=== PATIENT | female | born 1960 | race Caucasian/White ===

== ENCOUNTER 2020-07-03 13:26 | Outpatient (REF) | payer OTHER, SELFPAY ==
[2020-07-03 15:46] LABS: Cholesterol 209 mg/dL; HDL Cholesterol 65 mg/dL; LDL Cholesterol Calculated 134 mg/dl; Triglycerides 54 mg/dL
== END 2020-07-03 13:27 | disposition home or self-care (01) ==
LOC: HO.HMGCLDS 13:26
PROVIDERS: PCP Internal Medicine; Visit Provider Internal Medicine
DX: E78.2 Mixed hyperlipidemia (principal)
CPT/HCPCS: 80061

== ENCOUNTER → 2021-02-07 15:20 | Outpatient (BNVA) | payer OTHER, SELFPAY | PROVIDERS: PCP Internal Medicine; Referring Provider Internal Medicine; Visit Provider Surgery | DX: R10.9 Unspecified abdominal pain (principal) | CPT/HCPCS: 99212 ==

== ENCOUNTER 2021-03-12 16:20 | Emergency (ER) | payer OTHER, SELFPAY ==
[2021-03-12] VITALS (7 sets, daily range): BP systolic 166–209; BP diastolic 83–110; PULSE 49–82; RESP 14–18; TEMP 36.6–36.8; O2SAT 96–99; BMI 26.5
--- NOTE | ~2021-03-12 | CT_ITS ---
EXAMINATION: CT ABDOMEN AND PELVIS WITH CONTRAST CLINICAL INFORMATION: Mid abdominal pain. Leukocytosis. COMPARISON: CT abdomen and pelvis 12/11/2019 TECHNIQUE: Multidetector volumetric images were obtained from the superior aspect of the liver through the pubic symphysis following administration 85 mL of Omnipaque 350 intravenous contrast. Sagittal and coronal reformatted images were obtained on the technologist's workstation. Oral contrast: No This CT examination was performed using dose optimization techniques as appropriate, variously including the following: *Automated exposure control *Adjustment of mA and/or kV according to patient size (this includes techniques or standardized protocols for targeted exams where dose is matched to indication/reason for exam; i.e. extremities or head) *Use of iterative reconstruction technique DLP: 556 mGy-cm FINDINGS: LUNG BASES: Motion artifact degrades image quality in the lung bases. Some linear atelectasis in both lung bases. LIVER, GALLBLADDER, AND BILIARY TREE: The liver is normal in size, shape, and attenuation. No focal hepatic lesion or biliary ductal dilatation is present. The gallbladder is unremarkable with no evidence of radiopaque gallstones, gallbladder wall thickening, or obvious pericholecystic inflammatory changes. PANCREAS: Unremarkable. SPLEEN: Unremarkable. ADRENAL GLANDS: A heterogeneous 2.8 cm lesion in the right adrenal gland is unchanged, previous imaging demonstrated this to measure less than 10 Hounsfield units, this is most consistent with an adenoma. KIDNEYS AND URETERS: The kidneys enhance symmetrically. No hydronephrosis. A 1.4 cm cyst in the midpole of the left kidney does not require imaging follow-up. A 5 mm fat attenuation lesion in the mid/upper pole of the left kidney likely represents a small angiomyolipoma. BLADDER: Unremarkable. GASTROINTESTINAL TRACT: The small and large bowel are unremarkable. The appendix is unremarkable. ABDOMINAL WALL: There appears to be a recurrent defect in the anterior abdominal wall with a fat-containing hernia defect. The fascial defect measures approximately 6 mm (4, 306/621). No associated fluid collection LYMPH NODES: No lymphadenopathy. VASCULAR: Some atherosclerotic plaque throughout the aorta PELVIC VISCERA: Uterus is surgically absent. OSSEOUS STRUCTURES: No destructive bony lesions. Grade 1 anterolisthesis of L4 on L5. CT/CT abdomen pelvis w con IMPRESSION: 1. Suspect recurrence in the periumbilical fat-containing hernia with a small 6 mm fascial defect. No associated organized fluid collection. Minimal inflammatory changes associated with the fat within the hernia. 2. 2.8 cm left adrenal adenoma.
--- NOTE | 2021-03-12 17:30 | ED.ABDPAIN ---
HPI - Abdominal Pain General Chief Complaint: General Medical Stated Complaint: Chest pain Time Seen by Provider: 03/12/21 17:28 Source: patient Mode of arrival: ambulatory Limitations: no limitations History of Present Illness HPI narrative: Patient has history of asthma, hypothyroidism been complaining of epigastric pain with for last 2 days unable to history of same in the past. Also complaining of chills no diarrhea no fever no urinary complaints does have dry cough chronic. Patient denies any history of coronary artery disease pain stays in the epigastric area and goes to midsternal without any radiation Related Data Home Medications Medication Instructions Recorded Confirmed acetaminophen 650 mg mg PO 07/04/20 07/04/20 tablet,extended release albuterol sulfate 90 mcg/actuation 2 puff PO Q6H PRN 07/04/20 07/04/20 aerosol inhaler ibuprofen 800 mg tablet 800 mg PO TID 07/04/20 07/04/20 levothyroxine 50 mcg tablet 50 mcg PO DAILY 07/04/20 07/04/20 cyclobenzaprine 5 mg tablet 5 mg PO TID PRN 02/07/21 gabapentin 100 mg capsule 100 mg PO TID 02/07/21 ibuprofen 600 mg tablet 600 mg PO Q6H 02/07/21 lidocaine 5 % topical patch 1 patch TOPICAL DAILY 02/07/21 Previous Rx's Medication Instructions Recorded ondansetron 4 mg disintegrating 4 mg PO Q6-8H PRN #7 tab 03/12/21 tablet Allergies Allergy/AdvReac Type Severity Reaction Status Date / Time Penicillins [PENICILLINS] Allergy Intermediate RASH Verified 02/07/21 15:25 codeine [CODEINE] Allergy Mild RASH Verified 02/07/21 15:25 penicillin V Allergy Unknown unknown Verified 02/07/21 15:25 meloxicam AdvReac Unknown vomiting Verified 02/07/21 15:25 Review of Systems Review of Systems Yes all other systems are reviewed and are negative Physical Exam Vital Signs: Vital Signs: Last Vital Signs Temp 98.2 F 03/12/21 22:51 Pulse 82 03/12/21 23:31 Resp 17 03/12/21 23:31 BP 183/84 H 03/12/21 23:31 Pulse Ox 97 03/12/21 23:31 Body Mass Index 26.5 Appearance: Alert. Oriented X3. No acute distress. Eyes: PERRLA, No Nystagmus ENT: Pharynx normal. Oral Mucosa moist Neck: Normal inspection. Neck supple. CVS: Normal heart rate and rhythm. Pulses normal. Respiratory: No respiratory distress. Equal air entry bilateral, no wheezing/rales/rhonchi Abdomen: Soft , epigastric tenderness+ no rebound tenderness or guarding. Bowel sounds are present, no mass palpable, no CVA tenderness Skin: Skin warm and dry. Normal skin color. Normal skin turgor. Extremities: No lower extremity edema. No calf tenderness Neuro: Oriented X 3. MDM - Abdominal Pain MDM Narrative Medical decision making narrative: Patient's leukocytosis likely from vomiting and volume depletion no source of infection CT scan of the abdomen was negative for any acute pathology patient received IV fluids feeling much better high sensitive troponin without any significant delta change no acute EKG changes discharge patient home Medical Records Attestation: I reviewed the patient's medical records. Lab Data Attestation: I reviewed the patient's lab results. Result diagrams: 03/12/21 18:16 03/12/21 18:16 Labs: Lab Results 03/12/21 03/12/21 03/12/21 Range/Units 18:16 18:16 18:16 WBC 17.1 H (4.8-10.8) X10*3/uL RBC 4.10 L (4.20-5.50) X10*6/uL Hgb 12.8 (12.0-16.0) g/dl Hct 37.4 (37-47) % MCV 91.2 (80-98) fL MCH 31.2 (27.0-33.0) pg MCHC 34.2 (31.0-35.0) g/dl RDW 14.1 (11.0-16.0) % Plt Count 332 (160-400) X10*3/uL MPV 10.4 (9.4-12.3) fL Immature Gran % (Auto) 1.2 H (0.0-0.4) % Neut % (Auto) 85.7 H (45-73) % Lymph % (Auto) 8.5 L (20-40) % [place] % (Auto) 4.4 (2-11) % Eos % (Auto) 0.0 (0-4) % Baso % (Auto) 0.2 (0-2) % Lymph # (Auto) 1.5 (1.2-4.9) X10*3/uL [place] # (Auto) 0.8 (0.1-1.2) X10*3/uL Eos # (Auto) 0.0 (0.0-0.4) X10*3/uL Baso # (Auto) 0.0 (0.0-0.2) X10*3/uL Abs Immat Gran (auto) 0.20 H (0.00-0.03) X10*3/uL Absolute Neuts (auto) 14.6 H (2.0-8.3) X10*3/uL Absolute Nucleated RBC 0.000 (0.0-0.012) X10*3/uL Nucleated RBC % (auto) 0.0 (0.0-0.2) /100WBC Sodium 140 (135-145) mmol/L Potassium 3.5 (3.3-5.1) mmol/L Chloride 105 (96-108) mmol/L Carbon Dioxide 21 L (22-29) mmol/L Anion Gap 18 (12-20) BUN 14 (9-16) mg/dL Creatinine 0.69 (0.5-1.4) mg/dL Estim Creat Clear Calc 78.1 Estimated GFR > 60 Random Glucose 139 H (60-115) mg/dL Calcium 9.7 (8.4-10.2) mg/dL Total Bilirubin 0.4 (0.0-1.0) mg/dL AST 13 (5-31) U/L ALT 13 (0-31) U/L Alkaline Phosphatase 79 (39-117) U/L Troponin I High Sens (<3.5-17.0) ng/L Total Protein 7.2 (6.5-8.0) g/dL Albumin 4.7 (3.5-5.0) g/dL Lipase 6 L (8-78) U/L Urine Color Urine Appearance Urine pH (5.0-8.0) Ur Specific [place] (1.005-1.025) Urine Protein (NEG-TRACE) MG/DL Urine Glucose (UA) (NEG) MG/DL Urine Ketones (NEG) MG/DL Urine Blood (NEG) Urine Nitrite (NEG) Ur Leukocyte Esterase (NEG) Urine RBC (0) /HPF Urine WBC (0-4) /HPF Ur Squamous Epith Cells /LPF Urine Bacteria /LPF Hyaline Casts /LPF COVID-19 (KATERINE) Negative (Negative) COVID-19 Clin Com See Note 03/12/21 03/12/21 03/12/21 Range/Units 18:16 19:05 22:42 WBC (4.8-10.8) X10*3/uL RBC (4.20-5.50) X10*6/uL Hgb (12.0-16.0) g/dl Hct (37-47) % MCV (80-98) fL MCH (27.0-33.0) pg MCHC (31.0-35.0) g/dl RDW (11.0-16.0) % Plt Count (160-400) X10*3/uL MPV (9.4-12.3) fL Immature Gran % (Auto) (0.0-0.4) % Neut % (Auto) (45-73) % Lymph % (Auto) (20-40) % [place] % (Auto) (2-11) % Eos % (Auto) (0-4) % Baso % (Auto) (0-2) % Lymph # (Auto) (1.2-4.9) X10*3/uL [place] # (Auto) (0.1-1.2) X10*3/uL Eos # (Auto) (0.0-0.4) X10*3/uL Baso # (Auto) (0.0-0.2) X10*3/uL Abs Immat Gran (auto) (0.00-0.03) X10*3/uL Absolute Neuts (auto) (2.0-8.3) X10*3/uL Absolute Nucleated RBC (0.0-0.012) X10*3/uL Nucleated RBC % (auto) (0.0-0.2) /100WBC Sodium (135-145) mmol/L Potassium (3.3-5.1) mmol/L Chloride (96-108) mmol/L Carbon Dioxide (22-29) mmol/L Anion Gap (12-20) BUN (9-16) mg/dL Creatinine (0.5-1.4) mg/dL Estim Creat Clear Calc Estimated GFR Random Glucose (60-115) mg/dL Calcium (8.4-10.2) mg/dL Total Bilirubin (0.0-1.0) mg/dL AST (5-31) U/L ALT (0-31) U/L Alkaline Phosphatase (39-117) U/L Troponin I High Sens 4.0 5.4 (<3.5-17.0) ng/L Total Protein (6.5-8.0) g/dL Albumin (3.5-5.0) g/dL Lipase (8-78) U/L Urine Color STRAW Urine Appearance CLEAR Urine pH 6.0 (5.0-8.0) Ur Specific [place] 1.025 (1.005-1.025) Urine Protein 1+ H (NEG-TRACE) MG/DL Urine Glucose (UA) NEG (NEG) MG/DL Urine Ketones >=80 (NEG) MG/DL Urine Blood 1+ H (NEG) Urine Nitrite NEG (NEG) Ur Leukocyte Esterase NEG (NEG) Urine RBC 0-2 (0) /HPF Urine WBC 0-2 (0-4) /HPF Ur Squamous Epith Cells TRACE /LPF Urine Bacteria NONE /LPF Hyaline Casts 0-2 /LPF COVID-19 (KATERINE) (Negative) COVID-19 Clin Com Discharge Plan Discharge Clinical Impression: Acute gastroenteritis Patient Disposition: Home, Self-Care Instructions: Acute Nausea and Vomiting (ED) Additional Instructions: Drink plenty of fluids Medicine for nausea as advised Follow with PCP if not better Prescriptions: New ondansetron 4 mg tablet,disintegrating 4 mg PO Q6-8H PRN (Reason: nausea and vomiting) Qty: 7 RF: 0 No Action levothyroxine 50 mcg tablet 50 mcg PO DAILY RF: 0 acetaminophen 650 mg tablet extended release PO RF: 0 ibuprofen 800 mg tablet 800 mg PO TID RF: 0 albuterol sulfate 90 mcg/actuation HFA aerosol inhaler 2 puff PO Q6H PRNRF: 0 gabapentin 100 mg capsule 100 mg PO TID RF: 0 ibuprofen 600 mg tablet 600 mg PO Q6H RF: 0 lidocaine 5 % adhesive patch,medicated 1 patch topical DAILY RF: 0 cyclobenzaprine 5 mg tablet 5 mg PO TID PRNRF: 0 PMFSH Past Medical History Medical History Abdominal pain Arthritis Asthma Carpal tunnel syndrome of right wrist History of mammogram Hyperlipidemia Hypertension Hypothyroidism Positive colorectal cancer screening using Cologuard test Raynaud disease Tibia fracture Surgical History History of hysterectomy History of umbilical hernia repair S/P hysterectomy Family History Family History Father Stroke Mother No problems noted. Brother No problems noted. Sister No problems noted. Sister No problems noted. Sister No problems noted. Son No problems noted. Daughter No problems noted. Social History Social History Advance Directives: No Advance Directives Information Provided: No Patient : No
--- NOTE | 2021-03-12 17:39 | ECG_ITS ---
Test Reason : CP Blood Pressure : / mmHG Vent. Rate : 074 BPM Atrial Rate : 074 BPM P-R Int : 134 ms QRS Dur : 082 ms QT Int : 452 ms P-R-T Axes : 036 -01 063 degrees QTc Int : 501 ms Normal sinus rhythm Nonspecific ST and T wave abnormality Prolonged QT Abnormal ECG When compared with ECG of 24-SEP-2019 13:47, ST now depressed in Inferior leads Referred By: Dalton Olsen Electronically Signed By:ALYSON SULLIVAN
[2021-03-12] MEDS: ondansetron HCL 4 MG/2 ML VIAL IVPUSH ×2 (17:50→20:26)
[2021-03-12] MEDS: 0.9 % Sodium Chloride 1,000 ML 999 ML IVCONT ×2 (17:50→22:51)
[2021-03-12] MEDS: Famotidine/PF 20 MG/2 ML VIAL IVPUSH (17:52)
[2021-03-12 18:23] LABS: MANUAL DIFF FLAG NO
[2021-03-12 18:28] LABS: Basophils Percent Auto 0.2 % (0-2); Hematocrit 37.4 % (37-47); Hemoglobin 12.8 g/dl (12.0-16.0); Imm Gran Pct Auto 1.2 % (0.0-0.4); Lymphocytes Absolute Auto 1.5 X10*3/uL (1.2-4.9); Lymphocytes Percent Auto 8.5 % (20-40); Mean Corpuscular HGB Conc 34.2 g/dl (31.0-35.0); Mean Corpuscular Hemoglobin 31.2 pg (27.0-33.0); Mean Corpuscular Volume 91.2 fL (80-98); Mean Platelet Volume 10.4 fL (9.4-12.3); Monocytes Absolute Auto 0.8 X10*3/uL (0.1-1.2); Monocytes Percent Auto 4.4 % (2-11); Neutrophils Absolute Auto 14.6 X10*3/uL (2.0-8.3); Neutrophils Percent Auto 85.7 % (45-73); Platelet Count 332 X10*3/uL (160-400); Red Cell Distribution Width 14.1 % (11.0-16.0); White Blood Count 17.1 X10*3/uL (4.8-10.8)
[2021-03-12 18:40] LABS: COVID-19 Test Negative (Negative)
[2021-03-12 18:41] LABS: Alanine Aminotransferase 13 U/L (0-31); Albumin Level 4.7 g/dL (3.5-5.0); Alkaline Phosphatase 79 U/L (39-117); Anion Gap 18 (12-20); Aspartate Amino Transferase 13 U/L (5-31); Bilirubin Total 0.4 mg/dL (0.0-1.0); Blood Urea Nitrogen 14 mg/dL (9-16); Calcium 9.7 mg/dL (8.4-10.2); Carbon Dioxide 21 mmol/L (22-29); Chloride 105 mmol/L (96-108); Creatinine Clr Calc Pharmacy 78.1; Estimated Glomerular Filt Rate > 60; Glucose Random 139 mg/dL (60-115); Lipase 6 U/L (8-78); Potassium 3.5 mmol/L (3.3-5.1); Sodium 140 mmol/L (135-145); Total Protein 7.2 g/dL (6.5-8.0)
[2021-03-12 19:13] LABS: Glucose Urine UA NEG (NEG); Leukocyte Esterase Urine NEG (NEG); Nitrite Urine NEG (NEG); Specific Gravity - Urine 1.025 (1.005-1.025); UACC Culture Trigger NO; Urine Blood 1+ (NEG); Urine Ketones >=80 MG/DL (NEG); Urine Protein 1+ MG/DL (NEG-TRACE)
[2021-03-12 19:15] LABS: Appearance Urine CLEAR; Color Urine STRAW
[2021-03-12 19:24] LABS: RBC Urine 0-2 /HPF (0); WBC Urine 0-2 /HPF (0-4)
[2021-03-12 19:25] LABS: Hyaline Casts Urine 0-2 /LPF; Squamous Epithelial Cell Urine TRACE /LPF
[2021-03-12] MEDS: iohexoL 350 MG/ML 100 ML INFUS..BTL IV (20:20)
[2021-03-12] MEDS: Morphine Sulfate 4 MG/ML CARTRIDGE IVPUSH (20:27)
[2021-03-12 23:06] LABS: Troponin-I High Sensitivity 5.4 ng/L (<3.5-17.0)
== END 2021-03-13 00:06 | disposition home or self-care (01) ==
PROVIDERS: Emergency Provider Internal Medicine; PCP Internal Medicine
DX: K52.9 Noninfective gastroenteritis and colitis, unspecified (principal); R07.9 Chest pain, unspecified; Z79.899 Other long term (current) drug therapy; Z20.822 Contact with and (suspected) exposure to COVID-19
CPT/HCPCS: 36415; 74177; 80053; 81001; 83690; 84484; 85025; 87635; 93005; 96361; 96374; 96375; 96376; 99284; J2270; J2405; Q9967

== ENCOUNTER 2021-05-14 11:26 | Emergency (ER) | payer OTHER, SELFPAY ==
[2021-05-14 12:39] VITALS: BP 219/130; PULSE 73; RESP 18; TEMP 35.9; O2SAT 99; BMI 25.6
[2021-05-14] MEDS: Ondansetron ODT 4 MG TAB.RAPDIS TRANSLINGU (12:45)
[2021-05-14 13:09] LABS: MANUAL DIFF FLAG NO
[2021-05-14 13:14] LABS: Basophils Percent Auto 0.2 % (0-2); Eosinophils Percent Auto 0.1 % (0-4); Hematocrit 40.7 % (37.0-47.0); Hemoglobin 13.8 g/dl (12.0-16.0); Imm Gran Abs Auto 0.05 X10*3/uL (0.00-0.03); Imm Gran Pct Auto 0.3 % (0.0-0.4); Lymphocytes Absolute Auto 1.8 X10*3/uL (1.2-4.9); Lymphocytes Percent Auto 10.8 % (20-40); Mean Corpuscular HGB Conc 33.9 g/dl (31.0-35.0); Mean Corpuscular Hemoglobin 31.1 pg (27.0-33.0); Mean Corpuscular Volume 91.7 fL (80.0-98.0); Mean Platelet Volume 11.4 fL (9.4-12.3); Monocytes Absolute Auto 0.3 X10*3/uL (0.1-1.2); Neutrophils Absolute Auto 14.05 x10*3/uL (2.0-8.3); Neutrophils Percent Auto 86.6 % (45-73); Platelet Count 308 X10*3/uL (160-400); Red Blood Count 4.44 X10*6/uL (4.20-5.50); Red Cell Distribution Width 13.9 % (11.0-16.0); White Blood Count 16.2 X10*3/uL (4.8-10.8)
--- NOTE | 2021-05-14 13:15 | ECG_ITS ---
Test Reason : NAUSEA/VOMITING Blood Pressure : / mmHG Vent. Rate : 053 BPM Atrial Rate : 053 BPM P-R Int : 158 ms QRS Dur : 098 ms QT Int : 482 ms P-R-T Axes : 053 -01 036 degrees QTc Int : 452 ms Sinus bradycardia with sinus arrhythmia Possible Left atrial enlargement Otherwise normal ECG When compared with ECG of 12-MAR-2021 16:26, No significant changes seen Referred By: Phyllis Cai Electronically Signed By:CLARK ROBIN MD
--- NOTE | 2021-05-14 13:16 | ED_ITS ---
HPI - Nausea/Vomiting/Diarrhea General Chief complaint: Nausea/Vomiting/Diarrhea Stated complaint: vomiting Time Seen by Provider: 05/14/21 13:14 Source: patient Mode of arrival: ambulatory Limitations: no limitations History of Present Illness MD elicited complaint: nausea, vomiting and abdominal pain Pertinent past history: other (hx of same recently smokes THC daily for 30 years) Onset (ago): month(s) (1) Description of vomiting: food contents and watery Associated nausea: Yes Associated abdominal pain: Yes Location of pain: epigastric Pain consistency: constant Severity: moderate Quality: aching Exacerbating factors: eating and vomiting Relieving factors: none Context: marijuana use Associated symptoms: loss of appetite, malaise, nausea/vomiting and weakness Related Data Home Medications Medication Instructions Recorded Confirmed acetaminophen 650 mg mg PO 07/04/20 03/27/21 tablet,extended release albuterol sulfate 90 mcg/actuation 2 puff PO Q6H PRN 07/04/20 03/27/21 aerosol inhaler ibuprofen 800 mg tablet 800 mg PO TID 07/04/20 03/27/21 levothyroxine 50 mcg tablet 50 mcg PO DAILY 07/04/20 03/27/21 cyclobenzaprine 5 mg tablet 5 mg PO TID PRN 02/07/21 03/27/21 gabapentin 100 mg capsule 100 mg PO TID 02/07/21 03/27/21 ibuprofen 600 mg tablet 600 mg PO Q6H 02/07/21 03/27/21 lidocaine 5 % topical patch 1 patch TOPICAL DAILY 02/07/21 03/27/21 Previous Rx's Medication Instructions Recorded ondansetron 4 mg disintegrating 4 mg PO Q6-8H PRN #7 tab 03/12/21 tablet gabapentin 300 mg capsule 300 mg PO TID #90 cap 03/27/21 omeprazole 40 mg capsule,delayed 40 mg PO DAILY #90 cap 03/27/21 release ondansetron 4 mg disintegrating 4 mg PO Q8H PRN #20 tab 05/14/21 tablet promethazine 25 mg rectal 25 mg [place] Q6H PRN #12 ea 05/14/21 suppository Allergies Allergy/AdvReac Type Severity Reaction Status Date / Time Penicillins [PENICILLINS] Allergy Intermediate RASH Verified 03/27/21 11:05 codeine [CODEINE] Allergy Mild RASH Verified 03/27/21 11:05 penicillin V Allergy Unknown unknown Verified 03/27/21 11:05 meloxicam AdvReac Unknown vomiting Verified 03/27/21 11:05 Review of Systems Review of Systems: Constitutional : No Weight loss, No Fever, No Chills ENT/Mouth : No sore throat, No Rhinorrhea Eyes: No Swelling, No Redness Cardiovascular : No Chest Pain, No SOB, NoEdema Respiratory : No Cough, No Sputum, No Wheezing Gastrointestinal : Positive Nausea, Positive Vomiting, no Diarrhea, positive abdominal Pain, No Hematochezia, No Melena Genitourinary : No Dysuria, No Urinary Frequency, No Hematuria, No Urgency Musculoskeletal : No joint pain, No Myalgias, No Joint Swelling Skin : No Skin Lesions, No rash Neuro : pos Weakness, No Numbness, No Dizziness, No Headache Psych : No Anxiety/Panic, No Depression Heme/Lymph: No Bruising, No Lymphadenopathy Endocrine : No Polyuria, No Polydipsia All other systems reviewed and are negative. Gastrointestinal: Gastrointestinal: Reports nausea PMFSH Past Medical History Attestation statement: The following information was validated with the patient. Medical History Abdominal pain Arthritis Asthma Carpal tunnel syndrome of right wrist Compression fracture of body of thoracic vertebra Gastritis History of mammogram Hyperlipidemia Hypertension Hypothyroidism Positive colorectal cancer screening using Cologuard test Raynaud disease Tibia fracture Surgical History History of hysterectomy History of umbilical hernia repair S/P hysterectomy Family History Family History Father Stroke Mother No problems noted. Brother No problems noted. Sister No problems noted. Sister No problems noted. Sister No problems noted. Son No problems noted. Daughter No problems noted. Social History Social History Patient Tobacco Use Status: Current everyday Tobacco user e-Cigarette/Vaping Use: Never Used Advance Directives: No Advance Directives Information Provided: No Patient : No Current occupational status: unemployed Physical Exam Vital Signs: Vital Signs: Last Vital Signs Temp 96.7 F L 05/14/21 12:39 Pulse 63 05/14/21 15:24 Resp 18 05/14/21 15:24 BP 127/68 05/14/21 15:24 Pulse Ox 93 05/14/21 15:24 Body Mass Index 25.6 Appearance: Alert. Oriented X3. Anxious mild acute distress. Eyes: Pupils equal, round and reactive to light. ENT: Pharynx mild dry MM Neck: Normal inspection. Neck supple. CVS: Normal heart rate and rhythm. Pulses normal. Respiratory: No respiratory distress. Breath sounds normal. Abdomen: Soft and mild epigatric ttp no rebound or guarding Skin: Skin warm and dry. Normal skin color. Normal skin turgor. Extremities: No lower extremity edema. No calf ttp Neuro: Oriented X 3. No motor deficit. No sensory deficit. Course Course Course Narrative: patient asleep no further vomiting at this time signed out to Dr. Abarca pending PO challenge MDM - Nausea/Vomiting/Diarrhea MDM Narrative Medical decision making narrative: 61 yo female with hx of hypothyroidism, asthma, HLD, here recently with abdominal pain and vomiting - dx with gastritis she is a daily THC user but denies this is the cause at this time will need la bs, IVF x2L, anti emeitics, EKG, basic blood work had CT scan in February for similar episode her abdomen has no peritoneal signs - will hold off imaging unless severe lab derangement. Lab Data Result diagrams: 05/14/21 12:37 05/14/21 12:37 Labs: Lab Results 05/14/21 05/14/21 05/14/21 Range/Units 12:37 12:37 12:37 WBC 16.2 H (4.8-10.8) X10*3/uL RBC 4.44 (4.20-5.50) X10*6/uL Hgb 13.8 (12.0-16.0) g/dl Hct 40.7 (37.0-47.0) % MCV 91.7 (80.0-98.0) fL MCH 31.1 (27.0-33.0) pg MCHC 33.9 (31.0-35.0) g/dl RDW 13.9 (11.0-16.0) % Plt Count 308 (160-400) X10*3/uL MPV 11.4 (9.4-12.3) fL Immature Gran % (Auto) 0.3 (0.0-0.4) % Neut % (Auto) 86.6 H (45-73) % Lymph % (Auto) 10.8 L (20-40) % [place] % (Auto) 2.0 (2-11) % Eos % (Auto) 0.1 (0-4) % Baso % (Auto) 0.2 (0-2) % Lymph # (Auto) 1.8 (1.2-4.9) X10*3/uL [place] # (Auto) 0.3 (0.1-1.2) X10*3/uL Eos # (Auto) 0.0 (0.0-0.4) X10*3/uL Baso # (Auto) 0.0 (0.0-0.2) X10*3/uL Abs Immat Gran (auto) 0.05 H (0.00-0.03) X10*3/uL Absolute Neuts (auto) 14.05 H (2.0-8.3) x10*3/uL Absolute Nucleated RBC 0.000 (0.0-0.012) X10*3/uL Nucleated RBC % (auto) 0.0 (0.0-0.2) /100WBC Sodium 142 (135-145) mmol/L Potassium 3.4 (3.3-5.1) mmol/L Chloride 107 (96-108) mmol/L Carbon Dioxide 20 L (22-29) mmol/L Anion Gap 18 (12-20) BUN 13 (9-16) mg/dL Creatinine 0.77 (0.5-1.4) mg/dL Estim Creat Clear Calc 68.9 Estimated GFR > 60 Random Glucose 135 H (60-115) mg/dL Calcium 9.6 (8.4-10.2) mg/dL Magnesium 1.9 (1.6-2.6) mg/dL Total Bilirubin 0.4 (0.0-1.0) mg/dL AST 14 (5-31) U/L ALT 8 (0-31) U/L Alkaline Phosphatase 79 (39-117) U/L Troponin I High Sens < 3.5 (<3.5-17.0) ng/L Total Protein 6.9 (6.5-8.0) g/dL Albumin 4.7 (3.5-5.0) g/dL Lipase 11 (8-78) U/L Urine Color Urine Appearance Urine pH (5.0-8.0) Ur Specific [place] (1.005-1.025) Urine Protein (NEG-TRACE) MG/DL Urine Glucose (UA) (NEG) MG/DL Urine Ketones (NEG) MG/DL Urine Blood (NEG) Urine Nitrite (NEG) Ur Leukocyte Esterase (NEG) Urine RBC (0) /HPF Urine WBC (0-4) /HPF Ur Squamous Epith Cells /LPF Urine Bacteria /LPF Urine Mucus /LPF 05/14/21 Range/Units 13:59 WBC (4.8-10.8) X10*3/uL RBC (4.20-5.50) X10*6/uL Hgb (12.0-16.0) g/dl Hct (37.0-47.0) % MCV (80.0-98.0) fL MCH (27.0-33.0) pg MCHC (31.0-35.0) g/dl RDW (11.0-16.0) % Plt Count (160-400) X10*3/uL MPV (9.4-12.3) fL Immature Gran % (Auto) (0.0-0.4) % Neut % (Auto) (45-73) % Lymph % (Auto) (20-40) % [place] % (Auto) (2-11) % Eos % (Auto) (0-4) % Baso % (Auto) (0-2) % Lymph # (Auto) (1.2-4.9) X10*3/uL [place] # (Auto) (0.1-1.2) X10*3/uL Eos # (Auto) (0.0-0.4) X10*3/uL Baso # (Auto) (0.0-0.2) X10*3/uL Abs Immat Gran (auto) (0.00-0.03) X10*3/uL Absolute Neuts (auto) (2.0-8.3) x10*3/uL Absolute Nucleated RBC (0.0-0.012) X10*3/uL Nucleated RBC % (auto) (0.0-0.2) /100WBC Sodium (135-145) mmol/L Potassium (3.3-5.1) mmol/L Chloride (96-108) mmol/L Carbon Dioxide (22-29) mmol/L Anion Gap (12-20) BUN (9-16) mg/dL Creatinine (0.5-1.4) mg/dL Estim Creat Clear Calc Estimated GFR Random Glucose (60-115) mg/dL Calcium (8.4-10.2) mg/dL Magnesium (1.6-2.6) mg/dL Total Bilirubin (0.0-1.0) mg/dL AST (5-31) U/L ALT (0-31) U/L Alkaline Phosphatase (39-117) U/L Troponin I High Sens (<3.5-17.0) ng/L Total Protein (6.5-8.0) g/dL Albumin (3.5-5.0) g/dL Lipase (8-78) U/L Urine Color YELLOW Urine Appearance CLEAR Urine pH 7.0 (5.0-8.0) Ur Specific [place] 1.020 (1.005-1.025) Urine Protein 1+ H (NEG-TRACE) MG/DL Urine Glucose (UA) 100 H (NEG) MG/DL Urine Ketones NEG (NEG) MG/DL Urine Blood 2+ H (NEG) Urine Nitrite NEG (NEG) Ur Leukocyte Esterase NEG (NEG) Urine RBC 15-29 H (0) /HPF Urine WBC 0-2 (0-4) /HPF Ur Squamous Epith Cells 1+ /LPF Urine Bacteria NONE /LPF Urine Mucus 1+ /LPF ECG Data Attestation: I personally reviewed and interpreted this ECG as follows: ECG interpretation date: 05/14/21 ECG interpretation time: 14:12 Interpretation: Rate: 53 Rhythm: sinus bradycardia [place]: left Normal P waves. Normal NATA. Normal QRS complex. ST T wave : normal no KYA qTC: normal prior studies: no acute ischemia The study has been interpreted contemporaneously by me. . Critical Care Time Critical Care Time Critical Care Time: Yes Total Critical Care Time: 45 Attestation: repeat IVF x 2L, repeat nausea medications, review of records I attest to this time spent taking care of the patient Discharge Plan Discharge Clinical Impression: Vomiting Qualifiers: Vomiting type: unspecified Vomiting Intractability: non-intractable Nausea presence: with nausea Qualified Code(s): R11.2 - Nausea with vomiting, unspecified Leukocytosis Qualifiers: Leukocytosis type: unspecified Qualified Code(s): D72.829 - Elevated white blood cell count, unspecified Instructions: Acute Nausea and Vomiting (ED), Leukocytosis (ED) Additional Instructions: return to ED for any worsening symptoms or concerns please attempt trial off of marijuana it can stay in your system for several weeks so you may still vomit during that time Prescriptions: New ondansetron 4 mg tablet,disintegrating 4 mg PO Q8H PRN (Reason: nausea and vomiting) Qty: 20 RF: 0 promethazine 25 mg suppository 25 mg [place] Q6H PRN (Reason: nausea and vomiting) Qty: 12 RF: 0 No Action ondansetron 4 mg tablet,disintegrating 4 mg PO Q6-8H PRN (Reason: nausea and vomiting) Qty: 7 RF: 0 levothyroxine 50 mcg tablet 50 mcg PO DAILY RF: 0 acetaminophen 650 mg tablet extended release PO RF: 0 ibuprofen 800 mg tablet 800 mg PO TID RF: 0 albuterol sulfate 90 mcg/actuation HFA aerosol inhaler 2 puff PO Q6H PRNRF: 0 omeprazole 40 mg capsule,delayed release(DR/EC) 40 mg PO DAILY Qty: 90 RF: 0 gabapentin 300 mg capsule 300 mg PO TID Qty: 90 RF: 1 gabapentin 100 mg capsule 100 mg PO TID RF: 0 ibuprofen 600 mg tablet 600 mg PO Q6H RF: 0 lidocaine 5 % adhesive patch,medicated 1 patch topical DAILY RF: 0 cyclobenzaprine 5 mg tablet 5 mg PO TID PRNRF: 0
[2021-05-14 13:27] LABS: Alanine Aminotransferase 8 U/L (0-31); Albumin Level 4.7 g/dL (3.5-5.0); Alkaline Phosphatase 79 U/L (39-117); Anion Gap 18 (12-20); Aspartate Amino Transferase 14 U/L (5-31); Bilirubin Total 0.4 mg/dL (0.0-1.0); Blood Urea Nitrogen 13 mg/dL (9-16); Calcium 9.6 mg/dL (8.4-10.2); Carbon Dioxide 20 mmol/L (22-29); Chloride 107 mmol/L (96-108); Creatinine Clr Calc Pharmacy 68.9; Estimated Glomerular Filt Rate > 60; Glucose Random 135 mg/dL (60-115); Potassium 3.4 mmol/L (3.3-5.1); Sodium 142 mmol/L (135-145); Total Protein 6.9 g/dL (6.5-8.0)
[2021-05-14 13:32] LABS: Lipase 11 U/L (8-78); Magnesium 1.9 mg/dL (1.6-2.6)
[2021-05-14 13:44] LABS: Troponin-I High Sensitivity < 3.5 ng/L (<3.5-17.0)
[2021-05-14] MEDS: diphenhydrAMINE HCL 50 MG/ML VIAL 25 MG IVPUSH (14:04)
[2021-05-14] MEDS: Metoclopramide HCl 10 MG/2 ML VIAL IVPUSH (14:04)
[2021-05-14] MEDS: Famotidine/PF 20 MG/2 ML VIAL IVPUSH (14:04)
[2021-05-14 14:05] LABS: Appearance Urine CLEAR; Color Urine YELLOW; Glucose Urine UA 100 MG/DL (NEG); Leukocyte Esterase Urine NEG (NEG); Nitrite Urine NEG (NEG); UACC Culture Trigger NO; Urine Blood 2+ (NEG); Urine Ketones NEG (NEG); Urine Protein 1+ MG/DL (NEG-TRACE)
[2021-05-14] MEDS: 0.9 % Sodium Chloride 1,000 ML 999 ML IV (14:05)
[2021-05-14 14:15] LABS: Mucus Urine 1+ /LPF; Squamous Epithelial Cell Urine 1+ /LPF; WBC Urine 0-2 /HPF (0-4)
[2021-05-14] MEDS: LORazepam 2 MG/ML VIAL 1 MG IVPUSH (14:27)
[2021-05-14 15:24] VITALS: BP 127/68; PULSE 63; RESP 18; O2SAT 93
== END 2021-05-14 19:03 | disposition home or self-care (01) ==
PROVIDERS: Emergency Provider Emergency Medicine; PCP Internal Medicine
DX: R11.2 Nausea with vomiting, unspecified (principal); D72.829 Elevated white blood cell count, unspecified; I10 Essential (primary) hypertension; J45.909 Unspecified asthma, uncomplicated; F12.90 Cannabis use, unspecified, uncomplicated
CPT/HCPCS: 36415; 80053; 81001; 83690; 83735; 84484; 85025; 93005; 96361; 96374; 96375; 99284; 99291; J1200; J2060; J2765

== ENCOUNTER 2021-08-08 09:01 | Day surgery (SDC) | payer OTHER, SELFPAY ==
--- NOTE | 2021-08-07 09:34 | HO.ANESPROP2 ---
Documented by User: Adali Hall NP 08/07/21 09:35 HPI - Anesthesia Eval Consult details Narrative: 61yo F for Upper Endoscopy and Colonoscopy [facility] Active Problems Active Problems: All Active Problems (Updated 05/15/21 @ 00:02 by Jojo Fink) Gastritis (Acute) Compression fracture of body of thoracic vertebra (Acute) Abdominal pain (Acute) Hypothyroidism (Acute) History of hysterectomy (Acute) Asthma (Acute) Hyperlipidemia (Acute) Past Medical History Medical History Abdominal pain Arthritis Asthma Carpal tunnel syndrome of right wrist Compression fracture of body of thoracic vertebra Gastritis History of mammogram Hyperlipidemia Hypertension Hypothyroidism Positive colorectal cancer screening using Cologuard test Raynaud disease Tibia fracture Family History Family History Father Stroke Mother No problems noted. Brother No problems noted. Sister No problems noted. Sister No problems noted. Sister No problems noted. Son No problems noted. Daughter No problems noted. Surgical History Surgical History History of hysterectomy History of umbilical hernia repair S/P hysterectomy Social History Social History Patient Tobacco Use Status: Current everyday Tobacco user Tobacco use type: Cigarette e-Cigarette/Vaping Use: Never Used Use of substances other than those prescribed or required for medical reasons: Yes Have you been hit, kicked, punched, or otherwise hurt by someone within the past year? If so, by whom?: No Are you DNR?: No Advance Directives: No Advance Directives Information Provided: Yes Patient : No Current occupational status: unemployed Meds Allergies Allergy/AdvReac Type Severity Reaction Status Date / Time Penicillins [PENICILLINS] Allergy Intermediate RASH Verified 03/27/21 11:05 codeine [CODEINE] Allergy Mild RASH Verified 03/27/21 11:05 penicillin V Allergy Unknown unknown Verified 03/27/21 11:05 meloxicam AdvReac Unknown vomiting Verified 03/27/21 11:05 Home Medications Medication Instructions Recorded Confirmed Last Taken Type albuterol sulfate 90 mcg/actuation 2 puff PO Q6H PRN 07/04/20 03/27/21 Unknown History aerosol inhaler ibuprofen 800 mg tablet 800 mg PO TID 07/04/20 03/27/21 Unknown History levothyroxine 50 mcg tablet 50 mcg PO DAILY 07/04/20 03/27/21 Unknown History cyclobenzaprine 5 mg tablet 5 mg PO TID PRN 02/07/21 03/27/21 Unknown History ibuprofen 600 mg tablet 600 mg PO Q6H 02/07/21 03/27/21 Unknown History lidocaine 5 % topical patch 1 patch TOPICAL DAILY 02/07/21 03/27/21 Unknown History Exam Exam Date and Time: August 07, 2021 0934 Pertinent Lab Results Pertinent Lab Results: Laboratory Tests 05/14/21 05/14/21 12:37 12:37 WBC 16.2 H Hgb 13.8 Hct 40.7 Plt Count 308 Sodium 142 Potassium 3.4 Chloride 107 Carbon Dioxide 20 L BUN 13 Creatinine 0.77 Narrative Narrative: EKG 05/2021 Vent. Rate : 053 BPM ? ? Atrial Rate : 053 BPM ?? P-R Int : 158 ms? QRS Dur : 098 ms ? ? QT Int : 482 ms ? ? ? P-R-T Axes : 053 -01 036 degrees ?? QTc Int : 452 ms ? Sinus bradycardia with sinus arrhythmia Possible Left atrial enlargement Otherwise normal ECG When compared with ECG of 12-MAR-2021 16:26, No significant changes seen Assessment and Plan Assessment Anesthesia Assessment: Chart Reviewed Documented by User: Destiny Gallardo MD 08/08/21 10:34 [facility] Past Medical History Medical History Abdominal pain Arthritis Asthma Carpal tunnel syndrome of right wrist Compression fracture of body of thoracic vertebra Gastritis History of mammogram Hyperlipidemia Hypertension Hypothyroidism Positive colorectal cancer screening using Cologuard test Raynaud disease Tibia fracture Family History Family History Father Stroke Mother No problems noted. Brother No problems noted. Sister No problems noted. Sister No problems noted. Sister No problems noted. Son No problems noted. Daughter No problems noted. Family history of problems with anesthesia: No Surgical History Surgical History History of hysterectomy History of umbilical hernia repair S/P hysterectomy History of Problems with Anesthesia: No Social History Social History Patient Tobacco Use Status: Current everyday Tobacco user Tobacco use type: Cigarette e-Cigarette/Vaping Use: Never Used Use of substances other than those prescribed or required for medical reasons: Yes Have you been hit, kicked, punched, or otherwise hurt by someone within the past year? If so, by whom?: No Are you DNR?: No Advance Directives: No Advance Directives Information Provided: Yes Patient : No Current occupational status: unemployed Meds Allergies Allergy/AdvReac Type Severity Reaction Status Date / Time Penicillins [PENICILLINS] Allergy Intermediate RASH Verified 03/27/21 11:05 codeine [CODEINE] Allergy Mild RASH Verified 03/27/21 11:05 penicillin V Allergy Unknown unknown Verified 03/27/21 11:05 meloxicam AdvReac Unknown vomiting Verified 03/27/21 11:05 Home Medications Medication Instructions Recorded Confirmed Last Taken Type albuterol sulfate 90 mcg/actuation 2 puff PO Q6H PRN 07/04/20 03/27/21 Unknown History aerosol inhaler ibuprofen 800 mg tablet 800 mg PO TID 07/04/20 03/27/21 Unknown History levothyroxine 50 mcg tablet 50 mcg PO DAILY 07/04/20 03/27/21 Unknown History cyclobenzaprine 5 mg tablet 5 mg PO TID PRN 02/07/21 03/27/21 Unknown History ibuprofen 600 mg tablet 600 mg PO Q6H 02/07/21 03/27/21 Unknown History lidocaine 5 % topical patch 1 patch TOPICAL DAILY 02/07/21 03/27/21 Unknown History Exam Airway Mallampati Class: II TM Dist: >3cm Neck ROM: Full Heart: rrr Lungs: cta Assessment and Plan Assessment Anesthesia Assessment: Anesthesia Plan Discussed and Chart Reviewed Final Anesthetic Review Family History of Problems with Anesthesia: No History of Problems with Anesthesia: No NPO: Yes ASA Class: II Final Preanesthetic Review: No Changes in Pt Med Stat, Meds/Allgs Chart Reviewed and Consent Obtained/Reviewed Patient Risk: Intermediate Procedure Risk: Intermediate Anesthetic Plan Anesthetic Plan: MAC: Disposition: Standard PACU
[2021-08-08] VITALS (8 sets, daily range): BP systolic 115–220; BP diastolic 83–115; PULSE 57–96; RESP 16–20; TEMP 36.1–36.3; O2SAT 91–100; BMI 24.5
--- NOTE | 2021-08-08 09:11 | MHC.SHP ---
Pre-Procedural Eval Section A Date of Service: 08/08/21 Section B Chief Complaint: diarrhea,nausea Relevant Family History (Specify if Yes): No Relevant Social History: None Present Medications: see Short Stay Collaborative assessment Medical History: Significant History (Abdominal pain Arthritis Asthma Carpal tunnel syndrome of right wrist Compression fracture of body of thoracic vertebra Gastritis History of mammogram Hyperlipidemia Hypertension Hypothyroidism Positive colorectal cancer screening using Cologuard test Raynaud disease Tibia fracture) History of Previous Operations: Relevant previous surgery/procedure and date(s) (History of hysterectomy History of umbilical hernia repair S/P hysterectomy) Allergies: Allergies Allergy/AdvReac Type Severity Reaction Status Date / Time Penicillins [PENICILLINS] Allergy Intermediate RASH Verified 03/27/21 11:05 codeine [CODEINE] Allergy Mild RASH Verified 03/27/21 11:05 penicillin V Allergy Unknown unknown Verified 03/27/21 11:05 meloxicam AdvReac Unknown vomiting Verified 03/27/21 11:05 Review of Systems Sugical H&P ROS: Negative: Constitution, Cardiovascular, Respiratory, Neurological, Psychiatric, Hem-Onc, Allergic/Immunologic, Gastrointestinal, Genitourinary, Musculoskeletal, Integumentary, Endocrine and Eyes/Ears/Nose/Throat Exam Surgical H&P Exam: Normal: HEENT, Normal: Heart, Normal: Lungs, Normal: Extremities, Normal: Abdomen, Normal: Skin and Normal: Neurological Plan Diagnosis/Plan: Unchanged I have reviewed the history and physical and performed a pertinent physical examination on my patient. No changes have occurred unless specified.
[2021-08-08] MEDS: Lactated Ringers 1,000 ML 100 ML IVCONT (09:29)
--- NOTE | 2021-08-08 10:27 | P.BOP_ITS ---
Brief Operative Note Date of Service: 08/08/21 Pre-op diagnosis: nausea, vomiting Post-op diagnosis: same Procedure: see op note Surgeon: Reji June MD Anesthesia: MAC Was an Excavating Contractor used for this Procedure?: No Estimated blood loss (mL): 0 Condition: stable Disposition: PACU
--- NOTE | 2021-08-08 10:48 | W.PM.OPN ---
Operative Note Operative Note Date of Service: 08/08/21 Narrative: Procedure Description: EGD FLEXIBLE TRANSORAL UPPER GASTROINTESTINAL ENDOSCOPY UPPER ENDOSCOPY Consent: Indications for the procedure and potential complications of bleeding, perforation, reaction to medications and missed diagnosis were discussed with the patient and informed consent was obtained. Instrument: Olympus GIF H 190 J mid size upper endoscope Monitoring: Vital signs and clinical assessment, continuous EKG monitoring, Pulse oximetry, Carbon Dioxide monitoring and blood pressure monitoring were done throughout the procedure. Procedure: The patient was placed in the left lateral decubitis position and pre-procedure medications were administered and a bite block was placed. The endoscope was inserted into the mouth and advanced under direct vision to the third part of duodenum. A careful inspection was made as the upper endoscope was withdrawn including a retroflexed examination of the proximal stomach; Findings and interventions are described below. Findings: Larynx:normal Esophagus: GE junction at 34 cm, diaphragm hiatus at 37 cm, 3cm sliding hiatal hernia noted, non obstructive thickened schatzki ring noted with erosive esophagitis and nodularity at GEJ, bx taken. One area kept oozing so x 2 clips applied for hemostasis. Stomach: Patchy gastric erythema with few erosions. Biopsies were obtained. Grade 2 flap valve on retroflexed examination of the cardia. Duodenum: Bulbar duodenitis, bx taken Intervention: Biopsies as noted above, x 2 clips applied for hemostasis Impression/Findings: schatzki ring erosive esophagitis erosive gastritis hiatal hernia duodenitis PLAN: check PPI compliance, consider changing formulation or adding carafate confirm NSAId hx if H pylori pos then treat encourage smoking cessation
[2021-08-08] MEDS: ondansetron HCL 4 MG/2 ML VIAL IVPUSH (11:54)
--- NOTE | 2021-08-08 12:17 | PC.NURSE ---
patient iv found to be infiltrating and complaining of pain. new iv started by natalie rodriguez, #22 left ac. patient indicated needed to void. ambulated to bathroom voided large amount urine.
[2021-08-08] MEDS: hydrALAZINE HCl 20 MG/ML VIAL 10 MG IVPUSH (12:25)
--- NOTE | 2021-08-08 13:34 | PC.NURSE ---
PATIENT ASSISTING TO DRESS AT BEDSIDE. REPORTS RECURRENCE OF NAUSEA. OFFERED ADDITIONAL ANTIEMETICS REFUSING I JUST WANT TO GO HOME . PATIENT PUTTING FINGERS DOWN HER THROAT ATTEMPT TO VOMIT. ADVISED RISK OF DOING SO. CONTINUES TO REFUSE ADDITIONAL MEDICATIONS FOR NAUSEA REPORTS HAS PO IRINA AT HOME.
--- NOTE | 2021-08-08 14:08 | PC.NURSE ---
PT CONTINUED TO REPORT NAUSEA WHILE IN DISCHARGE AREA. DR. MALDONADO NOTIFIED ONCE AGAIN THAT PT NOT FEELING WELL. DR. MALDONADO STATES PATIENT WANTS TO GO HOME AND WON'T STAY. TAYLOR ADVISED BY THIS RN. PT ENCOURAGED TO F/U WITH HER PCP REGARDING HER BP WELL TO GO TO THE ED IF SYMPTOMS CONTINUE. PT STATED SHE WOULD. PT'S SISTER ALSO ADVISED WHEN PATIENT BROUGHT OUT TO THE CAR.
== END 2021-08-08 14:14 | disposition home or self-care (01) ==
PROVIDERS: PCP Internal Medicine; Visit Provider Internal Medicine Gastroenterology
PROC: 0DJ08ZZ Inspection of Upper Intestinal Tract, Via Natural or Artificial Opening Endoscopic (ICD-10-PCS; CPT 43235; principal; 2021-08-08 10:10)
DX: R19.7 Diarrhea, unspecified (principal); K29.60 Other gastritis without bleeding; K22.2 Esophageal obstruction; K29.80 Duodenitis without bleeding; K20.80 Other esophagitis without bleeding; K44.9 Diaphragmatic hernia without obstruction or gangrene; F17.210 Nicotine dependence, cigarettes, uncomplicated; F12.90 Cannabis use, unspecified, uncomplicated; Z79.1 Long term (current) use of non-steroidal anti-inflammatories (NSAID); Z79.899 Other long term (current) drug therapy; Z88.0 Allergy status to penicillin; Z88.8 Allergy status to other drugs, medicaments and biological substances
CPT/HCPCS: 43239; 88305; 88342; J2405; J2550

== ENCOUNTER → 2021-09-24 09:49 | Outpatient (BNVA) | payer OTHER, SELFPAY | PROVIDERS: PCP Internal Medicine; Referring Provider Internal Medicine; Visit Provider Internal Medicine Gastroenterology | DX: R11.2 Nausea with vomiting, unspecified (principal) | CPT/HCPCS: 99212 ==

== ENCOUNTER → 2021-10-31 08:04 | Outpatient (REF) | payer OTHER, SELFPAY ==
--- NOTE | ~2021-10-31 | NM_ITS ---
EXAMINATION: RADIONUCLIDE SOLID FOOD GASTRIC EMPTYING 4-HOUR STUDY CLINICAL INFORMATION: Early satiety. COMPARISON: No previous gastric emptying study is available for comparison. TECHNIQUE: A standard meal consisting of 4 oz of Egg Beaters brand equivalent tagged with 900 microcuries Tc-99m Sulfur Colloid, 8 oz water and 2 slices of toast with jelly was administered orally to the patient. Images were obtained using a dual head gamma camera in the anterior and posterior projections over of the stomach immediately post ingestion and at hourly intervals up to 4 hours post ingestion. The anterior and posterior counts at each time interval were averaged using the geometric mean and expressed as percentage of the immediate post ingestion counts. FINDINGS: There is good visualization of activity in the stomach immediately post ingestion. As the study progresses, there is good clearance of activity from the stomach and visualization of progressively increasing small bowel activity. By the end of the study, there is almost no retention noted in the stomach. Retention in the stomach at each time interval was: 1 hour 61% (normal 37%-90%) 2 hours 28% (normal 30%-60%) 3 hours 11% 4 hours 5% (normal 0%-10%) NM/NM gastric emptying study IMPRESSION: Normal 4-hour solid food gastric emptying study.
== END ==
LOC: HO.NUCMED 08:04
PROVIDERS: PCP Internal Medicine; Visit Provider Internal Medicine Gastroenterology
DX: R68.81 Early satiety (principal)
CPT/HCPCS: 78264; A9541

== ENCOUNTER 2021-11-15 15:04 | Emergency (ER) | payer OTHER, SELFPAY ==
--- NOTE | ~2021-11-15 | CT_ITS ---
Indication; QUESTION PNEUMONIA, HISTORY OF GASTRITIS AND ESOPHAGITIS. EPIGASTRIC AND ABDOMINAL PAIN Examination: CT of the chest abdomen pelvis noncontrast COMPARISON: 03/12/2021 TECHNIQUE: Axial imaging with coronal and sagittal reformatted images. This CT examination was performed using dose optimization techniques as appropriate, variously including the following: *Automated exposure control *Adjustment of mA and/or kV according to patient size (this includes techniques or standardized protocols for targeted exams where dose is matched to indication/reason for exam; i.e. extremities or head) *Use of iterative reconstruction technique. Radiation dose 154 and 318 FINDINGS: Lack of intravenous and oral contrast limits this exam. CT chest; The thoracic inlet is within normal limits. The axillary regions are unremarkable. Centrally there is no bulky adenopathy. No contrast is given here but the hilar regions do not appear pathologically enlarged. Imaging lung meier. Right lung; There is no infiltrate or effusion. Right medial basilar atelectasis or scarring. 3 mm nodule on image 313 of series 7 Left lung; No significant infiltrate or effusion. Left medial basilar atelectasis or scarring. 2 mm nodule on image 119 posterior left upper lung. 2 mm nodule on image 123 Upper abdomen; Again lack of intravenous and oral contrast limits this exam. Liver is grossly unremarkable. Spleen grossly within normal limits. The pancreas is poorly defined however there is no free fluid in the region. There is a right adrenal lesion once again seen.. Measures 3 x 2.5 cm x 3.7. Previously 2.8 x 2.5 x 3 cm. Low Hounsfield units therefore this could represent adenomatous change but this cannot be said with certainty. It is felt to be enlarging from previous Region of the left adrenal is within normal limits. The kidneys appear nonhydronephrotic. The left renal lesions seen previously are not as adequately visualized here. There is probable small angiomyolipoma left kidney. The bowel pattern is felt to be nonobstructing. There is no free fluid. Calcified vasculature but no obvious aneurysmal change. Once again periumbilical herniation of fat with mild soft tissue stranding. No significant change compared to previous. The bladder is within normal limits. There is no bulky adenopathy here. Review of the bone windows demonstrates mild grade 1 anterolisthesis of L4 and L5. No compression injury. No evidence for a lesion. There is mid to anterior compression at D9. This appears chronic. Kyphosis created in the region. Some loss of superior height at D10. CT/CT abdomen pelvis wo con IMPRESSION: Lack of oral and intrathecal contrast limits this exam. In the chest there is mild bilateral basilar atelectasis or scarring at the bases. No large area of infiltrate or effusion. Some nodular densities are described in the lungs. Recommendation is low-dose noncontrast study in 9 months to a year for continued evaluation. In the abdomen pelvis enlarging left adrenal gland. This cannot be said to be a simple adenoma. Recommend dedicated CT adrenal protocol for full evaluation. Again lack of contrast limits this exam. The bowel pattern is felt to be nonobstructing. There is no free fluid. Once again some herniation periumbilical region with some mild associated soft tissue stranding is similar appearance to previous. Mid to anterior compression at D9 which appears chronic. Kyphosis is created. Correlation recommended clinically
[2021-11-15 15:16] VITALS: BP 137/98; PULSE 115; RESP 18; TEMP 37; O2SAT 98; BMI 21.1
--- NOTE | 2021-11-15 15:49 | ECG_ITS ---
Test Reason : NAUSEA Blood Pressure : / mmHG Vent. Rate : 097 BPM Atrial Rate : 097 BPM P-R Int : 128 ms QRS Dur : 086 ms QT Int : 396 ms P-R-T Axes : 084 -39 080 degrees QTc Int : 502 ms Normal sinus rhythm Right atrial enlargement Left axis deviation Pulmonary disease pattern Minimal voltage criteria for LVH, may be normal variant ( Jarod product ) Prolonged QT Abnormal ECG When compared with ECG of 14-MAY-2021 13:47, Vent. rate has increased BY 44 BPM QT has lengthened Referred By: Garrett Mckeon Electronically Signed By:AYLEEN SANCHEZ MD
[2021-11-15] MEDS: 0.9 % Sodium Chloride 1,000 ML 999 ML IV (16:01)
[2021-11-15] MEDS: Famotidine/PF 20 MG/2 ML VIAL IVPUSH (16:06)
[2021-11-15] MEDS: Lidocaine HCl Viscous 2 % 15 ML SOLUTION MUCOUS MEM (16:07)
[2021-11-15] MEDS: Magnesium Hydrox/Alum Hydrox 30 ML ORAL.SUSP PO (16:07)
[2021-11-15] MEDS: PHENobarb/Hyoscy/Atropine/Scop 10 ML ELIXIR PO (16:07)
[2021-11-15 16:18] LABS: MANUAL DIFF FLAG NO
[2021-11-15 16:19] LABS: Basophils Percent Auto 0.1 % (0-2); Eosinophils Percent Auto 0.2 % (0-4); Hematocrit 42.9 % (37.0-47.0); Hemoglobin 14.7 g/dl (12.0-16.0); Imm Gran Abs Auto 0.05 X10*3/uL (0.00-0.03); Imm Gran Pct Auto 0.3 % (0.0-0.4); Lymphocytes Percent Auto 13.5 % (20-40); Mean Corpuscular HGB Conc 34.3 g/dl (31.0-35.0); Mean Corpuscular Hemoglobin 29.8 pg (27.0-33.0); Mean Platelet Volume 10.2 fL (9.4-12.3); Monocytes Absolute Auto 1.1 X10*3/uL (0.1-1.2); Monocytes Percent Auto 7.6 % (2-11); Neutrophils Absolute Auto 11.4 x10*3/uL (2.0-8.3); Neutrophils Percent Auto 78.3 % (45-73); Platelet Count 309 X10*3/uL (160-400); Red Blood Count 4.93 X10*6/uL (4.20-5.50); Red Cell Distribution Width 13.7 % (11.0-16.0); White Blood Count 14.5 X10*3/uL (4.8-10.8)
[2021-11-15 16:22] LABS: COVID-19 Test Negative (Negative); IDNOW Serial# 16C4AD1C
[2021-11-15 16:23] LABS: Influenza A Negative (Negative); Influenza B2 Negative (Negative)
[2021-11-15 16:25] LABS: Prothrombin Time 11.8 SEC (9.9-13.0)
--- NOTE | 2021-11-15 16:28 | ED.GENADULT ---
HPI - General Adult General Chief complaint: Nausea/Vomiting/Diarrhea Stated complaint: vomiting Time Seen by Provider: 11/15/21 15:42 Source: patient Mode of arrival: ambulatory Limitations: no limitations History of Present Illness HPI narrative: 61-year-old female history of gastritis, esophagitis, presents to ED for 3 days of abdominal pain with nausea vomiting pain. Patient states pain is epigastric. Patient states she has this episodes of abdominal pain with nausea vomiting at least twice a week for the past year. Patient has been evaluated by Gastroenterology and had a normal CT scan February of 2021. Patient denies any chest pain, shortness of breath, dysuria, hematuria, diarrhea. Related Data Home Medications Medication Instructions Recorded Confirmed albuterol sulfate 90 mcg/actuation 2 puff PO Q6H PRN 07/04/20 03/27/21 aerosol inhaler levothyroxine 50 mcg tablet 50 mcg PO DAILY 07/04/20 03/27/21 cyclobenzaprine 5 mg tablet 5 mg PO TID PRN 02/07/21 03/27/21 lidocaine 5 % topical patch 1 patch TOPICAL DAILY 02/07/21 03/27/21 Previous Rx's Medication Instructions Recorded ondansetron 4 mg disintegrating 4 mg PO Q6-8H PRN #7 tab 03/12/21 tablet ondansetron 4 mg disintegrating 4 mg PO Q8H PRN #20 tab 05/14/21 tablet promethazine 25 mg rectal 25 mg SC Q6H PRN #12 ea 05/14/21 suppository peg-electrolyte solution 420 gram 240 ml PO Q10M #4000 ml 06/18/21 oral solution (Nulytely Lemon-[place]) acetaminophen 650 mg 650 mg PO Q8H #90 tab 06/22/21 tablet,extended release gabapentin 100 mg capsule 100 mg PO TID #270 cap 06/22/21 gabapentin 300 mg capsule 300 mg PO TID #270 cap 06/22/21 dexlansoprazole 30 mg 60 mg PO DAILY #90 cap 08/08/21 capsule,biphase delayed release ondansetron 4 mg disintegrating 4 mg PO Q8H #60 tab 08/08/21 tablet sucralfate 100 mg/mL oral 10 ml PO BID #400 ml 08/08/21 suspension (Carafate) omeprazole 40 mg capsule,delayed 40 mg PO BID #90 cap 09/24/21 release Allergies Allergy/AdvReac Type Severity Reaction Status Date / Time Penicillins [PENICILLINS] Allergy Intermediate RASH Verified 09/24/21 10:04 codeine [CODEINE] Allergy Mild RASH Verified 09/24/21 10:04 penicillin V Allergy Unknown unknown Verified 09/24/21 10:04 meloxicam AdvReac Unknown vomiting Verified 09/24/21 10:04 Review of Systems Review of Systems: Nausea, vomiting, abdominal pain Yes all other systems are reviewed and are negative [facility] Past Medical History Medical History (Updated 11/15/21 @ 18:21 by PACHECO Andrew) Abdominal pain Arthritis Asthma Carpal tunnel syndrome of right wrist Compression fracture of body of thoracic vertebra Gastritis History of mammogram Hyperlipidemia Hypertension Hypothyroidism Positive colorectal cancer screening using Cologuard test Raynaud disease Tibia fracture Surgical History History of esophagogastroduodenoscopy (EGD) History of hysterectomy History of umbilical hernia repair S/P hysterectomy Family History Family History Father Stroke Mother No problems noted. Brother No problems noted. Sister No problems noted. Sister No problems noted. Sister No problems noted. Son No problems noted. Daughter No problems noted. Social History Social History Patient Tobacco Use Status: Current everyday Tobacco user Tobacco use type: Cigarette e-Cigarette/Vaping Use: Never Used Advance Directives: No Advance Directives Information Provided: No Patient : No Current occupational status: unemployed Physical Exam ED Vital Signs: Vital Signs - 24 hr 11/15/21 15:16 Temperature 98.6 F Pulse Rate 115 H Respiratory Rate 18 Blood Pressure 137/98 H Pulse Oximetry 98 BMI result Body Mass Index 21.1 Const General: cooperative, healthy appearing, comfortable, no acute distress, well developed, alert, awake and Physically active Orientation/consciousness: patient oriented x3 HENMT Head: Yes normal to inspection, Yes No palpable skull fracture present, Yes normocephalic, Yes atraumatic and No abrasion Eyes General: appearance normal, both eyes and all related structures Neck Neck: Yes normal visual inspection, Yes full ROM, Yes no lymphadenopathy, Yes no meningeal signs, Yes trachea midline, Yes supple, No anterior neck swelling and No tender Chest Chest palpation & inspection: normal inspection of the chest and normal palpation of entire chest wall Resp Effort & Inspection: normal respiratory effort and able to speak in complete sentences Auscultation: clear to auscultation bilaterally Cardio Jugular venous distension: no JVD Heart sounds: S1 normal heart sound present and S2 normal heart sound present GI Inspection: Yes normal to inspection and No abdominal wall ecchymosis Palpation (GI): Soft to palpation, not firm, Tenderness to palpation present (GI) in the epigastrum, no guarding and not rigid General: No CVA tenderness and Yes no CVA tenderness Back/Spine/Pelvis Back: no CVA tenderness, No CVA tenderness and No back tenderness Skin General skin exam: no rashes or lesions noted and elasticity normal Neuro General: patient oriented x3, gait normal, no meningeal signs and CN's II-XI intact bilaterally Cranial nerves: Yes CN's II-XII intact bilaterally Extrem Other: Lower extremities negative for swelling, pitting edema, calf tenderness General: Yes normal to inspection and Yes full ROM Psych Appearance: grossly normal, well kempt and not disheveled Course Course Course Narrative: Due to age will do EKG 1 troponin. Labs ordered. COVID ordered. Reevaluation(s) Reevaluation #1: Patient 1st troponin is positive. Patient sleeping comfortably in bed. EKG negative STEMI. GI cocktail was given. Patient is in for abdominal CT scan. D-dimer is negative. Well's score 1. Not suspecting PE. Patient presenting with epigastric pain. Patient had no chest pain or shortness of breath. SIgn out to PACHECO judge Time: 16:13 Medical Decision Making [facility] Narrative Medical decision making narrative: Gastritis. Abdominal pain Lab Data Result diagrams: 11/15/21 16:13 11/15/21 16:13 Labs: Lab Results 11/15/21 11/15/21 11/15/21 Range/Units 16:00 16:00 16:13 WBC 14.5 H (4.8-10.8) X10*3/uL RBC 4.93 (4.20-5.50) X10*6/uL Hgb 14.7 (12.0-16.0) g/dl Hct 42.9 (37.0-47.0) % MCV 87.0 (80.0-98.0) fL MCH 29.8 (27.0-33.0) pg MCHC 34.3 (31.0-35.0) g/dl RDW 13.7 (11.0-16.0) % Plt Count 309 (160-400) X10*3/uL MPV 10.2 (9.4-12.3) fL Immature Gran % (Auto) 0.3 (0.0-0.4) % Neut % (Auto) 78.3 H (45-73) % Lymph % (Auto) 13.5 L (20-40) % [place] % (Auto) 7.6 (2-11) % Eos % (Auto) 0.2 (0-4) % Baso % (Auto) 0.1 (0-2) % Lymph # (Auto) 2.0 (1.2-4.9) X10*3/uL [place] # (Auto) 1.1 (0.1-1.2) X10*3/uL Eos # (Auto) 0.0 (0.0-0.4) X10*3/uL Baso # (Auto) 0.0 (0.0-0.2) X10*3/uL Abs Immat Gran (auto) 0.05 H (0.00-0.03) X10*3/uL Absolute Neuts (auto) 11.4 H (2.0-8.3) x10*3/uL Absolute Nucleated RBC 0.000 (0.0-0.012) X10*3/uL Nucleated RBC % (auto) 0.0 (0.0-0.2) /100WBC PT (9.9-13.0) SEC INR (0.9-1.1) APTT (24.1-38.0) SEC D-Dimer High Sensitivty NG/ML Sodium (135-145) mmol/L Potassium (3.3-5.1) mmol/L Chloride (96-108) mmol/L Carbon Dioxide (22-29) mmol/L Anion Gap (12-20) BUN (9-16) mg/dL Creatinine (0.5-1.4) mg/dL Estim Creat Clear Calc Estimated GFR Random Glucose (60-115) mg/dL Calcium (8.4-10.2) mg/dL Total Bilirubin (0.0-1.0) mg/dL AST (5-31) U/L ALT (0-31) U/L Alkaline Phosphatase (39-117) U/L Troponin I High Sens (<3.5-17.0) ng/L B-Natriuretic Peptide (<100) pg/mL Total Protein (6.5-8.0) g/dL Albumin (3.5-5.0) g/dL Lipase (8-78) U/L COVID-19 (KATERINE) Negative (Negative) COVID-19 Clin Com See Note Influenza Type A (KATLYN) Negative (Negative) Influenza Type B (KATLYN) Negative (Negative) Influenza A & B Note See Note 11/15/21 11/15/21 11/15/21 Range/Units 16:13 16:13 16:13 WBC (4.8-10.8) X10*3/uL RBC (4.20-5.50) X10*6/uL Hgb (12.0-16.0) g/dl Hct (37.0-47.0) % MCV (80.0-98.0) fL MCH (27.0-33.0) pg MCHC (31.0-35.0) g/dl RDW (11.0-16.0) % Plt Count (160-400) X10*3/uL MPV (9.4-12.3) fL Immature Gran % (Auto) (0.0-0.4) % Neut % (Auto) (45-73) % Lymph % (Auto) (20-40) % [place] % (Auto) (2-11) % Eos % (Auto) (0-4) % Baso % (Auto) (0-2) % Lymph # (Auto) (1.2-4.9) X10*3/uL [place] # (Auto) (0.1-1.2) X10*3/uL Eos # (Auto) (0.0-0.4) X10*3/uL Baso # (Auto) (0.0-0.2) X10*3/uL Abs Immat Gran (auto) (0.00-0.03) X10*3/uL Absolute Neuts (auto) (2.0-8.3) x10*3/uL Absolute Nucleated RBC (0.0-0.012) X10*3/uL Nucleated RBC % (auto) (0.0-0.2) /100WBC PT 11.8 (9.9-13.0) SEC INR 1.0 (0.9-1.1) APTT 30.0 (24.1-38.0) SEC D-Dimer High Sensitivty < 150 NG/ML Sodium 135 (135-145) mmol/L Potassium 3.0 L (3.3-5.1) mmol/L Chloride 95 L (96-108) mmol/L Carbon Dioxide 25 (22-29) mmol/L Anion Gap 18 (12-20) BUN 25 H (9-16) mg/dL Creatinine 1.27 (0.5-1.4) mg/dL Estim Creat Clear Calc 36.0 Estimated GFR 43 Random Glucose 92 (60-115) mg/dL Calcium 9.9 (8.4-10.2) mg/dL Total Bilirubin 0.7 (0.0-1.0) mg/dL AST 15 (5-31) U/L ALT 13 (0-31) U/L Alkaline Phosphatase 61 D (39-117) U/L Troponin I High Sens 21.5 H (<3.5-17.0) ng/L B-Natriuretic Peptide 152 H (<100) pg/mL Total Protein 7.2 (6.5-8.0) g/dL Albumin 4.5 (3.5-5.0) g/dL Lipase 51 (8-78) U/L COVID-19 (KATERINE) (Negative) COVID-19 Clin Com Influenza Type A (KATLYN) (Negative) Influenza Type B (KATLYN) (Negative) Influenza A & B Note ECG Data Interpretation: Normal sinus rhythm. Ventricular rate 97. Pr interval 128. QRS 86 QTC 502. Negative STEMI Discharge Plan Discharge Clinical Impression: Gastritis Patient Disposition: Home, Self-Care Instructions: Gastritis (ED) Additional Instructions: Continue taking sucralfate and omeprazole as prescribed by primary care provider. Return to ED for any worsening abdominal pain, vomiting blood, rectal bleeding, chest pain, shortness of breath, weakness, dizziness, or any other concerning symptoms. 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 Prescriptions: No Action peg-electrolyte soln [Nulytely Lemon-[place]] 420 gram recon soln 240 ml PO Q10M Qty: 4000 0RF Rx Instructions: until fecal effluent is clear acetaminophen 650 mg tablet extended release 650 mg PO Q8H Qty: 90 3RF gabapentin 300 mg capsule 300 mg PO TID Qty: 270 3RF gabapentin 100 mg capsule 100 mg PO TID Qty: 270 3RF Rx Instructions: take with Gabapentin 300 mg ondansetron 4 mg tablet,disintegrating 4 mg PO Q6-8H PRN (Reason: nausea and vomiting) Qty: 7 0RF ondansetron 4 mg tablet,disintegrating 4 mg PO Q8H PRN (Reason: nausea and vomiting) Qty: 20 0RF promethazine 25 mg suppository 25 mg SC Q6H PRN (Reason: nausea and vomiting) Qty: 12 0RF dexlansoprazole 30 mg capsule,biphase delayed releas 60 mg PO DAILY Qty: 90 1RF sucralfate [Carafate] 100 mg/mL suspension 10 ml PO BID Qty: 400 0RF ondansetron 4 mg tablet,disintegrating 4 mg PO Q8H Qty: 60 1RF levothyroxine 50 mcg tablet 50 mcg PO DAILY 0RF albuterol sulfate 90 mcg/actuation HFA aerosol inhaler 2 puff PO Q6H PRN0RF lidocaine 5 % adhesive patch,medicated 1 patch topical DAILY 0RF cyclobenzaprine 5 mg tablet 5 mg PO TID PRN0RF omeprazole 40 mg capsule,delayed release(DR/EC) 40 mg PO BID Qty: 90 2RF Print Language: [place]
[2021-11-15 16:35] LABS: Alanine Aminotransferase 13 U/L (0-31); Albumin Level 4.5 g/dL (3.5-5.0); Alkaline Phosphatase 61 U/L (39-117); Anion Gap 18 (12-20); Aspartate Amino Transferase 15 U/L (5-31); Bilirubin Total 0.7 mg/dL (0.0-1.0); Blood Urea Nitrogen 25 mg/dL (9-16); Calcium 9.9 mg/dL (8.4-10.2); Carbon Dioxide 25 mmol/L (22-29); Chloride 95 mmol/L (96-108); Estimated Glomerular Filt Rate 43; Glucose Random 92 mg/dL (60-115); Lipase 51 U/L (8-78); Sodium 135 mmol/L (135-145); Total Protein 7.2 g/dL (6.5-8.0)
[2021-11-15 16:40] LABS: Troponin-I High Sensitivity 21.5 ng/L (<3.5-17.0)
[2021-11-15 17:27] LABS: D Dimer High Sensitivity < 150 NG/ML
[2021-11-15 17:52] LABS: B Type Natriuretic Peptide 152 pg/mL (<100)
[2021-11-15 18:31] LABS: Magnesium 1.7 mg/dL (1.6-2.6)
[2021-11-15] MEDS: Potassium Chloride Packet 20 MEQ PACKET 40 MEQ PO (19:04)
[2021-11-15 19:08] VITALS: BP 157/95; PULSE 89; RESP 18; O2SAT 97
--- NOTE | 2021-11-15 19:09 | PC.NURSE ---
patient reports feeling improved at this time, no episodes of vomiting at while in ED. patient in no obvious distress
[2021-11-15 19:46] LABS: Troponin-I High Sensitivity 17.4 ng/L (<3.5-17.0)
== END 2021-11-15 21:05 | disposition home or self-care (01) ==
PROVIDERS: Physician Assistant; Emergency Provider Emergency Medicine Emergency Medical Services; PCP Internal Medicine
DX: K29.70 Gastritis, unspecified, without bleeding (principal); R11.2 Nausea with vomiting, unspecified; R10.9 Unspecified abdominal pain; R06.02 Shortness of breath; F17.210 Nicotine dependence, cigarettes, uncomplicated; Z20.822 Contact with and (suspected) exposure to COVID-19; Z79.899 Other long term (current) drug therapy; Z71.6 Tobacco abuse counseling
CPT/HCPCS: 36415; 71250; 74176; 80053; 83690; 83735; 83880; 84484; 85025; 85379; 85610; 85730; 87502; 87635; 93005; 96361; 96374; 99284

== ENCOUNTER 2021-11-26 12:32 | Outpatient (REF) | payer OTHER, SELFPAY ==
[2021-11-26 13:53] LABS: Hematocrit 38.6 % (37.0-47.0); Hemoglobin 12.6 g/dl (12.0-16.0); Mean Corpuscular HGB Conc 32.6 g/dl (31.0-35.0); Mean Corpuscular Hemoglobin 29.6 pg (27.0-33.0); Mean Corpuscular Volume 90.6 fL (80.0-98.0); Mean Platelet Volume 10.3 fL (9.4-12.3); Platelet Count 329 X10*3/uL (160-400); Red Blood Count 4.26 X10*6/uL (4.20-5.50); Red Cell Distribution Width 14.5 % (11.0-16.0); White Blood Count 8.1 X10*3/uL (4.8-10.8)
[2021-11-26 14:05] LABS: Anion Gap 14 (12-20); Blood Urea Nitrogen 17 mg/dL (9-16); Calcium 9.9 mg/dL (8.4-10.2); Carbon Dioxide 24 mmol/L (22-29); Chloride 106 mmol/L (96-108); Estimated Glomerular Filt Rate > 60; Glucose Random 116 mg/dL (60-115); Potassium 3.8 mmol/L (3.3-5.1); Sodium 140 mmol/L (135-145)
[2021-11-26 14:28] LABS: TSH reflex Free T4 0.87 uIU/mL (0.32-4.0)
[2021-11-27 09:06] LABS: Prolactin 8.9 ng/mL
[2021-12-03 13:36] LABS: Cortisol, Free 0.26 mcg/dL
== END 2021-11-26 12:33 | disposition home or self-care (01) ==
LOC: HO.HMGCLDS 12:32
PROVIDERS: PCP Internal Medicine; Visit Provider Internal Medicine
DX: R10.9 Unspecified abdominal pain (principal); Q89.1 Congenital malformations of adrenal gland; E03.9 Hypothyroidism, unspecified
CPT/HCPCS: 36415; 80048; 82088; 82530; 83735; 84146; 84443; 85027

== ENCOUNTER → 2021-12-03 13:41 | Outpatient (BNVA) | payer OTHER, SELFPAY | PROVIDERS: PCP Internal Medicine; Referring Provider Internal Medicine; Visit Provider Internal Medicine Gastroenterology | DX: E27.8 Other specified disorders of adrenal gland (principal) | CPT/HCPCS: 99212 ==

== ENCOUNTER 2021-12-11 15:36 | Outpatient (REF) | payer OTHER, SELFPAY | END 2021-12-11 15:37 | disposition home or self-care (01) | LOC: HO.LAB 15:36 | PROVIDERS: PCP Internal Medicine; Visit Provider Internal Medicine Endocrinology, Diabetes & Metabolism | DX: Q89.1 Congenital malformations of adrenal gland (principal) | CPT/HCPCS: 99202 ==

== ENCOUNTER 2021-12-17 16:18 | Outpatient (REF) | payer OTHER, SELFPAY ==
--- NOTE | ~2021-12-17 | MR_ITS ---
EXAMINATION: MRI ABDOMEN WITH AND WITHOUT CONTRAST CLINICAL INFORMATION: E27.8 - Other specified disorders of adrenal gland COMPARISON: Prior studies including the 11/15/2021 CT scan TECHNIQUE: Multiple routine MRI sequences through the abdomen were obtained on a high-field 1.5Tesla MRI. Pre-and postcontrast images with 5 mL of Gadavist intravenous contrast were obtained. This included a dynamic contrast-enhanced technique. FINDINGS: Lung bases: Visualized lung bases are unremarkable. Liver: The liver is normal in size, shape, and signal. No suspicious focal hepatic lesions seen. Specifically no suspicious arterial phase enhancing lesions or suspicious washout of contrast on later phases. No biliary ductal dilatation. Gallbladder: Gallbladder is contracted but otherwise unremarkable. No suspicious gallstones or filling defects. No gallbladder wall thickening or pericholecystic inflammatory changes. Pancreas: Pancreas is homogeneous in signal. No pancreatic ductal dilatation or obstruction. No peripancreatic inflammatory changes or fluid. Spleen: Unremarkable Adrenals: There is a 2.6 cm right adrenal lipid rich adenoma seen. There is significant signal loss on the out of phase imaging consistent with increased lipid content. I do not appreciate any abnormality within the visualized left adrenal gland although there is artifact from endoclips in the adjacent stomach which limits evaluation of the left adrenal gland. Kidneys: Kidneys are normal in size, shape, and signal. Tiny T2 bright cortical cyst in the posterior midpole of the right kidney measuring 1.6 cm in size. There is a tiny subcentimeter angiomyolipoma in the anterior midpole of the left kidney. No suspicious renal mass lesion seen. No hydronephrosis or perinephric edema. 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 This demonstrates significant fatty replacement best appreciated on the out of phase imaging. Tiny angiomyolipoma and cyst in the left kidney.
== END 2021-12-17 16:19 | disposition home or self-care (01) ==
LOC: HO.MRI 16:18
PROVIDERS: Visit Provider Internal Medicine Gastroenterology
DX: E27.8 Other specified disorders of adrenal gland (principal)
CPT/HCPCS: 74183; A9585

== ENCOUNTER 2022-01-22 09:33 | Outpatient (REF) | payer OTHER, SELFPAY | END 2022-01-22 09:34 | disposition home or self-care (01) | LOC: HO.LAB 09:33 | PROVIDERS: Absent Provider Internal Medicine Gastroenterology; PCP Internal Medicine; Visit Provider Internal Medicine Endocrinology, Diabetes & Metabolism | DX: Z13.89 Encounter for screening for other disorder (principal) ==

== ENCOUNTER 2022-01-25 08:02 | Outpatient (REF) | payer OTHER, SELFPAY ==
--- NOTE | ~2022-01-25 | XR_ITS ---
EXAMINATION: XR ABDOMEN KUB CLINICAL INDICATION: Nausea and abdominal pain. COMPARISON: CT abdomen and pelvis dated 11/15/2021. TECHNIQUE: AP view of the abdomen and pelvis. FINDINGS: The bowel gas pattern is normal with no evidence of ileus or obstruction. No unusual soft tissue calcifications are noted. An endoclip is seen in the left upper quadrant. There are pelvic phleboliths. No acute osseous abnormality is seen. There is a mild lumbar levoscoliosis. XR/XR KUB IMPRESSION: Unremarkable examination.
[2022-01-25 10:42] LABS: Cortisol Random 6.5 ug/dL
[2022-01-27 10:36] LABS: DHEA Sulfate 10 mcg/dL (5-167)
[2022-01-30 08:06] LABS: Metanephrine, Free 76 pg/mL (<=57); Normetanephrines, Free 189 pg/mL (<=148); Total Metanephrine, Free 265 pg/mL (<=205)
[2022-01-31 14:07] LABS: Dexamethasone 156 ng/dL
== END 2022-01-25 08:03 | disposition home or self-care (01) ==
LOC: HO.LAB 08:02
PROVIDERS: Absent Provider Internal Medicine Gastroenterology; PCP Internal Medicine; Visit Provider Internal Medicine Endocrinology, Diabetes & Metabolism
DX: R10.9 Unspecified abdominal pain (principal); Q89.1 Congenital malformations of adrenal gland
CPT/HCPCS: 36415; 74018; 80299; 82533; 82627; 83835

== ENCOUNTER → 2022-02-12 11:32 | Outpatient (BNVA) | payer OTHER, SELFPAY | PROVIDERS: PCP Internal Medicine; Visit Provider Internal Medicine Endocrinology, Diabetes & Metabolism | DX: Q89.1 Congenital malformations of adrenal gland (principal) | CPT/HCPCS: 99212 ==

== ENCOUNTER 2022-02-19 08:40 | Outpatient (REF) | payer OTHER, SELFPAY ==
[2022-02-20 08:56] LABS: DHEA Sulfate 34 mcg/dL (5-167)
[2022-02-22 14:42] LABS: Adrenocorticotropic Hormone 20 pg/mL (6-50)
== END 2022-02-19 08:41 | disposition home or self-care (01) ==
LOC: HO.LAB 08:40
PROVIDERS: PCP Internal Medicine; Visit Provider Internal Medicine Endocrinology, Diabetes & Metabolism
DX: Q89.1 Congenital malformations of adrenal gland (principal)
CPT/HCPCS: 36415; 82024; 82627

== ENCOUNTER 2022-03-04 08:54 | Outpatient (REF) | payer OTHER, SELFPAY ==
[2022-03-04 10:01] LABS: Creatinine, mg/dL 105.19
[2022-03-04 11:18] LABS: Creatinine, 24Hr Urine 0.7 G/Day (1.0-2.0); Total Volume 24 Hour Urine 625 mL
[2022-03-09 11:26] LABS: Metanephrine, Free 24U 123 mcg/24 h (90-315); Normetanephrine, Free 24U 229 mcg/24 h (122-676); Total Metanephrine, Free 24U 352 mcg/24 h (224-832); Total Volume 24U 625 mL
[2022-03-11 08:33] LABS: Cortisol Free, 24 Hr Urine 41.9 mcg/24 h (4.0-50.0); Creatinine, 24 Hr Urine 0.68 g/24 h (0.50-2.15); Total Volume, 24 Hr Urine 625 mL
== END 2022-03-04 08:55 | disposition home or self-care (01) ==
LOC: HO.LNP 08:54
PROVIDERS: Visit Provider Internal Medicine Endocrinology, Diabetes & Metabolism
DX: Q89.1 Congenital malformations of adrenal gland (principal)
CPT/HCPCS: 82530; 82570; 83835

== ENCOUNTER → 2022-03-26 08:45 | Outpatient (BNVA) | payer OTHER, SELFPAY | PROVIDERS: PCP Internal Medicine; Visit Provider Internal Medicine Endocrinology, Diabetes & Metabolism | DX: Q89.1 Congenital malformations of adrenal gland (principal) | CPT/HCPCS: 99212 ==

== ENCOUNTER 2022-05-02 09:58 | Outpatient (REF) | payer OTHER, SELFPAY ==
[2022-05-02 11:33] LABS: MANUAL DIFF FLAG NO
[2022-05-02 12:16] LABS: Basophils Absolute Auto 0.1 X10*3/uL (0.0-0.2); Basophils Percent Auto 0.5 % (0-2); Eosinophils Absolute Auto 0.8 X10*3/uL (0.0-0.4); Eosinophils Percent Auto 6.9 % (0-4); Hematocrit 42.9 % (37.0-47.0); Hemoglobin 14.1 g/dl (12.0-16.0); Imm Gran Abs Auto 0.04 X10*3/uL (0.00-0.03); Imm Gran Pct Auto 0.3 % (0.0-0.4); Lymphocytes Absolute Auto 3.2 X10*3/uL (1.2-4.9); Lymphocytes Percent Auto 27.8 % (20-40); Mean Corpuscular HGB Conc 32.9 g/dl (31.0-35.0); Mean Corpuscular Hemoglobin 30.2 pg (27.0-33.0); Mean Corpuscular Volume 91.9 fL (80.0-98.0); Mean Platelet Volume 10.8 fL (9.4-12.3); Monocytes Absolute Auto 0.7 X10*3/uL (0.1-1.2); Monocytes Percent Auto 6.2 % (2-11); Neutrophils Absolute Auto 6.8 x10*3/uL (2.0-8.3); Neutrophils Percent Auto 58.3 % (45-73); Platelet Count 514 X10*3/uL (160-400); Red Blood Count 4.67 X10*6/uL (4.20-5.50); Red Cell Distribution Width 14.4 % (11.0-16.0); White Blood Count 11.7 X10*3/uL (4.8-10.8)
[2022-05-02 12:35] LABS: Alanine Aminotransferase 28 U/L (0-31); Albumin Level 4.2 g/dL (3.5-5.0); Alkaline Phosphatase 63 U/L (39-117); Anion Gap 18 (12-20); Aspartate Amino Transferase 21 U/L (5-31); Bilirubin Total 0.2 mg/dL (0.0-1.0); Blood Urea Nitrogen 18 mg/dL (9-16); Calcium 9.4 mg/dL (8.4-10.2); Carbon Dioxide 24 mmol/L (22-29); Chloride 102 mmol/L (96-108); Cholesterol 219 mg/dL; Estimated Glomerular Filt Rate > 60; Glucose Fasting 85 mg/dL (60-99); HDL Cholesterol 56 mg/dL; LDL Cholesterol Calculated 135 mg/dl; Potassium 4.1 mmol/L (3.3-5.1); Sodium 140 mmol/L (135-145); Triglycerides 144 mg/dL
[2022-05-02 12:45] LABS: Vitamin D 25-OH Total 22.8 ng/mL (>30)
== END 2022-05-02 09:59 | disposition home or self-care (01) ==
LOC: HO.HMGCLDS 09:58
PROVIDERS: PCP Internal Medicine; Visit Provider Internal Medicine
DX: E03.9 Hypothyroidism, unspecified (principal); E78.5 Hyperlipidemia, unspecified; I10 Essential (primary) hypertension
CPT/HCPCS: 36415; 80053; 80061; 82306; 84443; 85025

== ENCOUNTER 2022-05-28 12:51 | Day surgery (SDC) | payer OTHER, SELFPAY ==
[2022-05-21 10:28] VITALS: BMI 19.8
--- NOTE | 2022-05-27 13:27 | HO.ANESPROP2 ---
Documented by User: Adali Hall NP 05/27/22 13:33 HPI - Anesthesia Eval Consult details Narrative: 62yo F for Colonoscopy s/p EGD 07/2021 with MAC (reports nausea post-op, no vomiting) PMF Active Problems Active Problems: All Active Problems (Updated 05/21/22 @ 10:26 by Susana Thomas, MERCEDES) Abdominal wall hernia (Acute) Vitamin D deficiency (Acute) Hypertension (Acute) Adrenal mass 1 cm to 4 cm in diameter (Acute) Compression fracture of body of thoracic vertebra (Acute) Abdominal pain (Acute) Hypothyroidism (Acute) History of hysterectomy (Acute) Asthma (Acute) Hyperlipidemia (Acute) Past Medical History Medical History Abdominal pain Adrenal mass 1 cm to 4 cm in diameter Arthritis Asthma Carpal tunnel syndrome of right wrist Compression fracture of body of thoracic vertebra Hiatal hernia History of mammogram Hyperlipidemia Hypertension Hypothyroidism PONV (postoperative nausea and vomiting) Positive colorectal cancer screening using Cologuard test Raynaud disease Smoker Tibia fracture Family History Family History Father Stroke Mother No problems noted. Brother No problems noted. Sister No problems noted. Sister No problems noted. Sister No problems noted. Son No problems noted. Daughter No problems noted. Family history of problems with anesthesia: No Surgical History Surgical History History of esophagogastroduodenoscopy (EGD) History of hysterectomy History of umbilical hernia repair History of Problems with Anesthesia: No Social History Social History Housing: House Patient Tobacco Use Status: Current everyday Tobacco user Tobacco use type: Cigarette Cigarette Packs Per Day: 5 Cigarettes Per Day: 100.0 e-Cigarette/Vaping Use: Never Used Use of substances other than those prescribed or required for medical reasons: Yes Substance Use Type Other:: smoking Are you DNR?: No Advance Directives: No Advance Directives Information Provided: Yes Current occupational status: unemployed Cognitive needs: No Hearing needs: No Vision needs: No Meds Allergies Allergy/AdvReac Type Severity Reaction Status Date / Time Penicillins [PENICILLINS] Allergy Intermediate RASH Verified 05/13/22 14:44 codeine [CODEINE] Allergy Mild RASH Verified 05/13/22 14:44 penicillin V Allergy Unknown unknown Verified 05/13/22 14:44 meloxicam AdvReac Unknown vomiting Verified 05/13/22 14:44 Home Medications Medication Instructions Recorded Confirmed Last Taken Type albuterol sulfate 90 mcg/actuation 2 puff PO Q6H PRN Wheezing 07/04/20 05/21/22 Unknown History aerosol inhaler levothyroxine 50 mcg tablet 50 mcg PO DAILY 07/04/20 05/21/22 Unknown History lidocaine 5 % topical patch 1 patch topical DAILY 02/07/21 05/21/22 Unknown History docusate sodium 100 mg capsule 100 mg PO BID 12/03/21 05/21/22 Unknown History gabapentin 100 mg capsule 100 mg PO TID 02/01/22 05/21/22 Unknown History gabapentin 300 mg capsule 1 cap PO TID 05/21/22 05/21/22 Unknown History ondansetron 4 mg disintegrating 4 mg PO Q8H PRN Nausea 05/21/22 05/21/22 Unknown History tablet Exam Exam Date and Time: May 27, 2022 1327 Height,Weight and Vital Signs: Height 5 ft 1 in Weight 47.627 kg Pertinent Lab Results Pertinent Lab Results: Laboratory Tests 05/02/22 05/02/22 10:05 10:05 WBC 11.7 H Hgb 14.1 Hct 42.9 Plt Count 514 H D Sodium 140 Potassium 4.1 Chloride 102 Carbon Dioxide 24 BUN 18 H Creatinine 0.80 Narrative Narrative: EKG 03/2022 Vent. Rate : 097 BPM ? ? Atrial Rate : 097 BPM ?? P-R Int : 128 ms? QRS Dur : 086 ms ? ? QT Int : 396 ms ? ? ? P-R-T Axes : 084 -39 080 degrees ?? QTc Int : 502 ms ? Normal sinus rhythm Right atrial enlargement Left axis deviation Pulmonary disease pattern Minimal voltage criteria for LVH, may be normal variant ( [place] product ) Prolonged QT Abnormal ECG When compared with ECG of 14-MAY-2021 13:47, Vent. rate has increased BY? 44 BPM QT has lengthened Assessment and Plan Assessment Anesthesia Assessment: Chart Reviewed Final Anesthetic Review Family History of Problems with Anesthesia: No History of Problems with Anesthesia: No Documented by User: Luis Banuelos MD 05/28/22 13:46 PMFSH Past Medical History Medical History Abdominal pain Adrenal mass 1 cm to 4 cm in diameter Arthritis Asthma Carpal tunnel syndrome of right wrist Compression fracture of body of thoracic vertebra Hiatal hernia History of mammogram Hyperlipidemia Hypertension Hypothyroidism PONV (postoperative nausea and vomiting) Positive colorectal cancer screening using Cologuard test Raynaud disease Smoker Tibia fracture Family History Family History Father Stroke Mother No problems noted. Brother No problems noted. Sister No problems noted. Sister No problems noted. Sister No problems noted. Son No problems noted. Daughter No problems noted. Surgical History Surgical History History of esophagogastroduodenoscopy (EGD) History of hysterectomy History of umbilical hernia repair Social History Social History Housing: House Patient Tobacco Use Status: Current everyday Tobacco user Tobacco use type: Cigarette Cigarette Packs Per Day: 5 Cigarettes Per Day: 100.0 e-Cigarette/Vaping Use: Never Used Use of substances other than those prescribed or required for medical reasons: Yes Substance Use Type Other:: smoking Are you DNR?: No Advance Directives: No Advance Directives Information Provided: Yes Current occupational status: unemployed Cognitive needs: No Hearing needs: No Vision needs: No Meds Allergies Allergy/AdvReac Type Severity Reaction Status Date / Time Penicillins [PENICILLINS] Allergy Intermediate RASH Verified 05/13/22 14:44 codeine [CODEINE] Allergy Mild RASH Verified 05/13/22 14:44 penicillin V Allergy Unknown unknown Verified 05/13/22 14:44 meloxicam AdvReac Unknown vomiting Verified 05/13/22 14:44 Home Medications Medication Instructions Recorded Confirmed Last Taken Type albuterol sulfate 90 mcg/actuation 2 puff PO Q6H PRN Wheezing 12/22/20 11/08/22 Unknown History aerosol inhaler levothyroxine 50 mcg tablet 50 mcg PO DAILY 07/04/20 05/21/22 Unknown History lidocaine 5 % topical patch 1 patch topical DAILY 02/07/21 05/21/22 Unknown History docusate sodium 100 mg capsule 100 mg PO BID 12/03/21 05/21/22 Unknown History gabapentin 100 mg capsule 100 mg PO TID 02/01/22 05/21/22 Unknown History gabapentin 300 mg capsule 1 cap PO TID 05/21/22 05/21/22 Unknown History ondansetron 4 mg disintegrating 4 mg PO Q8H PRN Nausea 05/21/22 05/21/22 Unknown History tablet Exam Airway Mallampati Class: II TM Dist: >3cm Loose/Missing/Broken Teeth: Yes (Poor dentition) Heart: [id number] Lungs: cta b/l Assessment and Plan Assessment Anesthesia Assessment: Anesthesia Plan Discussed Final Anesthetic Review NPO: Yes ASA Class: III Final Preanesthetic Review: No Changes in Pt Med Stat, Meds/Allgs Chart Reviewed, Consent Obtained/Reviewed and Anes Risks/Benef Reviewed Patient Risk: Intermediate Procedure Risk: Intermediate Assessment/Block/Sedation in SS: Assess/Block/Sedation-SS Anesthetic Plan Anesthetic Plan: MAC: and Agree w/ Assess. and Plan Disposition: Standard PACU
--- NOTE | 2022-05-28 13:01 | MHC.SHP ---
Pre-Procedural Eval Section A Date of Service: 05/28/22 Section B Chief Complaint: Abnormal weight loss,constipation, Relevant Family History (Specify if Yes): No Relevant Social History: Tobacco Use Present Medications: see Short Stay Collaborative assessment Medical History: Significant History (Abdominal pain Adrenal gland anomaly Adrenal mass 1 cm to 4 cm in diameter Arthritis Asthma Carpal tunnel syndrome of right wrist Compression fracture of body of thoracic vertebra Gastritis History of mammogram Hyperlipidemia Hypertension Hypothyroidism Nausea & vomiting Positive colorectal cancer s) History of Previous Operations: Relevant previous surgery/procedure and date(s) (History of esophagogastroduodenoscopy (EGD) History of hysterectomy History of umbilical hernia repair S/P hysterectomy) Allergies: Allergies Allergy/AdvReac Type Severity Reaction Status Date / Time Penicillins [PENICILLINS] Allergy Intermediate RASH Verified 05/13/22 14:44 codeine [CODEINE] Allergy Mild RASH Verified 05/13/22 14:44 penicillin V Allergy Unknown unknown Verified 05/13/22 14:44 meloxicam AdvReac Unknown vomiting Verified 05/13/22 14:44 Review of Systems Sugical H&P ROS: Negative: Constitution, Cardiovascular, Respiratory, Neurological, Psychiatric, Hem-Onc, Allergic/Immunologic, Gastrointestinal, Genitourinary, Musculoskeletal, Integumentary, Endocrine and Eyes/Ears/Nose/Throat Exam Surgical H&P Exam: Normal: HEENT, Normal: Heart, Normal: Lungs, Normal: Extremities, Normal: Abdomen, Normal: Skin and Normal: Neurological Plan Diagnosis/Plan: Unchanged I have reviewed the history and physical and performed a pertinent physical examination on my patient. No changes have occurred unless specified.
[2022-05-28] MEDS: Lactated Ringers 1,000 ML 100 ML IVCONT (13:29)
[2022-05-28] MEDS: Scopolamine 1.5 MG PATCH.TD.3 EAR-BEHIND (13:31)
[2022-05-28 13:33] VITALS: BP 135/92; PULSE 58; RESP 16; TEMP 36.4; O2SAT 100
--- NOTE | 2022-05-28 13:39 | W.PM.OPN ---
Operative Note Operative Note Date of Service: 05/28/22 Narrative: Operative Information Procedure Description: Colonoscopy Indication: weight loss, constipation Anesthesia: MAC COLONOSCOPY Instrument: Olympus variable stiffness pediatric scope 190L Colonoscopy Monitoring: Vital signs and clinical assessment, continuous EKG monitoring, Pulse oximetry, Carbon Dioxide monitoring and blood pressure monitoring were done throughout the procedure. Colon withdrawal time was 16 minutes. Procedure: The patient was placed in the left lateral decubitis position and pre-procedure medications were administered. After a digital rectal examination of the ano-rectum, the video colonoscope was inserted into the rectum and advanced through the colon to the cecum/TI. The colonoscope was slowly withdrawn in a retrograde panoramic fashion and the colon mucosa was carefully examined including a retroflexed view of the rectum. Findings and interventions are described below. Procedure Difficulty: easy Findings: Random colon bx taken Terminal Ileum-normal, bx taken Cecum:normal Ascending Colon: normal Transverse Colon -normal Descending Colon:normal Sigmoid Colon: mild diverticulosis noted, x 2 sessile polyps 10-12 mm removed with cold snare Rectum: Retroflexion with small internal hemorrhoids, grade I, x2 sessile polyps noted, x1 10-12 mm removed with cold snare and with one clip applied for hemostasis, other polyp removed with cold forceps Anorectum - normal Colon preparation: [place] Bowel Preparation Scale Right colon; 1 Transverse colon: 2 Left colon; 1-2 (0 = Unprepared colon segment with mucosa not seen due to solid stool that cannot be cleared. 1 = Portion of mucosa of the colon segment seen, but other areas of the colon segment not well seen due to staining, residual stool and/or opaque liquid. 2 = Minor amount of residual staining, small fragments of stool and/or opaque liquid, but mucosa of colon segment seen well. 3 = Entire mucosa of colon segment seen well with no residual staining, small fragments of stool or opaque liquid) Impression and Post Procedure Diagnosis: polyps internal hemorrhoids diverticular disease Plan: High fiber diet leaflet Avoid straining at stool, epsom salts and sitz bath, anusol supps or cream Repeat Colonoscopy in 1 year or earlier if clinically indicated Above findings were reviewed with the patient and relevant handouts were provided if indicated.
[2022-05-28 14:13] VITALS: BP 108/62; PULSE 67; RESP 16; TEMP 36.1; O2SAT 99
[2022-05-28 14:28] VITALS: BP 148/85; PULSE 56; RESP 16; TEMP 36.1; O2SAT 100
== END 2022-05-28 14:59 | disposition home or self-care (01) ==
PROVIDERS: PCP Internal Medicine; Visit Provider Internal Medicine Gastroenterology
PROC: 0DJD8ZZ Inspection of Lower Intestinal Tract, Via Natural or Artificial Opening Endoscopic (ICD-10-PCS; CPT 45378; principal; 2022-05-28 14:10)
DX: R63.4 Abnormal weight loss (principal); D12.5 Benign neoplasm of sigmoid colon; D12.8 Benign neoplasm of rectum; K57.30 Diverticulosis of large intestine without perforation or abscess without bleeding; K64.0 First degree hemorrhoids; K59.00 Constipation, unspecified; I10 Essential (primary) hypertension; E78.5 Hyperlipidemia, unspecified; E03.9 Hypothyroidism, unspecified; E27.9 Disorder of adrenal gland, unspecified; I73.00 Raynaud's syndrome without gangrene; J45.909 Unspecified asthma, uncomplicated; Z79.899 Other long term (current) drug therapy; Z88.0 Allergy status to penicillin; Z88.8 Allergy status to other drugs, medicaments and biological substances; F17.210 Nicotine dependence, cigarettes, uncomplicated
CPT/HCPCS: 45385; 45380; 88305

== ENCOUNTER 2022-10-31 12:00 | Outpatient (REF) | payer OTHER, SELFPAY ==
[2022-10-31 14:07] LABS: MANUAL DIFF FLAG NO
[2022-10-31 14:17] LABS: Basophils Absolute Auto 0.1 X10*3/uL (0.0-0.2); Basophils Percent Auto 0.9 % (0-2); Eosinophils Absolute Auto 0.2 X10*3/uL (0.0-0.4); Eosinophils Percent Auto 2.6 % (0-4); Hematocrit 45.3 % (37.0-47.0); Hemoglobin 14.7 g/dl (12.0-16.0); Imm Gran Abs Auto 0.03 X10*3/uL (0.00-0.03); Imm Gran Pct Auto 0.3 % (0.0-0.4); Lymphocytes Absolute Auto 3.2 X10*3/uL (1.2-4.9); Lymphocytes Percent Auto 34.7 % (20-40); Mean Corpuscular HGB Conc 32.5 g/dl (31.0-35.0); Mean Corpuscular Hemoglobin 29.7 pg (27.0-33.0); Mean Corpuscular Volume 91.5 fL (80.0-98.0); Mean Platelet Volume 10.5 fL (9.4-12.3); Monocytes Absolute Auto 0.7 X10*3/uL (0.1-1.2); Monocytes Percent Auto 7.3 % (2-11); Neutrophils Absolute Auto 5.1 x10*3/uL (2.0-8.3); Neutrophils Percent Auto 54.2 % (45-73); Platelet Count 372 X10*3/uL (160-400); Red Blood Count 4.95 X10*6/uL (4.20-5.50); Red Cell Distribution Width 14.6 % (11.0-16.0); White Blood Count 9.3 X10*3/uL (4.8-10.8)
[2022-10-31 14:42] LABS: Alanine Aminotransferase 17 U/L (0-31); Albumin Level 4.4 g/dL (3.5-5.0); Alkaline Phosphatase 75 U/L (39-117); Anion Gap 14 (12-20); Aspartate Amino Transferase 17 U/L (5-31); Bilirubin Total 0.6 mg/dL (0.0-1.0); Blood Urea Nitrogen 18 mg/dL (9-16); Calcium 9.5 mg/dL (8.4-10.2); Carbon Dioxide 25 mmol/L (22-29); Chloride 106 mmol/L (96-108); Cholesterol 219 mg/dL; Estimated Glomerular Filt Rate > 60; Glucose Fasting 76 mg/dL (60-99); HDL Cholesterol 62 mg/dL; LDL Cholesterol Calculated 142 mg/dl; Potassium 4.4 mmol/L (3.3-5.1); Sodium 141 mmol/L (135-145); Total Protein 6.8 g/dL (6.5-8.0); Triglycerides 79 mg/dL
[2022-10-31 14:59] LABS: TSH reflex Free T4 5.37 uIU/mL (0.32-4.0); Vitamin D 25-OH Total 14.5 ng/mL (>30)
[2022-10-31 16:38] LABS: Free T4 (Free Thyroxine) 1.02 ng/dL (0.71-1.85)
== END 2022-10-31 12:01 | disposition home or self-care (01) ==
LOC: HO.HMGCLDS 12:00
PROVIDERS: PCP Internal Medicine; Visit Provider Internal Medicine
DX: E55.9 Vitamin D deficiency, unspecified (principal); E03.9 Hypothyroidism, unspecified; E78.5 Hyperlipidemia, unspecified; I10 Essential (primary) hypertension
CPT/HCPCS: 36415; 80053; 80061; 82306; 84439; 84443; 85025

== ENCOUNTER → 2022-11-11 14:27 | Outpatient (BNVA) | payer OTHER, SELFPAY | PROVIDERS: PCP Internal Medicine; Visit Provider Internal Medicine Gastroenterology | DX: I10 Essential (primary) hypertension (principal); R42 Dizziness and giddiness; F17.210 Nicotine dependence, cigarettes, uncomplicated | CPT/HCPCS: 99212 ==

== ENCOUNTER 2023-04-07 13:58 | Outpatient (AMB) | payer OTHER, SELFPAY ==
--- NOTE | 2023-04-07 14:08 | A.OFFVIS_ITS ---
Intake Vital Signs 04/07/23 14:10 Height 5 ft 1 in Weight 99 lb 3.328 oz BMI 18.7 BP 152/84 H Blood Pressure Location Lt brachial Position Sitting Pulse 79 Intake Visit Reasons: 4 mnth follow up Intake Note: Jeane presents in the office as a 4 month follow up. CC: She did not take Chlorathlidone - she has nausea, vomiting, dizziness. She drinks lots of water. She had diarrhea and mild constipation. She gets nausea and sweats when she is having a BM. She also has been having swelling in her feet and a spike in her BP when she gets the flare ups. They come out of nowhere. Allergies Penicillins [PENICILLINS] Allergy (Intermediate, Verified 04/07/23 14:11) RASH codeine [CODEINE] Allergy (Mild, Verified 04/07/23 14:11) RASH penicillin V Allergy (Unknown, Verified 04/07/23 14:11) unknown olmesartan Adverse Reaction (Intermediate, Verified 04/07/23 14:11) Dizziness meloxicam Adverse Reaction (Unknown, Verified 04/07/23 14:11) vomiting HPI 4 mnth follow up HPI Details 63 yr old f here for f/u RECAP: She had EGD 07/2021 for diarrhea and nausea with vomiting EGD with schatzki ring, erosive esophagitis, erosive gastritis hiatal hernia, duodenitis she had seen surgeon at [facility] for review of incisional hernia recurrence, Imaging: CT 02/2021-- recurrence of periumbilical hernia, small adenoma GES 10/2021-- normal at [address]: 11/2021--enlarging adrenal adrenal, kyphosis, anterior compression D9 MRI 12/2021--lipid rich adenoma LABS: raised plasma metanephrines Colonoscopy: polyps internal hemorrhoids diverticular disease Path: tubular adnenoma INTERIM: working [employer], busy job, she has been having daily nausea, vomiting feet have been swelling, but goes away with walking comes in bouts, can be well for a while she is still taking omeprazole BID appetite is fine she has epigastric pain worse with sphaghetti sauce and chilli smoking 5-6 cigs she is worried about her GB weight has been lower than her baseline saw endo last year, felt unlikely to be pheo, has f/u in May 2023 taking THC since age 17, sx helped by showers, soups and milk EXAM: GENERAL: The patient is well developed and nontoxic. VITAL SIGNS:see workflow HEENT: Nonicteric sclerae, PERRLA, EOMI. Oropharynx clear. Moist mucous membranes. Conjunctivae appear well perfused. No thyroid mass. CHEST: Chest wall is nontender. HEART: Regular rate and rhythm without murmurs. LUNGS: Clear to auscultation bilaterally. ABDOMEN: Soft, positive bowel sounds, tender epigastrium, no organomegaly.no flank tenderness SKIN: No rash, no excessive bruising, petechiae, or purpura. NEUROLOGIC: Cranial nerves II-XII intact without motor/sensory deficit. A/P: 1/ May have cannabinoid hyperemesis synd poncho, maybe in isolation or with another diagnosis eg. gastritis, PUD, GB disease PLAN: 1. cont with PPI 2. US abdo 3. labs 4. advised on cannabis abstincence but a dmits this is not feasible, will try capsaicin to see if helps, might need egd if ongoing sx [facility] Medical History PONV (postoperative nausea and vomiting) Smoker Hiatal hernia Adrenal mass 1 cm to 4 cm in diameter Compression fracture of body of thoracic vertebra Abdominal pain Hypothyroidism Asthma Hyperlipidemia Raynaud disease Positive colorectal cancer screening using Cologuard test History of mammogram Tibia fracture Carpal tunnel syndrome of right wrist Arthritis Hypertension Surgical History Hx of colonoscopy History of esophagogastroduodenoscopy (EGD) History of hysterectomy History of umbilical hernia repair Family History Father Stroke Mother No problems noted. Brother No problems noted. Sister No problems noted. Sister No problems noted. Sister No problems noted. Son No problems noted. Daughter No problems noted. Social History Housing: House Patient Tobacco Use Status: Current everyday Tobacco user Tobacco use type: Cigarette Cigarette Packs Per Day: 5 Cigarettes Per Day: 100.0 e-Cigarette/Vaping Use: Never Used Current occupational status: unemployed Cognitive needs: No Hearing needs: No Vision needs: No Physical Exam Vital Signs: BMI result Body Mass Index 18.7 Assessment & Plan Assessment & Plan (1) Abdominal pain: Code(s): R10.9 - Unspecified abdominal pain Orders: Orders C Reactive Protein Today R10.9 - Unspecified abdominal pain Comprehensive Met. Panel Today K75.81 - Nonalcoholic steatohepatitis (LOPEZ), R10.9 - Unspecified abdominal pain Vitamin C Today R10.9 - Unspecified abdominal pain US abdomen complete Today R10.9 - Unspecified abdominal pain Complete Blood Count Auto Diff Today R10.9 - Unspecified abdominal pain Erythrocyte Sedimentation Rate Today R10.9 - Unspecified abdominal pain Vitamin B12 and Folate Today R10.9 - Unspecified abdominal pain Medications: New capsaicin 0.075% (Arthritis Pain Relief (capsaicin)) do not wash area for at least 30 min after application 1 appl topical BID 120 grams 0RF Coding Level of Care Code Est Pt Level 4 (83474) Diagnoses Abdominal pain R10.9
[2023-04-07 14:10] VITALS: BP 152/84; PULSE 79; BMI 18.7
== END 2023-04-07 15:28 | disposition home or self-care (01) ==
PROVIDERS: Visit Provider Internal Medicine Gastroenterology
DX: R10.9 Unspecified abdominal pain (principal)
CPT/HCPCS: 99214

== ENCOUNTER → 2023-04-07 13:58 | Outpatient (BNVA) | payer OTHER, SELFPAY | PROVIDERS: Visit Provider Internal Medicine Gastroenterology | DX: R10.9 Unspecified abdominal pain (principal) | CPT/HCPCS: 99212 ==

== ENCOUNTER 2023-05-05 12:50 | Outpatient (AMB) | payer OTHER, SELFPAY ==
[2023-05-05 12:51] VITALS: BP 112/74; PULSE 71; O2SAT 99; BMI 19.6
--- NOTE | 2023-05-05 12:51 | A.OFFPC_ITS ---
Vital Signs 05/05/23 12:51 Height 5 ft 1 in Weight 104 lb BMI 19.6 BP 112/74 Blood Pressure Location Lt brachial Position Sitting Pulse 71 Pulse Source Pulse Oximeter Pulse Oximetry (%) 99 Oxygen Delivery Method Room Air Intake Visit Reasons: PE Intake Note: Pt is here today for PE. Allergies Penicillins [PENICILLINS] Allergy (Intermediate, Verified 05/05/23 12:51) RASH codeine [CODEINE] Allergy (Mild, Verified 05/05/23 12:51) RASH penicillin V Allergy (Unknown, Verified 05/05/23 12:51) unknown olmesartan Adverse Reaction (Intermediate, Verified 05/05/23 12:51) Dizziness meloxicam Adverse Reaction (Unknown, Verified 05/05/23 12:51) vomiting Medication List - Last Reconciled 05/05/23 by Marcie Chatterjee MD acetaminophen ER 650 mg PO Q8H albuterol sulfate 90 mcg/actuation 2 puffs PO Q6H PRN albuterol sulfate 90 mcg/actuation (Ventolin HFA) 2 puffs inhalation Q6H PRN capsaicin 0.075% (Arthritis Pain Relief (capsaicin)) 1 appl topical BID chlorthalidone 25 mg PO DAILY 90 days cholecalciferol (vitamin D3) 50 mcg PO DAILY cyclobenzaprine 5 mg PO BID levothyroxine 50 mcg PO DAILY lidocaine 5% 1 patch topical DAILY omeprazole 40 mg PO BID ondansetron 4 mg PO Q8H PRN 30 days Tobacco use date assessed: 05/05/23 Dental Screening Dental Screen Date: 05/05/23 Did you have a dental visit in the last 12 months?: No Did you have a dental problem in the last 6 months where you did not have access to dental care?: No Was dental information given to patient?: Patient declined HPI PE HPI Details Pt presents for PE. She complains of chronic nausea vomiting and intermittent diarrhea with so far negative GI workup. Patient denies anxiety or depression, change in the sleeping pattern or appetite. She has been missing work because of her symptoms [facility] Medical History (Updated 05/05/23 @ 13:41 by Marcie Chatterjee MD) PONV (postoperative nausea and vomiting) Smoker Hiatal hernia Adrenal mass 1 cm to 4 cm in diameter Compression fracture of body of thoracic vertebra Abdominal pain Hypothyroidism Asthma Hyperlipidemia Raynaud disease Positive colorectal cancer screening using Cologuard test History of mammogram Tibia fracture Carpal tunnel syndrome of right wrist Arthritis Hypertension Surgical History Hx of colonoscopy History of esophagogastroduodenoscopy (EGD) History of umbilical hernia repair History of hysterectomy Family History Father Stroke Mother No problems noted. Brother No problems noted. Sister No problems noted. Sister No problems noted. Sister No problems noted. Son No problems noted. Daughter No problems noted. Social History Housing: House Patient Tobacco Use Status: Current everyday Tobacco user Tobacco use type: Cigarette Cigarette Packs Per Day: 5 Cigarettes Per Day: 100.0 e-Cigarette/Vaping Use: Never Used Current occupational status: unemployed Cognitive needs: No Hearing needs: No Vision needs: No Questionnaire Thrive Questionnaire Date Thrive assessed: 11/04/22 AUDIT C Alcohol Use Questionnaire (AUDIT-C) 1. How often do you have a drink containing alcohol?: Never 3. How often do you have six or more drinks on one occasion?: Never Total Score: 0 BROOKE-7 AMB Questionnaire BROOKE-7 Date BROOKE - 7 assessed: 11/04/22 Source: Developed by Drs. Jaime Waldron, Hortencia Salgado, Home Dey and colleagues, with an educational hong from [employer]. Review of Systems Const All systems reviewed & are unremarkable except as noted in HPI and below Reports no additional complaints Eyes Reports no additional complaints ENT Reports no additional complaints Card Reports no additional complaints Resp Reports no additional complaints GI Reports no additional complaints Reports no additional complaints Physical exam (Primary Care) Vital Signs: Last Vital Signs Pulse 71 05/05/23 12:51 BP 112/74 05/05/23 12:51 Pulse Ox 99 05/05/23 12:51 Oxygen Delivery Method Room Air 05/05/23 12:51 BMI result Body Mass Index 19.6 Tobacco/Smoking Status: Tobacco use Status Tobacco use date assessed 05/05/23 05/05/23 13:12 Patient Tobacco Use Status Current everyday Tobacco 05/05/23 12:52 Tobacco use type Cigarette 05/05/23 12:52 e-Cigarette/Vaping Use Never Used 05/05/23 12:52 Thrive Assessment: Date of Thrive Assessment Date Thrive assessed 11/04/22 05/05/23 12:52 Const General: no acute distress HENMT Ears: hearing grossly normal bilaterally Throat: Yes posterior oropharynx normal Neck Neck: Yes no lymphadenopathy and Yes supple Resp Effort & Inspection: normal respiratory effort Auscultation: clear to auscultation bilaterally Cardio Rhythm: regular rhythm Heart sounds: S1 normal heart sound present and S2 normal heart sound present GI Inspection: Yes normal to inspection Palpation (GI): Soft to palpation Percussion: Yes normal to percussion Auscultation: normal bowel sounds Assessment and Plan Assessment & Plan (1) Smoker: Comment: 1 PPD >20 YRS Code(s): F17.200 - Nicotine dependence, unspecified, uncomplicated Plan: TOBACCO QUITTING DISCUSSED WITH THE PATIENT REFERRED TO LUNG CANCER SCREENING PROGRAM (2) Adrenal mass 1 cm to 4 cm in diameter: Comment: on CT 12/02 , negative workup, Follow-up with endocrinology Code(s): E27.8 - Other specified disorders of adrenal gland Plan: Follow-up with endocrinology (3) Hypothyroidism: Code(s): E03.9 - Hypothyroidism, unspecified Plan: Continue levothyroxine patient will return for fasting blood work (4) Asthma: Code(s): J45.909 - Unspecified asthma, uncomplicated Plan: Continue albuterol p.r.n. (5) Hyperlipidemia: Code(s): E78.5 - Hyperlipidemia, unspecified Plan: Continue low-cholesterol diet return for fasting blood work (6) Intractable vomiting with nausea: Code(s): R11.2 - Nausea with vomiting, unspecified Plan: Follow-up with GI, continue PPI Orders: Referrals Thoracic Surgery Referral F17.200 - Nicotine dependence, unspecified, uncomplicated Medications: Discontinued chlorthalidone Discontinued Reason: Doctor's Order 25 mg PO DAILY 90 days 90 tabs 2RF Coding Level of Care Code Est Pt Prev Care 40-64y(55798) Diagnoses Smoker F17.200 Adrenal mass 1 cm to 4 cm in diameter E27.8 Hypothyroidism E03.9 Asthma J45.909 Hyperlipidemia E78.5 Intractable vomiting with nausea R11.2
== END 2023-05-05 13:43 | disposition home or self-care (01) ==
LOC: HO.HMGC 12:50
PROVIDERS: PCP Internal Medicine; Visit Provider Internal Medicine
DX: Z00.00 Encounter for general adult medical examination without abnormal findings (principal); E27.8 Other specified disorders of adrenal gland; F17.200 Nicotine dependence, unspecified, uncomplicated; E03.9 Hypothyroidism, unspecified; J45.909 Unspecified asthma, uncomplicated; E78.5 Hyperlipidemia, unspecified; R11.2 Nausea with vomiting, unspecified; Z90.710 Acquired absence of both cervix and uterus
CPT/HCPCS: 99396

== ENCOUNTER 2023-05-06 09:21 | Outpatient (REF) | payer OTHER, SELFPAY ==
--- NOTE | ~2023-05-06 | US_ITS ---
EXAMINATION: US ABDOMEN COMPLETE CLINICAL INFORMATION: Unspecified abdominal pain. Epigastric pain, worse after food. COMPARISON: X-ray abdomen KUB 01/25/2022. MRI abdomen 12/17/2021. CT abdomen and pelvis 11/15/2021. TECHNIQUE: Real-time imaging of the abdominal viscera. FINDINGS: PANCREAS: No lesions. The pancreatic duct visualized measuring 2 mm ABDOMINAL AORTA: Atherosclerotic calcifications. Nonaneurysmal aorta. INFERIOR VENA CAVA: Unremarkable. LIVER: The liver is enlarged measuring 17.5 cm. The liver contour is normal. Parenchymal echogenicity is normal. No focal hepatic lesion. There is no intrahepatic biliary duct dilatation seen. GALLBLADDER: The gallbladder is physiologically distended without evidence of stones, sludge, wall thickening or pericholecystic fluid. Numerous nonmobile, nonshadowing gallbladder wall echogenicities, largest measuring 5 x 3 x 3 mm. No tenderness elicited during study. Patient COMMON BILE DUCT: Normal in caliber measuring 0.8 cm in diameter. RIGHT KIDNEY: No hydronephrosis or renal calculi. The kidney measures 10.8 cm in maximum dimension. Upper/midpole 1.1 x 0.7 x 1.2 cyst with calcification. LEFT KIDNEY: No hydronephrosis or renal calculi. The kidney measures 9.5 cm in maximum dimension. 1.7 x 1.6 x 2.4 cm midpole cyst is identified. 0.8 x 0.8 x 0.7 cm focal echogenicity identified in the upper/midpole. Extrarenal pelvis is seen. SPLEEN: Normal. The spleen measures 8.8 cm in maximum dimension. FREE FLUID: None. ADDITIONAL FINDINGS: 3.6 x 2.1 x 2.9 cm soft tissue mass with focal internal echogenicity and no internal vascularity identified superior and medial to the right kidney. This previously measured 2.6 cm on 12/17/2021 study with MRI characteristics consistent with lipid rich adenoma. US/US abdomen complete IMPRESSION: Hepatomegaly. Gallbladder polyps. Bilateral renal cysts. 8 mm left angiomyolipoma. 3.6 cm right adrenal mass, previously characterized as lipid rich adenoma.
== END 2023-05-06 09:22 | disposition home or self-care (01) ==
LOC: HO.US 09:21
PROVIDERS: PCP Internal Medicine; Visit Provider Internal Medicine Gastroenterology
DX: R10.9 Unspecified abdominal pain (principal)
CPT/HCPCS: 76700

== ENCOUNTER 2023-05-14 15:28 | Outpatient (AMB) | payer OTHER, SELFPAY ==
[2023-05-14 15:30] VITALS: BP 118/70; PULSE 70; BMI 19.3
--- NOTE | 2023-05-14 15:30 | MHC.OFFVIS ---
Intake Vital Signs 05/14/23 15:30 Height 5 ft 1 in Weight 102 lb 4.712 oz BMI 19.3 BP 118/70 Blood Pressure Location Lt brachial Position Sitting Pulse 70 Pulse Source Pulse Oximeter Intake Visit Reasons: f/u adrenal mass Intake Note: Patient present for Adrenal Mass follow up visit. 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 First learned a couple of mos ago . The mass was initially present 2019. It was found to be low density at 2 HU. Aldosterone level was found to be low. The patientc/o episodes suggestive of pheochromocytoma should as sweating, , lightheaded , palpitations headache. Sometimes sx occur all together . happens once a day. Associated with N/V. She denies a symptoms of Delon syndrome. There is wt loss. There is no history of primary malignancy. C/o muscular weakness and acne not previously present. Here today to discuss workup. Dexamethasone suppression test old failed suppression of cortisol to 6.5. There was also a slight elevation in plasma metanephrines and normetanephrines which is probably not used equipment sales representative of a pheochromocytoma considering low-density lesion. Subsequent workup showed 24 hour urine for free cortisol and creatinine as well as metanephrines and normetanephrines to be normal. Patient did not do midnight salivary cortisol and PFSH Medical History (Updated 05/14/23 @ 16:01 by Jaime Arreola MD) Adrenal adenoma PONV (postoperative nausea and vomiting) Smoker Hiatal hernia Adrenal mass 1 cm to 4 cm in diameter Compression fracture of body of thoracic vertebra Abdominal pain Hypothyroidism Asthma Hyperlipidemia Raynaud disease Positive colorectal cancer screening using Cologuard test History of mammogram Tibia fracture Carpal tunnel syndrome of right wrist Arthritis Hypertension Surgical History Hx of colonoscopy History of esophagogastroduodenoscopy (EGD) History of umbilical hernia repair History of hysterectomy Family History Father Stroke Mother No problems noted. Brother No problems noted. Sister No problems noted. Sister No problems noted. Sister No problems noted. Son No problems noted. Daughter No problems noted. Social History Housing: House Patient Tobacco Use Status: Current everyday Tobacco user Tobacco use type: Cigarette Cigarette Packs Per Day: 5 Cigarettes Per Day: 100.0 e-Cigarette/Vaping Use: Never Used Current occupational status: unemployed Cognitive needs: No Hearing needs: No Vision needs: No Physical Exam Vital Signs: Last Vital Signs Pulse 70 05/14/23 15:30 BP 118/70 05/14/23 15:30 BMI result Body Mass Index 19.3 Assessment & Plan Assessment & Plan (1) Adrenal gland anomaly: Comment: L adrenal mass on CT 12/02 Code(s): Q89.1 - Congenital malformations of adrenal gland Plan: This 63-year-old white female with a history of left adrenal mass dating back to 2019. Somewhat reassuring is the chronicity of the mass and the fact that it is low-density making it unlikely be malignancy. There is a questionable increase in size. Dexamethasone suppression test old failed suppression of cortisol to 6.5 but 24 hour urine for free cortisol was normal. Additionally, ACTH levels normal. There was also a slight elevation in plasma metanephrines and normetanephrines which is probably not used equipment sales representative of a pheochromocytoma considering low-density lesion. 24 hour urine for metanephrine and normetanephrine were normal making a pheochromocytoma highly unlikely Plan is to check midnight salivary cortisol to rule out cortisol excess although unlikely. Will also recheck plasma metanephrines and normetanephrines sS patient complaining of weight loss and sweats. I will also check an a.m. cortisol level. Lastly I will refer the patient for possible adrenalectomy considering the adenoma has increased in size by 1 cm as referenced by the recent abdominal ultrasound although CT scanning and MRI characteristics do not suggest malignancy (2) Adrenal adenoma: Code(s): D35.00 - Benign neoplasm of unspecified adrenal gland Orders: Orders Metanephrines, Plasma Today D35.00 - Benign neoplasm of unspecified adrenal gland Cortisol Random Today D35.00 - Benign neoplasm of unspecified adrenal gland Referrals General Surgery Referral D35.00 - Benign neoplasm of unspecified adrenal gland Coding Level of Care Code Est Pt Level 3 (32433) Diagnoses Adrenal gland anomaly Q89.1 Adrenal adenoma D35.00
== END 2023-05-14 16:12 | disposition home or self-care (01) ==
PROVIDERS: PCP Internal Medicine; Visit Provider Internal Medicine Endocrinology, Diabetes & Metabolism
DX: Q89.1 Congenital malformations of adrenal gland (principal); D35.00 Benign neoplasm of unspecified adrenal gland
CPT/HCPCS: 99213

== ENCOUNTER → 2023-05-14 15:28 | Outpatient (BNVA) | payer OTHER, SELFPAY | PROVIDERS: PCP Internal Medicine; Visit Provider Internal Medicine Endocrinology, Diabetes & Metabolism | DX: D35.02 Benign neoplasm of left adrenal gland (principal); Q89.1 Congenital malformations of adrenal gland | CPT/HCPCS: 99212 ==

== ENCOUNTER 2023-05-30 09:53 | Outpatient (REF) | payer OTHER, SELFPAY ==
[2023-05-30 10:14] LABS: MANUAL DIFF FLAG NO
[2023-05-30 10:29] LABS: Basophils Absolute Auto 0.1 X10*3/uL (0.0-0.2); Basophils Percent Auto 0.4 % (0-2); Eosinophils Absolute Auto 0.1 X10*3/uL (0.0-0.4); Eosinophils Percent Auto 1.1 % (0-4); Hematocrit 44.6 % (37.0-47.0); Hemoglobin 15.3 g/dl (12.0-16.0); Imm Gran Abs Auto 0.04 X10*3/uL (0.00-0.03); Imm Gran Pct Auto 0.3 % (0.0-0.4); Lymphocytes Absolute Auto 4.3 X10*3/uL (1.2-4.9); Lymphocytes Percent Auto 32.2 % (20-40); Mean Corpuscular HGB Conc 34.3 g/dl (31.0-35.0); Mean Corpuscular Hemoglobin 30.8 pg (27.0-33.0); Mean Corpuscular Volume 89.7 fL (80.0-98.0); Mean Platelet Volume 10.6 fL (9.4-12.3); Monocytes Absolute Auto 0.9 X10*3/uL (0.1-1.2); Monocytes Percent Auto 6.6 % (2-11); Neutrophils Absolute Auto 7.9 x10*3/uL (2.0-8.3); Neutrophils Percent Auto 59.4 % (45-73); Platelet Count 328 X10*3/uL (160-400); Red Blood Count 4.97 X10*6/uL (4.20-5.50); Red Cell Distribution Width 13.9 % (11.0-16.0); White Blood Count 13.3 X10*3/uL (4.8-10.8)
[2023-05-30 12:05] LABS: Cortisol Random 32.7 ug/dL
[2023-05-30 12:08] LABS: Alanine Aminotransferase 17 U/L (0-31); Albumin Level 4.6 g/dL (3.5-5.0); Alkaline Phosphatase 66 U/L (39-117); Anion Gap 16 (12-20); Aspartate Amino Transferase 23 U/L (5-31); Bilirubin Total 0.6 mg/dL (0.0-1.0); Blood Urea Nitrogen 31 mg/dL (9-16); Calcium 10.2 mg/dL (8.4-10.2); Carbon Dioxide 30 mmol/L (22-29); Chloride 95 mmol/L (96-108); Cholesterol 240 mg/dL (<200); Estimated Glomerular Filt Rate 45; Glucose Fasting 90 mg/dL (60-99); HDL Cholesterol 55 mg/dL (>40); LDL Cholesterol Calculated 156 mg/dL (<100); Sodium 138 mmol/L (135-145); TSH reflex Free T4 2.86 uIU/mL (0.32-4.0); Total Protein 7.5 g/dL (6.5-8.0); Triglycerides 147 mg/dL (<150); Vitamin D 25-OH Total 25.9 ng/mL (>30)
[2023-06-05 17:33] LABS: Saliva Cortisol 5.98 mcg/dL
== END 2023-05-30 09:54 | disposition home or self-care (01) ==
LOC: HO.LAB 09:53
PROVIDERS: Absent Provider Internal Medicine Endocrinology, Diabetes & Metabolism; PCP Internal Medicine; Visit Provider Dentist Pediatric Dentistry
DX: D35.00 Benign neoplasm of unspecified adrenal gland (principal); E03.9 Hypothyroidism, unspecified; E78.5 Hyperlipidemia, unspecified; I10 Essential (primary) hypertension; E27.8 Other specified disorders of adrenal gland
CPT/HCPCS: 36415; 80053; 80061; 82306; 82530; 82533; 84443; 85025

== ENCOUNTER 2023-07-02 08:00 | Outpatient (REF) | payer OTHER, SELFPAY ==
--- NOTE | ~2023-07-02 | CT_ITS ---
EXAMINATION: CT ABDOMEN WITHOUT AND WITH CONTRAST-ADRENAL PROTOCOL CLINICAL INFORMATION: Right-sided adrenal COMPARISON: Multiple prior imaging tests including MRI 12/17/[address] abdomen pelvis 11/15/2021 TECHNIQUE: Contiguous axial thin section helical images of the abdomen were performed before and after the administration of oral contrast and 85 mL of Omnipaque 350 intravenous contrast. 2 sets of post contrast imaging was obtained one at 60 to 90 seconds and another after a 10 minute delay. The data set was reformatted in the coronal and sagittal planes and reviewed on an independent workstation. This CT examination was performed using dose optimization techniques as appropriate, variously including the following: *Automated exposure control *Adjustment of mA and/or kV according to patient size (this includes techniques or standardized protocols for targeted exams where dose is matched to indication/reason for exam; i.e. extremities or head) *Use of iterative reconstruction technique DLP: 214 mGy-cm FINDINGS: LUNG BASES: The visualized lung bases are unremarkable. LIVER, GALLBLADDER, AND BILIARY TREE: The liver is enlarged measuring 18.9 cm in cephalocaudad dimension with decreased attenuation consistent with hepatic steatosis. There are a few tiny 2 mm hypoattenuating nodule seen consistent with partial volume of benign cysts. No worrisome solid focal hepatic lesion or biliary ductal dilatation is present. The gallbladder is contracted with a thickened wall but otherwise unremarkable with no evidence of radiopaque gallstones or obvious pericholecystic inflammatory changes. PANCREAS: Unremarkable. Pancreatic duct measures 2.5 mm. No masses or calculi. SPLEEN: Unremarkable. ADRENAL GLANDS: Again seen is a right adrenal mass which measures 2.8 x 3.1 x 2.3 cm. On noncontrast imaging this has attenuation coefficients of fat density, as low as -12 Hounsfield units consistent with a benign adenoma. Some punctate central calcium is present. Despite the fat density attenuation, the washout exam was still performed. On this 60 to 75 seconds postcontrast set of images, Hounsfield unit attenuation with 63 the catheter minute delayed Hounsfield unit attenuation was 15. These values correspond to an absolute washout of 66.7% and relative washout of 76%, Consistent with the diagnosis of benign adenoma. KIDNEYS AND URETERS: The kidneys are normal in size, shape, and attenuation. Bilateral benign Bosniak class I renal cysts are noted which require no additional imaging or follow-up. No solid renal masses are seen. No hydronephrosis, hydroureter, or calculi seen. No perinephric stranding. GASTROINTESTINAL TRACT: The visualized bowel is unremarkable. ABDOMINAL WALL: No significant hernia is appreciated. LYMPH NODES: No retroperitoneal lymphadenopathy. VASCULAR: Calcific plaque seen in the aorta without aneurysm OSSEOUS STRUCTURES: There is grade 1 anterolisthesis of L4 upon L5. No bony destructive lesions CT/CT abdomen wo/w IV con IMPRESSION: 1. The right adrenal mass has imaging characteristics consistent with a benign adenoma. 2. Incidental note made of an enlarged fatty liver, benign Bosniak class I renal cysts which require no additional imaging or follow-up, grade 1 anterolisthesis of L4 upon L5 and other incidental findings described above. Fleischner guidelines were followed.
[2023-07-02 08:47] LABS: Anion Gap 15 (12-20); Blood Urea Nitrogen 26 mg/dL (9-16); Calcium 9.6 mg/dL (8.4-10.2); Carbon Dioxide 23 mmol/L (22-29); Chloride 106 mmol/L (96-108); Estimated Glomerular Filt Rate 44; Glucose Random 93 mg/dL (60-115); Magnesium 2.1 mg/dL (1.6-2.6); Potassium 3.8 mmol/L (3.3-5.1); Sodium 140 mmol/L (135-145)
[2023-07-02 09:03] LABS: TSH reflex Free T4 3.71 uIU/mL (0.32-4.0)
[2023-07-02] MEDS: iohexoL 350 MG/ML 100 ML INFUS..BTL IV (15:09)
[2023-07-04 13:53] LABS: DHEA Sulfate 16 mcg/dL (9-118)
[2023-07-06 15:53] LABS: Metanephrine, Free 52 pg/mL (<=57); Normetanephrines, Free 403 pg/mL (<=148); Total Metanephrine, Free 455 pg/mL (<=205)
[2023-07-08 12:44] LABS: Renin 1.62 ng/mL/h (0.25-5.82)
[2023-07-09 00:39] LABS: Adrenocorticotropic Hormone 20 pg/mL (6-50)
== END 2023-07-02 08:01 | disposition home or self-care (01) ==
LOC: HO.CT 08:00
PROVIDERS: PCP Internal Medicine; Visit Provider Internal Medicine Endocrinology, Diabetes & Metabolism
DX: D35.00 Benign neoplasm of unspecified adrenal gland (principal); E03.9 Hypothyroidism, unspecified; E78.5 Hyperlipidemia, unspecified; I10 Essential (primary) hypertension; E87.6 Hypokalemia; R19.7 Diarrhea, unspecified
CPT/HCPCS: 36415; 74170; 80048; 82024; 82088; 82627; 83735; 83835; 84244; 84443; Q9967

== ENCOUNTER 2023-07-11 10:53 | Outpatient (AMB) | payer OTHER, SELFPAY ==
--- NOTE | 2023-07-10 20:21 | A.OFFVIS_ITS ---
Intake Intake Visit Reasons: LDCT SD Allergies Penicillins [PENICILLINS] Allergy (Intermediate, Verified 05/14/23 15:37) RASH codeine [CODEINE] Allergy (Mild, Verified 05/14/23 15:37) RASH penicillin V Allergy (Unknown, Verified 05/14/23 15:37) unknown olmesartan Adverse Reaction (Intermediate, Verified 05/14/23 15:37) Dizziness meloxicam Adverse Reaction (Unknown, Verified 05/14/23 15:37) vomiting HPI HPI Comments History of Present Illness Details Jeane is a pleasant 63 year old female, current 07/17 ppd smoker with a 36 PYH. Patient has been smoking since age 14 for 49 years at 07/17- ppd. Admits daily marijuana use. Denies exposure to chemicals or substances like asbestos. Admits second hand smoke exposure. Denies known family history of lung cancer. Denies personal history of cancers. Denies chest CT in last year. Admits recent travel outside the . [place] Admits testing positive for COVID. Denies receiving COVID Vaccine. Denies fever, chills, chest pain, new cough, hemoptysis or unintentional weight loss. Lung Cancer Screening Questionnaire reviewed with patient by provider. Shared Decision Making Completed. Discussed in detail with patient, the risk versus benefit of LDCT screening. Patient in agreement of proceeding with scan. COUNT INCLUDES [facility] Medical History (Updated 06/02/23 @ 09:34 by Marcie Chatterjee MD) Hypertension Hyperlipidemia Hypothyroidism Adrenal adenoma Hiatal hernia Nicotine dependence, cigarettes, uncomplicated Asthma Raynaud disease Arthritis Carpal tunnel syndrome of right wrist Tibia fracture History of spinal fracture History of mammogram Surgical History (Updated 05/29/23 @ 13:46 by Jocelyne Rodriguez PA-C) History of hysterectomy History of umbilical hernia repair History of incisional hernia repair History of esophagogastroduodenoscopy (EGD) History of colonoscopy Family History Father Stroke Mother No problems noted. Brother No problems noted. Sister No problems noted. Sister No problems noted. Sister No problems noted. Son No problems noted. Daughter No problems noted. Social History (Updated 07/11/23 @ 11:18 by Francesca Page NP) Housing: House Patient Tobacco Use Status: Current everyday Tobacco user Tobacco use type: Cigarette Cigarettes Per Day: 5 Years Smoked: 49, ranging from 0.25 to 1 ppd e-Cigarette/Vaping Use: Never Used Current occupational status: unemployed Cognitive needs: No Hearing needs: No Vision needs: No Assessment & Plan Assessment & Plan (1) Nicotine dependence, cigarettes, uncomplicated: Code(s): F17.210 - Nicotine dependence, cigarettes, uncomplicated Plan Shared decision-making visit completed today in office. This patient meets criteria for LDCT for lung cancer screening purposes and is asymptomatic. Offered smoking cessation. Patient has been scheduled for a low dose chest CT for screening purposes at [facility]. We discussed how the results will be obtained depending on CT findings. RADS 1 and RADS 2 will receive a letter with results and will follow up for annual LDCT. Patient informed they will be contacted at later date to schedule upcoming LDCT scan. RADS 3 and RADS 4 will receive a telephone call, or an office visit after reviewing case at our Lung Cancer Conference to determine when the next LDCT will be scheduled or further interventions that may be needed. Discussed importance of screening program and compliance with yearly LDCT scan as scheduled. Risks, benefits, and alternatives were discussed in detail and patient agrees to proceed. Risks discussed include but are not limited to: radiation exposure and possibility of additional intervention for benign disease. Benefits include detection of lung cancer at an early stage. A copy of today's visit and LDCT results will be sent to patient's PCP. Incidental findings on LDCT are PCP's responsibility. If there are incidental findings, our office will ensure that PCP office is aware of these findings. All questions were answered and patient is in agreement of plan. Coding Level of Care Code Lung Cancer Screening G0296 Diagnoses Nicotine dependence, cigarettes, uncomplicated F17.210
== END 2023-07-11 11:15 | disposition home or self-care (01) ==
PROVIDERS: PCP Internal Medicine; Visit Provider Nurse Practitioner Family
DX: F17.210 Nicotine dependence, cigarettes, uncomplicated (principal)
CPT/HCPCS: G0296

== ENCOUNTER 2023-07-11 11:16 | Outpatient (REF) | payer OTHER, SELFPAY ==
--- NOTE | ~2023-07-11 | CT_ITS ---
EXAMINATION: CT CHEST SCREENING CLINICAL INFORMATION: Smoker; 50 pack-year smoking history. COMPARISON: CT chest dated 11/15/2021. TECHNIQUE: Multidetector volumetric CT imaging of the chest is performed without contrast using low dose technique. Additional 2D coronal and sagittal reformatted images and axial 3D maximum intensity projection (MIP) images are generated on the CT workstation. This CT examination was performed using dose optimization techniques as appropriate, variously including the following: *Automated exposure control *Adjustment of mA and/or kV according to patient size (this includes techniques or standardized protocols for targeted exams where dose is matched to indication/reason for exam; i.e. extremities or head) *Use of iterative reconstruction technique DLP: 46 mGy-cm FINDINGS: LUNGS: Within the anterior segment of the right upper lobe (5:95 and 149; 9:26), a tiny benign, calcified granuloma and a 3 mm noncalcified nodule are seen. The latter is new from prior. Within the anterior segment of the right upper lobe medially (5:151 and 181), a 4 mm benign pleural-based lymph node and a tiny benign subpleural granuloma are seen. Within the posterior segment of the right upper lobe (5:180), a stable 2 mm noncalcified nodule is seen. Inferiorly within the right upper lobe (5:232), a new 4 mm noncalcified peribronchial nodule is seen. There are small right middle lobe endobronchial densities (5:271 and 285), likely inspissated mucous. At the posterolateral left apex (5:74), a stable 3 mm noncalcified nodule is seen. Within the anterior segment of the left upper lobe medially (5:59), a new 2 mm noncalcified nodule is seen. Within the superior segment of the left lower lobe (5:163), a new 3 mm noncalcified nodule is seen. At the posterior left base (5:270 and 9:76), a 1 mm benign, calcified granuloma is seen. There is no mass, infiltrate or groundglass opacity. No generalized increase is seen in peripheral interlobular septal markings. There is mild linear scar/subsegmental atelectasis at the posteromedial bases, without associated focal airway obstruction. There is no generalized small airway thickening. The central airways appear patent. MEDIASTINUM: The thyroid is unremarkable. There is no thoracic aortic aneurysm. There are mild atherosclerotic calcifications of the great vessel origins. No mediastinal or hilar lymphadenopathy is seen. CORONARY ARTERY CALCIFICATION: Mild. PLEURA: There is no pleural effusion. No pleural mass or thickening. AXILLA: No lymphadenopathy. UPPER ABDOMEN: The right adrenal gland contains a 3.0 x 2.2 cm benign fat-containing adenoma, with precontrast Hounsfield value of -5.3 units. This requires no imaging follow-up. The left adrenal gland is unremarkable. OSSEOUS STRUCTURES: There is multi-level minimal lower thoracic degenerative disc disease and spondylosis. There are stable moderate T9 and mild T10 anterior wedge compression fractures, with associated gibbus deformity/kyphoscoliosis. No acute or aggressive osseous finding is noted. CT/CT lung screening IMPRESSION: 1. Small bilateral noncalcified and calcified pulmonary nodules are seen, the largest measuring 4 mm within the right upper lobe. Some are new from prior, as detailed. 2. No mass, infiltrate or groundglass opacity is seen. 3. There is no thoracic lymphadenopathy or pleural effusion. 4. There are mild coronary artery atherosclerotic calcifications. 5. There are chronic degenerative changes of the thoracolumbar spine, with a kyphoscoliosis. No acute or aggressive osseous finding is noted. 6. A benign, fat-containing right adrenal adenoma is redemonstrated. ASSESSMENT: Lung-RADS category 2: Benign RECOMMENDATION: Routine annual low-dose CT screening in 12 months.
== END 2023-07-11 11:17 | disposition home or self-care (01) ==
LOC: HO.CT 11:16
PROVIDERS: PCP Internal Medicine; Visit Provider Nurse Practitioner Family
DX: Z12.2 Encounter for screening for malignant neoplasm of respiratory organs (principal); F17.210 Nicotine dependence, cigarettes, uncomplicated
CPT/HCPCS: 71271; G0296

== ENCOUNTER 2023-08-08 11:18 | Outpatient (REF) | payer OTHER, SELFPAY ==
[2023-08-08 12:27] LABS: Anion Gap 13 (12-20); Blood Urea Nitrogen 14 mg/dL (9-16); Calcium 9.5 mg/dL (8.4-10.2); Carbon Dioxide 25 mmol/L (22-29); Chloride 107 mmol/L (96-108); Estimated Glomerular Filt Rate > 60; Glucose Random 97 mg/dL (60-115); Potassium 4.1 mmol/L (3.3-5.1); Sodium 141 mmol/L (135-145)
== END 2023-08-08 11:19 | disposition home or self-care (01) ==
LOC: HO.LAB 11:18
PROVIDERS: PCP Internal Medicine; Visit Provider Internal Medicine
DX: E87.6 Hypokalemia (principal)
CPT/HCPCS: 36415; 80048

== ENCOUNTER 2023-08-11 13:58 | Outpatient (AMB) | payer OTHER, SELFPAY ==
--- NOTE | 2023-08-11 14:07 | MHC.OFFVIS ---
Intake Vital Signs 08/11/23 14:08 Height 5 ft 1 in Weight 98 lb BMI 18.5 BP 166/98 H Blood Pressure Location Lt brachial Position Sitting Pulse 95 Intake Visit Reasons: 4 month follow up Intake Note: Jeane presents in the office as a 4 month follow up. CC: She states that she had an episode earlier but she does not get them as frequent. She states that she no longer is at her job and now she thinks that had a lot to do with the issue. She is gettin adrenal gland removed just no date yet. Allergies Penicillins [PENICILLINS] Allergy (Intermediate, Verified 08/11/23 14:08) RASH codeine [CODEINE] Allergy (Mild, Verified 08/11/23 14:08) RASH penicillin V Allergy (Unknown, Verified 08/11/23 14:08) unknown olmesartan Adverse Reaction (Intermediate, Verified 08/11/23 14:08) Dizziness meloxicam Adverse Reaction (Unknown, Verified 08/11/23 14:08) vomiting HPI 4 month follow up HPI Details 63 yr old f here for f/u RECAP: She had EGD 07/2021 for diarrhea and nausea with vomiting EGD with schatzki ring, erosive esophagitis, erosive gastritis hiatal hernia, duodenitis she had seen surgeon at [facility] for review of incisional hernia recurrence, Imaging: CT 02/2021-- recurrence of periumbilical hernia, small adenoma GES 10/2021-- normal at [address]: 11/2021--enlarging adrenal adrenal, kyphosis, anterior compression D9 MRI 12/2021--lipid rich adenoma LABS: raised plasma metanephrines Colonoscopy: polyps internal hemorrhoids diverticular disease Path: tubular adnenoma INTERIM: she left her job working [employer], busy job, now at [employer] which is better she has plan for removal of adrenal gland for possible pheo her appetite has been better still using THC still smoking 5-6 cigs weight comes and goes still taking omeprazole and it is helping EXAM: GENERAL: The patient is well developed and nontoxic. VITAL SIGNS:see workflow HEENT: Nonicteric sclerae, PERRLA, EOMI. Oropharynx clear. Moist mucous membranes. Conjunctivae appear well perfused. No thyroid mass. CHEST: Chest wall is nontender. HEART: Regular rate and rhythm without murmurs. LUNGS: Clear to auscultation bilaterally. ABDOMEN: Soft, positive bowel sounds, tender epigastrium, no organomegaly.no flank tenderness SKIN: No rash, no excessive bruising, petechiae, or purpura. NEUROLOGIC: Cranial nerves II-XII intact without motor/sensory deficit. MS: slight kyphosis A/P: 1/ May have cannabinoid hyperemesis syndrome, maybe in isolation or with another diagnosis eg. gastritis, PUD, GB disease--awaiting adrenal gland removal 2/ GB polyps, 3/ HTN--i had started her on chlorthalidone but causing her a lot of diuresis and not recommended for her upcoming surgery PLAN: 1. cont with PPI 2. US abdo--repeat 6 months--if polyps >1 cm then refer CCY 3. advised again on cannabis abstincence, CBD oil might be better 4. started on small dose amlodipine, will f/u PCP for BP monitoring plus she has BP monitor at home [facility] Medical History (Updated 06/02/23 @ 09:34 by Marcie Chatterjee MD) Hypertension Hyperlipidemia Hypothyroidism Adrenal adenoma Hiatal hernia Nicotine dependence, cigarettes, uncomplicated Asthma Raynaud disease Arthritis Carpal tunnel syndrome of right wrist Tibia fracture History of spinal fracture History of mammogram Surgical History (Updated 05/29/23 @ 13:46 by Jocelyne Rodriguez PA-C) History of hysterectomy History of umbilical hernia repair History of incisional hernia repair History of esophagogastroduodenoscopy (EGD) History of colonoscopy Family History Father Stroke Mother No problems noted. Brother No problems noted. Sister No problems noted. Sister No problems noted. Sister No problems noted. Son No problems noted. Daughter No problems noted. Social History (Updated 07/11/23 @ 11:18 by Francesca Page NP) Housing: House Patient Tobacco Use Status: Current everyday Tobacco user Tobacco use type: Cigarette Cigarettes Per Day: 5 Years Smoked: 49, ranging from 0.25 to 1 ppd e-Cigarette/Vaping Use: Never Used Current occupational status: unemployed Cognitive needs: No Hearing needs: No Vision needs: No Physical Exam Vital Signs: Last Vital Signs Pulse 95 08/11/23 14:08 BP 166/98 H 08/11/23 14:08 BMI result Body Mass Index 18.5 Assessment & Plan Assessment & Plan (1) Adrenal adenoma: Code(s): D35.00 - Benign neoplasm of unspecified adrenal gland Plan: A/P: 1/ May have cannabinoid hyperemesis syndrome, maybe in isolation or with another diagnosis eg. gastritis, PUD, GB disease--awaiting adrenal gland removal 2/ GB polyps, 3/ HTN--i had started her on chlorthalidone but causing her a lot of diuresis and not recommended for her upcoming surgery PLAN: 1. cont with PPI 2. US abdo--repeat 6 months--if polyps >1 cm then refer CCY 3. advised again on cannabis abstincence, CBD oil might be better 4. started on small dose amlodipine, will f/u PCP for BP monitoring plus she has BP monitor at home (2) Intractable vomiting with nausea: Code(s): R11.2 - Nausea with vomiting, unspecified Plan: A/P: 1/ May have cannabinoid hyperemesis syndrome, maybe in isolation or with another diagnosis eg. gastritis, PUD, GB disease--awaiting adrenal gland removal 2/ GB polyps, 3/ HTN--i had started her on chlorthalidone but causing her a lot of diuresis and not recommended for her upcoming surgery PLAN: 1. cont with PPI 2. US abdo--repeat 6 months--if polyps >1 cm then refer CCY 3. advised again on cannabis abstincence, CBD oil might be better 4. started on small dose amlodipine, will f/u PCP for BP monitoring plus she has BP monitor at home Medications: New amlodipine 5 mg PO DAILY 30 tabs 1RF Coding Level of Care Code Est Pt Level 4 (10140) Diagnoses Adrenal adenoma D35.00 Intractable vomiting with nausea R11.2
[2023-08-11 14:08] VITALS: BP 166/98; PULSE 95; BMI 18.5
== END 2023-08-11 14:40 | disposition home or self-care (01) ==
PROVIDERS: PCP Internal Medicine; Visit Provider Internal Medicine Gastroenterology
DX: D35.00 Benign neoplasm of unspecified adrenal gland (principal); R11.2 Nausea with vomiting, unspecified
CPT/HCPCS: 99214

== ENCOUNTER → 2023-08-11 13:58 | Outpatient (BNVA) | payer OTHER, SELFPAY | PROVIDERS: PCP Internal Medicine; Visit Provider Internal Medicine Gastroenterology | DX: D35.00 Benign neoplasm of unspecified adrenal gland (principal); R11.2 Nausea with vomiting, unspecified | CPT/HCPCS: 99212 ==

== ENCOUNTER 2023-10-22 14:55 | Outpatient (AMB) | payer OTHER, SELFPAY ==
--- NOTE | 2023-10-22 15:08 | A.OFFVIS_ITS ---
Intake Vital Signs 10/22/23 15:09 Height 5 ft 1 in Weight 104 lb 11.513 oz BMI 19.8 BP 158/90 H Blood Pressure Location Lt brachial Position Sitting Pulse 101 H Pulse Source Pulse Oximeter Intake Visit Reasons: Adrenal mass-confirmed Intake Note: Patient present today for Adrenal mass follow up visit. Manager Stone Required: No Accompanied by: Daughter Allergies Penicillins [PENICILLINS] Allergy (Intermediate, Verified 10/22/23 15:18) RASH codeine [CODEINE] Allergy (Mild, Verified 10/22/23 15:18) RASH penicillin V Allergy (Unknown, Verified 10/22/23 15:18) unknown olmesartan Adverse Reaction (Intermediate, Verified 10/22/23 15:18) Dizziness meloxicam Adverse Reaction (Unknown, Verified 10/22/23 15:18) vomiting HPI HPI Comments History of Present Illness Details Is a 63-year-old female referred endocrinology for evaluation of adrenal mass. First learned a couple of mos ago . The mass was initially present 2019. It was found to be low density at 2 HU. Aldosterone level was found to be low. The patientc/o episodes suggestive of pheochromocytoma should as sweating, , lightheaded , palpitations headache. Sometimes sx occur all together . happens once a day. Associated with N/V. She denies a symptoms of [place] syndrome. There is wt loss. There is no history of primary malignancy. C/o muscular weakness and acne not previously present. Here today to discuss workup. Dexamethasone suppression test old failed suppression of cortisol to 6.5. There was also a slight elevation in plasma metanephrines and normetanephrines which is probably not medical field representative of a pheochromocytoma considering low-density lesion. Subsequent workup showed 24 hour urine for free cortisol and creatinine as well as metanephrines and normetanephrines to be normal. Patient did not do midnight salivary cortisol and S/P R adrenalectomy by Dr. Morrison. Was on steroid taper on 20 mg of HC and 10 mg of HC [facility] Medical History (Updated 06/02/23 @ 09:34 by Marcie Chatterjee MD) Hypertension Hyperlipidemia Hypothyroidism Adrenal adenoma Hiatal hernia Nicotine dependence, cigarettes, uncomplicated Asthma Raynaud disease Arthritis Carpal tunnel syndrome of right wrist Tibia fracture History of spinal fracture History of mammogram Surgical History (Updated 10/22/23 @ 15:18 by SUNNY Atkinson) History of adrenal surgery History of hysterectomy History of umbilical hernia repair History of incisional hernia repair History of esophagogastroduodenoscopy (EGD) History of colonoscopy Family History Father Stroke Mother No problems noted. Brother No problems noted. Sister No problems noted. Sister No problems noted. Sister No problems noted. Son No problems noted. Daughter No problems noted. Social History Housing: House Patient Tobacco Use Status: Current everyday Tobacco user Tobacco use type: Cigarette Cigarettes Per Day: 5 Years Smoked: 49, ranging from 0.25 to 1 ppd e-Cigarette/Vaping Use: Never Used Current occupational status: unemployed Cognitive needs: No Hearing needs: No Vision needs: No Physical Exam Vital Signs: Last Vital Signs Pulse 101 H 10/22/23 15:09 BP 158/90 H 10/22/23 15:09 BMI result Body Mass Index 19.8 Assessment & Plan Assessment & Plan (1) Adrenal gland anomaly: Comment: L adrenal mass on CT 12/02 Code(s): Q89.1 - Congenital malformations of adrenal gland Plan: This 63-year-old white female with a history of left adrenal mass with MACS status post left adrenalectomy with benign pathology Plan is to taper HC to 10 mg in AM and 5 mg in PM . In 2 wks will chack AM cortisol after holding HC for 24 hrs . Has fatty liver on CT Scan and needs f/u for this with GI (2) Adrenal adenoma: Code(s): D35.00 - Benign neoplasm of unspecified adrenal gland Plan: See above plan Orders: Orders Cortisol Random 2 Weeks D35.00 - Benign neoplasm of unspecified adrenal gland Coding Level of Care Code Est Pt Level 3 (61153) Diagnoses Adrenal gland anomaly Q89.1 Adrenal adenoma D35.00
[2023-10-22 15:09] VITALS: BP 158/90; PULSE 101; BMI 19.8
== END 2023-10-22 16:05 | disposition home or self-care (01) ==
PROVIDERS: PCP Internal Medicine; Visit Provider Internal Medicine Endocrinology, Diabetes & Metabolism
DX: Q89.1 Congenital malformations of adrenal gland (principal); D35.00 Benign neoplasm of unspecified adrenal gland
CPT/HCPCS: 99213

== ENCOUNTER → 2023-10-22 14:55 | Outpatient (BNVA) | payer OTHER, SELFPAY | PROVIDERS: PCP Internal Medicine; Visit Provider Internal Medicine Endocrinology, Diabetes & Metabolism | DX: Q89.1 Congenital malformations of adrenal gland (principal); D35.00 Benign neoplasm of unspecified adrenal gland | CPT/HCPCS: 99212 ==

== ENCOUNTER 2023-11-10 12:37 | Outpatient (AMB) | payer OTHER, SELFPAY ==
[2023-11-10 13:07] VITALS: BP 142/84; BMI 28.4
--- NOTE | 2023-11-10 13:07 | MHC.PC.OV ---
Vital Signs 11/10/23 13:07 Height 5 ft 1 in Weight 150 lb 2 oz BMI 28.4 BP 142/84 H Blood Pressure Location Rt brachial Position Sitting Intake Visit Reasons: Anxiety F/U Allergies Penicillins [PENICILLINS] Allergy (Intermediate, Verified 11/10/23 13:09) RASH codeine [CODEINE] Allergy (Mild, Verified 11/10/23 13:09) RASH penicillin V Allergy (Unknown, Verified 11/10/23 13:09) unknown olmesartan Adverse Reaction (Intermediate, Verified 11/10/23 13:09) Dizziness meloxicam Adverse Reaction (Unknown, Verified 11/10/23 13:09) vomiting Medication List - Last Reconciled 11/10/23 by Marcie Chatterjee MD acetaminophen ER 650 mg PO Q8H albuterol sulfate 90 mcg/actuation (Ventolin HFA) 2 puffs inhalation Q6H PRN albuterol sulfate 90 mcg/actuation 2 puffs PO Q6H PRN cholecalciferol (vitamin D3) 50 mcg PO DAILY cyclobenzaprine 5 mg PO BID levothyroxine 50 mcg PO DAILY omeprazole 40 mg PO BID Tobacco use date assessed: 11/10/23 Dental Screening Dental Screen Date: 11/10/23 Did you have a dental visit in the last 12 months?: No Did you have a dental problem in the last 6 months where you did not have access to dental care?: No Was dental information given to patient?: No HPI Anxiety F/U HPI Details Patient presents for the follow-up. She underwent right adrenalectomy for enlarging adrenal adenoma with negative pathology and adhesion removal in September. Patient has been feeling better since the surgery. Intermediate Nausea and vomiting resolved. Patient follows up with endocrinology and he was initially treated with hydrocortisone on tapering dose. She was found to have enlarged liver and will follow-up with the GI. Patient was started on amlodipine for hypertension and has been following low-sodium diet. [facility] Medical History (Updated 11/10/23 @ 14:20 by Marcie Chatterjee MD) Hypertension Hyperlipidemia Hypothyroidism Adrenal adenoma Hiatal hernia Nicotine dependence, cigarettes, uncomplicated Asthma Raynaud disease Arthritis Carpal tunnel syndrome of right wrist Tibia fracture History of spinal fracture History of mammogram Surgical History History of adrenal surgery History of hysterectomy History of umbilical hernia repair History of incisional hernia repair History of esophagogastroduodenoscopy (EGD) History of colonoscopy Family History Father Stroke Mother No problems noted. Brother No problems noted. Sister No problems noted. Sister No problems noted. Sister No problems noted. Son No problems noted. Daughter No problems noted. Social History Housing: House Patient Tobacco Use Status: Current everyday Tobacco user Tobacco use type: Cigarette Cigarettes Per Day: 5 Years Smoked: 49, ranging from 0.25 to 1 ppd Packs per year/per ci.00 e-Cigarette/Vaping Use: Never Used Current occupational status: unemployed Cognitive needs: No Hearing needs: No Vision needs: No Questionnaire PHQ-9 Over the last 2 weeks, how often have you been bothered by any of the following problems? 60052 - PHQ-9 Billing: Patient declined-do not bill Source: Developed by Drs. Jaime Waldron, Hortencia Salgado, Home Dey and colleagues, with an educational hong from [employer]. Thrive Questionnaire Date Thrive assessed: 11/10/23 I am a: Patient What is your living situation today?: I have a steady place to live Within the past 12 months, did the food you bought not last and you didn't have the money to get more?: Never true Within the past 12 months, did you worry whether your food would run out before you got money to buy more?: Never true Do you have trouble paying for medicines?: No Do you have trouble getting transportation to medical appointments?: No Do you have trouble paying your heating and electricity bill?: No Do you have trouble taking care of your child, family member or friend?: No Do you have trouble with day-to-day activities such as bathing, preparing meals, shopping, managing finances, etc.?: No Are you currently unemployed and looking for a job?: No Are you interested in more education?: No Please select the resources that you would like help with: None Currently or been in a relationship where the following occur: no concerns reported THRIVE Score: 0 AUDIT C Alcohol Use Questionnaire (AUDIT-C) 1. How often do you have a drink containing alcohol?: Never 3. How often do you have six or more drinks on one occasion?: Never Total Score: 0 Score Reviewed/Action Taken: Yes BROOKE-7 AMB Questionnaire BROOKE-7 Date BROOKE - 7 assessed: 11/10/23 Feeling nervous, anxious, or on edge: 0 = Not at all Not being able to stop or control worryin = Several days Worrying too much about different things: 0 = Not at all Trouble relaxin = Not at all Being so restless that it is hard to sit still: 0 = Not at all Becoming easily annoyed or irritable: 0 = Not at all Feeling afraid as if something awful might happen: 0 = Not at all Total BROOKE-7 score (0-4 normal; 5-9 mild; 10-14 moderate; 15-21 severe): 1 Source: Developed by Drs. Jaime Waldron, Hortencia Salgado, Home Dey and colleagues, with an educational hong from [employer]. BROOKE-7 Assessment Billing BROOKE-7 Assessment Tool: BROOKE-7 Assessment 10342 Review of Systems Const All systems reviewed & are unremarkable except as noted in HPI and below Reports no additional complaints Eyes Reports no additional complaints ENT Reports no additional complaints Card Reports no additional complaints Resp Reports no additional complaints GI Reports no additional complaints Reports no additional complaints Musc Reports no additional complaints Physical exam (Primary Care) Vital Signs: Last Vital Signs BP 142/84 H 11/10/23 13:07 BMI result Body Mass Index 28.4 Tobacco/Smoking Status: Tobacco use Status Tobacco use date assessed 11/10/23 11/10/23 13:11 Patient Tobacco Use Status Current everyday Tobacco 11/10/23 13:11 Tobacco use type Cigarette 11/10/23 13:11 e-Cigarette/Vaping Use Never Used 11/10/23 13:11 Thrive Assessment: Date of Thrive Assessment Date Thrive assessed 11/10/23 11/10/23 13:34 Currently or been in a relationship where the following occur: no concerns reported Const General: no acute distress HENMT Head: Yes normal to inspection Throat: Yes posterior oropharynx normal Neck Neck: Yes no lymphadenopathy and Yes supple Resp Effort & Inspection: normal respiratory effort Auscultation: clear to auscultation bilaterally Cardio Rhythm: regular rhythm Heart sounds: S1 normal heart sound present and S2 normal heart sound present GI Inspection: Yes normal to inspection Palpation (GI): Soft to palpation Assessment and Plan Assessment & Plan (1) Hyperlipidemia: Code(s): E78.5 - Hyperlipidemia, unspecified Plan: Patient will return for fasting lipid panel (2) Hypothyroidism: Code(s): E03.9 - Hypothyroidism, unspecified Plan: She has been off levothyroxine check TSH level (3) Hypertension: Code(s): I10 - Essential (primary) hypertension Plan: Continue amlodipine (4) Enlarged liver: Comment: fatty, f/u with GI Code(s): R16.0 - Hepatomegaly, not elsewhere classified Plan: Check hepatitis panel follow-up with GI (5) Adrenal adenoma: Comment: Status post right adrenalectomy 10/04, benign pathology Code(s): D35.00 - Benign neoplasm of unspecified adrenal gland (6) Nicotine dependence, cigarettes, uncomplicated: Code(s): F17.210 - Nicotine dependence, cigarettes, uncomplicated Plan: Tobacco quitting discussed with the patient, in lung cancer screening program Orders: Orders Comprehensive [place]. Panel Fast 1 Week E03.9 - Hypothyroidism, unspecified, E78.5 - Hyperlipidemia, unspecified, I10 - Essential (primary) hypertension Vitamin D 25-OH Total 1 Week E03.9 - Hypothyroidism, unspecified, E78.5 - Hyperlipidemia, unspecified, R16.0 - Hepatomegaly, not elsewhere classified Hepatitis B,C Profile 1 Week E03.9 - Hypothyroidism, unspecified, E78.5 - Hyperlipidemia, unspecified, R16.0 - Hepatomegaly, not elsewhere classified Lipid Panel 1 Week E03.9 - Hypothyroidism, unspecified, E78.5 - Hyperlipidemia, unspecified, I10 - Essential (primary) hypertension TSH reflex Free T4 1 Week E03.9 - Hypothyroidism, unspecified, E78.5 - Hyperlipidemia, unspecified, R16.0 - Hepatomegaly, not elsewhere classified IRON PROFILE 1 Week E03.9 - Hypothyroidism, unspecified, E78.5 - Hyperlipidemia, unspecified, R16.0 - Hepatomegaly, not elsewhere classified Alpha Fetoprotein 1 Week E03.9 - Hypothyroidism, unspecified, E78.5 - Hyperlipidemia, unspecified, R16.0 - Hepatomegaly, not elsewhere classified Medications: New cyclobenzaprine 5 mg PO BID 90 tabs 0RF amlodipine 5 mg PO DAILY 90 tabs 3RF Refilled albuterol sulfate 90 mcg/actuation (Ventolin HFA) 2 puffs inhalation Q6H PRN 8.5 grams 3RF shortness of breath or wheezing J45.909 - Unspecified asthma, uncomplicated omeprazole 40 mg PO BID 90 caps 2RF Coding Level of Care Code Est Pt Level 4 (56218) Diagnoses Hyperlipidemia E78.5 Hypothyroidism E03.9 Hypertension I10 Enlarged liver R16.0 Adrenal adenoma D35.00 Nicotine dependence, cigarettes, uncomplicated F17.210 Additional Codes BROOKE-7 Assessment Billing - BROOKE-7 Assessment Tool: BROOKE-7 Assessment 25187 ([id number])
== END 2023-11-10 13:51 | disposition home or self-care (01) ==
PROVIDERS: PCP Internal Medicine; Visit Provider Internal Medicine
DX: E78.5 Hyperlipidemia, unspecified (principal); E03.9 Hypothyroidism, unspecified; I10 Essential (primary) hypertension; R16.0 Hepatomegaly, not elsewhere classified; D35.00 Benign neoplasm of unspecified adrenal gland; F17.210 Nicotine dependence, cigarettes, uncomplicated
CPT/HCPCS: 99214

== ENCOUNTER 2023-11-17 08:30 | Outpatient (REF) | payer OTHER, SELFPAY ==
[2023-11-17 11:13] LABS: Alanine Aminotransferase 17 U/L (0-31); Alkaline Phosphatase 61 U/L (39-117); Anion Gap 12 (12-20); Aspartate Amino Transferase 17 U/L (5-31); Bilirubin Total 0.2 mg/dL (0.0-1.0); Blood Urea Nitrogen 19 mg/dL (9-16); Calcium 9.7 mg/dL (8.4-10.2); Carbon Dioxide 26 mmol/L (22-29); Chloride 107 mmol/L (96-108); Cholesterol 192 mg/dL (<200); Estimated Glomerular Filt Rate > 60; Glucose Fasting 72 mg/dL (60-99); HDL Cholesterol 65 mg/dL (>40); Iron 53 mcg/dL (30-160); LDL Cholesterol Calculated 114 mg/dL (<100); Percent Iron Saturation 18 % (15-50); Potassium 4.2 mmol/L (3.3-5.1); Sodium 141 mmol/L (135-145); Total Iron Binding Capacity 291 mcg/dL (228-428); Total Protein 6.9 g/dL (6.5-8.0); Triglycerides 69 mg/dL (<150); Unsaturated Iron Binding 238 ug/dL
[2023-11-17 11:17] LABS: HBS Num1 5.54 mIU/mL (0-7.99); HBc Num1 0.07 S/CO (0.00-0.79); HBsAGNum1 0.32 S/CO (0.00-0.99); Hepatitis B Core Antibody Nonreactive (Nonreactive); Hepatitis B Surface Antigen Negative (Negative); ~Hepatitis B Surface Antibody NONREACTIVE (Nonreactive); ~Hepatitis C Antibody Nonreactive (Nonreactive)
[2023-11-17 11:28] LABS: TSH reflex Free T4 6.21 uIU/mL (0.32-4.0); Vitamin D 25-OH Total 56.9 ng/mL (>30)
[2023-11-17 11:38] LABS: Cortisol Random 16.7 ug/dL
[2023-11-17 12:09] LABS: Free T4 (Free Thyroxine) 0.99 ng/dL (0.71-1.85)
[2023-11-18 13:04] LABS: Alpha Fetoprotein 2.4 ng/mL
== END 2023-11-17 08:31 | disposition home or self-care (01) ==
LOC: HO.HMGCLDS 08:30
PROVIDERS: PCP Internal Medicine; Referring Provider Internal Medicine Endocrinology, Diabetes & Metabolism; Visit Provider Internal Medicine
DX: R16.0 Hepatomegaly, not elsewhere classified (principal); E78.5 Hyperlipidemia, unspecified; E03.9 Hypothyroidism, unspecified; I10 Essential (primary) hypertension; D35.00 Benign neoplasm of unspecified adrenal gland
CPT/HCPCS: 36415; 80053; 80061; 82105; 82306; 82533; 83540; 84439; 84443; 86704; 86706; 86803; 87340

== ENCOUNTER 2023-11-24 16:08 | Outpatient (AMB) | payer OTHER, SELFPAY ==
[2023-11-24 16:09] VITALS: BP 132/88; PULSE 94; BMI 20.1
--- NOTE | 2023-11-24 16:09 | A.OFFVIS_ITS ---
Vital Signs 11/24/23 16:09 Height 5 ft 1 in Weight 106 lb 7.732 oz BMI 20.1 BP 132/88 Blood Pressure Location Rt brachial Position Sitting Pulse 94 Pulse Source Pulse Oximeter Intake Visit Reasons: Adrenal mass-LVM Intake Note: Patient presents today for Adrenal Mass follow up. 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 First learned a couple of mos ago . The mass was initially present 2019. It was found to be low density at 2 HU. Aldosterone level was found to be low. The patientc/o episodes suggestive of pheochromocytoma should as sweating, , lightheaded , palpitations headache. Sometimes sx occur all together . happens once a day. Associated with N/V. She denies a symptoms of [place] syndrome. There is wt loss. There is no history of primary malignancy. C/o muscular weakness and acne not previously present. Here today to discuss workup. Dexamethasone suppression test old failed suppression of cortisol to 6.5. There was also a slight elevation in plasma metanephrines and normetanephrines which is probably not chain sales representative of a pheochromocytoma considering low-density lesion. Subsequent workup showed 24 hour urine for free cortisol and creatinine as well as metanephrines and normetanephrines to be normal. Patient did not do midnight salivary cortisol and S/P R adrenalectomy by Dr. Morrison. 10 mg in AM and 5 mg at night alt with 5 mg BID [facility] Medical History (Updated 11/10/23 @ 14:20 by Marcie Chatterjee MD) Hypertension Hyperlipidemia Hypothyroidism Adrenal adenoma Hiatal hernia Nicotine dependence, cigarettes, uncomplicated Asthma Raynaud disease Arthritis Carpal tunnel syndrome of right wrist Tibia fracture History of spinal fracture History of mammogram Surgical History History of adrenal surgery History of hysterectomy History of umbilical hernia repair History of incisional hernia repair History of esophagogastroduodenoscopy (EGD) History of colonoscopy Family History Father Stroke Mother No problems noted. Brother No problems noted. Sister No problems noted. Sister No problems noted. Sister No problems noted. Son No problems noted. Daughter No problems noted. Social History Housing: House Patient Tobacco Use Status: Current everyday Tobacco user Tobacco use type: Cigarette Cigarettes Per Day: 5 Years Smoked: 49, ranging from 0.25 to 1 ppd e-Cigarette/Vaping Use: Never Used Current occupational status: unemployed Cognitive needs: No Hearing needs: No Vision needs: No Physical Exam Vital Signs: Last Vital Signs Pulse 94 11/24/23 16:09 BP 132/88 11/24/23 16:09 BMI result Body Mass Index 20.1 Assessment & Plan Assessment & Plan (1) Adrenal gland anomaly: Comment: L adrenal mass on CT 12/02 Code(s): Q89.1 - Congenital malformations of adrenal gland Category: Medical Plan: This 63-year-old white female with a 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 Patient has her own scheme of down titration but I encouraged her to be relentless about getting rid of the hydrocortisone Has fatty liver on CT Scan and needs f/u for this with GI (2) Hypothyroidism: Code(s): E03.9 - Hypothyroidism, unspecified Category: Medical Plan: This was not addressed at the visit the patient was told to follow-up with the primary care provider who is managing her hypothyroidism Coding Level of Care Code Est Pt Level 3 (09022) Diagnoses Adrenal gland anomaly Q89.1 Hypothyroidism E03.9
== END 2023-11-24 16:33 | disposition home or self-care (01) ==
PROVIDERS: PCP Internal Medicine; Visit Provider Internal Medicine Endocrinology, Diabetes & Metabolism
DX: Q89.1 Congenital malformations of adrenal gland (principal); E03.9 Hypothyroidism, unspecified
CPT/HCPCS: 99213

== ENCOUNTER → 2023-11-24 16:08 | Outpatient (BNVA) | payer OTHER, SELFPAY | PROVIDERS: PCP Internal Medicine; Visit Provider Internal Medicine Endocrinology, Diabetes & Metabolism | DX: Q89.1 Congenital malformations of adrenal gland (principal); E03.9 Hypothyroidism, unspecified | CPT/HCPCS: 99212 ==

== ENCOUNTER 2024-02-20 14:30 | Emergency (ER) | payer OTHER, SELFPAY ==
[2024-02-20 15:13] VITALS: BP 162/113; PULSE 113; RESP 18; TEMP 36.4; O2SAT 97; BMI 17.1
--- NOTE | 2024-02-20 15:14 | ED.NAVMDI ---
HPI - Nausea/Vomiting/Diarrhea General Chief complaint: Nausea/Vomiting/Diarrhea Stated complaint: dehydrated Time Seen by Provider: 02/20/24 16:52 History of Present Illness ED Provider: Dr. Munoz HPI Narrative: 64 y/o F patient; PMH HTN, HLD, hypothyroidism, adrenal adenoma s/p right adrenalectomy, asthma; presents from home reporting two days of nausea/vomiting, epigastric abdominal pain, and central back pain. The patient states it is associated with food aversion. She denies chest pain, SOB, cough/congestion, fever or chills. She denies hx of prior similar symptoms. She had one episode of diarrhea yesterday 02/19/2024. Patient is a current smoker. Related Data Previous Rx's ?Medication ?Instructions ?Recorded albuterol sulfate 90 mcg/actuation 2 puff PO Q6H PRN Wheezing #8.5 11/04/22 aerosol inhaler grams cholecalciferol (vitamin D3) 50 50 mcg PO DAILY #90 caps 07/27/23 mcg (2,000 unit) capsule albuterol sulfate 90 mcg/actuation 2 puff inhalation Q6H PRN 11/10/23 aerosol inhaler (Ventolin HFA) shortness of breath or wheezing #8.5 grams amlodipine 5 mg tablet 5 mg PO DAILY #90 tabs 11/10/23 omeprazole 40 mg capsule,delayed 40 mg PO BID #90 caps 11/10/23 release acetaminophen 650 mg 650 mg PO Q8H #90 tabs 11/13/23 tablet,extended release cyclobenzaprine 5 mg tablet 5 mg PO BID #90 tabs 12/05/23 lidocaine 5 % topical patch 1 patch topical DAILY #30 ea 12/15/23 sertraline 25 mg tablet (Zoloft) 25 mg PO DAILY #30 tabs 12/15/23 hydrocortisone 10 mg tablet 5 mg (1/2 x 10 mg) PO BID #60 tabs 12/19/23 Allergies Allergy/AdvReac Type Severity Reaction Status Date / Time Penicillins [PENICILLINS] Allergy Intermediate RASH Verified 02/20/24 15:18 codeine [CODEINE] Allergy Mild RASH Verified 02/20/24 15:18 penicillin V Allergy Unknown unknown Verified 02/20/24 15:18 olmesartan AdvReac Intermediate Dizziness Verified 02/20/24 15:18 meloxicam AdvReac Unknown vomiting Verified 02/20/24 15:18 Review of Systems Review of Systems: Yes all other systems are reviewed and are negative Neurologic: Denies Sensory deficit (Neuro) [facility] Past Medical History Attestation statement: The following information was validated with the patient. Source: old records reviewed Medical History Hypertension Hyperlipidemia Hypothyroidism Adrenal adenoma Hiatal hernia Nicotine dependence, cigarettes, uncomplicated Asthma Raynaud disease Arthritis Carpal tunnel syndrome of right wrist Tibia fracture History of spinal fracture History of mammogram Surgical History History of adrenal surgery History of hysterectomy History of umbilical hernia repair History of incisional hernia repair History of esophagogastroduodenoscopy (EGD) History of colonoscopy Family History Family History Father Stroke Mother No problems noted. Brother No problems noted. Sister No problems noted. Sister No problems noted. Sister No problems noted. Son No problems noted. Daughter No problems noted. Social History Social History Housing: House Patient Tobacco Use Status: Current everyday Tobacco user Tobacco use type: Cigarette Cigarettes Per Day: 5 Years Smoked: 49, ranging from 0.25 to 1 ppd Smoked in Last 30 Days: No e-Cigarette/Vaping Use: Never Used Advance Directives: No Advance Directives Information Provided: No Do you have a plan to hurt others: No Plan Current occupational status: unemployed Cognitive needs: No Hearing needs: No Vision needs: No Physical Exam Vital Signs: Vital Signs: Last Vital Signs Temp 97.8 F 02/20/24 18:40 Pulse 99 02/20/24 18:40 Resp 12 02/20/24 18:40 BP 96/65 02/20/24 18:40 Pulse Ox 98 02/20/24 18:40 O2 Del Method Room Air 02/20/24 18:40 BMI result Body Mass Index 18.0 Patient is afebrile, tachycardic, and hypertensive. Const: General: cooperative Orientation/consciousness: patient oriented x3 HEENT: Head: Yes normal to inspection and Yes atraumatic Eyes: General: appearance normal, both eyes and all related structures Pupils: Equal, round and reactive pupils present EOM: EOMs intact bilaterally Neck: Neck: Yes normal visual inspection, Yes full ROM, Yes supple and No tender Chest: Chest palpation & inspection: normal inspection of the chest and normal palpation of entire chest wall Resp: Effort & Inspection: normal respiratory effort, able to speak in complete sentences, no cough and no respiratory distress Auscultation: clear to auscultation bilaterally Cardio: Rate: regular rate Rhythm: regular rhythm Peripheral pulses: Peripheral pulses 2+ throughout GI: Inspection: Yes normal to inspection, No Abdominal wall edema and No distended Palpation (GI): Soft to palpation, not firm, nontender, no guarding and not rigid Auscultation: normal bowel sounds Back/Spine/Pelvis: Back: No back tenderness Neuro: General: patient oriented x3 Cranial nerves: Yes Equal, round and reactive pupils present Gait exam (Neuro): Normal gait present Motor exam (neuro): 5/5 motor strength present throughout Sensory Exam: No Sensory deficit (Neuro) Course Course Course Narrative: This is an RME: Additional HPI, ROS, PE not included below will be deferred to primary provider. RME assessment and note performed by: Zoraida Rodrigues PA-C This is a [id number]-female, with hx of gastritis, esophagitis, asthma, HTN, and right adrenalectomy in September 2021, who presents to the ER with complaints of nausea and vomiting since yesterday. Reporting abdominal pain. + diarrhea. No bloody or black stool. Had 2 hernia repairs. Has been able to tolerate water orally. Plan: Labs, UA, EKG Reevaluation(s) Reevaluation #1: Patient is afebrile and hemodynamically stable. Reviewed EKG immediately - noted to have new ST elevations in leads V1 and V2, with diffuse ST depressions in inferior leads. Requested patient be placed in room. Reviewed triage labs. Noted leukocytosis 15.7. Troponin 749.1. Started on heparin drip. Received ASA 324mg PO. Plan for CT Abdomen/Pelvis. Ordered for Morphine 4mg IV and Zofran 4mg IV. Discussed with cardiology - who agree if patient is having ongoing pain she is appropriate for transfer to [facility]. Discussed with [facility]iology and patient accepted for transfer. Patient provided Nitro 0.4mg PO with improvement in chest pain. Repeated EKG which remains unchanged. Plan: Transfer to [facility] Condition: stable Patient and two sisters at bedside in agreement regarding transfer. Medications Administered Generic Name Dose Route Start Last Admin Trade Name Freq PRN Reason Stop Dose Admin Heparin Sodium/Sodium Chloride 25,000 unit in 250 mls @ 0 mls/hr 02/20/24 17:30 02/20/24 18:20 Heparin Sodium,Porcine/1/2ns IVCONT 14 units/kg/hr .Q0M MICHAEL 6.05 mls/hr Administration Protocol Per Protocol Discontinued Medications Generic Name Dose Route Start Last Admin Trade Name Freq PRN Reason Stop Dose Admin Aspirin 324 mg 02/20/24 17:58 02/20/24 18:26 Aspirin 81 Mg Tab.Chew PO 02/20/24 17:59 324 mg ONCE ONE Administration Heparin Sodium (Porcine) 3,300 unit 02/20/24 17:05 02/20/24 18:22 Heparin Sodium,Porcine 5,000 Unit/Ml Vial 80 unit/kg (3300 unit) 02/20/24 17:06 3,300 unit IVPUSH Administration ONCE ONE Sodium Chloride 1,000 mls @ 999 mls/hr 02/20/24 17:15 02/20/24 18:43 Ns IV 02/20/24 18:15 Infused .Q1H1M MICHAEL Infusion Morphine Sulfate 2 mg 02/20/24 17:17 02/20/24 17:41 Morphine Sulfate 2 Mg/Ml Cartridge IVPUSH 02/20/24 17:18 2 mg ONCE ONE Administration Protocol Nitroglycerin 0.4 mg 02/20/24 18:00 02/20/24 18:26 Nitroglycerin 0.4 Mg Tab.Subl SUBLINGUAL 02/20/24 18:01 0.4 mg ONCE ONE Administration Ondansetron HCl 4 mg 02/20/24 17:17 02/20/24 17:39 Ondansetron Hcl 4 Mg/2 Ml Vial IVPUSH 02/20/24 17:18 4 mg ONCE ONE Administration Medical Decision Making Lab Data 02/20/24 16:02 02/20/24 16:02 Labs: Lab Results 02/20/24 02/20/24 02/20/24 Range/Units 16:02 18:18 18:51 WBC 15.7 H (4.8-10.8) X10*3/uL RBC 5.23 (4.20-5.50) X10*6/uL Hgb 15.8 (12.0-16.0) g/dl Hct 45.1 (37.0-47.0) % MCV 86.2 (80.0-98.0) fL MCH 30.2 (27.0-33.0) pg MCHC 35.0 (31.0-35.0) g/dl RDW 14.6 (11.0-16.0) % Plt Count 368 (160-400) X10*3/uL MPV 10.0 (9.4-12.3) fL Immature Gran % (Auto) 0.6 H (0.0-0.4) % Neut % (Auto) 81.7 H (45-73) % Lymph % (Auto) 10.4 L (20-40) % [place] % (Auto) 7.1 (2-11) % Eos % (Auto) 0.0 (0-4) % Baso % (Auto) 0.2 (0-2) % Lymph # (Auto) 1.6 (1.2-4.9) X10*3/uL [place] # (Auto) 1.1 (0.1-1.2) X10*3/uL Eos # (Auto) 0.0 (0.0-0.4) X10*3/uL Baso # (Auto) 0.0 (0.0-0.2) X10*3/uL Abs Immat Gran (auto) 0.09 H (0.00-0.03) X10*3/uL Absolute Neuts (auto) 12.8 H (2.0-8.3) x10*3/uL Absolute Nucleated RBC 0.000 (0.0-0.012) X10*3/uL Nucleated RBC % (auto) 0.0 (0.0-0.2) /100WBC PT 11.9 (11.1-13.3) SEC INR 1.0 (0.9-1.1) aPTT Heparin Protocol 33.0 L (53-77.9) SEC Sodium 136 (135-145) mmol/L Potassium 3.9 (3.3-5.1) mmol/L Chloride 98 (96-108) mmol/L Carbon Dioxide 24 (22-29) mmol/L Anion Gap 18 (12-20) BUN 22 H (9-16) mg/dL Creatinine 1.20 (0.5-1.4) mg/dL Estim Creat Clear Calc 31.5 Estimated GFR 46 Random Glucose 113 (60-115) mg/dL Calcium 10.5 H D (8.4-10.2) mg/dL Magnesium 1.8 (1.6-2.6) mg/dL Total Bilirubin 0.5 (0.0-1.0) mg/dL Direct Bilirubin 0.1 (0.0-0.5) mg/dL AST 31 (5-31) U/L ALT 23 (0-31) U/L Alkaline Phosphatase 81 (39-117) U/L Troponin I High Sens 749.1 H* 683.2 H* (<3.5-17.0) ng/L Total Protein 8.5 H (6.5-8.0) g/dL Albumin 5.1 H (3.5-5.0) g/dL Lipase 14 (8-78) U/L TSH 4.12 H (0.32-4.0) uIU/mL Influenza Type A (PCR) NEGATIVE (Negative) Influenza Type B (PCR) NEGATIVE (Negative) RSV RNA Qual (PCR) NEGATIVE (Negative) SARS-CoV-2 RNA (RT-PCR) NEGATIVE (Negative) Critical Care Time Critical Care Time Critical Care Time: Yes Total Critical Care Time: 45 Attestation: Due to a high probability of clinically significant, life threatening deterioration, the patient required my highest level of preparedness to intervene emergently and I personally spent this critical care time directly and personally managing the patient. This critical care time included obtaining a history; examining the patient; pulse oximetry; ordering and review of studies; arranging urgent treatment with development of a management plan; evaluation of patient's response to treatment; frequent reassessment; and, discussions with other providers. This critical care time was performed to assess and manage the high probability of imminent, life-threatening deterioration that could result in multi-organ failure. It was exclusive of separately billable procedures and treating other patients and teaching time. Discharge Plan Discharge Clinical Impression: Non-ST elevation RI (NSTEMI) Patient Disposition: [facility] Transfer Details: [facility] Prescriptions: No Action cholecalciferol (vitamin D3) 50 mcg (2,000 unit) capsule 50 mcg PO DAILY Qty: 90 3RF acetaminophen 650 mg tablet extended release 650 mg PO Q8H Qty: 90 3RF cyclobenzaprine 5 mg tablet 5 mg PO BID Qty: 90 0RF lidocaine 5 % adhesive patch,medicated 1 patch topical DAILY Qty: 30 2RF Rx Instructions: leave on most painful area for up to 12 hrs sertraline [Zoloft] 25 mg tablet 25 mg PO DAILY Qty: 30 2RF hydrocortisone 10 mg tablet 5 mg PO BID Qty: 60 1RF albuterol sulfate 90 mcg/actuation HFA aerosol inhaler 2 puff PO Q6H PRN (Reason: Wheezing) Qty: 8.5 3RF albuterol sulfate [Ventolin HFA] 90 mcg/actuation HFA aerosol inhaler 2 puff inhalation Q6H PRN (Reason: shortness of breath or wheezing) Qty: 8.5 3RF amlodipine 5 mg tablet 5 mg PO DAILY Qty: 90 3RF omeprazole 40 mg capsule,delayed release(DR/EC) 40 mg PO BID Qty: 90 2RF Print Language: Taiwanese
--- NOTE | 2024-02-20 15:18 | ECG_ITS ---
Test Reason : N/V Blood Pressure : / mmHG Vent. Rate : 107 BPM Atrial Rate : 107 BPM P-R Int : 124 ms QRS Dur : 086 ms QT Int : 380 ms P-R-T Axes : 074 -60 085 degrees QTc Int : 507 ms Sinus tachycardia Biatrial enlargement Pulmonary disease pattern Left anterior fascicular block Minimal voltage criteria for LVH, may be normal variant ( Spencer product ) Septal infarct , age undetermined Abnormal ECG When compared with ECG of 15-NOV-2021 15:48, Septal infarct is now Present Referred By: Zoraida Rodrigues Electronically Signed By:AYLEEN SANCHEZ MD
[2024-02-20 16:05] LABS: MANUAL DIFF FLAG NO
[2024-02-20 16:07] LABS: Basophils Percent Auto 0.2 % (0-2); Hematocrit 45.1 % (37.0-47.0); Hemoglobin 15.8 g/dl (12.0-16.0); Imm Gran Abs Auto 0.09 X10*3/uL (0.00-0.03); Imm Gran Pct Auto 0.6 % (0.0-0.4); Lymphocytes Absolute Auto 1.6 X10*3/uL (1.2-4.9); Lymphocytes Percent Auto 10.4 % (20-40); Mean Corpuscular Hemoglobin 30.2 pg (27.0-33.0); Mean Corpuscular Volume 86.2 fL (80.0-98.0); Monocytes Absolute Auto 1.1 X10*3/uL (0.1-1.2); Monocytes Percent Auto 7.1 % (2-11); Neutrophils Absolute Auto 12.8 x10*3/uL (2.0-8.3); Neutrophils Percent Auto 81.7 % (45-73); Platelet Count 368 X10*3/uL (160-400); Red Blood Count 5.23 X10*6/uL (4.20-5.50); Red Cell Distribution Width 14.6 % (11.0-16.0); White Blood Count 15.7 X10*3/uL (4.8-10.8)
[2024-02-20 16:27] LABS: Alanine Aminotransferase 23 U/L (0-31); Albumin Level 5.1 g/dL (3.5-5.0); Alkaline Phosphatase 81 U/L (39-117); Anion Gap 18 (12-20); Aspartate Amino Transferase 31 U/L (5-31); Bilirubin Direct 0.1 mg/dL (0.0-0.5); Bilirubin Total 0.5 mg/dL (0.0-1.0); Blood Urea Nitrogen 22 mg/dL (9-16); Calcium 10.5 mg/dL (8.4-10.2); Carbon Dioxide 24 mmol/L (22-29); Chloride 98 mmol/L (96-108); Creatinine Clr Calc Pharmacy 31.5; Estimated Glomerular Filt Rate 46; Glucose Random 113 mg/dL (60-115); Lipase 14 U/L (8-78); Magnesium 1.8 mg/dL (1.6-2.6); Potassium 3.9 mmol/L (3.3-5.1); Sodium 136 mmol/L (135-145); Total Protein 8.5 g/dL (6.5-8.0)
[2024-02-20 16:46] LABS: Troponin-I High Sensitivity 749.1 ng/L (<3.5-17.0)
[2024-02-20 16:51] LABS: Influenza A PCR NEGATIVE (Negative); Influenza B PCR NEGATIVE (Negative); Resp Syncy Virus RNA Qual PCR NEGATIVE (Negative); SARS COV2 PCR INHOUSE NEGATIVE (Negative)
[2024-02-20 17:08] VITALS: BMI 18.0
[2024-02-20] MEDS: 0.9 % Sodium Chloride 1,000 ML 999 ML IV (17:10)
--- NOTE | 2024-02-20 17:25 | ECG_ITS ---
Test Reason : RECHECK Blood Pressure : / mmHG Vent. Rate : 077 BPM Atrial Rate : 077 BPM P-R Int : 120 ms QRS Dur : 088 ms QT Int : 448 ms P-R-T Axes : 067 -48 079 degrees QTc Int : 506 ms Normal sinus rhythm with sinus arrhythmia Left anterior fascicular block Minimal voltage criteria for LVH, may be normal variant ( Jarod product ) Septal infarct (cited on or before 20-FEB-2024) Abnormal ECG When compared with ECG of 20-FEB-2024 15:51, Serial changes of Septal infarct Present Referred By: Tana Munoz Electronically Signed By:AYLEEN SANCHEZ MD
[2024-02-20] MEDS: ondansetron HCL 4 MG/2 ML VIAL IVPUSH (17:39)
[2024-02-20] MEDS: Morphine Sulfate 2 MG/ML CARTRIDGE IVPUSH (17:41)
[2024-02-20 18:10] LABS: Thyroid Stimulating Hormone 4.12 uIU/mL (0.32-4.0)
--- NOTE | 2024-02-20 18:10 | PC.NURSE ---
waiting for APTT to result before starting hep drip
[2024-02-20] MEDS: Heparin Sodium,Porcine/1/2NS 25,000 UNIT/250 ML IV.SOLN 6.05 UNIT IVCONT (18:20)
[2024-02-20] MEDS: Heparin Sodium,Porcine 5,000 UNIT/ML VIAL 3300 UNIT IVPUSH (18:22)
--- NOTE | 2024-02-20 18:25 | PC.NURSE ---
sister Radha Burns Daryl number. [phone]
[2024-02-20] MEDS: Aspirin 81 MG TAB.CHEW 324 MG PO (18:26)
[2024-02-20] MEDS: Nitroglycerin 0.4 MG TAB.SUBL SUBLINGUAL (18:26)
[2024-02-20 18:28] LABS: Prothrombin Time 11.9 SEC (11.1-13.3)
--- NOTE | 2024-02-20 18:32 | PC.NURSE ---
per Dr. Tana Munoz, start Hep drip without APTT and PT HD result
[2024-02-20 18:40] VITALS: BP 96/65; PULSE 99; RESP 12; TEMP 36.6; O2SAT 98
[2024-02-20 19:19] LABS: Troponin-I High Sensitivity 683.2 ng/L (<3.5-17.0)
[2024-02-20 20:56] VITALS: BP 96/65; PULSE 99; RESP 17; TEMP 36.3; O2SAT 98
== END 2024-02-20 21:02 | disposition short-term general hospital (02) ==
PROVIDERS: Physician Assistant Medical; Emergency Provider Emergency Medicine; PCP Internal Medicine
DX: I21.4 Non-ST elevation (NSTEMI) myocardial infarction (principal); Z03.818 Encounter for observation for suspected exposure to other biological agents ruled out; I10 Essential (primary) hypertension; E78.5 Hyperlipidemia, unspecified; E03.9 Hypothyroidism, unspecified; J45.909 Unspecified asthma, uncomplicated; F17.210 Nicotine dependence, cigarettes, uncomplicated; Z79.899 Other long term (current) drug therapy
CPT/HCPCS: 0241U; 36415; 80048; 80076; 83690; 83735; 84443; 84484; 85025; 85610; 85730; 93005; 96361; 96374; 96375; 99285; J1644; J2270; J2405

== ENCOUNTER → 2024-02-20 15:18 | Outpatient (BNV) | payer OTHER, SELFPAY | PROVIDERS: Emergency Provider Emergency Medicine; PCP Internal Medicine; Visit Provider Internal Medicine Cardiovascular Disease | DX: R94.31 Abnormal electrocardiogram [ECG] [EKG] (principal); R00.0 Tachycardia, unspecified; I51.7 Cardiomegaly | CPT/HCPCS: 93010 ==

== ENCOUNTER 2024-03-16 13:57 | Outpatient (AMB) | payer OTHER, SELFPAY ==
[2024-03-16 13:59] VITALS: BP 94/62; PULSE 66; O2SAT 99; BMI 18.9
--- NOTE | 2024-03-16 13:59 | MHC.PC.OV ---
Vital Signs 03/16/24 13:59 Height 5 ft 1 in Weight 100 lb BMI 18.9 BP 94/62 Blood Pressure Location Rt brachial Position Sitting Pulse 66 Pulse Source Pulse Oximeter Pulse Oximetry (%) 99 Oxygen Delivery Method Room Air Intake Visit Reasons: Hospital follow up Intake Note: Pt is here today for Hospital follow up visit. Allergies Penicillins [PENICILLINS] Allergy (Intermediate, Verified 03/16/24 14:08) RASH codeine [CODEINE] Allergy (Mild, Verified 03/16/24 14:08) RASH penicillin V Allergy (Unknown, Verified 03/16/24 14:08) unknown olmesartan Adverse Reaction (Intermediate, Verified 03/16/24 14:08) Dizziness meloxicam Adverse Reaction (Unknown, Verified 03/16/24 14:08) vomiting Medication List - Last Reconciled 03/16/24 by Marcie Chatterjee MD acetaminophen ER 650 mg PO Q8H albuterol sulfate 90 mcg/actuation (Ventolin HFA) 2 puffs inhalation Q6H PRN albuterol sulfate 90 mcg/actuation 2 puffs PO Q6H PRN aspirin 81 mg PO DAILY atorvastatin 80 mg PO DAILY cholecalciferol (vitamin D3) 50 mcg PO DAILY cyclobenzaprine 5 mg PO BID lidocaine 5% 1 patch topical DAILY lisinopril 5 mg PO DAILY metoprolol succinate ER 25 mg PO DAILY omeprazole 40 mg PO BID sertraline (Zoloft) 25 mg PO DAILY Tobacco use date assessed: 03/16/24 Dental Screening Dental Screen Date: 11/10/23 [facility] Hospital follow up HPI Details Patient presents for the follow-up of hospitalization at [facility] for NSTEMI presenting with the symptoms of nausea vomiting and epigastric pain. Echocardiogram showed ejection fraction of 38% with basal to mid septal segments hypokinesis and cardiac catheterization showed normal coronaries. Patient was discharged home and will follow-up with [facility] for functional MRI to rule out infiltrative cardiomyopathy. She was discharged on lisinopril 5 mg and metoprolol 25 mg. Patient reports low blood pressure at home and having lightheadedness when getting up also intermittent dry cough. Patient denies PND or orthopnea exertional chest pain or shortness of breath. She has been cutting down on smoking and wearing nicotine patch. Patient has been under lot of stress related to her daughter's who asked her to move out of her house. FORMERLY [facility] Medical History Hypertension Hyperlipidemia Hypothyroidism Adrenal adenoma Hiatal hernia Nicotine dependence, cigarettes, uncomplicated Asthma Raynaud disease Arthritis Carpal tunnel syndrome of right wrist Tibia fracture History of spinal fracture History of mammogram Surgical History History of adrenal surgery History of hysterectomy History of umbilical hernia repair History of incisional hernia repair History of esophagogastroduodenoscopy (EGD) History of colonoscopy Family History Father Stroke Mother No problems noted. Brother No problems noted. Sister No problems noted. Sister No problems noted. Sister No problems noted. Son No problems noted. Daughter No problems noted. Social History Housing: House Patient Tobacco Use Status: Current everyday Tobacco user Tobacco use type: Cigarette Cigarettes Per Day: 3 Years Smoked: 49, ranging from 0.25 to 1 ppd e-Cigarette/Vaping Use: Never Used service: No Current occupational status: unemployed Cognitive needs: No Hearing needs: No Vision needs: No Questionnaire PHQ-9 Over the last 2 weeks, how often have you been bothered by any of the following problems? 1. Little interest or pleasure in doing things: not at all 2. Feeling down, depressed, or hopeless: several days 3. Trouble falling or staying asleep, or sleeping too much: more than half the days 4. Feeling tired or having little energy: more than half the days 5. Poor appetite or overeating: several days 6. Feeling bad about yourself - or that you are a failure or have let yourself or your family down: more than half the days 7. Trouble concentrating on things, such as reading the newspaper or watching television: several days 8. Moving or speaking so slowly that other people could have noticed. Or the opposite - being so fidgety or restless that you have been moving around a lot more than usual: not at all 9. Thoughts that you would be better off or of hurting yourself in some way: not at all Total score: 9 Depression Screening Interpretation: Negative Depression Screening Done: Yes 23320 - PHQ-9 Billing: Yes Source: Developed by Drs. Jaime Waldron, Hortencia Salgado, Home Dey and colleagues, with an educational hong from [employer]. Thrive Questionnaire Date Thrive assessed: 03/16/24 I am a: Patient What is your living situation today?: I have a steady place to live Within the past 12 months, did the food you bought not last and you didn't have the money to get more?: I choose not to answer this question Within the past 12 months, did you worry whether your food would run out before you got money to buy more?: I choose not to answer this question Do you have trouble paying for medicines?: I choose not to answer this question Do you have trouble getting transportation to medical appointments?: I choose not to answer this question Do you have trouble paying your heating and electricity bill?: I choose not to answer this question Do you have trouble taking care of your child, family member or friend?: I choose not to answer this question Do you have trouble with day-to-day activities such as bathing, preparing meals, shopping, managing finances, etc.?: I choose not to answer this question Are you currently unemployed and looking for a job?: I choose not to answer this question Are you interested in more education?: I choose not to answer this question Please select the resources that you would like help with: None Currently or been in a relationship where the following occur: I choose not to answer THRIVE Score: 0 AUDIT C Alcohol Use Questionnaire (AUDIT-C) 1. How often do you have a drink containing alcohol?: Never Total Score: 0 BROOKE-7 AMB Questionnaire BROOKE-7 Date BROOKE - 7 assessed: 03/16/24 Feeling nervous, anxious, or on edge: 1 = Several days Not being able to stop or control worryin = Not at all Worrying too much about different things: 0 = Not at all Trouble relaxin = Not at all Being so restless that it is hard to sit still: 1 = Several days Becoming easily annoyed or irritable: 2 = More than half the days Feeling afraid as if something awful might happen: 0 = Not at all Total BROOKE-7 score (0-4 normal; 5-9 mild; 10-14 moderate; 15-21 severe): 4 Source: Developed by Drs. Jaime Waldron, Hortencia Salgado, Home Dey and colleagues, with an educational hong from [employer]. Review of Systems Const All systems reviewed & are unremarkable except as noted in HPI and below ENT Reports no additional complaints Card Reports no additional complaints Resp Reports no additional complaints GI Reports no additional complaints Reports no additional complaints Physical exam (Primary Care) Vital Signs: Last Vital Signs Pulse 66 03/16/24 13:59 BP 94/62 03/16/24 13:59 Pulse Ox 99 03/16/24 13:59 Oxygen Delivery Method Room Air 03/16/24 13:59 BMI result Body Mass Index 18.9 Tobacco/Smoking Status: Tobacco use Status Tobacco use date assessed 03/16/24 03/16/24 14:09 Patient Tobacco Use Status Current everyday Tobacco 03/16/24 14:09 Tobacco use type Cigarette 03/16/24 14:09 e-Cigarette/Vaping Use Never Used 03/16/24 14:09 PHQ-9: PHQ-9 Score PHQ-9: Total score 9 03/16/24 14:09 Depression Screening Interpretation: Negative Thrive Assessment: Date of Thrive Assessment Date Thrive assessed 03/16/24 03/16/24 14:09 Currently or been in a relationship where the following occur: I choose not to answer Const General: no acute distress HENMT Mouth: Normal oral and palatal mucosa present Eyes General: appearance normal, both eyes and all related structures Resp Effort & Inspection: normal respiratory effort Auscultation: diminished lung sounds Cardio Rhythm: regular rhythm Heart sounds: S1 normal heart sound present and S2 normal heart sound present GI Palpation (GI): Soft to palpation Assessment and Plan Assessment & Plan (1) Cardiomyopathy: Comment: admitted to [facility] 02/20/24 for NSTEMI, Echo EF 38%, basal to mid septal segments hypokinetic, cardiac cath nl coronaries, f/u with [facility] cardiology for fMRI Code(s): I42.9 - Cardiomyopathy, unspecified Plan: Patient will take a half a tablet of lisinopril because of symptomatic low blood pressure, check BNP and basic metabolic panel today. She will follow-up with the control integration engineer next week (2) Nicotine dependence, cigarettes, uncomplicated: Code(s): F17.210 - Nicotine dependence, cigarettes, uncomplicated Plan: Tobacco quitting discussed with the patient she uses nicotine patch (3) Anxiety: Code(s): F41.9 - Anxiety disorder, unspecified Plan: Continue sertraline Orders: Orders Basic Metabolic Panel Today I42.9 - Cardiomyopathy, unspecified UA w Microscopic Today I42.9 - Cardiomyopathy, unspecified B Type Natriuretic Peptide Today I42.9 - Cardiomyopathy, unspecified Medications: New atorvastatin 80 mg PO DAILY 90 tabs 3RF lisinopril 5 mg PO DAILY 90 tabs 3RF metoprolol succinate ER 25 mg PO DAILY 90 tabs 3RF Refilled sertraline (Zoloft) 25 mg PO DAILY 90 tabs 2RF Coding Level of Care Code Est Pt Level 4 (62327) Diagnoses Cardiomyopathy I42.9 Nicotine dependence, cigarettes, uncomplicated F17.210 Anxiety F41.9
== END 2024-03-16 14:52 | disposition home or self-care (01) ==
PROVIDERS: PCP Internal Medicine; Visit Provider Internal Medicine
DX: I42.9 Cardiomyopathy, unspecified (principal); F17.210 Nicotine dependence, cigarettes, uncomplicated; F41.9 Anxiety disorder, unspecified
CPT/HCPCS: 99214

== ENCOUNTER 2024-03-16 14:57 | Outpatient (AMB) | payer OTHER, SELFPAY ==
--- NOTE | 2024-03-16 15:14 | MHC.OFFVIS ---
Vital Signs 03/16/24 15:18 Height 5 ft 1 in Weight 100 lb 4.965 oz BMI 19.0 BP 88/56 L Blood Pressure Location Rt brachial Position Sitting Pulse 68 Pulse Source Pulse Oximeter Intake Visit Reasons: Adrenal mass Intake Note: Patient present today for Adrenal Mass follow up. Produce Buyer Required: No Accompanied by: Self / Same As Patient Allergies Penicillins [PENICILLINS] Allergy (Intermediate, Verified 03/16/24 15:18) RASH codeine [CODEINE] Allergy (Mild, Verified 03/16/24 15:18) RASH penicillin V Allergy (Unknown, Verified 03/16/24 15:18) unknown olmesartan Adverse Reaction (Intermediate, Verified 03/16/24 15:18) Dizziness meloxicam Adverse Reaction (Unknown, Verified 03/16/24 15:18) vomiting Medication List - Last Reconciled 03/16/24 by Jaime Arreola MD acetaminophen ER 650 mg PO Q8H albuterol sulfate 90 mcg/actuation (Ventolin HFA) 2 puffs inhalation Q6H PRN albuterol sulfate 90 mcg/actuation 2 puffs PO Q6H PRN aspirin 81 mg PO DAILY atorvastatin 80 mg PO DAILY cholecalciferol (vitamin D3) 50 mcg PO DAILY cyclobenzaprine 5 mg PO BID lidocaine 5% 1 patch topical DAILY lisinopril 5 mg PO DAILY metoprolol succinate ER 25 mg PO DAILY omeprazole 40 mg PO BID sertraline (Zoloft) 25 mg PO DAILY HPI Comments Details: Is a 64-year-old female referred endocrinology for evaluation of adrenal mass. First learned a couple of mos ago . The mass was initially present 2019. It was found to be low density at 2 HU. Aldosterone level was found to be low. The patientc/o episodes suggestive of pheochromocytoma should as sweating, , lightheaded , palpitations headache. Sometimes sx occur all together . happens once a day. Associated with N/V. She denies a symptoms of Delon syndrome. There is wt loss. There is no history of primary malignancy. C/o muscular weakness and acne not previously present. Here today to discuss workup. Dexamethasone suppression test old failed suppression of cortisol to 6.5. There was also a slight elevation in plasma metanephrines and normetanephrines which is probably not payroll representative of a pheochromocytoma considering low-density lesion. Subsequent workup showed 24 hour urine for free cortisol and creatinine as well as metanephrines and normetanephrines to be normal. Patient did not do midnight salivary cortisol and S/P R adrenalectomy by Dr. Morrison. 10 mg in AM and 5 mg at night alt with 5 mg BID . Was on a steroid taper recently had ST-elevation ID Cortisol was 7.3 at [facility]. Appetite good but not gaining wt . FORMERLY [facility] Medical History Hypertension Hyperlipidemia Hypothyroidism Adrenal adenoma Hiatal hernia Nicotine dependence, cigarettes, uncomplicated Asthma Raynaud disease Arthritis Carpal tunnel syndrome of right wrist Tibia fracture History of spinal fracture History of mammogram Surgical History History of adrenal surgery History of hysterectomy History of umbilical hernia repair History of incisional hernia repair History of esophagogastroduodenoscopy (EGD) History of colonoscopy Family History Father Stroke Mother No problems noted. Brother No problems noted. Sister No problems noted. Sister No problems noted. Sister No problems noted. Son No problems noted. Daughter No problems noted. 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 Status post ST-elevation ID Plan is to check an a.m. cortisol. If the a.m. cortisol is> 10, patient returned to the care of her primary care provider. If a.m. cortisol < 10, would consider doing Cortrosyn stimulation test Orders: Orders Cortisol Random 1 Day E27.40 - Unspecified adrenocortical insufficiency Coding Level of Care Code Est Pt Level 3 (64400) Diagnoses Adrenal gland anomaly Q89.1
[2024-03-16 15:18] VITALS: BP 88/56; PULSE 68; BMI 19.0
== END 2024-03-16 15:38 | disposition home or self-care (01) ==
PROVIDERS: PCP Internal Medicine; Visit Provider Internal Medicine Endocrinology, Diabetes & Metabolism
DX: Q89.1 Congenital malformations of adrenal gland (principal)
CPT/HCPCS: 99213

== ENCOUNTER → 2024-03-16 14:57 | Outpatient (BNVA) | payer OTHER, SELFPAY | PROVIDERS: PCP Internal Medicine; Visit Provider Internal Medicine Endocrinology, Diabetes & Metabolism | DX: Q89.1 Congenital malformations of adrenal gland (principal) | CPT/HCPCS: 99212 ==

== ENCOUNTER 2024-03-26 07:49 | Outpatient (REF) | payer OTHER, SELFPAY ==
[2024-03-26 08:17] LABS: MANUAL DIFF FLAG NO
[2024-03-26 08:53] LABS: Basophils Absolute Auto 0.1 X10*3/uL (0.0-0.2); Basophils Percent Auto 0.6 % (0-2); Eosinophils Absolute Auto 0.4 X10*3/uL (0.0-0.4); Eosinophils Percent Auto 4.1 % (0-4); Hematocrit 38.7 % (37.0-47.0); Hemoglobin 12.9 g/dl (12.0-16.0); Imm Gran Abs Auto 0.02 X10*3/uL (0.00-0.03); Imm Gran Pct Auto 0.2 % (0.0-0.4); Lymphocytes Absolute Auto 3.1 X10*3/uL (1.2-4.9); Mean Corpuscular HGB Conc 33.3 g/dl (31.0-35.0); Mean Platelet Volume 11.2 fL (9.4-12.3); Monocytes Absolute Auto 0.7 X10*3/uL (0.1-1.2); Monocytes Percent Auto 6.9 % (2-11); Neutrophils Absolute Auto 5.5 x10*3/uL (2.0-8.3); Neutrophils Percent Auto 56.2 % (45-73); Platelet Count 266 X10*3/uL (160-400); Red Blood Count 4.16 X10*6/uL (4.20-5.50); White Blood Count 9.7 X10*3/uL (4.8-10.8)
[2024-03-26 09:09] LABS: B Type Natriuretic Peptide 33 pg/mL (<100)
[2024-03-26 09:26] LABS: Alanine Aminotransferase 21 U/L (0-31); Alkaline Phosphatase 64 U/L (39-117); Anion Gap 11 (12-20); Aspartate Amino Transferase 20 U/L (5-31); Bilirubin Total 0.2 mg/dL (0.0-1.0); Blood Urea Nitrogen 20 mg/dL (9-16); C Reactive Protein < 0.10 mg/dL (< or = 0.50); Calcium 9.5 mg/dL (8.4-10.2); Carbon Dioxide 24 mmol/L (22-29); Chloride 110 mmol/L (96-108); Estimated Glomerular Filt Rate > 60; Glucose Random 75 mg/dL (60-115); Potassium 4.2 mmol/L (3.3-5.1); Sodium 141 mmol/L (135-145); Total Protein 6.5 g/dL (6.5-8.0)
[2024-03-26 09:37] LABS: Cortisol Random 16.6 ug/dL
[2024-03-26 09:38] LABS: TSH reflex Free T4 11.41 uIU/mL (0.32-4.0)
[2024-03-26 09:47] LABS: Erythrocyte Sedimentation Rate 8 MM/HR (0-20)
[2024-03-26 09:53] LABS: Folate 11.3 ng/mL (> or = 4.0); Vitamin B12 311 pg/mL (200-900)
[2024-03-26 10:11] LABS: Free T4 (Free Thyroxine) 0.77 ng/dL (0.71-1.85)
[2024-04-01 16:48] LABS: Vitamin C 0.3 mg/dL (0.3-2.7)
== END 2024-03-26 07:50 | disposition home or self-care (01) ==
LOC: HO.LAB 07:49
PROVIDERS: Internal Medicine Endocrinology, Diabetes & Metabolism; Absent Provider Internal Medicine Gastroenterology; PCP Internal Medicine; Visit Provider Internal Medicine
DX: I42.9 Cardiomyopathy, unspecified (principal); R10.9 Unspecified abdominal pain; K75.81 Nonalcoholic steatohepatitis (NASH); E03.9 Hypothyroidism, unspecified; E27.40 Unspecified adrenocortical insufficiency
CPT/HCPCS: 36415; 80053; 82180; 82533; 82607; 82746; 83880; 84439; 84443; 85025; 85652; 86140

== ENCOUNTER 2024-03-31 20:55 | Emergency (ER) | payer OTHER, SELFPAY ==
--- NOTE | ~2024-03-31 | CT_ITS ---
EXAMINATION: CT ABDOMEN AND PELVIS WITHOUT CONTRAST CLINICAL INFORMATION: Abdominal pain. COMPARISON: July 02, 2023. TECHNIQUE: Multidetector volumetric imaging was performed from the superior aspect of the liver through the pubic symphysis. Sagittal and coronal reformatted images were obtained on the technologist's workstation. This CT examination was performed using dose optimization techniques as appropriate, variously including the following: *Automated exposure control *Adjustment of mA and/or kV according to patient size (this includes techniques or standardized protocols for targeted exams where dose is matched to indication/reason for exam; i.e. extremities or head) *Use of iterative reconstruction technique DLP: 268 mGy-cm FINDINGS: LUNG BASES: There is scarring at both lung bases. LIVER, GALLBLADDER, AND BILIARY TREE: The liver is normal in size, shape, and attenuation. No focal hepatic lesion or biliary ductal dilatation is present. The gallbladder is unremarkable with no evidence of radiopaque gallstones, gallbladder wall thickening, or obvious pericholecystic inflammatory changes. PANCREAS: Unremarkable. SPLEEN: Unremarkable. ADRENAL GLANDS: Unremarkable. KIDNEYS AND URETERS: The kidneys are normal in size, shape, and attenuation. There is a 2 cm cyst mid pole left kidney. There is an 8 mm angiomyolipoma mid pole left kidney. There is no hydronephrosis. BLADDER: Unremarkable. GASTROINTESTINAL TRACT: There are diverticula throughout the colon without current evidence of diverticulitis. The appendix is not confidently seen as a separate structure. ABDOMINAL WALL: No significant hernia is appreciated. LYMPH NODES: Normal. VASCULAR: There is atherosclerotic plaque of the abdominal aorta. PELVIC VISCERA: Unremarkable. OSSEOUS STRUCTURES: There is grade 1 anterolisthesis of L5 over S1. CT/CT abdomen pelvis wo IV con IMPRESSION: There are limitations related to lack of oral and a lack of IV contrast. 1. No acute abnormality. 2. Diverticulosis without current evidence of diverticulitis. Fleischner guidelines were followed. Electronically signed by: Ge Charles MD 04/01/2024 03:16 AM EDT
--- NOTE | 2024-03-31 20:58 | ECG_ITS ---
Test Reason : CHEST PAIN Blood Pressure : / mmHG Vent. Rate : 070 BPM Atrial Rate : 070 BPM P-R Int : 142 ms QRS Dur : 098 ms QT Int : 444 ms P-R-T Axes : 077 -22 072 degrees QTc Int : 479 ms Sinus rhythm with marked sinus arrhythmia Minimal voltage criteria for LVH, may be normal variant ( Jarod product ) Borderline ECG When compared with ECG of 20-FEB-2024 17:25, Left anterior fascicular block is no longer Present Criteria for Septal infarct are no longer Present T wave inversion no longer evident in Septal leads Referred By: Generic ED Physician Electronically Signed By:ALYSON SULLIVAN
[2024-03-31 21:24] LABS: MANUAL DIFF FLAG NO
[2024-03-31 21:27] LABS: Basophils Percent Auto 0.3 % (0-2); Hematocrit 42.2 % (37.0-47.0); Hemoglobin 14.4 g/dl (12.0-16.0); Imm Gran Abs Auto 0.06 X10*3/uL (0.00-0.03); Imm Gran Pct Auto 0.4 % (0.0-0.4); Lymphocytes Absolute Auto 1.3 X10*3/uL (1.2-4.9); Lymphocytes Percent Auto 8.3 % (20-40); Mean Corpuscular HGB Conc 34.1 g/dl (31.0-35.0); Mean Corpuscular Hemoglobin 30.9 pg (27.0-33.0); Mean Corpuscular Volume 90.6 fL (80.0-98.0); Mean Platelet Volume 10.5 fL (9.4-12.3); Monocytes Absolute Auto 0.4 X10*3/uL (0.1-1.2); Monocytes Percent Auto 2.9 % (2-11); Neutrophils Absolute Auto 13.5 x10*3/uL (2.0-8.3); Neutrophils Percent Auto 88.1 % (45-73); Platelet Count 339 X10*3/uL (160-400); Red Blood Count 4.66 X10*6/uL (4.20-5.50); Red Cell Distribution Width 14.5 % (11.0-16.0); White Blood Count 15.3 X10*3/uL (4.8-10.8)
[2024-03-31 21:32] VITALS: BP 200/105; PULSE 63; RESP 16; TEMP 36.3; O2SAT 97; BMI 18.5
[2024-03-31 21:36] LABS: Prothrombin Time 11.6 SEC (11.1-13.3)
[2024-03-31 21:41] LABS: Anion Gap 17 (12-20); Blood Urea Nitrogen 18 mg/dL (9-16); Calcium 10.1 mg/dL (8.4-10.2); Carbon Dioxide 22 mmol/L (22-29); Chloride 105 mmol/L (96-108); Estimated Glomerular Filt Rate > 60; Glucose Random 148 mg/dL (60-115); Potassium 4.1 mmol/L (3.3-5.1); Sodium 140 mmol/L (135-145)
[2024-03-31 21:48] LABS: Troponin-I High Sensitivity 7.5 ng/L (<3.5-17.0)
[2024-03-31 22:35] VITALS: BP 182/104; PULSE 72; RESP 18; TEMP 36.6; O2SAT 98
--- NOTE | 2024-03-31 22:48 | ED.CHESTPAIN ---
HPI - Chest Pain General Chief Complaint: Chest Pain Stated Complaint: chest pain/heart attack? Time Seen by Provider: 03/31/24 22:48 Source: patient Mode of arrival: ambulatory Limitations: no limitations History of Present Illness ED Provider: yoly OLIVER narrative: Patient is 64 years old with past medical history of HTN, HLD, hypothyroidism, adrenal adenoma s/p right adrenalectomy, asthma; non-STEMI on 02/20/2024 cardiac catheterization negative comes here for nausea vomiting and diarrhea started since last night with epigastric pain patient does have history of anxiety Related Data Home Medications ?Medication ?Instructions ?Recorded ?Confirmed aspirin 81 mg tablet,delayed 81 mg PO DAILY 03/16/24 03/16/24 release Previous Rx's ?Medication ?Instructions ?Recorded albuterol sulfate 90 mcg/actuation 2 puff PO Q6H PRN Wheezing #8.5 11/04/22 aerosol inhaler grams cholecalciferol (vitamin D3) 50 50 mcg PO DAILY #90 caps 07/27/23 mcg (2,000 unit) capsule albuterol sulfate 90 mcg/actuation 2 puff inhalation Q6H PRN 11/10/23 aerosol inhaler (Ventolin HFA) shortness of breath or wheezing #8.5 grams omeprazole 40 mg capsule,delayed 40 mg PO BID #90 caps 11/10/23 release acetaminophen 650 mg 650 mg PO Q8H #90 tabs 11/13/23 tablet,extended release cyclobenzaprine 5 mg tablet 5 mg PO BID #90 tabs 12/05/23 lidocaine 5 % topical patch 1 patch topical DAILY #30 ea 12/15/23 atorvastatin 80 mg tablet 80 mg PO DAILY #90 tabs 03/16/24 lisinopril 5 mg tablet 5 mg PO DAILY #90 tabs 03/16/24 metoprolol succinate 25 mg 25 mg PO DAILY #90 tabs 03/16/24 tablet,extended release 24 hr sertraline 25 mg tablet (Zoloft) 25 mg PO DAILY #90 tabs 03/16/24 ondansetron 4 mg disintegrating 4 mg PO Q6-8H PRN nausea and 04/01/24 tablet vomiting #7 tabs Allergies Allergy/AdvReac Type Severity Reaction Status Date / Time Penicillins [PENICILLINS] Allergy Intermediate RASH Verified 03/31/24 21:34 codeine [CODEINE] Allergy Mild RASH Verified 03/31/24 21:34 penicillin V Allergy Unknown unknown Verified 03/31/24 21:34 olmesartan AdvReac Intermediate Dizziness Verified 03/31/24 21:34 meloxicam AdvReac Unknown vomiting Verified 03/31/24 21:34 Review of Systems Review of Systems: Yes all other systems are reviewed and are negative [facility] Past Medical History Medical History Hypertension Hyperlipidemia Hypothyroidism Adrenal adenoma Hiatal hernia Nicotine dependence, cigarettes, uncomplicated Asthma Raynaud disease Arthritis Carpal tunnel syndrome of right wrist Tibia fracture History of spinal fracture History of mammogram Surgical History History of adrenal surgery History of hysterectomy History of umbilical hernia repair History of incisional hernia repair History of esophagogastroduodenoscopy (EGD) History of colonoscopy Family History Family History Father Stroke Mother No problems noted. Brother No problems noted. Sister No problems noted. Sister No problems noted. Sister No problems noted. Son No problems noted. Daughter No problems noted. Social History Social History Housing: House Alcohol intake: never Patient Tobacco Use Status: Current everyday Tobacco user Tobacco use type: Cigarette Cigarettes Per Day: 3 Years Smoked: 49, ranging from 0.25 to 1 ppd Smoked in Last 30 Days: No e-Cigarette/Vaping Use: Never Used Use of substances other than those prescribed or required for medical reasons: Yes Substance Use Type: Marijuana Advance Directives: No Advance Directives Information Provided: No Patient : No service: No Current occupational status: unemployed Cognitive needs: No Hearing needs: No Vision needs: No Physical Exam Vital Signs: Vital Signs: Last Vital Signs Temp 97.8 F 03/31/24 22:35 Pulse 92 04/01/24 02:40 Resp 16 04/01/24 02:40 BP 139/85 04/01/24 02:40 Pulse Ox 98 04/01/24 02:40 O2 Del Method Room Air 04/01/24 02:40 BMI result Body Mass Index 18.5 Appearance: Alert. Oriented X3. No acute distress. Eyes: No pallor or icterus ENT: Pharynx normal. Oral Mucosa moist Neck: Normal inspection. Neck supple. CVS: Normal heart rate and rhythm. Pulses normal. Respiratory: No respiratory distress. Equal air entry bilateral, no wheezing/rales/rhonchi Abdomen: Soft and tenderness in epigastric area, Bowel sounds are present, no mass palpable, no CVA tenderness Skin: Skin warm and dry. Normal skin color. Normal skin turgor. Extremities: No lower extremity edema. No calf tenderness Neuro: Oriented X 3. No motor deficit. No sensory deficit.No cerebellar signs , cranial nerves II-XII intact Medications Administered Discontinued Medications Generic Name Dose Route Start Last Admin Trade Name Freq PRN Reason Stop Dose Admin Al Hydroxide/Mg Hydroxide 30 ml 04/01/24 00:58 04/01/24 01:30 Magnesium Hydrox/Alum Hydrox 30 Ml Oral.Susp PO 04/01/24 00:59 30 ml ONCE ONE Administration Famotidine 20 mg 04/01/24 00:57 04/01/24 01:30 Famotidine/Pf 20 Mg/2 Ml Vial IVPUSH 04/01/24 00:58 20 mg ONCE ONE Administration Sodium Chloride 1,000 mls @ 999 mls/hr 03/31/24 22:58 04/01/24 00:22 Ns IV 03/31/24 23:58 Infused .Q1H1M ONE Infusion Lidocaine HCl 15 ml 04/01/24 01:00 04/01/24 01:30 Lidocaine Hcl Viscous 2 % 15 Ml Solution MUCOUS MEM 04/01/24 01:01 15 ml ONCE ONE Administration Lisinopril 10 mg 03/31/24 22:49 03/31/24 22:52 Lisinopril 10 Mg Tablet PO 03/31/24 22:50 10 mg ONCE ONE Administration Protocol Morphine Sulfate 4 mg 04/01/24 00:57 04/01/24 01:30 Morphine Sulfate 4 Mg/Ml Cartridge IVPUSH 04/01/24 00:58 4 mg ONCE ONE Administration Protocol Ondansetron HCl 4 mg 03/31/24 22:58 03/31/24 23:07 Ondansetron Hcl 4 Mg/2 Ml Vial IVPUSH 03/31/24 22:59 4 mg ONCE ONE Administration Medical Decision Making Medical Decision Making MDM Narrative: Patient has been acute gastritis with vomiting and loose bowels elevated blood pressure secondary to unable to take the medicine likely which improved after giving her the lisinopril patient's symptoms improved during stay in the ER CT scan negative for acute will discharge patient home Differential Diagnosis Differential Diagnoses: The differential diagnosis associated with the presentation includes Lab Data MDM Lab Attestation statement: I reviewed the patient's lab results. 03/31/24 21:14 03/31/24 21:14 Labs: Lab Results 03/31/24 04/01/24 Range/Units 21:14 01:17 WBC 15.3 H (4.8-10.8) X10*3/uL RBC 4.66 (4.20-5.50) X10*6/uL Hgb 14.4 (12.0-16.0) g/dl Hct 42.2 (37.0-47.0) % MCV 90.6 (80.0-98.0) fL MCH 30.9 (27.0-33.0) pg MCHC 34.1 (31.0-35.0) g/dl RDW 14.5 (11.0-16.0) % Plt Count 339 D (160-400) X10*3/uL MPV 10.5 (9.4-12.3) fL Immature Gran % (Auto) 0.4 (0.0-0.4) % Neut % (Auto) 88.1 H (45-73) % Lymph % (Auto) 8.3 L (20-40) % Schley % (Auto) 2.9 (2-11) % Eos % (Auto) 0.0 (0-4) % Baso % (Auto) 0.3 (0-2) % Lymph # (Auto) 1.3 (1.2-4.9) X10*3/uL Schley # (Auto) 0.4 (0.1-1.2) X10*3/uL Eos # (Auto) 0.0 (0.0-0.4) X10*3/uL Baso # (Auto) 0.0 (0.0-0.2) X10*3/uL Abs Immat Gran (auto) 0.06 H (0.00-0.03) X10*3/uL Absolute Neuts (auto) 13.5 H (2.0-8.3) x10*3/uL Absolute Nucleated RBC 0.000 (0.0-0.012) X10*3/uL Nucleated RBC % (auto) 0.0 (0.0-0.2) /100WBC PT 11.6 (11.1-13.3) SEC INR 1.0 (0.9-1.1) Sodium 140 (135-145) mmol/L Potassium 4.1 (3.3-5.1) mmol/L Chloride 105 (96-108) mmol/L Carbon Dioxide 22 (22-29) mmol/L Anion Gap 17 (12-20) BUN 18 H (9-16) mg/dL Creatinine 0.87 (0.5-1.4) mg/dL Estim Creat Clear Calc 47.0 Estimated GFR > 60 Random Glucose 148 H (60-115) mg/dL Calcium 10.1 D (8.4-10.2) mg/dL Total Bilirubin 0.3 (0.0-1.0) mg/dL Direct Bilirubin 0.1 (0.0-0.5) mg/dL AST 27 (5-31) U/L ALT 24 (0-31) U/L Alkaline Phosphatase 73 (39-117) U/L Troponin I High Sens 7.5 D (<3.5-17.0) ng/L Total Protein 8.2 H (6.5-8.0) g/dL Albumin 4.8 (3.5-5.0) g/dL Lipase 11 (8-78) U/L Urine Color Yellow Urine Appearance Clear Urine pH 8.0 (5.0-9.0) Ur Specific [place] 1.010 (1.005-1.025) Urine Protein 100 (2+) H (Neg-Trace) mg/dL Urine Glucose (UA) Negative (Negative) mg/dL Urine Ketones 15 (Negative) mg/dL Urine Blood Small (1+) H (Negative) Urine Nitrite Negative (Negative) Ur Leukocyte Esterase Negative (Negative) Urine RBC 11-20 H (0-2) /HPF Urine WBC 0-5 (0-5) /HPF Ur Squamous Epith Cells 0-2 (0-2) /HPF Urine Bacteria None Seen (None Seen) Hyaline Casts 0-2 (0-2) /LPF Independent Interpretation I performed an independent interpretation of an: CT Scan Radiology Impression Discussion of test interpretation with radiology: I have reviewed the radiologist's reading. Radiologist Impression: CT/CT abdomen pelvis wo IV con IMPRESSION: There are limitations related to lack of oral and a lack of IV contrast. 1. No acute abnormality. 2. Diverticulosis without current evidence of diverticulitis. Fleischner guidelines were followed. Electronically signed by: Ge Charles MD 04/01/2024 03:16 AM EDT RP Discharge Plan Discharge Clinical Impression: Acute gastroenteritis, Hypertension Patient Disposition: Home, Self-Care Instructions: Gastroenteritis (ED), Chronic Hypertension (ED) Additional Instructions: Drink plenty of fluid Medicine for nausea as prescribed Continue take your blood pressure medicine Normal blood pressure should be less than 135/85 Follow up with the PCP Prescriptions: New ondansetron 4 mg tablet,disintegrating 4 mg PO Q6-8H PRN (Reason: nausea and vomiting) Qty: 7 0RF No Action cholecalciferol (vitamin D3) 50 mcg (2,000 unit) capsule 50 mcg PO DAILY Qty: 90 3RF acetaminophen 650 mg tablet extended release 650 mg PO Q8H Qty: 90 3RF cyclobenzaprine 5 mg tablet 5 mg PO BID Qty: 90 0RF lidocaine 5 % adhesive patch,medicated 1 patch topical DAILY Qty: 30 2RF Rx Instructions: leave on most painful area for up to 12 hrs aspirin 81 mg tablet,delayed release (DR/EC) 81 mg PO DAILY atorvastatin 80 mg tablet 80 mg PO DAILY Qty: 90 3RF lisinopril 5 mg tablet 5 mg PO DAILY Qty: 90 3RF metoprolol succinate 25 mg tablet extended release 24 hr 25 mg PO DAILY Qty: 90 3RF sertraline [Zoloft] 25 mg tablet 25 mg PO DAILY Qty: 90 2RF albuterol sulfate 90 mcg/actuation HFA aerosol inhaler 2 puff PO Q6H PRN (Reason: Wheezing) Qty: 8.5 3RF albuterol sulfate [Ventolin HFA] 90 mcg/actuation HFA aerosol inhaler 2 puff inhalation Q6H PRN (Reason: shortness of breath or wheezing) Qty: 8.5 3RF omeprazole 40 mg capsule,delayed release(DR/EC) 40 mg PO BID Qty: 90 2RF Print Language: Sinhala
--- NOTE | 2024-03-31 22:49 | PC.NURSE ---
Dr. Page informed of high BP readings.
[2024-03-31 22:52] VITALS: BP 182/104
[2024-03-31] MEDS: lisinopriL 10 MG TABLET PO (22:52)
[2024-03-31] MEDS: ondansetron HCL 4 MG/2 ML VIAL IVPUSH (23:07)
[2024-03-31] MEDS: 0.9 % Sodium Chloride 1,000 ML 999 ML IV (23:10)
[2024-03-31 23:16] VITALS: PULSE 62
[2024-04-01 00:27] VITALS: BP 183/108; PULSE 75; RESP 26; O2SAT 100
[2024-04-01 01:26] LABS: Appearance Urine Clear; Color Urine Yellow; Glucose Urine UA Negative (Negative); Leukocyte Esterase Urine Negative (Negative); Nitrite Urine Negative (Negative); UMIC TRIGGER UACC YES; Urine Blood Small (1+) (Negative); Urine Ketones 15 mg/dL (Negative); Urine Protein 100 (2+) mg/dL (Neg-Trace)
[2024-04-01 01:29] LABS: Bacteria Urine None Seen (None Seen); Hyaline Casts Urine 0-2 /LPF (0-2); Squamous Epithelial Cell Urine 0-2 /HPF (0-2); WBC Urine 0-5 /HPF (0-5)
[2024-04-01 01:30] VITALS: RESP 16
[2024-04-01] MEDS: Lidocaine HCl Viscous 2 % 15 ML SOLUTION MUCOUS MEM (01:30)
[2024-04-01] MEDS: Morphine Sulfate 4 MG/ML CARTRIDGE IVPUSH (01:30)
[2024-04-01] MEDS: Famotidine/PF 20 MG/2 ML VIAL IVPUSH (01:30)
[2024-04-01] MEDS: Magnesium Hydrox/Alum Hydrox 30 ML ORAL.SUSP PO (01:30)
[2024-04-01 01:59] LABS: Alanine Aminotransferase 24 U/L (0-31); Albumin Level 4.8 g/dL (3.5-5.0); Alkaline Phosphatase 73 U/L (39-117); Aspartate Amino Transferase 27 U/L (5-31); Bilirubin Direct 0.1 mg/dL (0.0-0.5); Bilirubin Total 0.3 mg/dL (0.0-1.0); Lipase 11 U/L (8-78); Total Protein 8.2 g/dL (6.5-8.0)
[2024-04-01 02:40] VITALS: BP 139/85; PULSE 92; RESP 16; O2SAT 98
[2024-04-01 04:18] VITALS: BP 108/71; PULSE 78; RESP 16; TEMP 36.6; O2SAT 98
== END 2024-04-01 04:20 | disposition home or self-care (01) ==
PROVIDERS: Emergency Provider Internal Medicine; PCP Internal Medicine
DX: K52.9 Noninfective gastroenteritis and colitis, unspecified (principal); R07.89 Other chest pain; R11.2 Nausea with vomiting, unspecified; R10.13 Epigastric pain; I10 Essential (primary) hypertension; F17.210 Nicotine dependence, cigarettes, uncomplicated; Z79.899 Other long term (current) drug therapy
CPT/HCPCS: 36415; 74176; 80048; 80076; 81001; 83690; 84484; 85025; 85610; 93005; 96361; 96374; 96375; 99284; 99285; J2270; J2405

== ENCOUNTER 2024-04-06 15:46 | Outpatient (REF) | payer OTHER, SELFPAY ==
[2024-04-07 16:57] LABS: Appearance Urine Clear; Color Urine Yellow; Glucose Urine UA Negative (Negative); Leukocyte Esterase Urine Negative (Negative); Nitrite Urine Negative (Negative); PH 7.5 (5.0-9.0); UMIC TRIGGER UA YES; Urine Blood Negative (Negative); Urine Ketones Negative (Negative); Urine Protein 30 (1+) mg/dL (Neg-Trace)
[2024-04-07 17:27] LABS: Bacteria Urine None Seen (None Seen); Hyaline Casts Urine 0-2 /LPF (0-2); RBC Urine 0-2 /HPF (0-2); Squamous Epithelial Cell Urine 0-2 /HPF (0-2); WBC Urine 0-5 /HPF (0-5)
[2024-04-07 18:41] LABS: Leukocytes Stool Qualitative NEGATIVE (NEGATIVE)
== END 2024-04-06 15:47 | disposition home or self-care (01) ==
LOC: HO.HHCLNP 15:46
PROVIDERS: Visit Provider Internal Medicine
DX: I42.9 Cardiomyopathy, unspecified (principal); E87.6 Hypokalemia; R19.7 Diarrhea, unspecified
CPT/HCPCS: 36415; 81001; 87329; 87493; 89055

== ENCOUNTER 2024-04-12 14:02 | Outpatient (AMB) | payer OTHER, SELFPAY ==
--- NOTE | 2024-04-12 14:05 | MHC.OFFVIS ---
Vital Signs 04/12/24 14:14 Height 5 ft 1 in Weight 97 lb 0.054 oz BMI 18.3 BP 181/102 H Blood Pressure Location Lt brachial Position Sitting Pulse 56 Intake Visit Reasons: 6 month follow up Intake Note: Jeane presents in the office as a 6 month follow up. CC: She is having a flare up - for the past couple hours she is having nausea and vomiting. ED a couple weeks ago - told her she had a heart attack. Pains all through the stomach. She is having severe diarrhea. Stacker Tender Required: No Allergies Penicillins [PENICILLINS] Allergy (Intermediate, Verified 03/31/24 21:34) RASH codeine [CODEINE] Allergy (Mild, Verified 03/31/24 21:34) RASH penicillin V Allergy (Unknown, Verified 03/31/24 21:34) unknown olmesartan Adverse Reaction (Intermediate, Verified 03/31/24 21:34) Dizziness meloxicam Adverse Reaction (Unknown, Verified 03/31/24 21:34) vomiting HPI HPI 6 month follow up: Details: 64 yr old f here for f/u RECAP: She had EGD 07/2021 for diarrhea and nausea with vomiting EGD with schatzki ring, erosive esophagitis, erosive gastritis hiatal hernia, duodenitis she had seen surgeon at [facility] for review of incisional hernia recurrence, Imaging: CT 02/2021-- recurrence of periumbilical hernia, small adenoma GES 10/2021-- normal at [address]: 11/2021--enlarging adrenal adrenal, kyphosis, anterior compression D9 MRI 12/2021--lipid rich adenoma LABS: raised plasma metanephrines Colonoscopy: polyps internal hemorrhoids diverticular disease Path: tubular adnenoma INTERIM: having attacks of nausea, vomiting latest attack today with epigastric pain, 10/10, pressure like sensation feels like her prior mild heart attack, one month ago --per [facility] notes --LHC- normal, ?infiltrative ?CM not going into neck or arm she has diarrhea , no melena or blood she takes THC daily she had her adrenal adenoma removed, 2023--done at [facility] she stopped working at [employer] EXAM: GENERAL: The patient is uncomfortable, and agitated, groaning VITAL SIGNS:see workflow HEENT: Nonicteric sclerae, PERRLA, EOMI. Oropharynx clear. Moist mucous membranes. Conjunctivae appear well perfused. No thyroid mass. CHEST: Chest wall is nontender. HEART: Regular rate and rhythm without murmurs. LUNGS: Clear to auscultation bilaterally. ABDOMEN: Soft, positive bowel sounds, tender epigastrium, no organomegaly.no flank tenderness SKIN: No rash, no excessive bruising, petechiae, or purpura. NEUROLOGIC: Cranial nerves II-XII intact without motor/sensory deficit. MS: slight kyphosis BP: 189/104 A/P: 1/ May have cannabinoid hyperemesis syndrome, maybe in isolation or with another diagnosis eg. gastritis, PUD, GB disease- but given possible NH recently cant discount cardiac issues 2/ GB polyps, PLAN: 1. cont with PPI 2. US abdo--repeat 6 months--if polyps >1 cm then refer [facility] 3. advised again on cannabis abstincence, CBD oil might be better 4. refer to ED for further assessment 5. might consider low dose TCA [facility] Medical History Hypertension Hyperlipidemia Hypothyroidism Adrenal adenoma Hiatal hernia Nicotine dependence, cigarettes, uncomplicated Asthma Raynaud disease Arthritis Carpal tunnel syndrome of right wrist Tibia fracture History of spinal fracture History of mammogram Surgical History History of adrenal surgery History of hysterectomy History of umbilical hernia repair History of incisional hernia repair History of esophagogastroduodenoscopy (EGD) History of colonoscopy Family History Father Stroke Mother No problems noted. Brother No problems noted. Sister No problems noted. Sister No problems noted. Sister No problems noted. Son No problems noted. Daughter No problems noted. Social History Housing: House Alcohol intake: never Patient Tobacco Use Status: Current everyday Tobacco user Tobacco use type: Cigarette Cigarettes Per Day: 3 Years Smoked: 49, ranging from 0.25 to 1 ppd e-Cigarette/Vaping Use: Never Used Substance Use Type: Marijuana service: No Current occupational status: unemployed Cognitive needs: No Hearing needs: No Vision needs: No Physical Exam Vital Signs: BMI result Body Mass Index 18.3 Assessment & Plan Assessment & Plan (1) Cardiomyopathy: Comment: admitted to [facility] 02/20/24 for NSTEMI, Echo EF 38%, basal to mid septal segments hypokinetic, cardiac cath nl coronaries, f/u with [facility] cardiology for fMRI Code(s): I42.9 - Cardiomyopathy, unspecified Category: Medical Plan: see above Coding Level of Care Code Est Pt Level 4 (59178) Diagnoses Cardiomyopathy I42.9
[2024-04-12 14:14] VITALS: BP 181/102; PULSE 56; BMI 18.3
== END 2024-04-12 14:37 | disposition home or self-care (01) ==
PROVIDERS: PCP Internal Medicine; Visit Provider Internal Medicine Gastroenterology
DX: I42.9 Cardiomyopathy, unspecified (principal)
CPT/HCPCS: 99214

== ENCOUNTER → 2024-04-12 14:02 | Outpatient (BNVA) | payer OTHER, SELFPAY | PROVIDERS: PCP Internal Medicine; Visit Provider Internal Medicine Gastroenterology ==

== ENCOUNTER 2024-04-12 14:32 | Emergency (ER) | payer OTHER, SELFPAY ==
[2024-04-12] VITALS (7 sets, daily range): BP systolic 87–197; BP diastolic 55–111; PULSE 57–90; RESP 13–20; TEMP 35.7–36.6; O2SAT 98–100; BMI 18.3
--- NOTE | ~2024-04-12 | US_ITS ---
EXAMINATION: US ABDOMEN LIMITED CLINICAL INFORMATION: Right upper quadrant pain with question of cholecystitis COMPARISON: CT abdomen and pelvis 04/01/2024 TECHNIQUE: Real-time imaging of the gallbladder and common bile duct only FINDINGS: GALLBLADDER: Multiple small gallbladder polyps are present. Some debris is present in the gallbladder. The gallbladder is physiologically distended without evidence of stones, wall thickening or pericholecystic fluid. Noble sign negative. COMMON BILE DUCT: Normal in caliber measuring 0.6 cm in diameter. US/US abdomen limited IMPRESSION: 1. No evidence of cholecystitis. 2. Multiple small gallbladder polyps. Electronically signed by: Jc Mccormack MD 04/12/2024 10:31 PM EDT
--- NOTE | 2024-04-12 14:39 | ED.GENADULT ---
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 likely from cannabis induced vomiting as she feels better after hot shower patient has had adrenal adenoma which was removed in 10/04 Related Data Home Medications ?Medication ?Instructions ?Recorded ?Confirmed aspirin 81 mg tablet,delayed 81 mg PO DAILY 03/16/24 03/16/24 release Previous Rx's ?Medication ?Instructions ?Recorded albuterol sulfate 90 mcg/actuation 2 puff PO Q6H PRN Wheezing #8.5 11/04/22 aerosol inhaler grams cholecalciferol (vitamin D3) 50 50 mcg PO DAILY #90 caps 07/27/23 mcg (2,000 unit) capsule albuterol sulfate 90 mcg/actuation 2 puff inhalation Q6H PRN 11/10/23 aerosol inhaler (Ventolin HFA) shortness of breath or wheezing #8.5 grams omeprazole 40 mg capsule,delayed 40 mg PO BID #90 caps 11/10/23 release acetaminophen 650 mg 650 mg PO Q8H #90 tabs 11/13/23 tablet,extended release cyclobenzaprine 5 mg tablet 5 mg PO BID #90 tabs 12/05/23 lidocaine 5 % topical patch 1 patch topical DAILY #30 ea 12/15/23 atorvastatin 80 mg tablet 80 mg PO DAILY #90 tabs 03/16/24 lisinopril 5 mg tablet 5 mg PO DAILY #90 tabs 03/16/24 metoprolol succinate 25 mg 25 mg PO DAILY #90 tabs 03/16/24 tablet,extended release 24 hr sertraline 25 mg tablet (Zoloft) 25 mg PO DAILY #90 tabs 03/16/24 ondansetron 4 mg disintegrating 4 mg PO Q6-8H PRN nausea and 04/01/24 tablet vomiting #7 tabs levothyroxine 50 mcg tablet 50 mcg PO DAILY #90 tabs 04/06/24 tramadol 50 mg tablet 50 mg PO Q8-10H PRN pain #20 tabs 04/13/24 Allergies Allergy/AdvReac Type Severity Reaction Status Date / Time Penicillins [PENICILLINS] Allergy Intermediate RASH Verified 04/12/24 14:38 codeine [CODEINE] Allergy Mild RASH Verified 04/12/24 14:38 penicillin V Allergy Unknown unknown Verified 04/12/24 14:38 olmesartan AdvReac Intermediate Dizziness Verified 04/12/24 14:38 meloxicam AdvReac Unknown vomiting Verified 04/12/24 14:38 Review of Systems Review of Systems: Yes all other systems are reviewed and are negative PMFSH Past Medical History Medical History Hypertension Hyperlipidemia Hypothyroidism Adrenal adenoma Hiatal hernia Nicotine dependence, cigarettes, uncomplicated Asthma Raynaud disease Arthritis Carpal tunnel syndrome of right wrist Tibia fracture History of spinal fracture History of mammogram Surgical History History of adrenal surgery History of hysterectomy History of umbilical hernia repair History of incisional hernia repair History of esophagogastroduodenoscopy (EGD) History of colonoscopy Family History Family History Father Stroke Mother No problems noted. Brother No problems noted. Sister No problems noted. Sister No problems noted. Sister No problems noted. Son No problems noted. Daughter No problems noted. Social History Social History Housing: House Alcohol intake: never Patient Tobacco Use Status: Current everyday Tobacco user Tobacco use type: Cigarette Cigarettes Per Day: 3 Years Smoked: 49, ranging from 0.25 to 1 ppd Smoked in Last 30 Days: Yes e-Cigarette/Vaping Use: Never Used Use of substances other than those prescribed or required for medical reasons: Yes Substance Use Type: Marijuana Substance Use Frequency: Daily Advance Directives: No Advance Directives Information Provided: No Patient : No service: No Current occupational status: unemployed Cognitive needs: No Hearing needs: No Vision needs: No Physical Exam ED Vital Signs: Vital Signs - 24 hr 04/12/24 14:37 04/12/24 19:30 04/12/24 20:44 Temperature 96.7 F L 96.2 F L 97.9 F Pulse Rate 60 57 88 Respiratory Rate 20 18 16 Blood Pressure 171/90 H 176/101 H 197/106 H Pulse Oximetry 100 98 100 Oxygen Delivery Method Room Air Room Air Room Air 04/12/24 21:41 04/12/24 22:17 04/12/24 22:57 Temperature 97.7 F 97.9 F Pulse Rate 77 90 76 Respiratory Rate 13 18 15 Blood Pressure 172/96 H 168/97 H 185/111 H Pulse Oximetry 100 99 100 Oxygen Delivery Method Room Air Room Air Room Air 04/12/24 23:51 04/13/24 00:31 04/13/24 01:02 Temperature 97.7 F Pulse Rate 81 77 Respiratory Rate 16 71 H 15 Blood Pressure 87/55 L 92/61 95/61 Pulse Oximetry 99 99 Oxygen Delivery Method Room Air Room Air 04/13/24 01:19 Temperature 97.7 F Pulse Rate 77 Respiratory Rate 15 Blood Pressure 95/61 Pulse Oximetry 99 Oxygen Delivery Method Room Air BMI result Body Mass Index 18.3 Appearance: Alert. Oriented X3. Nauseated Eyes: No pallor or icterus ENT: Pharynx normal. Oral Mucosa moist Neck: Normal inspection. Neck supple. CVS: Normal heart rate and rhythm. Pulses normal. Respiratory: No respiratory distress. Equal air entry bilateral, no wheezing/rales/rhonchi Abdomen: Soft and tenderness in epigastric area no rebound tenderness Bowel sounds are present, no mass palpable, no CVA tenderness Skin: Skin warm and dry. Normal skin color. Normal skin turgor. Extremities: No lower extremity edema. No calf tenderness Neuro: Oriented X 3. No motor deficit. Course Course Course Narrative: RME, this is a rapid medical exam performed by Russell Jasso please refer to primary provider for complete H&P- 64-year-old female presents for evaluation of abdominal pain and high blood pressure. The patient was seen here 12 days ago and diagnosed with gastroenteritis. She reports continued abdominal pain, nausea. She has a blood pressure of 171/90. Plan for labs, EKG. Will defer any potential imaging to primary provider. Medications Administered Discontinued Medications Generic Name Dose Route Start Last Admin Trade Name Bayron PRN Reason Stop Dose Admin Sodium Chloride 1,000 mls @ 999 mls/hr 04/12/24 19:45 04/12/24 22:41 Ns IV 04/12/24 20:45 Infused .Q1H1M ONE Infusion Sodium Chloride 1,000 mls @ 999 mls/hr 04/12/24 19:44 04/12/24 22:41 Ns IV 04/12/24 20:44 Infused .Q1H1M ONE Infusion Sodium Chloride 1,000 mls @ 999 mls/hr 04/12/24 23:46 04/13/24 00:52 Ns IV 04/13/24 00:46 Infused .Q1H1M ONE Infusion Labetalol HCl 20 mg 04/12/24 23:09 04/12/24 23:20 Labetalol Hcl 100 Mg/20 Ml Vial IVPUSH 04/12/24 23:10 20 mg ONCE ONE Administration Lisinopril 10 mg 04/12/24 21:41 04/12/24 21:53 Lisinopril 10 Mg Tablet PO 04/12/24 21:42 10 mg ONCE ONE Administration Protocol Morphine Sulfate 4 mg 04/12/24 20:54 04/12/24 21:11 Morphine Sulfate 4 Mg/Ml Cartridge IVPUSH 04/12/24 20:55 4 mg ONCE ONE Administration Protocol Ondansetron HCl 4 mg 04/12/24 19:45 04/12/24 20:14 Ondansetron Hcl 4 Mg/2 Ml Vial IVPUSH 04/12/24 19:46 4 mg ONCE ONE Administration Medical Decision Making Medical Decision Making MDM Narrative: Patient with elevated troponin with normal CK , normal EKG with recent cardiac catheterization negative no typical chest pain pain does have abdominal pain with chronic use of cannabis been followed by extruding press operator for last 2 years patient has missed her lisinopril dose because of vomiting improved blood pressure after lisinopril and labetalol will discharge patient home on tramadol advised to stop cannabis and follow with extruding press operator Differential Diagnosis Differential Diagnoses: The differential diagnosis associated with the presentation includes Gastritis/pancreatitis/cholelithiasis/anxiety/cannabis induced vomiting/gastroparesis/ACS Admission/Observation Consideration of admission/observation: Escalation of care including admission/observation considered Lab Data MDM Lab Attestation statement: I reviewed the patient's lab results. 04/12/24 16:43 04/12/24 16:43 Labs: Lab Results 04/12/24 04/12/24 04/12/24 Range/Units 14:55 16:34 16:43 WBC 18.5 H (4.8-10.8) X10*3/uL RBC 4.71 (4.20-5.50) X10*6/uL Hgb 14.5 (12.0-16.0) g/dl Hct 43.9 (37.0-47.0) % MCV 93.2 (80.0-98.0) fL MCH 30.8 (27.0-33.0) pg MCHC 33.0 (31.0-35.0) g/dl RDW 14.3 (11.0-16.0) % Plt Count 350 (160-400) X10*3/uL MPV 10.4 (9.4-12.3) fL Immature Gran % (Auto) 0.4 (0.0-0.4) % Neut % (Auto) 85.7 H (45-73) % Lymph % (Auto) 9.9 L (20-40) % Barton % (Auto) 3.4 (2-11) % Eos % (Auto) 0.3 (0-4) % Baso % (Auto) 0.3 (0-2) % Lymph # (Auto) 1.8 (1.2-4.9) X10*3/uL Barton # (Auto) 0.6 (0.1-1.2) X10*3/uL Eos # (Auto) 0.1 (0.0-0.4) X10*3/uL Baso # (Auto) 0.1 (0.0-0.2) X10*3/uL Abs Immat Gran (auto) 0.08 H (0.00-0.03) X10*3/uL Absolute Neuts (auto) 15.8 H (2.0-8.3) x10*3/uL Absolute Nucleated RBC 0.000 (0.0-0.012) X10*3/uL Nucleated RBC % (auto) 0.0 (0.0-0.2) /100WBC PT 11.0 (10.9-12.4) SEC INR 0.9 (0.9-1.1) Sodium 139 (135-145) mmol/L Potassium 4.3 (3.3-5.1) mmol/L Chloride 106 (96-108) mmol/L Carbon Dioxide 20 L (22-29) mmol/L Anion Gap 17 (12-20) BUN 16 (9-16) mg/dL Creatinine 0.83 (0.5-1.4) mg/dL Estim Creat Clear Calc 48.8 Estimated GFR > 60 Random Glucose 131 H (60-115) mg/dL Lactic Acid (0.5-2.0) mmol/L Calcium 9.9 (8.4-10.2) mg/dL Total Bilirubin 0.3 (0.0-1.0) mg/dL AST 22 (5-31) U/L ALT 27 (0-31) U/L Alkaline Phosphatase 71 (39-117) U/L Total Creatine Kinase 98 (26-140) U/L Troponin I High Sens 129.3 H* D (<3.5-17.0) ng/L Total Protein 7.6 (6.5-8.0) g/dL Albumin 4.5 (3.5-5.0) g/dL Lipase 12 (8-78) U/L Urine Color Urine Appearance Urine pH (5.0-9.0) Ur Specific [place] (1.005-1.025) Urine Protein (Neg-Trace) mg/dL Urine Glucose (UA) (Negative) mg/dL Urine Ketones (Negative) mg/dL Urine Blood (Negative) Urine Nitrite (Negative) Ur Leukocyte Esterase (Negative) Urine RBC (0-2) /HPF Urine WBC (0-5) /HPF Ur Squamous Epith Cells (0-2) /HPF Urine Bacteria (None Seen) Hyaline Casts (0-2) /LPF 04/12/24 04/12/24 Range/Units 20:10 22:19 WBC (4.8-10.8) X10*3/uL RBC (4.20-5.50) X10*6/uL Hgb (12.0-16.0) g/dl Hct (37.0-47.0) % MCV (80.0-98.0) fL MCH (27.0-33.0) pg MCHC (31.0-35.0) g/dl RDW (11.0-16.0) % Plt Count (160-400) X10*3/uL MPV (9.4-12.3) fL Immature Gran % (Auto) (0.0-0.4) % Neut % (Auto) (45-73) % Lymph % (Auto) (20-40) % Barton % (Auto) (2-11) % Eos % (Auto) (0-4) % Baso % (Auto) (0-2) % Lymph # (Auto) (1.2-4.9) X10*3/uL Barton # (Auto) (0.1-1.2) X10*3/uL Eos # (Auto) (0.0-0.4) X10*3/uL Baso # (Auto) (0.0-0.2) X10*3/uL Abs Immat Gran (auto) (0.00-0.03) X10*3/uL Absolute Neuts (auto) (2.0-8.3) x10*3/uL Absolute Nucleated RBC (0.0-0.012) X10*3/uL Nucleated RBC % (auto) (0.0-0.2) /100WBC PT (10.9-12.4) SEC INR (0.9-1.1) Sodium (135-145) mmol/L Potassium (3.3-5.1) mmol/L Chloride (96-108) mmol/L Carbon Dioxide (22-29) mmol/L Anion Gap (12-20) BUN (9-16) mg/dL Creatinine (0.5-1.4) mg/dL Estim Creat Clear Calc Estimated GFR Random Glucose (60-115) mg/dL Lactic Acid 1.4 (0.5-2.0) mmol/L Calcium (8.4-10.2) mg/dL Total Bilirubin (0.0-1.0) mg/dL AST (5-31) U/L ALT (0-31) U/L Alkaline Phosphatase (39-117) U/L Total Creatine Kinase (26-140) U/L Troponin I High Sens 359.7 H* D (<3.5-17.0) ng/L Total Protein (6.5-8.0) g/dL Albumin (3.5-5.0) g/dL Lipase (8-78) U/L Urine Color Yellow Urine Appearance Clear Urine pH 7.5 (5.0-9.0) Ur Specific [place] 1.010 (1.005-1.025) Urine Protein 30 (1+) H (Neg-Trace) mg/dL Urine Glucose (UA) Negative (Negative) mg/dL Urine Ketones Trace (Negative) mg/dL Urine Blood Small (1+) H (Negative) Urine Nitrite Negative (Negative) Ur Leukocyte Esterase Negative (Negative) Urine RBC 6-10 H (0-2) /HPF Urine WBC 0-5 (0-5) /HPF Ur Squamous Epith Cells 0-2 (0-2) /HPF Urine Bacteria None Seen (None Seen) Hyaline Casts 0-2 (0-2) /LPF Independent Interpretation I performed an independent interpretation of an: EKG Interpretation: Normal sinus rhythm heart rate 60 beats per minute LVH no acute ST elevation no acute ST T wave changes no acute ischemia Discharge Plan Discharge Clinical Impression: Cannabis abuse with cannabis-induced disorder, Chronic epigastric pain Patient Disposition: Home, Self-Care Instructions: Cannabis Abuse (ED), Epigastric Pain (ED) Additional Instructions: Stop smoking cannabis Tramadol for chronic pain Continue Zofran for nausea/vomiting Follow up with your extruding press operator Prescriptions: New tramadol 50 mg tablet 50 mg PO Q8-10H PRN (Reason: pain) Qty: 20 0RF No Action cholecalciferol (vitamin D3) 50 mcg (2,000 unit) capsule 50 mcg PO DAILY Qty: 90 3RF acetaminophen 650 mg tablet extended release 650 mg PO Q8H Qty: 90 3RF cyclobenzaprine 5 mg tablet 5 mg PO BID Qty: 90 0RF lidocaine 5 % adhesive patch,medicated 1 patch topical DAILY Qty: 30 2RF Rx Instructions: leave on most painful area for up to 12 hrs levothyroxine 50 mcg tablet 50 mcg PO DAILY Qty: 90 0RF ondansetron 4 mg tablet,disintegrating 4 mg PO Q6-8H PRN (Reason: nausea and vomiting) Qty: 7 0RF aspirin 81 mg tablet,delayed release (/EC) 81 mg PO DAILY atorvastatin 80 mg tablet 80 mg PO DAILY Qty: 90 3RF lisinopril 5 mg tablet 5 mg PO DAILY Qty: 90 3RF metoprolol succinate 25 mg tablet extended release 24 hr 25 mg PO DAILY Qty: 90 3RF sertraline [Zoloft] 25 mg tablet 25 mg PO DAILY Qty: 90 2RF albuterol sulfate 90 mcg/actuation HFA aerosol inhaler 2 puff PO Q6H PRN (Reason: Wheezing) Qty: 8.5 3RF albuterol sulfate [Ventolin HFA] 90 mcg/actuation HFA aerosol inhaler 2 puff inhalation Q6H PRN (Reason: shortness of breath or wheezing) Qty: 8.5 3RF omeprazole 40 mg capsule,delayed release(DR/EC) 40 mg PO BID Qty: 90 2RF Interventions: ED Discharge Assessment Last Done: 04/13/24 01:19 Discharge Date/Time: 04/13/24 01:32 Print Language: Polish
--- NOTE | 2024-04-12 14:40 | ECG_ITS ---
Test Reason : PAIN Blood Pressure : / mmHG Vent. Rate : 060 BPM Atrial Rate : 060 BPM P-R Int : 148 ms QRS Dur : 094 ms QT Int : 442 ms P-R-T Axes : 075 -16 079 degrees QTc Int : 442 ms Normal sinus rhythm with sinus arrhythmia Possible Left atrial enlargement Minimal voltage criteria for LVH, may be normal variant ( Jarod product ) Borderline ECG When compared with ECG of 31-MAR-2024 20:56, T wave amplitude has decreased in Lateral leads Referred By: Asher Jasso Electronically Signed By:ALYSON SULLIVAN
[2024-04-12 15:10] LABS: INTERNATIONAL NORM RATIO 0.9 (0.9-1.1)
[2024-04-12 16:48] LABS: MANUAL DIFF FLAG NO
[2024-04-12 16:55] LABS: Basophils Absolute Auto 0.1 X10*3/uL (0.0-0.2); Basophils Percent Auto 0.3 % (0-2); Eosinophils Absolute Auto 0.1 X10*3/uL (0.0-0.4); Eosinophils Percent Auto 0.3 % (0-4); Hematocrit 43.9 % (37.0-47.0); Hemoglobin 14.5 g/dl (12.0-16.0); Imm Gran Abs Auto 0.08 X10*3/uL (0.00-0.03); Imm Gran Pct Auto 0.4 % (0.0-0.4); Lymphocytes Absolute Auto 1.8 X10*3/uL (1.2-4.9); Lymphocytes Percent Auto 9.9 % (20-40); Mean Corpuscular Hemoglobin 30.8 pg (27.0-33.0); Mean Corpuscular Volume 93.2 fL (80.0-98.0); Mean Platelet Volume 10.4 fL (9.4-12.3); Monocytes Absolute Auto 0.6 X10*3/uL (0.1-1.2); Monocytes Percent Auto 3.4 % (2-11); Neutrophils Absolute Auto 15.8 x10*3/uL (2.0-8.3); Neutrophils Percent Auto 85.7 % (45-73); Platelet Count 350 X10*3/uL (160-400); Red Blood Count 4.71 X10*6/uL (4.20-5.50); Red Cell Distribution Width 14.3 % (11.0-16.0); White Blood Count 18.5 X10*3/uL (4.8-10.8)
[2024-04-12 17:07] LABS: Alanine Aminotransferase 27 U/L (0-31); Albumin Level 4.5 g/dL (3.5-5.0); Alkaline Phosphatase 71 U/L (39-117); Anion Gap 17 (12-20); Aspartate Amino Transferase 22 U/L (5-31); Bilirubin Total 0.3 mg/dL (0.0-1.0); Blood Urea Nitrogen 16 mg/dL (9-16); Calcium 9.9 mg/dL (8.4-10.2); Carbon Dioxide 20 mmol/L (22-29); Chloride 106 mmol/L (96-108); Creatinine Clr Calc Pharmacy 48.8; Estimated Glomerular Filt Rate > 60; Glucose Random 131 mg/dL (60-115); Lipase 12 U/L (8-78); Potassium 4.3 mmol/L (3.3-5.1); Sodium 139 mmol/L (135-145); Total Protein 7.6 g/dL (6.5-8.0)
[2024-04-12 17:25] LABS: Troponin-I High Sensitivity 129.3 ng/L (<3.5-17.0)
[2024-04-12] MEDS: ondansetron HCL 4 MG/2 ML VIAL IVPUSH (20:14)
[2024-04-12] MEDS: 0.9 % Sodium Chloride 1,000 ML 999 ML IV ×3 (20:14→23:50)
[2024-04-12 20:29] LABS: Lactic Acid 1.4 mmol/L (0.5-2.0)
[2024-04-12 20:43] LABS: Troponin-I High Sensitivity 359.7 ng/L (<3.5-17.0)
--- NOTE | 2024-04-12 20:45 | MHC.EDTECH ---
Patient brought in from triage,changed into hospital attire,vitals taken,BP is elevated 197/106 RN is aware,1st set of blood cultures obtained by this tech,patient is unable to give a urine sample at this time,will re-attempt,call soriano is in reach
[2024-04-12] MEDS: Morphine Sulfate 4 MG/ML CARTRIDGE IVPUSH (21:11)
[2024-04-12] MEDS: lisinopriL 10 MG TABLET PO (21:53)
--- NOTE | 2024-04-12 22:19 | MHC.EDTECH ---
Patient ambulated to the bathroom with a steady gait,urine sample obtained and sent to lab,vitals taken,call soriano in reach
[2024-04-12 22:36] LABS: Appearance Urine Clear; Color Urine Yellow; Glucose Urine UA Negative (Negative); Leukocyte Esterase Urine Negative (Negative); Nitrite Urine Negative (Negative); PH 7.5 (5.0-9.0); UMIC TRIGGER UACC YES; Urine Blood Small (1+) (Negative); Urine Ketones Trace mg/dL (Negative); Urine Protein 30 (1+) mg/dL (Neg-Trace)
[2024-04-12 22:39] LABS: Bacteria Urine None Seen (None Seen); Hyaline Casts Urine 0-2 /LPF (0-2); Squamous Epithelial Cell Urine 0-2 /HPF (0-2); WBC Urine 0-5 /HPF (0-5)
[2024-04-12] MEDS: Labetalol HCL 100 MG/20 ML VIAL 20 MG IVPUSH (23:20)
[2024-04-13 00:31] VITALS: BP 92/61; RESP 71
[2024-04-13 01:02] VITALS: BP 95/61; PULSE 77; RESP 15; TEMP 36.5; O2SAT 99
[2024-04-13 01:19] VITALS: BP 95/61; PULSE 77; RESP 15; TEMP 36.5; O2SAT 99
== END 2024-04-13 01:32 | disposition home or self-care (01) ==
PROVIDERS: Physician Assistant; Emergency Provider Internal Medicine; PCP Internal Medicine
DX: F14.188 Cocaine abuse with other cocaine-induced disorder (principal); R10.13 Epigastric pain; I10 Essential (primary) hypertension; E78.5 Hyperlipidemia, unspecified; J45.909 Unspecified asthma, uncomplicated; F17.210 Nicotine dependence, cigarettes, uncomplicated; Z79.899 Other long term (current) drug therapy; Z79.02 Long term (current) use of antithrombotics/antiplatelets; Z79.82 Long term (current) use of aspirin
CPT/HCPCS: 36415; 76705; 80053; 81001; 82550; 83605; 83690; 84484; 85025; 85610; 87040; 93005; 96361; 96374; 96375; 99212; 99285; J1920; J2270; J2405

== ENCOUNTER 2024-04-14 13:33 | Outpatient (AMB) | payer OTHER, SELFPAY ==
[2024-04-14 13:35] VITALS: BP 94/66; PULSE 98; O2SAT 99; BMI 18.2
--- NOTE | 2024-04-14 13:35 | A.OFFPC_ITS ---
Vital Signs 04/14/24 13:35 Height 5 ft 1 in Weight 96 lb 8 oz BMI 18.2 BP 94/66 Blood Pressure Location Lt brachial Position Sitting Pulse 98 Pulse Source Pulse Oximeter Pulse Oximetry (%) 99 Oxygen Delivery Method Room Air Intake Visit Reasons: 1 month follow up Intake Note: Pt is here today for 1 month follow up visit. Pt states that she went to [facility] this [place]. Allergies Penicillins [PENICILLINS] Allergy (Intermediate, Verified 04/14/24 13:37) RASH codeine [CODEINE] Allergy (Mild, Verified 04/14/24 13:37) RASH penicillin V Allergy (Unknown, Verified 04/14/24 13:37) unknown olmesartan Adverse Reaction (Intermediate, Verified 04/14/24 13:37) Dizziness meloxicam Adverse Reaction (Unknown, Verified 04/14/24 13:37) vomiting Medication List - Last Reconciled 04/14/24 by Marcie Chatterjee MD acetaminophen ER 650 mg PO Q8H albuterol sulfate 90 mcg/actuation (Ventolin HFA) 2 puffs inhalation Q6H PRN albuterol sulfate 90 mcg/actuation 2 puffs PO Q6H PRN aspirin 81 mg PO DAILY atorvastatin 80 mg PO DAILY cholecalciferol (vitamin D3) 50 mcg PO DAILY cyclobenzaprine 5 mg PO BID levothyroxine 50 mcg PO DAILY lidocaine 5% 1 patch topical DAILY lisinopril 5 mg PO DAILY metoprolol succinate ER 25 mg PO DAILY omeprazole 40 mg PO BID ondansetron 4 mg PO Q6-8H PRN sertraline (Zoloft) 25 mg PO DAILY tramadol 50 mg PO Q8-10H PRN Tobacco use date assessed: 03/16/24 Dental Screening Dental Screen Date: 11/10/23 HPI 1 month follow up HPI Details Patient presents for the follow-up of ER visit for the episode of abdominal pain nausea vomiting and elevated blood pressure. The cardiac and GI workup was negative. Patient has been under lot of stress related to her daughter who asked the patient to move out of her house. Patient has been taking 25 mg of sertraline. She denies depression or suicide ideation but has been smoking marijuana daily. Patient has been compliant taking her medications for hypertension and hyperlipidemia. [facility] Medical History Hypertension Hyperlipidemia Hypothyroidism Adrenal adenoma Hiatal hernia Nicotine dependence, cigarettes, uncomplicated Asthma Raynaud disease Arthritis Carpal tunnel syndrome of right wrist Tibia fracture History of spinal fracture History of mammogram Surgical History History of adrenal surgery History of hysterectomy History of umbilical hernia repair History of incisional hernia repair History of esophagogastroduodenoscopy (EGD) History of colonoscopy Family History Father Stroke Mother No problems noted. Brother No problems noted. Sister No problems noted. Sister No problems noted. Sister No problems noted. Son No problems noted. Daughter No problems noted. Social History Housing: House Alcohol intake: never Patient Tobacco Use Status: Current everyday Tobacco user Tobacco use type: Cigarette Cigarettes Per Day: 3 Years Smoked: 49, ranging from 0.25 to 1 ppd Packs per year/per ci.00 e-Cigarette/Vaping Use: Never Used Substance Use Type: Marijuana service: No Current occupational status: unemployed Cognitive needs: No Hearing needs: No Vision needs: No Questionnaire Thrive Questionnaire Date Thrive assessed: 03/16/24 I am a: Patient What is your living situation today?: I have a steady place to live Within the past 12 months, did the food you bought not last and you didn't have the money to get more?: I choose not to answer this question Within the past 12 months, did you worry whether your food would run out before you got money to buy more?: I choose not to answer this question Do you have trouble paying for medicines?: I choose not to answer this question Do you have trouble getting transportation to medical appointments?: I choose not to answer this question Do you have trouble paying your heating and electricity bill?: I choose not to answer this question Do you have trouble taking care of your child, family member or friend?: I choose not to answer this question Do you have trouble with day-to-day activities such as bathing, preparing meals, shopping, managing finances, etc.?: I choose not to answer this question Are you currently unemployed and looking for a job?: I choose not to answer this question Are you interested in more education?: I choose not to answer this question Please select the resources that you would like help with: None Currently or been in a relationship where the following occur: I choose not to answer THRIVE Score: 0 BROOKE-7 AMB Questionnaire BROOKE-7 Date BROOKE - 7 assessed: 03/16/24 Source: Developed by Drs. Jaime Waldron, Hortencia Salgado, Home Dey and colleagues, with an educational hong from [employer]. Review of Systems Const All systems reviewed & are unremarkable except as noted in HPI and below ENT Reports no additional complaints Card Reports no additional complaints Resp Reports no additional complaints GI Reports no additional complaints Reports no additional complaints Physical exam (Primary Care) Vital Signs: Last Vital Signs Pulse 98 04/14/24 13:35 BP 94/66 04/14/24 13:35 Pulse Ox 99 04/14/24 13:35 Oxygen Delivery Method Room Air 04/14/24 13:35 BMI result Body Mass Index 18.2 Tobacco/Smoking Status: Tobacco use Status Tobacco use date assessed 03/16/24 04/14/24 13:39 Patient Tobacco Use Status Current everyday Tobacco 04/14/24 13:39 Tobacco use type Cigarette 04/14/24 13:39 e-Cigarette/Vaping Use Never Used 04/14/24 13:39 Thrive Assessment: Date of Thrive Assessment Date Thrive assessed 03/16/24 04/14/24 13:39 Currently or been in a relationship where the following occur: I choose not to answer Const General: no acute distress HENMT Face and sinus: Yes normal facial exam Neck Neck: Yes supple Resp Effort & Inspection: normal respiratory effort Auscultation: clear to auscultation bilaterally Cardio Rhythm: regular rhythm Heart sounds: S1 normal heart sound present and S2 normal heart sound present GI Inspection: Yes normal to inspection Palpation (GI): Soft to palpation Percussion: Yes normal to percussion Coding Level of Care Code Est Pt Level 3 (67433) Diagnoses Anxiety F41.9 Hypothyroidism E03.9 Hypertension I10 Assessment & Plan Assessment & Plan (1) Anxiety: Code(s): F41.9 - Anxiety disorder, unspecified Category: Medical Plan: Increase sertraline to 50 mg a day patient is interested in counseling (2) Hypothyroidism: Comment: Subclinical not on replacement Code(s): E03.9 - Hypothyroidism, unspecified Category: Medical Plan: Continue levothyroxine (3) Hypertension: Code(s): I10 - Essential (primary) hypertension Category: Medical Plan: Continue current medications Orders: Orders Comprehensive Met. Panel 1 Week E03.9 - Hypothyroidism, unspecified, F41.9 - Anxiety disorder, unspecified, I10 - Essential (primary) hypertension Complete Blood Count Man Dif 1 Week E03.9 - Hypothyroidism, unspecified, F41.9 - Anxiety disorder, unspecified, I10 - Essential (primary) hypertension Medications: New sertraline 50 mg PO DAILY 90 tabs 0RF Discontinued sertraline (Zoloft) Discontinued Reason: Duplicate 25 mg PO DAILY 90 tabs 2RF
== END 2024-04-14 14:28 | disposition home or self-care (01) ==
PROVIDERS: PCP Internal Medicine; Visit Provider Internal Medicine
DX: F41.9 Anxiety disorder, unspecified (principal); E03.9 Hypothyroidism, unspecified; I10 Essential (primary) hypertension

== ENCOUNTER → 2024-04-14 13:33 | Outpatient (BNVA) | payer OTHER, SELFPAY | PROVIDERS: PCP Internal Medicine; Visit Provider Internal Medicine | DX: F41.9 Anxiety disorder, unspecified (principal); E03.9 Hypothyroidism, unspecified; I10 Essential (primary) hypertension | CPT/HCPCS: 99212 ==

== ENCOUNTER 2024-05-25 13:02 | Outpatient (REF) | payer OTHER, SELFPAY ==
[2024-05-25 16:16] LABS: MANUAL DIFF FLAG NO
[2024-05-25 16:26] LABS: Basophils Absolute Auto 0.1 X10*3/uL (0.0-0.2); Basophils Percent Auto 0.6 % (0-2); Eosinophils Absolute Auto 0.4 X10*3/uL (0.0-0.4); Eosinophils Percent Auto 3.8 % (0-4); Hematocrit 41.5 % (37.0-47.0); Hemoglobin 13.3 g/dl (12.0-16.0); Imm Gran Abs Auto 0.04 X10*3/uL (0.00-0.03); Imm Gran Pct Auto 0.3 % (0.0-0.4); Lymphocytes Absolute Auto 2.8 X10*3/uL (1.2-4.9); Lymphocytes Percent Auto 24.5 % (20-40); Mean Corpuscular Hemoglobin 30.6 pg (27.0-33.0); Mean Corpuscular Volume 95.6 fL (80.0-98.0); Mean Platelet Volume 11.9 fL (9.4-12.3); Monocytes Absolute Auto 0.7 X10*3/uL (0.1-1.2); Monocytes Percent Auto 6.3 % (2-11); Neutrophils Absolute Auto 7.5 x10*3/uL (2.0-8.3); Neutrophils Percent Auto 64.5 % (45-73); Platelet Count 257 X10*3/uL (160-400); Red Blood Count 4.34 X10*6/uL (4.20-5.50); Red Cell Distribution Width 14.5 % (11.0-16.0); White Blood Count 11.6 X10*3/uL (4.8-10.8)
[2024-05-25 16:48] LABS: Alanine Aminotransferase 34 U/L (0-31); Albumin Level 4.2 g/dL (3.5-5.0); Alkaline Phosphatase 66 U/L (39-117); Anion Gap 15 (12-20); Aspartate Amino Transferase 30 U/L (5-31); Bilirubin Total 0.3 mg/dL (0.0-1.0); Blood Urea Nitrogen 24 mg/dL (9-16); Calcium 9.8 mg/dL (8.4-10.2); Carbon Dioxide 22 mmol/L (22-29); Chloride 107 mmol/L (96-108); Cholesterol 159 mg/dL (<200); Estimated Glomerular Filt Rate > 60; Glucose Fasting 73 mg/dL (60-99); HDL Cholesterol 62 mg/dL (>40); LDL Cholesterol Calculated 81 mg/dL (<100); Potassium 4.9 mmol/L (3.3-5.1); Sodium 139 mmol/L (135-145); Total Protein 7.2 g/dL (6.5-8.0); Triglycerides 83 mg/dL (<150)
[2024-05-25 16:53] LABS: TSH reflex Free T4 3.41 uIU/mL (0.32-4.0)
[2024-05-26 07:28] LABS: Estimated Average Glucose 100 mg/dL; Hemoglobin A1c % 5.1 % (<6.0); Total Hemoglobin (HGBA1C) 3604.3427 umol/L
== END 2024-05-25 13:03 | disposition home or self-care (01) ==
LOC: HO.HMGCLDS 13:02
PROVIDERS: PCP Internal Medicine; Visit Provider Internal Medicine
DX: Z00.00 Encounter for general adult medical examination without abnormal findings (principal); E78.5 Hyperlipidemia, unspecified; J45.909 Unspecified asthma, uncomplicated; E03.9 Hypothyroidism, unspecified; I42.9 Cardiomyopathy, unspecified; Z79.899 Other long term (current) drug therapy
CPT/HCPCS: 36415; 80053; 80061; 83036; 84443; 85025; 99396

== ENCOUNTER 2024-05-25 13:02 | Outpatient (AMB) | payer OTHER, SELFPAY ==
[2024-05-25 13:04] VITALS: BP 100/62; PULSE 78; O2SAT 98; BMI 18.9
--- NOTE | 2024-05-25 13:04 | A.OFFPC_ITS ---
Vital Signs 05/25/24 13:04 Height 5 ft 1 in Weight 100 lb BMI 18.9 BP 100/62 Blood Pressure Location Lt brachial Position Sitting Pulse 78 Pulse Source Pulse Oximeter Pulse Oximetry (%) 98 Oxygen Delivery Method Room Air Intake Visit Reasons: Annual PE Intake Note: Pt is here today for PE. Allergies Penicillins [PENICILLINS] Allergy (Intermediate, Verified 05/25/24 13:17) RASH codeine [CODEINE] Allergy (Mild, Verified 05/25/24 13:17) RASH penicillin V Allergy (Unknown, Verified 05/25/24 13:17) unknown olmesartan Adverse Reaction (Intermediate, Verified 05/25/24 13:17) Dizziness meloxicam Adverse Reaction (Unknown, Verified 05/25/24 13:17) vomiting Medication List - Last Reconciled 05/25/24 by Marcie Chatterjee MD acetaminophen ER 650 mg PO Q8H albuterol sulfate 90 mcg/actuation (Ventolin HFA) 2 puffs inhalation Q6H PRN albuterol sulfate 90 mcg/actuation 2 puffs PO Q6H PRN aspirin 81 mg PO DAILY atorvastatin 80 mg PO DAILY cholecalciferol (vitamin D3) 50 mcg PO DAILY cyclobenzaprine 5 mg PO BID levothyroxine 50 mcg PO DAILY lidocaine 5% 1 patch topical DAILY lisinopril 5 mg PO DAILY metoprolol succinate ER 25 mg PO DAILY omeprazole 40 mg PO BID ondansetron 4 mg PO Q6-8H PRN sertraline 50 mg PO DAILY tramadol 50 mg PO Q8-10H PRN Tobacco use date assessed: 05/25/24 Dental Screening Dental Screen Date: 11/10/23 HPI Annual PE HPI Details Patient presents for physical. Chronic nausea and vomiting has been slightly improved. Heart failure with reduced ejection fraction has been stable on current medications and patient follows up with Cardiology. [facility] Medical History Hyperlipidemia Hypothyroidism Adrenal adenoma Hiatal hernia Nicotine dependence, cigarettes, uncomplicated Asthma Raynaud disease Arthritis Carpal tunnel syndrome of right wrist Tibia fracture History of spinal fracture History of mammogram Surgical History History of adrenal surgery History of hysterectomy History of umbilical hernia repair History of incisional hernia repair History of esophagogastroduodenoscopy (EGD) History of colonoscopy Family History Father Stroke Mother No problems noted. Brother No problems noted. Sister No problems noted. Sister No problems noted. Sister No problems noted. Son No problems noted. Daughter No problems noted. Social History Housing: House Alcohol intake: never Patient Tobacco Use Status: Current everyday Tobacco user Tobacco use type: Cigarette Cigarettes Per Day: 3 Years Smoked: 49, ranging from 0.25 to 1 ppd e-Cigarette/Vaping Use: Never Used Substance Use Type: Marijuana service: No Current occupational status: unemployed Cognitive needs: No Hearing needs: No Vision needs: No Questionnaire Thrive Questionnaire Date Thrive assessed: 03/16/24 I am a: Patient What is your living situation today?: I have a steady place to live Within the past 12 months, did the food you bought not last and you didn't have the money to get more?: I choose not to answer this question Within the past 12 months, did you worry whether your food would run out before you got money to buy more?: I choose not to answer this question Do you have trouble paying for medicines?: I choose not to answer this question Do you have trouble getting transportation to medical appointments?: I choose not to answer this question Do you have trouble paying your heating and electricity bill?: I choose not to answer this question Do you have trouble taking care of your child, family member or friend?: I choose not to answer this question Do you have trouble with day-to-day activities such as bathing, preparing meals, shopping, managing finances, etc.?: I choose not to answer this question Are you currently unemployed and looking for a job?: I choose not to answer this question Are you interested in more education?: I choose not to answer this question Please select the resources that you would like help with: None Currently or been in a relationship where the following occur: I choose not to answer THRIVE Score: 0 BROOKE-7 AMB Questionnaire BROOKE-7 Date BROOKE - 7 assessed: 03/16/24 Source: Developed by Drs. Jaime Waldron, Hortencia Salgado, Home Dey and colleagues, with an educational hong from [employer] Review of Systems Const All systems reviewed & are unremarkable except as noted in HPI and below Eyes Reports no additional complaints Card Reports no additional complaints Resp Reports no additional complaints GI Reports no additional complaints Reports no additional complaints Physical exam (Primary Care) Vital Signs: Last Vital Signs Pulse 78 05/25/24 13:04 BP 100/62 05/25/24 13:04 Pulse Ox 98 05/25/24 13:04 Oxygen Delivery Method Room Air 05/25/24 13:04 BMI result Body Mass Index 18.9 Tobacco/Smoking Status: Tobacco use Status Tobacco use date assessed 05/25/24 05/25/24 13:20 Patient Tobacco Use Status Current everyday Tobacco 05/25/24 13:04 Tobacco use type Cigarette 05/25/24 13:04 e-Cigarette/Vaping Use Never Used 05/25/24 13:04 Thrive Assessment: Date of Thrive Assessment Date Thrive assessed 03/16/24 05/25/24 13:04 Currently or been in a relationship where the following occur: I choose not to answer Const General: no acute distress HENMT Head: Yes normal to inspection Mouth: Normal oral and palatal mucosa present Throat: Yes posterior oropharynx normal Resp Effort & Inspection: normal respiratory effort Auscultation: clear to auscultation bilaterally Cardio Rhythm: regular rhythm Heart sounds: S1 normal heart sound present and S2 normal heart sound present GI Inspection: Yes normal to inspection Palpation (GI): Soft to palpation Percussion: Yes normal to percussion Auscultation: normal bowel sounds Coding Level of Care Code Est Pt Prev Care 40-64y(11711) Diagnoses Hyperlipidemia E78.5 Asthma J45.909 Hypothyroidism E03.9 Cardiomyopathy I42.9 Assessment & Plan Assessment & Plan (1) Hyperlipidemia: Code(s): E78.5 - Hyperlipidemia, unspecified Category: Medical Plan: Continue statin (2) Asthma: Code(s): J45.909 - Unspecified asthma, uncomplicated Category: Medical Plan: Continue albuterol p.r.n. patient is quitting smoking (3) Hypothyroidism: Comment: Subclinical not on replacement Code(s): E03.9 - Hypothyroidism, unspecified Category: Medical Plan: Monitor TSH (4) Cardiomyopathy: Comment: admitted to [facility] 02/20/24 for NSTEMI, Echo EF 38%, basal to mid septal segments hypokinetic, cardiac cath nl coronaries, f/u with [facility] cardiology for fMRI Code(s): I42.9 - Cardiomyopathy, unspecified Category: Medical Plan: Continue current medications follow-up with the Cardiology Orders: Orders Comprehensive [place]. Panel Fast Today E03.9 - Hypothyroidism, unspecified, E78.5 - Hyperlipidemia, unspecified, I42.9 - Cardiomyopathy, unspecified, J45.909 - Unspecified asthma, uncomplicated Complete Blood Count Auto Diff Today E03.9 - Hypothyroidism, unspecified, E78.5 - Hyperlipidemia, unspecified, I42.9 - Cardiomyopathy, unspecified, J45.909 - Unspecified asthma, uncomplicated Hemoglobin A1c Today E03.9 - Hypothyroidism, unspecified, E78.5 - Hyperlipidemia, unspecified, I42.9 - Cardiomyopathy, unspecified, J45.909 - Unspecified asthma, uncomplicated Lipid Panel Today E03.9 - Hypothyroidism, unspecified, E78.5 - Hyperlipidemia, unspecified, I42.9 - Cardiomyopathy, unspecified, J45.909 - Unspecified asthma, uncomplicated TSH reflex Free T4 Today E03.9 - Hypothyroidism, unspecified, E78.5 - Hyperlipidemia, unspecified, I42.9 - Cardiomyopathy, unspecified, J45.909 - Unspecified asthma, uncomplicated Medications: Refilled atorvastatin 80 mg PO DAILY 90 tabs 3RF lisinopril 5 mg PO DAILY 90 tabs 3RF metoprolol succinate ER 25 mg PO DAILY 90 tabs 3RF
== END 2024-05-25 13:31 | disposition home or self-care (01) ==
PROVIDERS: PCP Internal Medicine; Visit Provider Internal Medicine
DX: Z00.00 Encounter for general adult medical examination without abnormal findings (principal); I42.9 Cardiomyopathy, unspecified; E78.5 Hyperlipidemia, unspecified; J45.909 Unspecified asthma, uncomplicated; E03.9 Hypothyroidism, unspecified

== ENCOUNTER 2024-06-02 12:39 | Emergency (ER) | payer OTHER, SELFPAY ==
--- NOTE | ~2024-06-02 | CT_ITS ---
EXAMINATION: CT ABDOMEN AND PELVIS WITHOUT CONTRAST CLINICAL INFORMATION: abdominal pain, vomiting, leukocytosis COMPARISON: CT abdomen pelvis 04/01/2024 and ultrasound abdomen 04/12/2024 TECHNIQUE: Multidetector volumetric imaging was performed from the superior aspect of the liver through the pubic symphysis. Sagittal and coronal reformatted images were obtained on the technologist's workstation. This CT examination was performed using dose optimization techniques as appropriate, variously including the following: *Automated exposure control *Adjustment of mA and/or kV according to patient size (this includes techniques or standardized protocols for targeted exams where dose is matched to indication/reason for exam; i.e. extremities or head) *Use of iterative reconstruction technique DLP: 229 mGy-cm FINDINGS: LUNG BASES: The visualized lung bases are unremarkable. Scarring is again noted at both lung bases. LIVER, GALLBLADDER, AND BILIARY TREE: The liver is normal in size, shape, and attenuation. A calcification is noted in the liver superiorly in the midline. No focal hepatic lesion or biliary ductal dilatation is present. The gallbladder is unremarkable with no evidence of radiopaque gallstones, gallbladder wall thickening, or obvious pericholecystic inflammatory changes. PANCREAS: Unremarkable. SPLEEN: Unremarkable. ADRENAL GLANDS: Unremarkable. KIDNEYS AND URETERS: The kidneys are normal in size, shape, and attenuation. No hydronephrosis, hydroureter, or calculi seen. No perinephric stranding. A benign left mid renal 2.3 cm Bosniak class I renal cyst is noted which requires no additional imaging or follow up. No solid renal masses are seen. BLADDER: Unremarkable. GASTROINTESTINAL TRACT: The small and large bowel are unremarkable. The appendix is unremarkable. ABDOMINAL WALL: No significant hernia is appreciated. LYMPH NODES: No retroperitoneal lymphadenopathy. VASCULAR: Unremarkable. PELVIC VISCERA: The uterus is not seen. An abnormal adnexal mass is not detected. No free intraperitoneal fluid is present. OSSEOUS STRUCTURES: Unremarkable. CT/CT abdomen pelvis wo IV con IMPRESSION: A cause for the patient's abdominal pain, vomiting and leukocytosis has not been found. Fleischner guidelines were followed. Electronically signed by: Jc Mccormack MD 06/02/2024 06:02 PM [facility] [place]
[2024-06-02 12:41] VITALS: BP 135/82; PULSE 130; RESP 19; TEMP 36.4; O2SAT 98; BMI 18.9
--- NOTE | 2024-06-02 12:41 | ED.GENADULT ---
HPI - General Adult General Chief complaint: Abdominal Pain Stated complaint: dehydration-vomiting Time Seen by Provider: 06/02/24 12:52 Source: patient Mode of arrival: ambulatory Limitations: no limitations History of Present Illness ED Provider: DR. Daley HPI narrative: A 64-year-old female presented today for evaluation of abdominal pain, nausea, vomiting, diarrhea for the past 3 days, no sick contacts, no recent travel, no exposure to a bad foods. Past surgical history significant for to hernia repair, tubal ligation, hysterectomy, right suprarenal gland removal. Passing flatus, no dysuria, no frequency urination, no hematuria, no vaginal discharge, no vaginal bleed. Related Data Home Medications ?Medication ?Instructions ?Recorded ?Confirmed aspirin 81 mg tablet,delayed 81 mg PO DAILY 03/16/24 05/25/24 release Previous Rx's ?Medication ?Instructions ?Recorded albuterol sulfate 90 mcg/actuation 2 puff PO Q6H PRN Wheezing #8.5 11/04/22 aerosol inhaler grams cholecalciferol (vitamin D3) 50 50 mcg PO DAILY #90 caps 07/27/23 mcg (2,000 unit) capsule albuterol sulfate 90 mcg/actuation 2 puff inhalation Q6H PRN 11/10/23 aerosol inhaler (Ventolin HFA) shortness of breath or wheezing #8.5 grams omeprazole 40 mg capsule,delayed 40 mg PO BID #90 caps 11/10/23 release acetaminophen 650 mg 650 mg PO Q8H #90 tabs 11/13/23 tablet,extended release lidocaine 5 % topical patch 1 patch topical DAILY #30 ea 12/15/23 ondansetron 4 mg disintegrating 4 mg PO Q6-8H PRN nausea and 04/01/24 tablet vomiting #7 tabs levothyroxine 50 mcg tablet 50 mcg PO DAILY #90 tabs 04/06/24 tramadol 50 mg tablet 50 mg PO Q8-10H PRN pain #20 tabs 04/13/24 sertraline 50 mg tablet 50 mg PO DAILY #90 tabs 04/14/24 cyclobenzaprine 5 mg tablet 5 mg PO BID #90 tabs 05/13/24 atorvastatin 80 mg tablet 80 mg PO DAILY #90 tabs 05/25/24 lisinopril 5 mg tablet 5 mg PO DAILY #90 tabs 11/12/24 metoprolol succinate 25 mg 25 mg PO DAILY #90 tabs 05/25/24 tablet,extended release 24 hr Allergies Allergy/AdvReac Type Severity Reaction Status Date / Time Penicillins [PENICILLINS] Allergy Intermediate RASH Verified 06/02/24 12:42 codeine [CODEINE] Allergy Mild RASH Verified 06/02/24 12:42 penicillin V Allergy Unknown unknown Verified 06/02/24 12:42 olmesartan AdvReac Intermediate Dizziness Verified 06/02/24 12:42 meloxicam AdvReac Unknown vomiting Verified 06/02/24 12:42 Review of Systems Review of Systems: All other systems are reviewed and are negative Constitutional: Reports as per HPI and Reports no additional constitutional complaints Eyes: Reports as per HPI and Reports no additional eye complaints Reports system reviewed and no additional complaints, except as documented Cardiovascular: Reports as per HPI and Reports no additional cardiovascular complaints Respiratory: Reports as per HPI and Reports no additional respiratory complaints Gastrointestinal: Reports as per HPI and Reports no additional gastrointestinal complaints Genitourinary: Reports no additional female genitourinary complaints Musculoskeletal: Reports no additional musculoskeletal complaints Skin/Breast: Reports system reviewed and no additional complaints, except as docu Psychiatric: Reports no additional psychiatric complaints Endocrine: Reports no additional endocrine complaints Hematologic/Lymphatic: Reports no additional hematologic/lymphatic complaints Allergic/Immunologic: Reports no additional allergic/immunologic complaints Reports system reviewed and no additional complaints, except as documented and Reports Abnormal speech present PENDING SALE TO [facility] Past Medical History Medical History Hyperlipidemia Hypothyroidism Adrenal adenoma Hiatal hernia Nicotine dependence, cigarettes, uncomplicated Asthma Raynaud disease Arthritis Carpal tunnel syndrome of right wrist Tibia fracture History of spinal fracture History of mammogram Surgical History History of adrenal surgery History of hysterectomy History of umbilical hernia repair History of incisional hernia repair History of esophagogastroduodenoscopy (EGD) History of colonoscopy Family History Family History Father Stroke Mother No problems noted. Brother No problems noted. Sister No problems noted. Sister No problems noted. Sister No problems noted. Son No problems noted. Daughter No problems noted. Social History Social History Housing: House Alcohol intake: never Patient Tobacco Use Status: Current everyday Tobacco user Tobacco use type: Cigarette Cigarettes Per Day: 3 Years Smoked: 49, ranging from 0.25 to 1 ppd e-Cigarette/Vaping Use: Never Used Substance Use Type: Marijuana Advance Directives: No Advance Directives Information Provided: Yes Do you have a plan to hurt others: No Plan service: No Current occupational status: unemployed Cognitive needs: No Hearing needs: No Vision needs: No Physical Exam ED Vital Signs: Vital Signs - 24 hr 06/02/24 12:41 06/02/24 14:00 06/02/24 16:00 Temperature 97.6 F 98.3 F Pulse Rate 130 H 96 73 Respiratory Rate 19 16 16 Blood Pressure 135/82 120/78 119/85 Pulse Oximetry 98 99 98 Oxygen Delivery Method Room Air Room Air Room Air BMI result Body Mass Index 18.9 Vital signs have been reviewed and appear to be correct. Blood pressure elevated. Heart rate Elevated.Respiratory rate normal. Temperature normal. Oxygen saturation normal. Appearance: Alert. Oriented X3. No acute distress. Head: Normal external exam. Normocephalic. Atraumatic. No Anderson signs noted. No raccoon eyes noted Eyes: PERRLA. EOMI. Conjunctiva and sclera normal. Eyelids normal. ENT: TM's Normal. Pharynx normal. Uvula midline. Moist mucous membranes. No trismus noted. No drooling noted. No muffled voice noted. Neck: Normal inspection. Neck supple. FROM. No adenopathy. Thyroid Normal. No meningeal signs. No neck mass noted. CVS: Normal heart rate and rhythm. Heart sound normal. No murmurs noted. Pulses normal throughout. Respiratory: No respiratory distress. Painless inspiration. Breath sounds normal. No wheezes/rales/rhonchi noted. Chest nontender. No accessory muscle usage noted or decreased air movement noted. Abdomen: Soft, mild epigastric / right upper quadrant tenderness, no rebound tenderness, no guarding,Bowel sounds normal in all 4 quadrants. No distention noted. No organomegaly noted. No visible injury noted. Back: No CVA tenderness. Full range of motion noted. Skin: Skin warm and dry. Normal skin color. Normal skin turgor. No rashes/lesions/lacerations noted. Extremities: No lower extremity edema. Extremities exhibit normal range of motion. Extremities nontender. Neuro: Oriented X 3. Cranial nerve exam: II-XII are grossly intact No motor deficit. No sensory deficit. Reflexes normal. Course Course Course Narrative: This is a rapid medical exam performed by João Clemons NP: Additional HPI, ROS, PE not included below will be deferred to primary provider. Patient is a 64-year-old female with history of cardiomyopathy, asthma, adrenal adenoma, HLD, hypothyroidism, enlarged liver presenting to the ED with complaint of nausea, vomiting, and epigastric pain for the past 3 days. Unable to tolerate PO. Denies diarrhea. Recent NSTEMI with angiogram/angioplasty, told no blockages. Plan: EKG, labs Reevaluation(s) Reevaluation #1: patient feels better after IV hydration, able to tolerate p.o. intake with no nausea or vomiting repeat abdominal exam showed no tenderness, no rebound tenderness, no guarding, patient feels much better will discharge to follow-up with PCP. Time: 18:16 Medications Administered Discontinued Medications Generic Name Dose Route Start Last Admin Trade Name Freq PRN Reason Stop Dose Admin Al Hydroxide/Mg Hydroxide 30 ml 06/02/24 15:39 06/02/24 15:51 Magnesium Hydrox/Alum Hydrox 30 Ml Oral.Susp PO 06/02/24 15:40 30 ml ONCE ONE Administration Famotidine 20 mg 06/02/24 15:39 06/02/24 15:49 Famotidine/Pf 20 Mg/2 Ml Vial IVPUSH 06/02/24 15:40 20 mg ONCE ONE Administration Sodium Chloride 1,000 mls @ 999 mls/hr 06/02/24 15:39 06/02/24 15:49 Ns IV 06/02/24 16:39 999 mls/hr .Q1H1M ONE Administration Morphine Sulfate 1 mg 06/02/24 15:41 06/02/24 15:49 Morphine Sulfate 2 Mg/Ml Cartridge IVPUSH 06/02/24 15:42 1 mg ONCE ONE Administration Protocol Ondansetron HCl 4 mg 06/02/24 15:39 06/02/24 15:49 Ondansetron Hcl 4 Mg/2 Ml Vial IVPUSH 06/02/24 15:40 4 mg ONCE ONE Administration Medical Decision Making Differential Diagnosis Differential Diagnoses: The differential diagnosis associated with the presentation includes ( Small-bowel obstruction, colitis, diverticulitis, acute appendicitis, acute pancreatitis, kidney stone, gastroenteritis.) Admission/Observation Consideration of admission/observation: Escalation of care including admission/observation considered Lab Data MDM Lab Attestation statement: I reviewed the patient's lab results. 06/02/24 12:55 06/02/24 12:55 Labs: Lab Results 06/02/24 Range/Units 12:55 WBC 14.1 H (4.8-10.8) X10*3/uL RBC 5.26 D (4.20-5.50) X10*6/uL Hgb 16.1 H D (12.0-16.0) g/dl Hct 47.2 H (37.0-47.0) % MCV 89.7 (80.0-98.0) fL MCH 30.6 (27.0-33.0) pg MCHC 34.1 (31.0-35.0) g/dl RDW 13.9 (11.0-16.0) % Plt Count 399 D (160-400) X10*3/uL MPV 9.8 (9.4-12.3) fL Immature Gran % (Auto) 0.4 (0.0-0.4) % Neut % (Auto) 76.3 H (45-73) % Lymph % (Auto) 16.9 L (20-40) % [place] % (Auto) 5.9 (2-11) % Eos % (Auto) 0.1 (0-4) % Baso % (Auto) 0.4 (0-2) % Lymph # (Auto) 2.4 (1.2-4.9) X10*3/uL [place] # (Auto) 0.8 (0.1-1.2) X10*3/uL Eos # (Auto) 0.0 (0.0-0.4) X10*3/uL Baso # (Auto) 0.1 (0.0-0.2) X10*3/uL Abs Immat Gran (auto) 0.06 H (0.00-0.03) X10*3/uL Absolute Neuts (auto) 10.8 H (2.0-8.3) x10*3/uL Absolute Nucleated RBC 0.000 (0.0-0.012) X10*3/uL Nucleated RBC % (auto) 0.0 (0.0-0.2) /100WBC Sodium 135 (135-145) mmol/L Potassium 3.5 D (3.3-5.1) mmol/L Chloride 93 L (96-108) mmol/L Carbon Dioxide 26 (22-29) mmol/L Anion Gap 20 (12-20) BUN 32 H (9-16) mg/dL Creatinine 1.47 H (0.5-1.4) mg/dL Estim Creat Clear Calc 28.4 Estimated GFR 36 Random Glucose 112 (60-115) mg/dL Calcium 9.5 (8.4-10.2) mg/dL Magnesium 1.9 (1.6-2.6) mg/dL Total Bilirubin 0.4 (0.0-1.0) mg/dL AST 38 H (5-31) U/L ALT 33 H (0-31) U/L Alkaline Phosphatase 77 (39-117) U/L Troponin I High Sens 10.1 D (<3.5-17.0) ng/L Total Protein 8.1 H (6.5-8.0) g/dL Albumin 4.7 (3.5-5.0) g/dL Influenza Type A (PCR) NEGATIVE (Negative) Influenza Type B (PCR) NEGATIVE (Negative) RSV RNA Qual (PCR) NEGATIVE (Negative) SARS-CoV-2 RNA (RT-PCR) NEGATIVE (Negative) Independent Interpretation I performed an independent interpretation of an: CT Scan ( abdomen pelvis:The small and large bowel are unremarkable. The appendix is unremarkable. ) Radiology Impression Discussion of test interpretation with radiology: I have reviewed the radiologist's reading. Discharge Plan Discharge Clinical Impression: Gastroenteritis Patient Disposition: Home, Self-Care Instructions: Gastroenteritis (ED) Prescriptions: No Action cholecalciferol (vitamin D3) 50 mcg (2,000 unit) capsule 50 mcg PO DAILY Qty: 90 3RF acetaminophen 650 mg tablet extended release 650 mg PO Q8H Qty: 90 3RF lidocaine 5 % adhesive patch,medicated 1 patch topical DAILY Qty: 30 2RF Rx Instructions: leave on most painful area for up to 12 hrs levothyroxine 50 mcg tablet 50 mcg PO DAILY Qty: 90 0RF cyclobenzaprine 5 mg tablet 5 mg PO BID Qty: 90 0RF tramadol 50 mg tablet 50 mg PO Q8-10H PRN (Reason: pain) Qty: 20 0RF ondansetron 4 mg tablet,disintegrating 4 mg PO Q6-8H PRN (Reason: nausea and vomiting) Qty: 7 0RF aspirin 81 mg tablet,delayed release (DR/EC) 81 mg PO DAILY albuterol sulfate 90 mcg/actuation HFA aerosol inhaler 2 puff PO Q6H PRN (Reason: Wheezing) Qty: 8.5 3RF albuterol sulfate [Ventolin HFA] 90 mcg/actuation HFA aerosol inhaler 2 puff inhalation Q6H PRN (Reason: shortness of breath or wheezing) Qty: 8.5 3RF omeprazole 40 mg capsule,delayed release(DR/EC) 40 mg PO BID Qty: 90 2RF sertraline 50 mg tablet 50 mg PO DAILY Qty: 90 0RF lisinopril 5 mg tablet 5 mg PO DAILY Qty: 90 3RF atorvastatin 80 mg tablet 80 mg PO DAILY Qty: 90 3RF metoprolol succinate 25 mg tablet extended release 24 hr 25 mg PO DAILY Qty: 90 3RF Referrals: Marcie Chatterjee MD [Primary Care Provider] - Print Language: Estonian
--- NOTE | 2024-06-02 12:42 | ECG_ITS ---
Test Reason : epigastricpain Blood Pressure : / mmHG Vent. Rate : 127 BPM Atrial Rate : 127 BPM P-R Int : 126 ms QRS Dur : 086 ms QT Int : 354 ms P-R-T Axes : 081 -67 071 degrees QTc Int : 514 ms Sinus tachycardia Biatrial enlargement Left axis deviation Pulmonary disease pattern Minimal voltage criteria for LVH, may be normal variant ( [place]brook product ) Abnormal ECG When compared with ECG of 12-APR-2024 14:39, Vent. rate has increased BY 67 BPM Nonspecific T wave abnormality no longer evident in Anterolateral leads Referred By: Patricia Clemons Electronically Signed By:AYLEEN SANCHEZ MD
[2024-06-02 13:02] LABS: MANUAL DIFF FLAG NO
[2024-06-02 13:03] LABS: Basophils Absolute Auto 0.1 X10*3/uL (0.0-0.2); Basophils Percent Auto 0.4 % (0-2); Eosinophils Percent Auto 0.1 % (0-4); Hematocrit 47.2 % (37.0-47.0); Hemoglobin 16.1 g/dl (12.0-16.0); Imm Gran Abs Auto 0.06 X10*3/uL (0.00-0.03); Imm Gran Pct Auto 0.4 % (0.0-0.4); Lymphocytes Absolute Auto 2.4 X10*3/uL (1.2-4.9); Lymphocytes Percent Auto 16.9 % (20-40); Mean Corpuscular HGB Conc 34.1 g/dl (31.0-35.0); Mean Corpuscular Hemoglobin 30.6 pg (27.0-33.0); Mean Corpuscular Volume 89.7 fL (80.0-98.0); Mean Platelet Volume 9.8 fL (9.4-12.3); Monocytes Absolute Auto 0.8 X10*3/uL (0.1-1.2); Monocytes Percent Auto 5.9 % (2-11); Neutrophils Absolute Auto 10.8 x10*3/uL (2.0-8.3); Neutrophils Percent Auto 76.3 % (45-73); Platelet Count 399 X10*3/uL (160-400); Red Blood Count 5.26 X10*6/uL (4.20-5.50); Red Cell Distribution Width 13.9 % (11.0-16.0); White Blood Count 14.1 X10*3/uL (4.8-10.8)
[2024-06-02 13:25] LABS: Troponin-I High Sensitivity 10.1 ng/L (<3.5-17.0)
[2024-06-02 13:31] LABS: Alanine Aminotransferase 33 U/L (0-31); Albumin Level 4.7 g/dL (3.5-5.0); Alkaline Phosphatase 77 U/L (39-117); Anion Gap 20 (12-20); Aspartate Amino Transferase 38 U/L (5-31); Bilirubin Total 0.4 mg/dL (0.0-1.0); Blood Urea Nitrogen 32 mg/dL (9-16); Calcium 9.5 mg/dL (8.4-10.2); Carbon Dioxide 26 mmol/L (22-29); Chloride 93 mmol/L (96-108); Creatinine Clr Calc Pharmacy 28.4; Estimated Glomerular Filt Rate 36; Glucose Random 112 mg/dL (60-115); Magnesium 1.9 mg/dL (1.6-2.6); Potassium 3.5 mmol/L (3.3-5.1); Sodium 135 mmol/L (135-145); Total Protein 8.1 g/dL (6.5-8.0)
[2024-06-02 13:41] LABS: Influenza A PCR NEGATIVE (Negative); Influenza B PCR NEGATIVE (Negative); Resp Syncy Virus RNA Qual PCR NEGATIVE (Negative); SARS COV2 PCR INHOUSE NEGATIVE (Negative)
[2024-06-02 14:00] VITALS: BP 120/78; PULSE 96; RESP 16; TEMP 36.8; O2SAT 99
[2024-06-02] MEDS: 0.9 % Sodium Chloride 1,000 ML 999 ML IV (15:49)
[2024-06-02] MEDS: ondansetron HCL 4 MG/2 ML VIAL IVPUSH (15:49)
[2024-06-02] MEDS: Morphine Sulfate 2 MG/ML CARTRIDGE 1 MG IVPUSH (15:49)
[2024-06-02] MEDS: Famotidine/PF 20 MG/2 ML VIAL IVPUSH (15:49)
[2024-06-02] MEDS: Magnesium Hydrox/Alum Hydrox 30 ML ORAL.SUSP PO (15:51)
[2024-06-02 16:00] VITALS: BP 119/85; PULSE 73; RESP 16; O2SAT 98
[2024-06-02 18:23] VITALS: BP 122/81; PULSE 86; RESP 18; TEMP 36.8; O2SAT 98
[2024-06-02 18:29] VITALS: BP 122/81; PULSE 86; RESP 18; TEMP 36.8; O2SAT 98
== END 2024-06-02 18:47 | disposition home or self-care (01) ==
PROVIDERS: Registered Nurse Emergency; Emergency Provider Emergency Medicine; PCP Internal Medicine
DX: K52.9 Noninfective gastroenteritis and colitis, unspecified (principal); R10.9 Unspecified abdominal pain; R11.2 Nausea with vomiting, unspecified; Z03.818 Encounter for observation for suspected exposure to other biological agents ruled out; E78.5 Hyperlipidemia, unspecified; J45.909 Unspecified asthma, uncomplicated; F17.210 Nicotine dependence, cigarettes, uncomplicated; Z79.82 Long term (current) use of aspirin; Z79.899 Other long term (current) drug therapy; Z79.02 Long term (current) use of antithrombotics/antiplatelets
CPT/HCPCS: 0241U; 74176; 80053; 83735; 84484; 85025; 93005; 96361; 96374; 96375; 99284; J2270; J2405

== ENCOUNTER → 2024-06-02 12:42 | Outpatient (BNV) | payer OTHER, SELFPAY | PROVIDERS: Emergency Provider Emergency Medicine; PCP Internal Medicine; Visit Provider Internal Medicine Cardiovascular Disease | DX: R00.0 Tachycardia, unspecified (principal); I51.7 Cardiomegaly; R94.31 Abnormal electrocardiogram [ECG] [EKG] | CPT/HCPCS: 93010 ==

== ENCOUNTER 2024-06-15 15:11 | Outpatient (AMB) | payer OTHER, SELFPAY ==
--- NOTE | 2024-06-15 15:15 | A.OFFVIS_ITS ---
Vital Signs 06/15/24 15:17 Height 5 ft 1 in Weight 101 lb 10.13 oz BMI 19.2 BP 110/70 Blood Pressure Location Rt brachial Position Sitting Pulse 69 Pulse Source Pulse Oximeter Intake Visit Reasons: Adrenal mass-lvm Intake Note: Patient present today for Adrenal Mass follow up. Material Carrier Required: No Accompanied by: Family/Other Allergies Penicillins [PENICILLINS] Allergy (Intermediate, Verified 06/15/24 15:18) RASH codeine [CODEINE] Allergy (Mild, Verified 06/15/24 15:18) RASH penicillin V Allergy (Unknown, Verified 06/15/24 15:18) unknown olmesartan Adverse Reaction (Intermediate, Verified 06/15/24 15:18) Dizziness meloxicam Adverse Reaction (Unknown, Verified 06/15/24 15:18) vomiting HPI Comments Details: Is a 64-year-old female referred endocrinology for evaluation of adrenal mass. First learned a couple of mos ago . The mass was initially present 2019. It was found to be low density at 2 HU. Aldosterone level was found to be low. The patientc/o episodes suggestive of pheochromocytoma should as sweating, , lightheaded , palpitations headache. Sometimes sx occur all together . happens once a day. Associated with N/V. She denies a symptoms of [place] syndrome. There is wt loss. There is no history of primary malignancy. C/o muscular weakness and acne not previously present. Here today to discuss workup. Dexamethasone suppression test old failed suppression of cortisol to 6.5. There was also a slight elevation in plasma metanephrines and normetanephrines which is probably not utility sales representative of a pheochromocytoma considering low-density lesion. Subsequent workup showed 24 hour urine for free cortisol and creatinine as well as metanephrines and normetanephrines to be normal. Patient did not do midnight salivary cortisol and S/P R adrenalectomy by Dr. Morrison. . Was on a steroid taper recently had ST- elevation [place] The patient is currently off steroids and had a normal a.m. cortisol level on 03/26/2024 No sxof adrenal insufficency. Some GI sx. Feels better now. [facility] Medical History Hyperlipidemia Hypothyroidism Adrenal adenoma Hiatal hernia Nicotine dependence, cigarettes, uncomplicated Asthma Raynaud disease Arthritis Carpal tunnel syndrome of right wrist Tibia fracture History of spinal fracture History of mammogram Surgical History History of adrenal surgery History of hysterectomy History of umbilical hernia repair History of incisional hernia repair History of esophagogastroduodenoscopy (EGD) History of colonoscopy Family History Father Stroke Mother No problems noted. Brother No problems noted. Sister No problems noted. Sister No problems noted. Sister No problems noted. Son No problems noted. Daughter No problems noted. Social History Housing: House Alcohol intake: never Patient Tobacco Use Status: Current everyday Tobacco user Tobacco use type: Cigarette Cigarettes Per Day: 3 Years Smoked: 49, ranging from 0.25 to 1 ppd e-Cigarette/Vaping Use: Never Used Substance Use Type: Marijuana service: No Current occupational status: unemployed Cognitive needs: No Hearing needs: No Vision needs: No Physical Exam Vital Signs: BMI result Body Mass Index 19.2 Assessment & Plan Assessment & Plan (1) Adrenal gland anomaly: Comment: L adrenal mass on CT 12/02 Code(s): Q89.1 - Congenital malformations of adrenal gland Category: Medical Plan: This 63-year-old white female with a 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 Status post ST-elevation [place]. Her adrenal axis seems intact. Possible etiologies behind the nausea and ER visits could include cyclical vomiting from marijuana versus other gastrointestinal etiologies. Doubt endocrine etiology. Patient states she feels improved over the last several weeks At this point, patient returned to the care of her primary care provider. There was no need for any further endocrine workup or follow-up at this point. However, if patient continues to experience symptoms and there is no clear reason behind the symptoms, a.m. cortisol level could be rechecked the patient's PCP and if <10 could set up a Cortrosyn stimulation test or patient returned back to endocrinology to have the above performed Coding Level of Care Code Est Pt Level 3 (06147) Diagnoses Adrenal gland anomaly Q89.1
[2024-06-15 15:17] VITALS: BP 110/70; PULSE 69; BMI 19.2
== END 2024-06-15 15:35 | disposition home or self-care (01) ==
PROVIDERS: PCP Internal Medicine; Visit Provider Internal Medicine Endocrinology, Diabetes & Metabolism
DX: Q89.1 Congenital malformations of adrenal gland (principal)
CPT/HCPCS: 99213

== ENCOUNTER → 2024-06-15 15:11 | Outpatient (BNVA) | payer OTHER, SELFPAY | PROVIDERS: PCP Internal Medicine; Visit Provider Internal Medicine Endocrinology, Diabetes & Metabolism | DX: Q89.1 Congenital malformations of adrenal gland (principal) | CPT/HCPCS: 99212 ==

== ENCOUNTER 2024-07-15 15:00 | Outpatient (REF) | payer OTHER, SELFPAY ==
--- NOTE | ~2024-07-15 | CT_ITS ---
CLINICAL HISTORY: F17.210 - Nicotine dependence, cigarettes, uncomplicated CT lung cancer screening (LDCT) Comparison: 07/11/2023, 11/15/2021 Technique: Axial CT images of the chest using low-dose technique. Referring provider counseled the patient on shared decision-making for LDCT screening. Additional counseling was provided on smoking cessation. Effective radiation dose total: DLP 21.2 mGycm, CTDIvol 0.7 mGy. Findings: Lung: No new pulmonary lesions or areas of airspace or interstitial consolidation. Coronary artery calcifications: Mild. Limited upper abdomen: Unremarkable. Other: None Impression: 1. Normal Category 1: Normal; continue annual screening Category 2: Benign appearance or behavior, continue annual screening Category 3: Probably benign, [address] recommended Category 4A: Suspicious, [address] recommended; may consider PET/CT Category 4B: Suspicious, Additional diagnostics and/or tissue sampling recommended Category 4X: Suspicious, Additional diagnostics and/or tissue sampling recommended Category 0: Recalls (incomplete screen due to Incomplete coverage, Noise, Respiratory motion, Expiration, Obscured by acute abnormality) This document has been electronically signed by: Oziel Gallardo MD on 07/16/2024 17:18:24
== END 2024-07-15 15:01 | disposition home or self-care (01) ==
LOC: HO.CT 15:00
PROVIDERS: PCP Internal Medicine; Visit Provider Nurse Practitioner Family
DX: F17.210 Nicotine dependence, cigarettes, uncomplicated (principal)
CPT/HCPCS: 71271

== ENCOUNTER → 2024-07-15 15:02 | Outpatient (BNV) | payer OTHER, SELFPAY | PROVIDERS: PCP Internal Medicine; Visit Provider Specialist | DX: F17.210 Nicotine dependence, cigarettes, uncomplicated (principal) | CPT/HCPCS: 71271 ==

== ENCOUNTER 2024-07-27 14:39 | Emergency (ER) | payer OTHER, SELFPAY ==
[2024-07-27 15:02] VITALS: BP 125/91; PULSE 104; RESP 20; TEMP 36.3; O2SAT 97; BMI 17.9
--- NOTE | 2024-07-27 15:06 | ECG_ITS ---
Test Reason : ABD PAIN Blood Pressure : */* mmHG Vent. Rate : 106 BPM Atrial Rate : 106 BPM P-R Int : 120 ms QRS Dur : 82 ms QT Int : 372 ms P-R-T Axes : 76 -61 73 degrees QTcB Int : 494 ms Sinus tachycardia Right atrial enlargement Pulmonary disease pattern Left anterior fascicular block Abnormal ECG When compared with ECG of 02-Jun-2024 12:38, No significant change was found Referred By: Garrett Mckeon Electronically Signed By: Mateo Mast
--- NOTE | 2024-07-27 15:08 | ED_ITS ---
HPI - General Adult General Chief complaint: Nausea/Vomiting/Diarrhea Stated complaint: Vomiting 2 days Time Seen by Provider: 07/27/24 21:37 Source: patient Mode of arrival: ambulatory Limitations: no limitations History of Present Illness ED Provider: HPI narrative: Patient complaining of abdominal pain with nausea vomiting since last night with history of similar episodes of cyclic vomiting denied any marijuana use moderate several times last unable to hold down any liquids or solids no diarrhea patient does get similar episode when she gets anxiety usually Ativan and Zofran works Related Data Home Medications ?Medication ?Instructions ?Recorded ?Confirmed aspirin 81 mg tablet,delayed 81 mg PO DAILY 03/16/24 05/25/24 release Previous Rx's ?Medication ?Instructions ?Recorded albuterol sulfate 90 mcg/actuation 2 puff PO Q6H PRN Wheezing #8.5 11/04/22 aerosol inhaler grams cholecalciferol (vitamin D3) 50 50 mcg PO DAILY #90 caps 07/27/23 mcg (2,000 unit) capsule albuterol sulfate 90 mcg/actuation 2 puff inhalation Q6H PRN 11/10/23 aerosol inhaler (Ventolin HFA) shortness of breath or wheezing #8.5 grams omeprazole 40 mg capsule,delayed 40 mg PO BID #90 caps 11/10/23 release acetaminophen 650 mg 650 mg PO Q8H #90 tabs 11/13/23 tablet,extended release lidocaine 5 % topical patch 1 patch topical DAILY #30 ea 12/15/23 ondansetron 4 mg disintegrating 4 mg PO Q6-8H PRN nausea and 04/01/24 tablet vomiting #7 tabs tramadol 50 mg tablet 50 mg PO Q8-10H PRN pain #20 tabs 04/13/24 atorvastatin 80 mg tablet 80 mg PO DAILY #90 tabs 05/25/24 lisinopril 5 mg tablet 5 mg PO DAILY #90 tabs 05/25/24 metoprolol succinate 25 mg 25 mg PO DAILY #90 tabs 05/25/24 tablet,extended release 24 hr cyclobenzaprine 5 mg tablet 5 mg PO BID #90 tabs 07/06/24 levothyroxine 50 mcg tablet 50 mcg PO DAILY #90 tabs 07/06/24 sertraline 50 mg tablet 50 mg PO DAILY #90 tabs 07/21/24 ondansetron 4 mg disintegrating 4 mg PO Q6-8H PRN nausea and 07/28/24 tablet vomiting #10 tabs Allergies Allergy/AdvReac Type Severity Reaction Status Date / Time Penicillins [PENICILLINS] Allergy Intermediate RASH Verified 07/27/24 15:04 codeine [CODEINE] Allergy Mild RASH Verified 07/27/24 15:04 penicillin V Allergy Unknown unknown Verified 07/27/24 15:04 olmesartan AdvReac Intermediate Dizziness Verified 07/27/24 15:04 meloxicam AdvReac Unknown vomiting Verified 07/27/24 15:04 Review of Systems 2 Review of Systems: Yes all other systems are reviewed and are negative [facility] Past Medical History Medical History Hyperlipidemia Hypothyroidism Adrenal adenoma Hiatal hernia Nicotine dependence, cigarettes, uncomplicated Asthma Raynaud disease Arthritis Carpal tunnel syndrome of right wrist Tibia fracture History of spinal fracture History of mammogram Surgical History History of adrenal surgery History of hysterectomy History of umbilical hernia repair History of incisional hernia repair History of esophagogastroduodenoscopy (EGD) History of colonoscopy Family History Family History Father Stroke Mother No problems noted. Brother No problems noted. Sister No problems noted. Sister No problems noted. Sister No problems noted. Son No problems noted. Daughter No problems noted. Social History Social History Housing: House Alcohol intake: never Patient Tobacco Use Status: Current everyday Tobacco user Tobacco use type: Cigarette Cigarettes Per Day: 3 Years Smoked: 49, ranging from 0.25 to 1 ppd Smoked in Last 30 Days: Yes e-Cigarette/Vaping Use: Never Used Use of substances other than those prescribed or required for medical reasons: No Substance Use Type: Marijuana Advance Directives: No Advance Directives Information Provided: No Patient : No service: No Current occupational status: unemployed Cognitive needs: No Hearing needs: No Vision needs: No Physical Exam ED Vital Signs: Vital Signs - 24 hr 07/27/24 20:11 07/27/24 22:25 07/28/24 00:25 Temperature 97.9 F 98.6 F 97.8 F Pulse Rate 103 H 90 91 Respiratory Rate 18 14 16 Blood Pressure 118/88 107/82 89/56 L Pulse Oximetry 99 96 96 Oxygen Delivery Method Room Air Room Air Room Air 07/28/24 00:39 Temperature 97.8 F Pulse Rate 91 Respiratory Rate 16 Blood Pressure 89/56 L Pulse Oximetry 96 Oxygen Delivery Method Room Air BMI result Body Mass Index 17.9 Appearance: Alert. Oriented X3. No acute distress. Eyes: No pallor or icterus ENT: Pharynx normal. Oral Mucosa moist Neck: Normal inspection. Neck supple. CVS: Normal heart rate and rhythm. Pulses normal. Respiratory: No respiratory distress. Equal air entry bilateral, no wheezing/rales/rhonchi Abdomen: Soft and nontender. Bowel sounds are present, no mass palpable, no CVA tenderness Skin: Skin warm and dry. Normal skin color. Normal skin turgor. Extremities: No lower extremity edema. No calf tenderness Neuro: Oriented X 3. No motor deficit. Course Course Course Narrative: RME: 64-year-old female presents to ED for upper abdominal pain with vomiting since last night. Patient denies any diarrhea. Labs EKG ordered. Medications Administered Discontinued Medications Generic Name Dose Route Start Last Admin Trade Name Freq PRN Reason Stop Dose Admin Lorazepam 1 mg 07/27/24 21:56 07/27/24 22:25 Lorazepam 1 Mg Tablet PO 07/27/24 21:57 1 mg ONCE ONE Administration Ondansetron HCl 4 mg 07/27/24 21:56 07/27/24 22:25 Ondansetron Odt 4 Mg Tab.Rapdis TRANSLINGU 07/27/24 21:57 4 mg ONCE ONE Administration Medical Decision Making Medical Decision Making [facility] Narrative: Patient's cyclic vomiting syndrome improved after Ativan and lorazepam feeling much better will discharge patient home able to take p.o. fluids Lab Data [facility] Lab Attestation statement: I reviewed the patient's lab results. 07/27/24 15:57 07/27/24 15:57 Labs: Lab Results 07/27/24 07/27/24 Range/Units 15:57 21:28 WBC 14.5 H (4.8-10.8) X10*3/uL RBC 5.26 (4.20-5.50) X10*6/uL Hgb 16.1 H (12.0-16.0) g/dl Hct 45.4 (37.0-47.0) % MCV 86.3 (80.0-98.0) fL MCH 30.6 (27.0-33.0) pg MCHC 35.5 H (31.0-35.0) g/dl RDW 14.1 (11.0-16.0) % Plt Count 366 (160-400) X10*3/uL MPV 9.6 (9.4-12.3) fL Immature Gran % (Auto) 0.3 (0.0-0.4) % Neut % (Auto) 79.4 H (45-73) % Lymph % (Auto) 12.7 L (20-40) % Spencer % (Auto) 7.2 (2-11) % Eos % (Auto) 0.1 (0-4) % Baso % (Auto) 0.3 (0-2) % Lymph # (Auto) 1.9 (1.2-4.9) X10*3/uL Spencer # (Auto) 1.0 (0.1-1.2) X10*3/uL Eos # (Auto) 0.0 (0.0-0.4) X10*3/uL Baso # (Auto) 0.0 (0.0-0.2) X10*3/uL Abs Immat Gran (auto) 0.04 H (0.00-0.03) X10*3/uL Absolute Neuts (auto) 11.5 H (2.0-8.3) x10*3/uL Absolute Nucleated RBC 0.000 (0.0-0.012) X10*3/uL Nucleated RBC % (auto) 0.0 (0.0-0.2) /100WBC PT 11.2 (10.9-12.4) SEC INR 1.0 (0.9-1.1) APTT 34.7 (26.0-36.8) SEC Sodium 138 (135-145) mmol/L Potassium 3.9 (3.3-5.1) mmol/L Chloride 96 (96-108) mmol/L Carbon Dioxide 27 (22-29) mmol/L Anion Gap 19 (12-20) BUN 27 H (9-16) mg/dL Creatinine 1.27 (0.5-1.4) mg/dL Estim Creat Clear Calc 31.2 Estimated GFR 43 Random Glucose 103 (60-115) mg/dL Calcium 10.5 H D (8.4-10.2) mg/dL Total Bilirubin 0.4 (0.0-1.0) mg/dL AST 30 (5-31) U/L ALT 23 (0-31) U/L Alkaline Phosphatase 73 (39-117) U/L Troponin I High Sens 18.5 H D 22.6 H (<3.5-17.0) ng/L Total Protein 8.8 H (6.5-8.0) g/dL Albumin 5.0 (3.5-5.0) g/dL Lipase 19 (8-78) U/L Discharge Plan Discharge Clinical Impression: Cyclic vomiting syndrome Patient Disposition: Home, Self-Care Instructions: Cyclic Vomiting Syndrome (ED) Additional Instructions: Drink plenty of fluids Take medication for nausea as prescribed Follow with your PCP Prescriptions: New ondansetron 4 mg tablet,disintegrating 4 mg PO Q6-8H PRN (Reason: nausea and vomiting) Qty: 10 0RF No Action cholecalciferol (vitamin D3) 50 mcg (2,000 unit) capsule 50 mcg PO DAILY Qty: 90 3RF acetaminophen 650 mg tablet extended release 650 mg PO Q8H Qty: 90 3RF lidocaine 5 % adhesive patch,medicated 1 patch topical DAILY Qty: 30 2RF Rx Instructions: leave on most painful area for up to 12 hrs levothyroxine 50 mcg tablet 50 mcg PO DAILY Qty: 90 1RF cyclobenzaprine 5 mg tablet 5 mg PO BID Qty: 90 0RF sertraline 50 mg tablet 50 mg PO DAILY Qty: 90 3RF tramadol 50 mg tablet 50 mg PO Q8-10H PRN (Reason: pain) Qty: 20 0RF ondansetron 4 mg tablet,disintegrating 4 mg PO Q6-8H PRN (Reason: nausea and vomiting) Qty: 7 0RF aspirin 81 mg tablet,delayed release (DR/EC) 81 mg PO DAILY albuterol sulfate 90 mcg/actuation HFA aerosol inhaler 2 puff PO Q6H PRN (Reason: Wheezing) Qty: 8.5 3RF albuterol sulfate [Ventolin HFA] 90 mcg/actuation HFA aerosol inhaler 2 puff inhalation Q6H PRN (Reason: shortness of breath or wheezing) Qty: 8.5 3RF omeprazole 40 mg capsule,delayed release(DR/EC) 40 mg PO BID Qty: 90 2RF lisinopril 5 mg tablet 5 mg PO DAILY Qty: 90 3RF atorvastatin 80 mg tablet 80 mg PO DAILY Qty: 90 3RF metoprolol succinate 25 mg tablet extended release 24 hr 25 mg PO DAILY Qty: 90 3RF Interventions: ED Discharge Assessment Last Done: 07/28/24 00:39 Discharge Date/Time: 07/28/24 00:40 Print Language: Palauan
[2024-07-27 16:02] LABS: MANUAL DIFF FLAG NO
[2024-07-27 16:03] LABS: Basophils Percent Auto 0.3 % (0-2); Eosinophils Percent Auto 0.1 % (0-4); Hematocrit 45.4 % (37.0-47.0); Hemoglobin 16.1 g/dl (12.0-16.0); Imm Gran Abs Auto 0.04 X10*3/uL (0.00-0.03); Imm Gran Pct Auto 0.3 % (0.0-0.4); Lymphocytes Absolute Auto 1.9 X10*3/uL (1.2-4.9); Lymphocytes Percent Auto 12.7 % (20-40); Mean Corpuscular HGB Conc 35.5 g/dl (31.0-35.0); Mean Corpuscular Hemoglobin 30.6 pg (27.0-33.0); Mean Corpuscular Volume 86.3 fL (80.0-98.0); Mean Platelet Volume 9.6 fL (9.4-12.3); Monocytes Percent Auto 7.2 % (2-11); Neutrophils Absolute Auto 11.5 x10*3/uL (2.0-8.3); Neutrophils Percent Auto 79.4 % (45-73); Platelet Count 366 X10*3/uL (160-400); Red Blood Count 5.26 X10*6/uL (4.20-5.50); Red Cell Distribution Width 14.1 % (11.0-16.0); White Blood Count 14.5 X10*3/uL (4.8-10.8)
[2024-07-27 16:08] LABS: Prothrombin Time 11.2 SEC (10.9-12.4)
[2024-07-27 16:11] LABS: Partial Thromboplastin Time 34.7 SEC (26.0-36.8)
[2024-07-27 16:26] LABS: Alanine Aminotransferase 23 U/L (0-31); Anion Gap 19 (12-20); Aspartate Amino Transferase 30 U/L (5-31); Bilirubin Total 0.4 mg/dL (0.0-1.0); Blood Urea Nitrogen 27 mg/dL (9-16); Calcium 10.5 mg/dL (8.4-10.2); Carbon Dioxide 27 mmol/L (22-29); Chloride 96 mmol/L (96-108); Creatinine Clr Calc Pharmacy 31.2; Estimated Glomerular Filt Rate 43; Glucose Random 103 mg/dL (60-115); Lipase 19 U/L (8-78); Potassium 3.9 mmol/L (3.3-5.1); Sodium 138 mmol/L (135-145); Total Protein 8.8 g/dL (6.5-8.0)
[2024-07-27 16:30] LABS: Troponin-I High Sensitivity 18.5 ng/L (<3.5-17.0)
[2024-07-27 17:08] LABS: Alkaline Phosphatase 73 U/L (39-117)
[2024-07-27 20:11] VITALS: BP 118/88; PULSE 103; RESP 18; TEMP 36.6; O2SAT 99
[2024-07-27 21:58] LABS: Troponin-I High Sensitivity 22.6 ng/L (<3.5-17.0)
--- NOTE | 2024-07-27 22:00 | ED_ITS ---
HPI - Nausea/Vomiting/Diarrhea General Chief complaint: Nausea/Vomiting/Diarrhea Stated complaint: Vomiting 2 days Time Seen by Provider: 07/27/24 21:37 Source: patient Mode of arrival: ambulatory Limitations: no limitations History of Present Illness ED Provider: yoly OLIVER Narrative: Patient's history of anxiety cannabis use with frequent vomiting been here in the past multiple times comes here for similar episode started yesterday denies any use of marijuana now but feels better after hot shower Related Data Home Medications ?Medication ?Instructions ?Recorded ?Confirmed aspirin 81 mg tablet,delayed 81 mg PO DAILY 03/16/24 05/25/24 release Previous Rx's ?Medication ?Instructions ?Recorded albuterol sulfate 90 mcg/actuation 2 puff PO Q6H PRN Wheezing #8.5 11/04/22 aerosol inhaler grams cholecalciferol (vitamin D3) 50 50 mcg PO DAILY #90 caps 07/27/23 mcg (2,000 unit) capsule albuterol sulfate 90 mcg/actuation 2 puff inhalation Q6H PRN 11/10/23 aerosol inhaler (Ventolin HFA) shortness of breath or wheezing #8.5 grams omeprazole 40 mg capsule,delayed 40 mg PO BID #90 caps 11/10/23 release acetaminophen 650 mg 650 mg PO Q8H #90 tabs 11/13/23 tablet,extended release lidocaine 5 % topical patch 1 patch topical DAILY #30 ea 12/15/23 ondansetron 4 mg disintegrating 4 mg PO Q6-8H PRN nausea and 04/01/24 tablet vomiting #7 tabs tramadol 50 mg tablet 50 mg PO Q8-10H PRN pain #20 tabs 04/13/24 atorvastatin 80 mg tablet 80 mg PO DAILY #90 tabs 05/25/24 lisinopril 5 mg tablet 5 mg PO DAILY #90 tabs 05/25/24 metoprolol succinate 25 mg 25 mg PO DAILY #90 tabs 05/25/24 tablet,extended release 24 hr cyclobenzaprine 5 mg tablet 5 mg PO BID #90 tabs 07/06/24 levothyroxine 50 mcg tablet 50 mcg PO DAILY #90 tabs 07/06/24 sertraline 50 mg tablet 50 mg PO DAILY #90 tabs 07/21/24 ondansetron 4 mg disintegrating 4 mg PO Q6-8H PRN nausea and 07/28/24 tablet vomiting #10 tabs Allergies Allergy/AdvReac Type Severity Reaction Status Date / Time Penicillins [PENICILLINS] Allergy Intermediate RASH Verified 07/27/24 15:04 codeine [CODEINE] Allergy Mild RASH Verified 07/27/24 15:04 penicillin V Allergy Unknown unknown Verified 07/27/24 15:04 olmesartan AdvReac Intermediate Dizziness Verified 07/27/24 15:04 meloxicam AdvReac Unknown vomiting Verified 07/27/24 15:04 Review of Systems 2 Review of Systems: Yes all other systems are reviewed and are negative [facility] Past Medical History Medical History Hyperlipidemia Hypothyroidism Adrenal adenoma Hiatal hernia Nicotine dependence, cigarettes, uncomplicated Asthma Raynaud disease Arthritis Carpal tunnel syndrome of right wrist Tibia fracture History of spinal fracture History of mammogram Surgical History History of adrenal surgery History of hysterectomy History of umbilical hernia repair History of incisional hernia repair History of esophagogastroduodenoscopy (EGD) History of colonoscopy Family History Family History Father Stroke Mother No problems noted. Brother No problems noted. Sister No problems noted. Sister No problems noted. Sister No problems noted. Son No problems noted. Daughter No problems noted. Social History Social History Housing: House Alcohol intake: never Patient Tobacco Use Status: Current everyday Tobacco user Tobacco use type: Cigarette Cigarettes Per Day: 3 Years Smoked: 49, ranging from 0.25 to 1 ppd Smoked in Last 30 Days: Yes e-Cigarette/Vaping Use: Never Used Use of substances other than those prescribed or required for medical reasons: No Substance Use Type: Marijuana Advance Directives: No Advance Directives Information Provided: No Patient : No service: No Current occupational status: unemployed Cognitive needs: No Hearing needs: No Vision needs: No Physical Exam 2 Vital Signs: Vital Signs: Last Vital Signs Temp 97.8 F 07/28/24 00:39 Pulse 91 07/28/24 00:39 Resp 16 07/28/24 00:39 BP 89/56 L 07/28/24 00:39 Pulse Ox 96 07/28/24 00:39 O2 Del Method Room Air 07/28/24 00:39 BMI result Body Mass Index 17.9 Appearance: Alert. Oriented X3. No acute distress. Eyes: PERRLA, No Nystagmus ENT: Pharynx normal. Oral Mucosa moist Neck: Normal inspection. Neck supple. CVS: Normal heart rate and rhythm. Pulses normal. Respiratory: No respiratory distress. Equal air entry bilateral, no wheezing/rales/rhonchi Abdomen: Soft and nontender. Bowel sounds are present, no mass palpable, no CVA tenderness Skin: Skin warm and dry. Normal skin color. Normal skin turgor. Extremities: No lower extremity edema. No calf tenderness Neuro: Oriented X 3. No motor deficit. Medications Administered Discontinued Medications Generic Name Dose Route Start Last Admin Trade Name Freq PRN Reason Stop Dose Admin Lorazepam 1 mg 07/27/24 21:56 07/27/24 22:25 Lorazepam 1 Mg Tablet PO 07/27/24 21:57 1 mg ONCE ONE Administration Ondansetron HCl 4 mg 07/27/24 21:56 07/27/24 22:25 Ondansetron Odt 4 Mg Tab.Rapdis TRANSLINGU 07/27/24 21:57 4 mg ONCE ONE Administration Medical Decision Making Medical Decision Making [facility] Narrative: Patient's cyclic vomiting syndrome felt better after Ativan and Zofran taking p.o. fluids discharge patient home labs are stable no acute abdomen Differential Diagnosis Differential Diagnoses: The differential diagnosis associated with the presentation includes Lab Data [facility] Lab Attestation statement: I reviewed the patient's lab results. 07/27/24 15:57 07/27/24 15:57 Labs: Lab Results 07/27/24 07/27/24 Range/Units 15:57 21:28 WBC 14.5 H (4.8-10.8) X10*3/uL RBC 5.26 (4.20-5.50) X10*6/uL Hgb 16.1 H (12.0-16.0) g/dl Hct 45.4 (37.0-47.0) % MCV 86.3 (80.0-98.0) fL MCH 30.6 (27.0-33.0) pg MCHC 35.5 H (31.0-35.0) g/dl RDW 14.1 (11.0-16.0) % Plt Count 366 (160-400) X10*3/uL MPV 9.6 (9.4-12.3) fL Immature Gran % (Auto) 0.3 (0.0-0.4) % Neut % (Auto) 79.4 H (45-73) % Lymph % (Auto) 12.7 L (20-40) % Lamb % (Auto) 7.2 (2-11) % Eos % (Auto) 0.1 (0-4) % Baso % (Auto) 0.3 (0-2) % Lymph # (Auto) 1.9 (1.2-4.9) X10*3/uL Lamb # (Auto) 1.0 (0.1-1.2) X10*3/uL Eos # (Auto) 0.0 (0.0-0.4) X10*3/uL Baso # (Auto) 0.0 (0.0-0.2) X10*3/uL Abs Immat Gran (auto) 0.04 H (0.00-0.03) X10*3/uL Absolute Neuts (auto) 11.5 H (2.0-8.3) x10*3/uL Absolute Nucleated RBC 0.000 (0.0-0.012) X10*3/uL Nucleated RBC % (auto) 0.0 (0.0-0.2) /100WBC PT 11.2 (10.9-12.4) SEC INR 1.0 (0.9-1.1) APTT 34.7 (26.0-36.8) SEC Sodium 138 (135-145) mmol/L Potassium 3.9 (3.3-5.1) mmol/L Chloride 96 (96-108) mmol/L Carbon Dioxide 27 (22-29) mmol/L Anion Gap 19 (12-20) BUN 27 H (9-16) mg/dL Creatinine 1.27 (0.5-1.4) mg/dL Estim Creat Clear Calc 31.2 Estimated GFR 43 Random Glucose 103 (60-115) mg/dL Calcium 10.5 H D (8.4-10.2) mg/dL Total Bilirubin 0.4 (0.0-1.0) mg/dL AST 30 (5-31) U/L ALT 23 (0-31) U/L Alkaline Phosphatase 73 (39-117) U/L Troponin I High Sens 18.5 H D 22.6 H (<3.5-17.0) ng/L Total Protein 8.8 H (6.5-8.0) g/dL Albumin 5.0 (3.5-5.0) g/dL Lipase 19 (8-78) U/L Independent Interpretation I performed an independent interpretation of an: EKG Interpretation: Sinus tachycardia heart rate 106 beats per minute normal intervals normal axis no acute ST-T changes no acute ischemia Discharge Plan Discharge Clinical Impression: Cyclic vomiting syndrome Patient Disposition: Home, Self-Care Instructions: Cyclic Vomiting Syndrome (ED) Additional Instructions: Drink plenty of fluids Take medication for nausea as prescribed Follow with your PCP Prescriptions: New ondansetron 4 mg tablet,disintegrating 4 mg PO Q6-8H PRN (Reason: nausea and vomiting) Qty: 10 0RF No Action cholecalciferol (vitamin D3) 50 mcg (2,000 unit) capsule 50 mcg PO DAILY Qty: 90 3RF acetaminophen 650 mg tablet extended release 650 mg PO Q8H Qty: 90 3RF lidocaine 5 % adhesive patch,medicated 1 patch topical DAILY Qty: 30 2RF Rx Instructions: leave on most painful area for up to 12 hrs levothyroxine 50 mcg tablet 50 mcg PO DAILY Qty: 90 1RF cyclobenzaprine 5 mg tablet 5 mg PO BID Qty: 90 0RF sertraline 50 mg tablet 50 mg PO DAILY Qty: 90 3RF tramadol 50 mg tablet 50 mg PO Q8-10H PRN (Reason: pain) Qty: 20 0RF ondansetron 4 mg tablet,disintegrating 4 mg PO Q6-8H PRN (Reason: nausea and vomiting) Qty: 7 0RF aspirin 81 mg tablet,delayed release (DR/EC) 81 mg PO DAILY albuterol sulfate 90 mcg/actuation HFA aerosol inhaler 2 puff PO Q6H PRN (Reason: Wheezing) Qty: 8.5 3RF albuterol sulfate [Ventolin HFA] 90 mcg/actuation HFA aerosol inhaler 2 puff inhalation Q6H PRN (Reason: shortness of breath or wheezing) Qty: 8.5 3RF omeprazole 40 mg capsule,delayed release(DR/EC) 40 mg PO BID Qty: 90 2RF lisinopril 5 mg tablet 5 mg PO DAILY Qty: 90 3RF atorvastatin 80 mg tablet 80 mg PO DAILY Qty: 90 3RF metoprolol succinate 25 mg tablet extended release 24 hr 25 mg PO DAILY Qty: 90 3RF Interventions: ED Discharge Assessment Last Done: 07/28/24 00:39 Discharge Date/Time: 07/28/24 00:40 Print Language: British
[2024-07-27 22:25] VITALS: BP 107/82; PULSE 90; RESP 14; TEMP 37; O2SAT 96
[2024-07-27] MEDS: LORazepam 1 MG TABLET PO (22:25)
[2024-07-27] MEDS: Ondansetron ODT 4 MG TAB.RAPDIS TRANSLINGU (22:25)
[2024-07-28 00:25] VITALS: BP 89/56; PULSE 91; RESP 16; TEMP 36.6; O2SAT 96
[2024-07-28 00:39] VITALS: BP 89/56; PULSE 91; RESP 16; TEMP 36.6; O2SAT 96
== END 2024-07-28 00:40 | disposition home or self-care (01) ==
PROVIDERS: Physician Assistant; Emergency Provider Internal Medicine; PCP Internal Medicine
DX: R11.15 Cyclical vomiting syndrome unrelated to migraine (principal); F12.90 Cannabis use, unspecified, uncomplicated; F17.210 Nicotine dependence, cigarettes, uncomplicated; Z79.899 Other long term (current) drug therapy
CPT/HCPCS: 36415; 80053; 83690; 84484; 85025; 85610; 85730; 93005; 99283; 99284

== ENCOUNTER → 2024-07-27 15:06 | Outpatient (BNV) | payer OTHER, SELFPAY | PROVIDERS: Emergency Provider Internal Medicine; PCP Internal Medicine; Visit Provider Internal Medicine Cardiovascular Disease | DX: R00.0 Tachycardia, unspecified (principal); I51.7 Cardiomegaly; I44.4 Left anterior fascicular block; R94.31 Abnormal electrocardiogram [ECG] [EKG] | CPT/HCPCS: 93010 ==

== ENCOUNTER 2024-08-02 15:05 | Outpatient (AMB) | payer OTHER, SELFPAY ==
--- NOTE | 2024-08-02 15:24 | MHC.OFFVIS ---
Vital Signs 08/02/24 15:28 Height 5 ft 1 in Weight 95 lb BMI 17.9 BP 121/73 Blood Pressure Location Lt brachial Position Sitting Pulse 79 Intake Visit Reasons: ED Follow Up Intake Note: Jeane presents in the office as a follow up to being in the ED. CC: She states that she has been in the ED about 3-4 times. She states right when she wakes up she gets nausea and having to vomit. She gets pains in the epigastric reion but it moved down lower near the umbilical region. No diarrhea or constipation along with it. Allergies Penicillins [PENICILLINS] Allergy (Intermediate, Verified 08/02/24 15:28) RASH codeine [CODEINE] Allergy (Mild, Verified 08/02/24 15:28) RASH penicillin V Allergy (Unknown, Verified 08/02/24 15:28) unknown olmesartan Adverse Reaction (Intermediate, Verified 08/02/24 15:28) Dizziness meloxicam Adverse Reaction (Unknown, Verified 08/02/24 15:28) vomiting HPI HPI ED Follow Up: Details: 64 yr old f here for f/u RECAP: She had EGD 07/2021 for diarrhea and nausea with vomiting EGD with schatzki ring, erosive esophagitis, erosive gastritis hiatal hernia, duodenitis she had seen surgeon at [facility] for review of incisional hernia recurrence, Imaging: CT 02/2021-- recurrence of periumbilical hernia, small adenoma GES 10/2021-- normal at [address]: 11/2021--enlarging adrenal adrenal, kyphosis, anterior compression D9 MRI 12/2021--lipid rich adenoma LABS: raised plasma metanephrines Colonoscopy: polyps internal hemorrhoids diverticular disease Path: tubular adnenoma INTERIM: still having attacks of nausea, vomiting being investigated for heart issues she has diarrhea she takes THC daily she stopped working at [employer], now at [employer] EXAM: GENERAL: The patient is uncomfortable, and agitated, groaning VITAL SIGNS:see workflow HEENT: Nonicteric sclerae, PERRLA, EOMI. Oropharynx clear. Moist mucous membranes. Conjunctivae appear well perfused. No thyroid mass. CHEST: Chest wall is nontender. HEART: Regular rate and rhythm without murmurs. LUNGS: Clear to auscultation bilaterally. ABDOMEN: Soft, positive bowel sounds, tender epigastrium, no organomegaly.no flank tenderness SKIN: No rash, no excessive bruising, petechiae, or purpura. NEUROLOGIC: Cranial nerves II-XII intact without motor/sensory deficit. MS: slight kyphosis A/P: 1/ May have cannabinoid hyperemesis syndrome, vs CVS 2/ GB polyps, PLAN: 1. cont with PPI 2. US abdo--repeat now--if polyps >1 cm then refer CCY 3. trial of co enzyme q10 300 mg bid, maybe add low dose TCA 10 mg PFSH Medical History Hyperlipidemia Hypothyroidism Adrenal adenoma Hiatal hernia Nicotine dependence, cigarettes, uncomplicated Asthma Raynaud disease Arthritis Carpal tunnel syndrome of right wrist Tibia fracture History of spinal fracture History of mammogram Surgical History History of adrenal surgery History of hysterectomy History of umbilical hernia repair History of incisional hernia repair History of esophagogastroduodenoscopy (EGD) History of colonoscopy Family History Father Stroke Mother No problems noted. Brother No problems noted. Sister No problems noted. Sister No problems noted. Sister No problems noted. Son No problems noted. Daughter No problems noted. Social History Housing: House Alcohol intake: never Patient Tobacco Use Status: Current everyday Tobacco user Tobacco use type: Cigarette Cigarettes Per Day: 3 Years Smoked: 49, ranging from 0.25 to 1 ppd e-Cigarette/Vaping Use: Never Used Substance Use Type: Marijuana service: No Current occupational status: unemployed Cognitive needs: No Hearing needs: No Vision needs: No Physical Exam Vital Signs: Last Vital Signs Pulse 79 08/02/24 15:28 BP 121/73 08/02/24 15:28 BMI result Body Mass Index 17.9 Assessment & Plan Assessment & Plan (1) Gallbladder polyp: Code(s): K82.4 - Cholesterolosis of gallbladder Category: Medical Plan: as above Orders: Orders US abdomen limited Today K82.4 - Cholesterolosis of gallbladder Coding Level of Care Code Est Pt Level 3 (41923) Diagnoses Gallbladder polyp K82.4
[2024-08-02 15:28] VITALS: BP 121/73; PULSE 79; BMI 17.9
== END 2024-08-02 16:42 | disposition home or self-care (01) ==
PROVIDERS: PCP Internal Medicine; Visit Provider Internal Medicine Gastroenterology
DX: K82.4 Cholesterolosis of gallbladder (principal)
CPT/HCPCS: 99213

== ENCOUNTER → 2024-08-02 15:05 | Outpatient (BNVA) | payer OTHER, SELFPAY | PROVIDERS: PCP Internal Medicine; Visit Provider Internal Medicine Gastroenterology | DX: K82.4 Cholesterolosis of gallbladder (principal) | CPT/HCPCS: 99212 ==

== ENCOUNTER 2024-09-01 12:45 | Outpatient (REF) | payer OTHER, SELFPAY ==
--- NOTE | ~2024-09-01 | US_ITS ---
CLINICAL HISTORY: K82.4 - Cholesterolosis of gallbladder US abdomen limited Comparison: None Findings: The visualized pancreas is normal. The liver is normal in size and echotexture. There is no intrahepatic bile duct dilatation. The common duct is 3 mm in diameter. Cholelithiasis. No gallbladder wall thickening. The right kidney is 10.3 cm in length. No ascites. IMPRESSION: 1. Cholelithiasis. 2. No acute process. This document has been electronically signed by: Salena Augustin MD on 09/02/2024 14:29:50
--- OUTSIDE RECORDS SUMMARY | 2024-09-01 13:01 | XMS_ITS | Clinical Summary ---
Author Organization [facility] Address [address] [place] [address] Care Team Providers Care Reformatory Attendant Name Role Phone Marcie Chatterjee MD Primary Care Provider [phone] Surgical History Surgery Date Site/Laterality Comments HERNIA REPAIR PROCEDURE: [place] REPAIR FIRST ABDOMINAL WALL HERNIA HYSTERECTOMY PROCEDURE: HISTORICAL HYSTERECTOMY TOTAL KNEE ARTHROPLASTY PROCEDURE: [place] ARTHRP KNE CONDYLE&PLATU MEDIAL&LAT COMPARTMENTS Social History Tobacco Use Types Packs/Day Years Used Date Smoking Tobacco: Every Day Smokeless Tobacco: Never Alcohol Use Standard Drinks/Week Comments Not Currently 0 (1 standard drink = 0.6 oz pur e alcohol) Comments Unknown Sex and Gender Information Value Date Recorded Sex Assigned at Not on file Legal Sex Female 2:17 PM EST Gender Identity Not on file Sexual Orientation Not on file Obstetrics History Last Filed Vital Signs Vital Sign Reading Time Taken Comments Blood Pressure 159/93 03/05/2023 10:33 AM EDT Pulse 80 03/05/2023 10:33 AM EDT Temperature - - Respiratory Rate - - Oxygen Saturation - - Inhaled Oxygen Concentration - - Weight 46 kg (101 lb 8 oz) 03/05/2023 10:33 AM E DT Height 152.4 cm (5') 03/05/2023 10:33 AM EDT Body Mass Index 19.82 03/05/2023 10:33 AM EDT Plan of Treatment Health Maintenance Due Date Last Done Comments Breast Cancer Screening 1960 DTaP,Tdap,and Td Vaccines (1 - Tdap) 1981 Hepatitis A Vaccines (1 of 2 - Risk 2-dose series) 1981 Pneumococcal Vaccine: 50+ Ye ars (1 of 2 - PCV) 1981 Pneumococcal Vaccine: Pediat rics (0 to 5 Years) and At-Risk Patients (6 to 64 Years) (1 of 2 - PCV) 1981 Cervical Cancer Screening: P ap Smear 1983 Zoster Vaccines (1 of 2) 02/01/2012 Colorectal Cancer Screening: Colonoscopy 06/23/2022 Depression Screening 06/23/2022 HIV Screening 06/23/2022 Hepatitis C Screening 06/23/2022 Social Influencers of Health Screening 06/23/2022 COVID-19 Vaccine (1 - 2023-2 5 season) 2024 Influenza Vaccine (#1) 2024 RSV Immunization Patients 60 + Years Old (1 - 1-dose 75+ series) 2037 HIB Vaccines Aged Out No longer eligi ble based on patient's age to complete this topic HPV Vaccines Aged Out No longer eligi ble based on patient's age to complete this topic Hepatitis B Vaccines Aged Out No long er eligible based on patient's age to complete this topic IPV Vaccines Aged Out No longer eligi ble based on patient's age to complete this topic MMR Vaccines Aged Out No longer eligi ble based on patient's age to complete this topic Meningococcal ACWY Vaccine Aged Out N o longer eligible based on patient's age to complete this topic Meningococcal B Vacine Aged Out No lo nger eligible based on patient's age to complete this topic RSV Immunization Patients Un miguel angel 20 months Aged Out No longer eligible b ased on patient's age to complete this topic Varicella Vaccines Aged Out No longer eligible based on patient's age to complete this topic Care Teams Reformatory Attendant Relationship Specialty Start Date End Date Marcie Chatterjee MD PCP - General Internal Medicine 02/07/22
== END 2024-09-01 12:46 | disposition home or self-care (01) ==
LOC: HO.HMGCX 12:45
PROVIDERS: PCP Internal Medicine; Visit Provider Internal Medicine Gastroenterology
DX: K82.4 Cholesterolosis of gallbladder (principal)
CPT/HCPCS: 76705

== ENCOUNTER → 2024-09-01 12:49 | Outpatient (BNV) | payer OTHER, SELFPAY | PROVIDERS: PCP Internal Medicine; Visit Provider Radiology Diagnostic Radiology | DX: K80.20 Calculus of gallbladder without cholecystitis without obstruction (principal) | CPT/HCPCS: 76705 ==

== ENCOUNTER 2024-09-30 13:56 | Outpatient (AMB) | payer OTHER, SELFPAY ==
--- NOTE | 2024-09-30 13:58 | A.OFFVIS_ITS ---
Vital Signs 09/30/24 14:07 Height 4 ft 10 in Weight 94 lb BMI 19.6 BP 168/99 H Blood Pressure Location Lt brachial Position Sitting Pulse 83 Intake Visit Reasons: Calculus of gallbladder Intake Note: Patient is seen in office for evaluation of the gallbladder. Pt c/o: admits to abdominal pain, above the belly button radiates down for many yrs, nausea and vomit in the morning, denies diarrhea, constipation or other concerns us:09/02/24 ref. [employer] Actuary Required: No Accompanied by: Other Relationship Allergies Penicillins [PENICILLINS] Allergy (Intermediate, Verified 09/30/24 14:08) RASH codeine [CODEINE] Allergy (Mild, Verified 09/30/24 14:08) RASH penicillin V Allergy (Unknown, Verified 09/30/24 14:08) unknown olmesartan Adverse Reaction (Intermediate, Verified 09/30/24 14:08) Dizziness meloxicam Adverse Reaction (Unknown, Verified 09/30/24 14:08) vomiting HPI Comments Details: 64-year-old female patient presenting with complaints of chronic abdominal pain mainly in the right upper quadrant radiating into the back. The pain is constant and made worse with eating. She was unable to eat until several hours after waking. All food seemed to cause increase in the pain. She has had an extensive workup and was identified as having gallbladder polyps in the gallbladder. Her most recent ultrasound of the abdomen seemed to indicate gallstones although review of the technicians report reveals no gallstones rather mainly gallbladder polyps. She previously underwent a right adre nalectomy at [facility]. She was noted to have extensive adhesions and a very large liver during this procedure making the procedure very difficult. She underwent an extensive lysis of adhesions due to a previous hernia repair. She presents today to discuss cholecystectomy. [facility] Medical History Hyperlipidemia Hypothyroidism Adrenal adenoma Hiatal hernia Nicotine dependence, cigarettes, uncomplicated Asthma Raynaud disease Arthritis Carpal tunnel syndrome of right wrist Tibia fracture History of spinal fracture History of mammogram Surgical History History of adrenal surgery History of hysterectomy History of umbilical hernia repair History of incisional hernia repair History of esophagogastroduodenoscopy (EGD) History of colonoscopy Family History Father Stroke Mother No problems noted. Brother No problems noted. Sister No problems noted. Sister No problems noted. Sister No problems noted. Son No problems noted. Daughter No problems noted. Social History Housing: House Alcohol intake: never Patient Tobacco Use Status: Current everyday Tobacco user Tobacco use type: Cigarette Cigarettes Per Day: 3 Years Smoked: 49, ranging from 0.25 to 1 ppd e-Cigarette/Vaping Use: Never Used Substance Use Type: Marijuana service: No Current occupational status: unemployed Cognitive needs: No Hearing needs: No Vision needs: No Review of Systems Const All systems reviewed & are unremarkable except as noted in HPI and below Denies chills, Denies fever(s), Denies headache(s), Denies poor appetite and Denies weakness ENT Denies headache(s) Card Denies chest pain, Denies irregular heart rhythm, Denies palpitations and Denies dyspnea Resp Denies cough, Denies excessive phlegm production and Denies dyspnea GI Reports abdominal pain, Reports bloating, Denies change in bowel habits, Denies constipation, Reports dyspepsia, Denies heartburn, Denies diarrhea, Reports nausea and Reports vomiting Denies urinary frequency Musc Reports back pain, Denies muscle weakness and Denies numbness Skin/Breast Denies changing lesions and Denies unusual bruising Neuro Denies headache(s), Denies numbness, Denies paresthesias and Denies weakness Psych Denies anxiety and Denies depression Endo Denies palpitations Sawyer/Lymph Denies lymphadenopathy Physical Exam Vital Signs: Last Vital Signs Pulse 83 09/30/24 14:07 BP 168/99 H 09/30/24 14:07 BMI result Body Mass Index 19.6 Const General: cooperative and no acute distress Nutritional Appearance: well nourished Orientation/consciousness: patient oriented x3 Limitations: no limitations HEENT Head: Yes normocephalic and Yes atraumatic Ears: hearing grossly normal bilaterally Resp Effort & Inspection: normal respiratory effort, no audible wheezes, no cough and no respiratory distress Cardio Jugular venous distension: no JVD GI Inspection: Yes normal to inspection Palpation (GI): Soft to palpation, Tenderness to palpation present (GI) in the RUQ, no guarding and not rigid Percussion: Yes normal to percussion Rectal Exam - Female: deferred Skin Other: Warm, dry, no rash Neuro General: patient oriented x3 Extrem General: Yes no clubbing, cyanosis or edema Assessment & Plan Assessment & Plan (1) Gallbladder polyp: Code(s): K82.4 - Cholesterolosis of gallbladder Category: Medical (2) Intractable vomiting with nausea: Code(s): R11.2 - Nausea with vomiting, unspecified Category: Medical (3) Cholelithiasis: Code(s): K80.20 - Calculus of gallbladder without cholecystitis without obstruction Category: Medical Qualifiers: Cholelithiasis location: gallbladder Cholecystitis acuity: chronic Biliary obstruction: without biliary obstruction Plan 64-year-old female patient presenting with complaints of abdominal pain constant in nature increase with food of all types. Workup with ultrasound revealed multiple small gallbladder polyps with no definite gallstones. The patient's pain is mainly in the right upper quadrant and exam confirms tenderness in the right upper quadrant. We discussed the difficulties of performing gallbladder surgery given her prior history. It may be difficult to perform a laparoscopic procedure due to her dense adhesions as noted in Dr. Patel's note. I am concerned that she will continue have abdominal pain following the surgery therefore have recommended obtaining a HIDA scan prior to proceeding to surgery to assure gallbladder dysfunction. If this test is normal, I would not recommend proceeding to cholecystectomy. She expressed understanding and agrees with the plan. She will return following the HIDA scan to discuss the results. Orders: Orders NM hepatobiliary w pharm Today K80.20 - Calculus of gallbladder without cholecystitis without obstruction, K82.4 - Cholesterolosis of gallbladder, R11.2 - Nausea with vomiting, unspecified Coding Level of Care Code New Pt Level 4 (99525) Diagnoses Gallbladder polyp K82.4 Intractable vomiting with nausea R11.2 Cholelithiasis K80.20 Cholelithiasis location: gallbladder Cholecystitis acuity: chronic Biliary obstruction: without biliary obstruction
[2024-09-30 14:07] VITALS: BP 168/99; PULSE 83; BMI 19.6
== END 2024-09-30 14:18 | disposition home or self-care (01) ==
LOC: HO.HGS 13:57
PROVIDERS: PCP Internal Medicine; Visit Provider Surgery
DX: R11.2 Nausea with vomiting, unspecified (principal); K80.20 Calculus of gallbladder without cholecystitis without obstruction
CPT/HCPCS: 99204

== ENCOUNTER → 2024-09-30 13:56 | Outpatient (BNVA) | payer OTHER, SELFPAY | PROVIDERS: PCP Internal Medicine; Visit Provider Surgery | DX: K80.20 Calculus of gallbladder without cholecystitis without obstruction (principal); R11.2 Nausea with vomiting, unspecified | CPT/HCPCS: 99202 ==

== ENCOUNTER → 2024-10-25 10:43 | Outpatient (REF) | payer OTHER, SELFPAY ==
--- NOTE | ~2024-10-25 | NM_ITS ---
EXAMINATION: NM HEPATOBILIARY WITH PHARM HISTORY: K82.4 - Cholesterolosis of gallbladder. TECHNIQUE: An hepatobiliary scan was performed following the intravenous administration of 5.0 mCi technetium 99m-mebrofenin. Sequential images were obtained over 1 hour. Subsequently, the patient received 0.9 microgram of IV CCK over 30 minutes and additional imaging was performed. COMPARISON: Correlation is made with an abdominal ultrasound dated 09/01/2024. FINDINGS: There is normal uptake and excretion of the radiopharmaceutical by the liver. Gallbladder activity is noted at 22 minutes. Common bile duct activity is seen at 30 minutes. Small bowel activity is noted at 62 minutes. After the administration of intravenous CCK, the estimated gallbladder ejection fraction is 74%, which is within normal limits (normal 35-80%). NM/NM hepatobiliary w pharm IMPRESSION: Normal hepatobiliary scan with normal gallbladder ejection fraction. Electronically signed by: Jaime Chen MD 10/25/2024 02:06 PM EDT
--- OUTSIDE RECORDS SUMMARY | 2024-10-25 12:26 | XMS_ITS | Clinical Summary ---
Author Organization [facility] Address [address] [place] [address] Care Team Providers Care Pulper Tender Name Role Phone Marcie Chatterjee MD Primary Care Provider [phone] Surgical History Surgery Date Site/Laterality Comments HERNIA REPAIR PROCEDURE: [place] REPAIR FIRST ABDOMINAL WALL HERNIA HYSTERECTOMY PROCEDURE: HISTORICAL HYSTERECTOMY TOTAL KNEE ARTHROPLASTY PROCEDURE: [place] ARTHRP KNE CONDYLE&PLATU MEDIAL&LAT COMPARTMENTS Social History [...] DTaP,Tdap,and Td Vaccines (1 - Tdap) 1981 Pneumococcal Vaccine: 50+ Ye ars (1 [...] Influencers of Health Screening 06/23/2022 COVID-19 Vaccine (2023-2 5 season) 2024 Influenza Vaccine (Season Ended) 2025 RSV Immunization Adult Patie nts (1 - 1-dose 75+ series) 2037 HIB Vaccines Aged Out No longer eligi ble based on patient's age to complete this topic HPV Vaccines Aged Out No longer eligi ble based on patient's age to complete this topic Hepatitis A Vaccines Aged Out No long er eligible [...] age to complete this topic Meningococcal B Vaccine Aged Out No l onger eligible based on patient's age to complete this topic RSV Immunization Patients Un miguel angel 20 months Aged Out No longer eligible b ased on patient's age to complete this topic Varicella Vaccines Aged Out No longer eligible based on patient's age to complete this topic Care Teams Pulper Tender Relationship Specialty Start Date End Date Marcie Chatterjee MD PCP - General Internal Medicine 02/07/22
== END ==
LOC: HO.NUCMED 10:43
PROVIDERS: PCP Internal Medicine; Visit Provider Surgery
DX: R11.2 Nausea with vomiting, unspecified (principal); K80.20 Calculus of gallbladder without cholecystitis without obstruction
CPT/HCPCS: 78227; A9537; J2805

== ENCOUNTER → 2024-10-25 10:45 | Outpatient (BNV) | payer OTHER, SELFPAY | PROVIDERS: PCP Internal Medicine; Visit Provider Radiology Diagnostic Radiology | DX: K82.4 Cholesterolosis of gallbladder (principal) | CPT/HCPCS: 78227 ==

== ENCOUNTER 2024-11-29 11:37 | Outpatient (AMB) | payer OTHER, SELFPAY ==
--- NOTE | 2024-11-29 11:48 | MHC.OFFVIS ---
Vital Signs 11/29/24 11:50 Height 4 ft 10 in Weight 102 lb BMI 21.3 BP 124/82 Blood Pressure Location Lt brachial Position Sitting Pulse 86 Pulse Oximetry (%) 99 Oxygen Delivery Method Room Air Intake Visit Reasons: f/u Intake Note: Patient follow up for Gallbladder polyp Patient denies any GI issues for today Ammunition And Explosives Handler Required: No Accompanied by: Family/Other Allergies Penicillins [PENICILLINS] Allergy (Intermediate, Verified 11/29/24 11:47) RASH codeine [CODEINE] Allergy (Mild, Verified 11/29/24 11:47) RASH penicillin V Allergy (Unknown, Verified 11/29/24 11:47) unknown olmesartan Adverse Reaction (Intermediate, Verified 11/29/24 11:47) Dizziness meloxicam Adverse Reaction (Unknown, Verified 11/29/24 11:47) vomiting HPI HPI f/u: Details: 64 yr old f here for f/u RECAP: She had EGD 07/2021 for diarrhea and nausea with vomiting EGD with schatzki ring, erosive esophagitis, erosive gastritis hiatal hernia, duodenitis she had seen surgeon at [facility] for review of incisional hernia recurrence, Imaging: CT 02/2021-- recurrence of periumbilical hernia, small adenoma GES 10/2021-- normal at [address]: 11/2021--enlarging adrenal adrenal, kyphosis, anterior compression D9 MRI 12/2021--lipid rich adenoma LABS: raised plasma metanephrines Colonoscopy: polyps internal hemorrhoids diverticular disease Path: tubular adnenoma US 09/07 gallstones, HIDA 11/05 nml INTERIM: Still working at [employer] she is feeling well for last 1 month she moved home, maybe helped she denies nausea and vomiting no diarrhea she has been gaining weight so she is happy EXAM: GENERAL: The patient is uncomfortable, and agitated, groaning VITAL SIGNS:see workflow HEENT: Nonicteric sclerae, PERRLA, EOMI. Oropharynx clear. Moist mucous membranes. Conjunctivae appear well perfused. No thyroid mass. CHEST: Chest wall is nontender. HEART: Regular rate and rhythm without murmurs. LUNGS: Clear to auscultation bilaterally. ABDOMEN: Soft, positive bowel sounds, tender epigastrium, no organomegaly.no flank tenderness SKIN: No rash, no excessive bruising, petechiae, or purpura. NEUROLOGIC: Cranial nerves II-XII intact without motor/sensory deficit. MS: slight kyphosis A/P: 1/ May have cannabinoid hyperemesis syndrome, vs CVS 2/ gallstones --asymptomatic right now PLAN: 1. cont with PPI BID as helps reflux sx 2. periodic US< no polyps seen last scan 3. trial of co enzyme q10 300 mg bid, again encouraged also good for cardiac issues 4. hse had raised HGB 08/07, she is smoker, PCP is rechecking so I will defer to PCP [facility] Medical History Hyperlipidemia Hypothyroidism Adrenal adenoma Hiatal hernia Nicotine dependence, cigarettes, uncomplicated Asthma Raynaud disease Arthritis Carpal tunnel syndrome of right wrist Tibia fracture History of spinal fracture History of mammogram Surgical History History of adrenal surgery History of hysterectomy History of umbilical hernia repair History of incisional hernia repair History of esophagogastroduodenoscopy (EGD) History of colonoscopy Family History Father Stroke Mother No problems noted. Brother No problems noted. Sister No problems noted. Sister No problems noted. Sister No problems noted. Son No problems noted. Daughter No problems noted. Social History Housing: House Alcohol intake: never Patient Tobacco Use Status: Current everyday Tobacco user Tobacco use type: Cigarette Cigarettes Per Day: 3 Years Smoked: 49, ranging from 0.25 to 1 ppd e-Cigarette/Vaping Use: Never Used Substance Use Type: Marijuana service: No Current occupational status: unemployed Cognitive needs: No Hearing needs: No Vision needs: No Physical Exam Vital Signs: Last Vital Signs Pulse 86 11/29/24 11:50 BP 124/82 11/29/24 11:50 Pulse Ox 99 11/29/24 11:50 Oxygen Delivery Method Room Air 11/29/24 11:50 BMI result Body Mass Index 21.3 Assessment & Plan Assessment & Plan (1) Cholelithiasis: Code(s): K80.20 - Calculus of gallbladder without cholecystitis without obstruction Category: Medical Qualifiers: Cholelithiasis location: gallbladder Cholecystitis acuity: chronic Biliary obstruction: without biliary obstruction Plan: as above Coding Level of Care Code Est Pt Level 3 (05706) Diagnoses Cholelithiasis K80.20 Cholelithiasis location: gallbladder Cholecystitis acuity: chronic Biliary obstruction: without biliary obstruction
[2024-11-29 11:50] VITALS: BP 124/82; PULSE 86; O2SAT 99; BMI 21.3
--- OUTSIDE RECORDS SUMMARY | 2024-11-29 12:25 | XMS_ITS | Clinical Summary ---
Author Organization [facility] Address [address] [place] [address] Care Team Providers Care Machinist Apprentice Name Role Phone Marcie Chatterjee MD Primary Care Provider [phone] Surgical History Surgery Date Site/Laterality Comments HERNIA REPAIR PROCEDURE: [place] REPAIR FIRST ABDOMINAL WALL HERNIA HYSTERECTOMY PROCEDURE: HISTORICAL HYSTERECTOMY TOTAL KNEE ARTHROPLASTY PROCEDURE: [place] ARTHRP KNE CONDYLE&PLATU MEDIAL&LAT COMPARTMENTS Social History [...] age to complete this topic Care Teams Machinist Apprentice Relationship Specialty Start Date End Date Marcie Chatterjee MD PCP - General Internal Medicine 02/07/22
== END 2024-11-29 12:19 | disposition home or self-care (01) ==
LOC: HO.HGI 11:37
PROVIDERS: PCP Internal Medicine; Visit Provider Internal Medicine Gastroenterology
DX: K80.20 Calculus of gallbladder without cholecystitis without obstruction (principal)
CPT/HCPCS: 99213

== ENCOUNTER → 2024-11-29 11:37 | Outpatient (BNVA) | payer OTHER, SELFPAY | PROVIDERS: PCP Internal Medicine; Visit Provider Internal Medicine Gastroenterology | DX: K80.20 Calculus of gallbladder without cholecystitis without obstruction (principal) | CPT/HCPCS: 99212 ==

== ENCOUNTER 2024-12-01 14:00 | Outpatient (AMB) | payer OTHER, SELFPAY ==
--- OUTSIDE RECORDS SUMMARY | 2024-12-01 14:30 | XMS_ITS | Clinical Summary ---
Author Organization [facility] Address [address] [place] [address] Care Team Providers Care Greenhouse Assistant Name Role Phone Marcie Chatterjee MD Primary Care Provider [phone] Surgical History Surgery Date Site/Laterality Comments HERNIA REPAIR PROCEDURE: [place] REPAIR FIRST ABDOMINAL WALL HERNIA HYSTERECTOMY PROCEDURE: HISTORICAL HYSTERECTOMY TOTAL KNEE ARTHROPLASTY PROCEDURE: [place] ARTHRP KNE CONDYLE&PLATU MEDIAL&LAT COMPARTMENTS Social History [...] age to complete this topic Care Teams Greenhouse Assistant Relationship Specialty Start Date End Date Marcie Chatterjee MD PCP - General Internal Medicine 02/07/22
[2024-12-01 14:32] VITALS: BP 118/74; PULSE 75; RESP 18; TEMP 36.4; O2SAT 99; BMI 21.3
--- NOTE | 2024-12-01 14:32 | A.OFFPC_ITS ---
Vital Signs 12/01/24 14:32 Height 4 ft 10 in Weight 102 lb BMI 21.3 BP 118/74 Blood Pressure Location Lt brachial Position Sitting Respiration 18 Pulse 75 Pulse Source Pulse Oximeter Temp 97.6 F Temp Source Oral Pulse Oximetry (%) 99 Oxygen Delivery Method Room Air Intake Visit Reasons: Pre op clearance for dental procedure Intake Note: Pt is here today for a pre op visit. Pt is having dental procedure after she is cleared by PCP. Allergies Penicillins [PENICILLINS] Allergy (Intermediate, Verified 12/01/24 14:34) RASH codeine [CODEINE] Allergy (Mild, Verified 12/01/24 14:34) RASH penicillin V Allergy (Unknown, Verified 12/01/24 14:34) unknown olmesartan Adverse Reaction (Intermediate, Verified 12/01/24 14:34) Dizziness meloxicam Adverse Reaction (Unknown, Verified 12/01/24 14:34) vomiting Medication List - Last Reconciled 12/01/24 by Marcie Chatterjee MD acetaminophen ER 650 mg PO Q8H albuterol sulfate 90 mcg/actuation (Ventolin HFA) 2 puffs inhalation Q6H PRN albuterol sulfate 90 mcg/actuation 2 puffs PO Q6H PRN aspirin 81 mg PO DAILY atorvastatin 80 mg PO DAILY cholecalciferol (vitamin D3) 50 mcg PO DAILY cyclobenzaprine 5 mg PO BID levothyroxine 50 mcg PO DAILY lidocaine 5% 1 patch topical DAILY lisinopril 5 mg PO DAILY metoprolol succinate ER 25 mg PO DAILY omeprazole 40 mg PO BID ondansetron 4 mg PO Q6-8H PRN sertraline 50 mg PO DAILY Tobacco use date assessed: 05/25/24 Dental Screening Dental Screen Date: 11/10/23 HPI Pre op clearance for dental procedure HPI Details Patient presents for the preop for teeth extractions under general anesthesia. Hypertension hyperlipidemia hypothyroidism chronic anxiety are stable on current medications. Patient continues to smoke up to 5 cigarettes a day and is trying to quit. She denies chest pain shortness or breath palpitations GI or complaints. [facility] Medical History (Updated 12/01/24 @ 15:14 by Marcie Chatterjee MD) Cardiomyopathy Hyperlipidemia Hypothyroidism Adrenal adenoma Hiatal hernia Nicotine dependence, cigarettes, uncomplicated Asthma Raynaud disease Arthritis Carpal tunnel syndrome of right wrist Tibia fracture History of spinal fracture History of mammogram Surgical History History of adrenal surgery History of hysterectomy History of umbilical hernia repair History of incisional hernia repair History of esophagogastroduodenoscopy (EGD) History of colonoscopy Family History Father Stroke Mother No problems noted. Brother No problems noted. Sister No problems noted. Sister No problems noted. Sister No problems noted. Son No problems noted. Daughter No problems noted. Social History Housing: House Alcohol intake: never Patient Tobacco Use Status: Current everyday Tobacco user Tobacco use type: Cigarette Cigarettes Per Day: 3 Years Smoked: 49, ranging from 0.25 to 1 ppd e-Cigarette/Vaping Use: Never Used Substance Use Type: Marijuana service: No Current occupational status: unemployed Cognitive needs: No Hearing needs: No Vision needs: No Questionnaire Thrive Questionnaire Date Thrive assessed: 12/01/24 BROOKE-7 AMB Questionnaire BROOKE-7 Date BROOKE - 7 assessed: 03/16/24 Source: Developed by Drs. Jaime Waldron, Hortencia Salgado, Home Dey and colleagues, with an educational hong from [employer]. Review of Systems Const All systems reviewed & are unremarkable except as noted in HPI and below Eyes Reports no additional complaints ENT Reports no additional complaints Card Reports no additional complaints Resp Reports no additional complaints GI Reports no additional complaints Reports no additional complaints Physical exam (Primary Care) Vital Signs: Last Vital Signs Temp 97.6 F 12/01/24 14:32 Pulse 75 12/01/24 14:32 Resp 18 12/01/24 14:32 BP 118/74 12/01/24 14:32 Pulse Ox 99 12/01/24 14:32 Oxygen Delivery Method Room Air 12/01/24 14:32 BMI result Body Mass Index 21.3 Tobacco/Smoking Status: Tobacco use Status Tobacco use date assessed 05/25/24 12/01/24 14:37 Patient Tobacco Use Status Current everyday Tobacco 12/01/24 14:37 Tobacco use type Cigarette 12/01/24 14:37 e-Cigarette/Vaping Use Never Used 12/01/24 14:37 Thrive Assessment: Date of Thrive Assessment Date Thrive assessed 12/01/24 12/01/24 14:37 Const General: no acute distress HENMT Head: Yes normal to inspection Face and sinus: Yes normal facial exam Eyes General: appearance normal, both eyes and all related structures Neck Neck: Yes supple Resp Effort & Inspection: normal respiratory effort Auscultation: clear to auscultation bilaterally Cardio Rhythm: regular rhythm Heart sounds: S1 normal heart sound present and S2 normal heart sound present GI Inspection: Yes normal to inspection Palpation (GI): Soft to palpation Percussion: Yes normal to percussion Auscultation: normal bowel sounds Extrem Other: 1+ pitting edema bilaterally Coding Level of Care Code Est Pt Level 4 (11353) Complex EM visit Add On G2211 Diagnoses Cardiomyopathy I42.9 Hypothyroidism E03.9 Hyperlipidemia E78.5 Nicotine dependence, cigarettes, uncomplicated F17.210 Tooth abscess K04.7 Assessment & Plan Assessment & Plan (1) Cardiomyopathy: Comment: [facility] 02/20/24 for NSTEMI, Echo EF 38%, basal to mid septal segments hypokinetic, cardiac cath nl coronaries, 07/2024 heart fMRI nl LVEF 52%, NO FOCAL WALL MOTION ABNORMALITIES NORMAL RIGHT VENTRICLE SIZE AND FUNCTION NORMAL VALVES Code(s): I42.9 - Cardiomyopathy, unspecified Category: Medical Plan: Continue lisinopril and metoprolol check BNP today. EKG showed normal sinus rhythm no ST-T changes. Patient will stop aspirin (2) Hypothyroidism: Code(s): E03.9 - Hypothyroidism, unspecified Category: Medical Plan: Continue levothyroxine check TSH (3) Hyperlipidemia: Code(s): E78.5 - Hyperlipidemia, unspecified Category: Medical Plan: Continue statin if cholesterol is low atorvastatin will be decreased to a half a dose (4) Nicotine dependence, cigarettes, uncomplicated: Comment: (onset 14yo, for 49 years at 07/17-1 ppd. 35+PYH) Code(s): F17.210 - Nicotine dependence, cigarettes, uncomplicated Category: Medical Plan: Tobacco quitting discussed with the patient she is established with lung cancer screening program (5) Tooth abscess: Code(s): K04.7 - Periapical abscess without sinus Category: Medical Plan: Patient is medically cleared for dental surgery Orders: Orders Complete Blood Count Auto Diff Today I42.9 - Cardiomyopathy, unspecified B Type Natriuretic Peptide Today I42.9 - Cardiomyopathy, unspecified Lipid Panel Today I42.9 - Cardiomyopathy, unspecified Vitamin D 25-OH Total Today I42.9 - Cardiomyopathy, unspecified AMB EKG-In Office Today E03.9 - Hypothyroidism, unspecified, E78.5 - Hyperlipidemia, unspecified, I42.9 - Cardiomyopathy, unspecified Comprehensive Met. Panel Today I42.9 - Cardiomyopathy, unspecified TSH reflex Free T4 Today I42.9 - Cardiomyopathy, unspecified Medications: Discontinued ondansetron Discontinued Reason: Doctor's Order 4 mg PO Q6-8H PRN 10 tabs 0RF nausea and vomiting cyclobenzaprine Discontinued Reason: Doctor's Order 5 mg PO BID 90 tabs 3RF
== END 2024-12-01 15:15 | disposition home or self-care (01) ==
LOC: HO.HMCC 14:03
PROVIDERS: PCP Internal Medicine; Visit Provider Internal Medicine
DX: I42.9 Cardiomyopathy, unspecified (principal); E03.9 Hypothyroidism, unspecified; E78.5 Hyperlipidemia, unspecified; F17.210 Nicotine dependence, cigarettes, uncomplicated; K04.7 Periapical abscess without sinus

== ENCOUNTER 2024-12-01 14:00 | Outpatient (REF) | payer OTHER, SELFPAY ==
--- OUTSIDE RECORDS SUMMARY | 2024-12-01 15:12 | XMS_ITS | Clinical Summary ---
Author Organization [facility] Address [address] [place] [address] Care Team Providers Care Clerk Specialist Name Role Phone Marcie Chatterjee MD Primary Care Provider [phone] Surgical History Surgery Date Site/Laterality Comments HERNIA REPAIR PROCEDURE: OR REPAIR FIRST ABDOMINAL WALL HERNIA HYSTERECTOMY PROCEDURE: HISTORICAL HYSTERECTOMY TOTAL KNEE ARTHROPLASTY PROCEDURE: OR ARTHRP KNE CONDYLE&PLATU MEDIAL&LAT COMPARTMENTS Social History [...] age to complete this topic Care Teams Clerk Specialist Relationship Specialty Start Date End Date Marcie Chatterjee MD PCP - General Internal Medicine 02/07/22
[2024-12-01 16:21] LABS: MANUAL DIFF FLAG NO
[2024-12-01 16:36] LABS: Basophils Absolute Auto 0.1 X10*3/uL (0.0-0.2); Eosinophils Absolute Auto 0.4 X10*3/uL (0.0-0.4); Hemoglobin 14.5 g/dl (12.0-16.0); Imm Gran Abs Auto 0.02 X10*3/uL (0.00-0.03); Imm Gran Pct Auto 0.3 % (0.0-0.4); Lymphocytes Absolute Auto 2.2 X10*3/uL (1.2-4.9); Lymphocytes Percent Auto 28.1 % (20-40); Mean Corpuscular Hemoglobin 30.3 pg (27.0-33.0); Mean Corpuscular Volume 92.1 fL (80.0-98.0); Mean Platelet Volume 10.6 fL (9.4-12.3); Monocytes Absolute Auto 0.6 X10*3/uL (0.1-1.2); Monocytes Percent Auto 7.9 % (2-11); Neutrophils Absolute Auto 4.5 x10*3/uL (2.0-8.3); Neutrophils Percent Auto 57.7 % (45-73); Platelet Count 266 X10*3/uL (160-400); Red Blood Count 4.78 X10*6/uL (4.20-5.50); Red Cell Distribution Width 14.6 % (11.0-16.0); White Blood Count 7.8 X10*3/uL (4.8-10.8)
[2024-12-01 16:54] LABS: B Type Natriuretic Peptide 44 pg/mL (<100)
[2024-12-01 17:12] LABS: Alanine Aminotransferase 24 U/L (0-31); Albumin Level 4.2 g/dL (3.5-5.0); Alkaline Phosphatase 65 U/L (39-117); Anion Gap 11 (12-20); Aspartate Amino Transferase 27 U/L (5-31); Bilirubin Total 0.3 mg/dL (0.0-1.0); Blood Urea Nitrogen 19 mg/dL (9-16); Calcium 9.3 mg/dL (8.4-10.2); Carbon Dioxide 26 mmol/L (22-29); Chloride 109 mmol/L (96-108); Cholesterol 211 mg/dL (<200); Estimated Glomerular Filt Rate > 60; Glucose Random 76 mg/dL (60-115); HDL Cholesterol 73 mg/dL (>40); LDL Cholesterol Calculated 121 mg/dL (<100); Potassium 4.5 mmol/L (3.3-5.1); Sodium 141 mmol/L (135-145); Total Protein 6.8 g/dL (6.5-8.0); Triglycerides 87 mg/dL (<150)
[2024-12-01 17:16] LABS: TSH reflex Free T4 3.75 uIU/mL (0.32-4.0); Vitamin D 25-OH Total 33.3 ng/mL (>30)
== END 2024-12-01 14:01 | disposition home or self-care (01) ==
LOC: HO.HMGCLDS 14:00
PROVIDERS: PCP Internal Medicine; Visit Provider Internal Medicine
DX: Z01.818 Encounter for other preprocedural examination (principal); K04.7 Periapical abscess without sinus; I10 Essential (primary) hypertension; E78.5 Hyperlipidemia, unspecified; E03.9 Hypothyroidism, unspecified; F41.9 Anxiety disorder, unspecified; I42.9 Cardiomyopathy, unspecified; F17.210 Nicotine dependence, cigarettes, uncomplicated; Z79.899 Other long term (current) drug therapy
CPT/HCPCS: 36415; 80053; 80061; 82306; 83880; 84443; 85025; 99212

== ENCOUNTER 2025-01-14 10:10 | Inpatient (IN) | payer OTHER, SELFPAY ==
--- NOTE | ~2025-01-14 | CT_ITS ---
CLINICAL HISTORY: abd pain, nausea, vomiting Exam: CT abdomen and pelvis with IV contrast Comparison: None Findings: Unremarkable lung bases. Mild subpleural parenchymal scar of the lower lobes medially bilaterally. Liver, gallbladder, spleen, pancreas, left adrenal gland, right kidney, bladder are unremarkable. Right adrenal gland is not definitely seen. Left renal cyst 1.8 cm medial interpolar region, 7 mm angiomyolipoma anterior upper. Too small to characterize hypodensity of the right kidney upper pole. Hysterectomy, ovaries are not seen, no adnexal mass. A few diverticula of the ascending colon, negative for acute diverticulitis. Unremarkable stomach and small bowel. Appendix is not seen, no pericecal inflammation. Atherosclerotic disease, nonaneurysmal aorta. No bulky lymph nodes, no ascites or pneumoperitoneum. Osteoporosis. Grade 1 anterolisthesis L4-5. Degenerative changes of the lumbar spine. Impression: No acute finding. This document has been electronically signed by: Laisha Jacob MD on 01/14/2025 12:17:15
[2025-01-14 10:16] VITALS: BP 124/80; PULSE 84; O2SAT 99
[2025-01-14 10:17] VITALS: BP 132/95; PULSE 86; RESP 18; TEMP 36.9; O2SAT 99; BMI 22.7
--- OUTSIDE RECORDS SUMMARY | 2025-01-14 10:31 | XMS_ITS | Clinical Summary ---
Author Organization [facility] Address [address] [place] [address] Care Team Providers Care Field Seismologist Name Role Phone Marcie Chatterjee MD Primary Care Provider [phone] Surgical History Surgery Date Site/Laterality Comments HERNIA [...] age to complete this topic Care Teams Field Seismologist Relationship Specialty Start Date End Date Marcie Chatterjee MD PCP - General Internal Medicine 02/07/22
[2025-01-14 10:56] LABS: MANUAL DIFF FLAG NO
[2025-01-14 10:58] LABS: Hematocrit 45.8 % (37.0-47.0); Hemoglobin 16.0 g/dl (12.0-16.0); Imm Gran Abs Auto 0.04 X10*3/uL (0.00-0.03); Imm Gran Pct Auto 0.4 % (0.0-0.4); Lymphocytes Absolute Auto 1.4 X10*3/uL (1.2-4.9); Mean Corpuscular HGB Conc 34.9 g/dl (31.0-35.0); Mean Corpuscular Hemoglobin 30.5 pg (27.0-33.0); Mean Corpuscular Volume 87.4 fL (80.0-98.0); NRBC Abs Auto 0.000 X10*3/uL (0.0-0.012); NRBC Pct Auto 0.0 /100WBC (0.0-0.2); Platelet Count 254 X10*3/uL (160-400); Red Blood Count 5.24 X10*6/uL (4.20-5.50); White Blood Count 10.8 X10*3/uL (4.8-10.8)
--- NOTE | 2025-01-14 11:04 | ED_ITS ---
HPI - General Adult General Chief complaint: Abdominal Pain Stated complaint: NAUSEA,VOMITING ARMS/LEGS CRAMP X3 DAYS PER EMS Time Seen by Provider: 01/14/25 11:03 Source: patient and EMS Mode of arrival: EMS Limitations: no limitations History of Present Illness ED Provider: Jenny Aguirre PA-C HPI narrative: Patient is a 64 year old assigned female at with a history of hypothyroidism, asthma, tobacco use, cardiomyopathy, and anxiety presenting to the emergency department today with 3 days of nausea, vomiting, and abdominal pain. Patient states that over the last 3 days she has had diffuse abdominal pain with associated nausea and vomiting that is not improving. Patient denies any dizziness, lightheadedness, fever, chills, blurry vision, double vision, loss of vision, chest pain, difficulty breathing, shortness of breath, back pain, night sweats, pain with urination, increased urinary frequency, increased urinary urgency, blood in her urine or stool, syncope or a near syncopal episode, recent trauma or falls, bowel incontinence, bladder incontinence, or any other complaints at this time. Onset (ago): day(s) () Relieving factors: none Exacerbating factors: none Associated symptoms: nausea/vomiting Treatments prior to arrival: none Related Data Home Medications ?Medication ?Instructions ?Recorded ?Confirmed aspirin 81 mg tablet 81 mg PO DAILY 01/14/2511/05 cyclobenzaprine 5 mg tablet 5 mg PO DAILY PRN Muscle S pasm 01/14/25 01/14/25 lidocaine 5 % topical patch 1 patch topical DAILY PRN Pain 01/14/25 01/14/25 omeprazole 40 mg capsule,delayed 40 mg PO DAILY@0630 0 01/14/25 01/14/25 release ondansetron 4 mg disintegrating 4 mg PO Q6H PRN nausea /vomiting 01/14/25 01/14/25 tablet Previous Rx's ?Medication ?Instructions ?Recorded cholecalciferol (vitamin D3) 50 50 mcg PO DAILY #90 ca ps 07/27/23 mcg (2,000 unit) capsule albuterol sulfate 90 mcg/actuation 2 puff inhalation Q 6H PRN 11/10/23 aerosol inhaler (Ventolin HFA) shortness of breath or wheezing #8.5 grams acetaminophen 650 mg 650 mg PO Q8H #90 tabs 11/12 tablet,extended release atorvastatin 80 mg tablet 80 mg PO DAILY #90 tabs 05/14 09/06 levothyroxine 50 mcg tablet 50 mcg PO DAILY #90 tabs 0 12/01/24 lisinopril 5 mg tablet 5 mg PO DAILY #90 tabs 12/01 metoprolol succinate 25 mg 25 mg PO DAILY #90 tabs tablet,extended release 24 hr sertraline 50 mg tablet 50 mg PO DAILY #90 tabs 11/12 08/07 Allergies Allergy/AdvReac Type Severity Reaction Status Date / Time Penicillins (PENICILLINS) Allergy Intermediate RASH Verified 01/14/25 10:20 codeine (CODEINE) Allergy Mild RASH Verified 01/14/25 10:20 penicillin V Allergy Unknown unknown Verified 01/14/25 10:20 olmesartan AdvReac Intermediate Dizziness Verified 01/14/25 10:20 meloxicam AdvReac Unknown vomiting Verified 01/14/25 10:20 Review of Systems 2 Constitutional: Constitutional: Reports no additional constitutional complaints, Denies chills, Denies fever(s) and Denies night sweats Eyes: Eyes: Reports no additional eye complaints, Denies blurry vision, Denies change in vision, Denies diplopia, Denies eye discharge, Denies loss of vision and Denies eye pain ENT: Denies dizziness Cardiovascular: Cardiovascular: Reports no additional cardiovascular complaints, Denies chest pain, Denies lightheadedness, Denies Loss of Consciousness and Denies dyspnea Respiratory: Respiratory: Reports no additional respiratory complaints and Denies dyspnea Gastrointestinal: Gastrointestinal: Reports no additional gastrointestinal complaints, Reports abdominal pain, Denies melena, Denies hematochezia, Denies change in bowel habits, Denies change in stool character, Reports nausea and Reports vomiting Genitourinary: Genitourinary: Denies hematuria, Denies urinary frequency, Denies dysuria, Denies urinary incontinence, Denies urinary hesitancy and Denies urinary urgency Musculoskeletal: Musculoskeletal: Reports no additional musculoskeletal complaints, Denies numbness and Denies tingling Neurologic: Denies dizziness, Denies loss of vision, Denies numbness and Denies tingling Psychiatric: Psychiatric: Reports no additional psychiatric complaints Endocrine: Endocrine: Reports no additional endocrine complaints Hematologic/Lymphatic: Hematologic/Lymphatic: Reports no additional hematologic/lymphatic complaints Allergic/Immunologic: Allergic/Immunologic: Reports no additional allergic/immunologic complaints PMFSH Past Medical History Attestation statement: The following information was validated with the patient. Source: old records reviewed and nursing notes reviewed Medical History Cardiomyopathy Hyperlipidemia Hypothyroidism Adrenal adenoma Hiatal hernia Nicotine dependence, cigarettes, uncomplicated Asthma Raynaud disease Arthritis Carpal tunnel syndrome of right wrist Tibia fracture History of spinal fracture History of mammogram Surgical History History of adrenal surgery History of hysterectomy History of umbilical hernia repair History of incisional hernia repair History of esophagogastroduodenoscopy (EGD) History of colonoscopy Family History Family History Father Stroke Mother No problems noted. Brother No problems noted. Sister No problems noted. Sister No problems noted. Sister No problems noted. Son No problems noted. Daughter No problems noted. Social History Social History Housing: House Alcohol intake: never Patient Tobacco Use Status: Current everyday Tobacco user Tobacco use type: Cigarette Cigarettes Per Day: 3 Years Smoked: 49, ranging from 0.25 to 1 ppd Smoked in Last 30 Days: Yes e-Cigarette/Vaping Use: Never Used Use of substances other than those prescribed or required for medical reasons: Yes Substance Use Type: Marijuana Advance Directives: No Advance Directives Information Provided: No Do you have a plan to hurt others: No Plan service: No Current occupational status: unemployed Cognitive needs: No Hearing needs: No Vision needs: No Physical Exam ED Vital Signs: Vital Signs - 24 hr 01/14/25 10:17 01/14/25 11:26 Temperature 98.5 F Pulse Rate 86 88 Respiratory Rate 18 17 Blood Pressure 132/95 H 143/88 H Pulse Oximetry 99 97 Oxygen Delivery Method Room Air BMI result Body Mass Index 22.7 Const General: cooperative, no acute distress, alert and awake Nutritional Appearance: well nourished Orientation/consciousness: patient oriented x3 HENMT Head: Yes normal to inspection and Yes atraumatic Ears: hearing grossly normal bilaterally and external ears normal General nose exam: Normal external nose present, no nasal discharge noted and no epistaxis Face and sinus: Yes normal facial exam, No abrasion and No laceration Mouth: Normal oral and palatal mucosa present, no drooling and no muffled voice Eyes General: appearance normal, both eyes and all related structures Periorbital: periorbital findings normal Eyelids: Yes eyelids normal Conjunctivae: conjunctivae normal Pupils: Equal, round and reactive pupils present EOM: EOMs intact bilaterally Neck Neck: Yes normal visual inspection, Yes full ROM and Yes no lymphadenopathy Resp Effort & Inspection: normal respiratory effort and able to speak in complete sentences GI Palpation (GI): Soft to palpation, not firm, Tenderness to palpation present (GI), no guarding and not rigid Neuro General: patient oriented x3, moves all extremities and CN's II-XI intact bilaterally Cranial nerves: Yes Equal, round and reactive pupils present Cognition (Neuro): normal cognition Extrem General: Yes normal to inspection, Yes full ROM and Yes capillary refill normal Psych Appearance: grossly normal Mental Status: mental status grossly normal Affect: normal affect Attitude: cooperative Thought process: Normal thought process present Thought content: Normal thought content present Insight: Good insight present (Psych) Medications Administered Generic Name Dose Route Start Last Admin Trade Name Freq PRN Reason Stop Dose Admin Enoxaparin Sodium 30 mg 01/14/25 13:00 01/14/25 13:26 Enoxaparin Sodium 30 Mg/0.3 Ml Syringe SUBCUT 30 mg Q24H MICHAEL Administration Lactated Ringer's 1,000 mls @ 100 mls/hr 01/14/25 13:00 01/14/25 13:26 Lr IVCONT 100 mls/hr .Q10H MICHAEL Administration Discontinued Medications Generic Name Dose Route Start Last Admin Trade Name Freq PRN Reason Stop Dose Admin Sodium Chloride 1,000 mls @ 999 mls/hr 01/14/25 11:45 01/14/25 12:39 Ns IV 01/14/25 12:45 Infused .Q1H1M MICHAEL Infusion Iohexol 85 ml 01/14/25 11:38 01/14/25 11:39 Iohexol 350 Mg/Ml 100 Ml Infus..Btl IV 01/14/25 11:39 85 ml ONCE ONE Administration Morphine Sulfate 4 mg 01/14/25 11:11 01/14/25 11:22 Morphine Sulfate 4 Mg/Ml Cartridge IVPUSH 01/14/25 11:12 4 mg ONCE ONE Administration Protocol Medical Decision Making Medical Decision Making MDM Narrative: Patient is a 64 year old assigned female at with a history of hypothyroidism, asthma, tobacco use, cardiomyopathy, and anxiety presenting to the emergency department today with 3 days of nausea, vomiting, and abdominal pain. Patient's physical exam was as noted in the physical exam portion of this note. Patient's blood work showed a BUN of 26 and CR of 1.52 but otherwise unremarkable. Patient's BUN + CR are elevated compared to her previous (19 and 0.77 [address] abd/pelvis showed no acute process. Given the patient has an ESTHER, patient was given IV fluids and will be admitted to the hospital. I spoke with the hospitalist team who agreed to admission. I explained my physical exam findings as well as all test results to the patient. I answered all questions asked by the patient. Patient verbalized agreement and understanding with this treatment plan and admission. Differential Diagnosis Differential Diagnoses: The differential diagnosis associated with the presentation includes Nausea Vomiting ESTHER Abdominal pain Admission/Observation Consideration of admission/observation: Escalation of care including admission/observation considered Patient admitted as noted in the MDM Rationale portion of this note. Consult Healthcare Provider Management of the patient was discussed with: Hospitalist (agreed to admission as noted in the MDM Rationale portion of this note. ) Lab Data [facility] Lab Attestation statement: I reviewed the patient's lab results. My interpretation of these results are in the MDM Rationale portion of this note. 01/14/25 10:53 01/14/25 10:53 Labs: Lab Results 01/14/25 Range/Units 10:53 WBC 10.8 (4.8-10.8) X10*3/uL RBC 5.24 (4.20-5.50) X10*6/uL Hgb 16.0 (12.0-16.0) g/dl Hct 45.8 (37.0-47.0) % MCV 87.4 (80.0-98.0) fL MCH 30.5 (27.0-33.0) pg MCHC 34.9 (31.0-35.0) g/dl RDW 14.1 (11.0-16.0) % Plt Count 254 (160-400) X10*3/uL MPV 9.9 (9.4-12.3) fL Immature Gran % (Auto) 0.4 (0.0-0.4) % Neut % (Auto) 79.0 H (45-73) % Lymph % (Auto) 12.6 L (20-40) % Antelope % (Auto) 7.8 (2-11) % Eos % (Auto) 0.0 (0-4) % Baso % (Auto) 0.2 (0-2) % Lymph # (Auto) 1.4 (1.2-4.9) X10*3/uL Antelope # (Auto) 0.8 (0.1-1.2) X10*3/uL Eos # (Auto) 0.0 (0.0-0.4) X10*3/uL Baso # (Auto) 0.0 (0.0-0.2) X10*3/uL Abs Immat Gran (auto) 0.04 H (0.00-0.03) X10*3/uL Absolute Neuts (auto) 8.5 H (2.0-8.3) x10*3/uL Absolute Nucleated RBC 0.000 (0.0-0.012) X10*3/uL Nucleated RBC % (auto) 0.0 (0.0-0.2) /100WBC Sodium 137 (135-145) mmol/L Potassium 4.3 (3.3-5.1) mmol/L Chloride 100 (96-108) mmol/L Carbon Dioxide 19 L (22-29) mmol/L Anion Gap 22 H (12-20) BUN 26 H (9-16) mg/dL Creatinine 1.52 H (0.5-1.4) mg/dL Estim Creat Clear Calc 25.5 Estimated GFR 35 Random Glucose 100 (60-115) mg/dL Calcium 9.7 (8.4-10.2) mg/dL Magnesium 1.9 (1.6-2.6) mg/dL Total Bilirubin 0.4 (0.0-1.0) mg/dL Direct Bilirubin 0.1 (0.0-0.5) mg/dL AST 39 H (5-31) U/L ALT 27 (0-31) U/L Alkaline Phosphatase 69 (39-117) U/L Total Protein 8.2 H (6.5-8.0) g/dL Albumin 5.2 H (3.5-5.0) g/dL Lipase 70 (8-78) U/L TSH 3.48 (0.32-4.0) uIU/mL Free T4 1.08 (0.71-1.85) ng/dL Influenza Type A (PCR) NEGATIVE (Negative) Influenza Type B (PCR) NEGATIVE (Negative) RSV RNA Qual (PCR) NEGATIVE (Negative) SARS-CoV-2 RNA (RT-PCR) NEGATIVE (Negative) Independent Interpretation I performed an independent interpretation of an: CT Scan Interpretation: My interpretation is in agreement with the radiologist's impression of this imaging study. L Report Number: [id number]: Total DLP = 230.00 mGy-cm CLINICAL HISTORY: abd pain, nausea, vomiting Exam: CT abdomen and pelvis with IV contrast Comparison: None Findings: Unremarkable lung bases. Mild subpleural parenchymal scar of the lower lobes medially bilaterally. Liver, gallbladder, spleen, pancreas, left adrenal gland, right kidney, bladder are unremarkable. Right adrenal gland is not definitely seen. Left renal cyst 1.8 cm medial interpolar region, 7 mm angiomyolipoma anterior upper. Too small to characterize hypodensity of the right kidney upper pole. Hysterectomy, ovaries are not seen, no adnexal mass. A few diverticula of the ascending colon, negative for acute diverticulitis. Unremarkable stomach and small bowel. Appendix is not seen, no pericecal inflammation. Atherosclerotic disease, nonaneurysmal aorta. No bulky lymph nodes, no ascites or pneumoperitoneum. Osteoporosis. Grade 1 anterolisthesis L4-5. Degenerative changes of the lumbar spine. Impression: No acute finding. This document has been electronically signed by: Laisha Jacob MD on 01/14/2025 12:17:15 Dictated By: Laisha Jacob MD Signed By: Electronically signed by Laisha Jacob MD 01/14/25 1218 Radiology Impression Discussion of test interpretation with radiology: I have reviewed the radiologist's reading. Independent Historian Clinical information obtained from an independent historian. History obtained from or confirmed by: EMS (EMS provided additional history and confirmed the history provided by the patient.) Critical Care Time Critical Care Time Critical Care Time: Yes Total Critical Care Time: 31 Attestation: I spent 31 minutes of Critical Care Time with this patient. This does not include time spent on separately reported billable procedures. Discharge Plan Discharge Clinical Impression: Acute kidney injury Patient Disposition: Admitted As Inpatient Interventions: Admission Worksheet (ED) Last Done: 01/14/25 13:47
[2025-01-14 11:19] LABS: Alanine Aminotransferase 27 U/L (0-31); Albumin Level 5.2 g/dL (3.5-5.0); Alkaline Phosphatase 69 U/L (39-117); Anion Gap 22 (12-20); Aspartate Amino Transferase 39 U/L (5-31); Blood Urea Nitrogen 26 mg/dL (9-16); Calcium 9.7 mg/dL (8.4-10.2); Carbon Dioxide 19 mmol/L (22-29); Chloride 100 mmol/L (96-108); Creatinine Clr Calc Pharmacy 25.5; Estimated Glomerular Filt Rate 35; Lipase 70 U/L (8-78); Potassium 4.3 mmol/L (3.3-5.1); Sodium 137 mmol/L (135-145); Total Protein 8.2 g/dL (6.5-8.0)
[2025-01-14 11:26] VITALS: BP 143/88; PULSE 88; RESP 17; O2SAT 97
[2025-01-14 11:39] LABS: Resp Syncy Virus RNA Qual PCR NEGATIVE (Negative); SARS COV2 PCR INHOUSE NEGATIVE (Negative)
[2025-01-14] MEDS: iohexoL 350 MG/ML 100 ML INFUS..BTL 85 ML IV (11:39)
[2025-01-14 12:48] LABS: Free T4 (Free Thyroxine) 1.08 ng/dL (0.71-1.85); Magnesium 1.9 mg/dL (1.6-2.6); Thyroid Stimulating Hormone 3.48 uIU/mL (0.32-4.0)
[2025-01-14] MEDS: Lactated Ringers 1,000 ML 100 ML IVCONT ×2 (13:26→22:31)
--- NOTE | 2025-01-14 13:31 | PHA.MEDREC ---
Pharmacy Consult ? Medication Reconciliation Pharmacy has completed the medication reconciliation. Spoke to patient at bedside, she knew some of her medications and still takes Cylcobenzaprine and Zofran PRN. She also states she is taking a baby aspirin daily. The rest were confirmed by asking her about pharmacy claims.
--- NOTE | 2025-01-14 14:19 | PM.IMHP ---
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 Symptoms worsened last night and has since then become unrelenting. He is unable to anything by mouth. Pt with similar presentations to the ED over the past few years and has been ascribed to cyclic vomiting syndrome likely secondary to marijuana use. Pt reports has been smoking marijuana for over 50 years, but only recently started with episodes of intractable nausea and vomiting. Does not believe that there is any connection between her marijuana use and episodes of nausea vomiting. Chills but no measured fever. Denies shortness or breath or difficulty breathing. No chest pain/pressure, palpitations. In the ED pt was hypertensive 2/85, vitals otherwise stable. Labs were significant for BUN 26 and creatinine 1.57 (previous 0.77). Otherwise grossly unremarkable and around baseline for pt. No leukocytosis. Stable H&H. No significant electrolyte abnormalities. Tested negative for flu, COVID, RSV. CT of abd/pelvis negative for acute findings. Pt was treated in the ED with morphine and IVF. Pt is admitted to the hospital for treatment and further evaluation of ESTHER in the setting of intractable nausea and vomiting. Review of Systems Review of Systems: Negative except for that which is stated in the HPI. [facility] Medical History Cardiomyopathy Hyperlipidemia Hypothyroidism Adrenal adenoma Hiatal hernia Nicotine dependence, cigarettes, uncomplicated Asthma Raynaud disease Arthritis Carpal tunnel syndrome of right wrist Tibia fracture History of spinal fracture History of mammogram Family History Father Stroke Mother No problems noted. Brother No problems noted. Sister No problems noted. Sister No problems noted. Sister No problems noted. Son No problems noted. Daughter No problems noted. Surgical History History of adrenal surgery History of hysterectomy History of umbilical hernia repair History of incisional hernia repair History of esophagogastroduodenoscopy (EGD) History of colonoscopy Social History Household Members: None Housing: Apartment Do you presently have visiting nurse or other home services: No Alcohol intake: never Patient Tobacco Use Status: Current everyday Tobacco user Tobacco use type: Cigarette Cigarettes Per Day: 4 Years Smoked: 49, ranging from 0.25 to 1 ppd Smoked in Last 30 Days: Yes e-Cigarette/Vaping Use: Never Used Patient Interested in Nicotine Replacement: No Patient Given Instructions on How to Stop Smoking: No Use of substances other than those prescribed or required for medical reasons: Yes Substance Use Type: Marijuana Have you been hit, kicked, punched, or otherwise hurt by someone within the past year? If so, by whom?: No Do you feel safe in your current relationship?: No Current Relationship Is there a partner from a previous relationship who is making you feel unsafe now?: No Are you made to feel afraid or neglected: No Advance Directives: No Advance Directives Information Provided: No Do you have a plan to hurt others: No Plan Recently lost weight without trying: No Eating poorly because of decreased appetite: No Nutrition Risks: No Nutritional Risk Patient : No : No Poor oral hygiene: No service: No Current occupational status: unemployed Cognitive needs: No Hearing needs: No Vision needs: No Meds Allergies Allergy/AdvReac Type Severity Reaction Status Date / Time Penicillins (PENICILLINS) Allergy Intermediate RASH Verified 01/14/25 10:20 codeine (CODEINE) Allergy Mild RASH Verified 01/14/25 10:20 penicillin V Allergy Unknown unknown Verified 01/14/25 10:20 olmesartan AdvReac Intermediate Dizziness Verified 01/14/25 10:20 meloxicam AdvReac Unknown vomiting Verified 01/14/25 10:20 Active Medications: Current Medications Acetaminophen (Acetaminophen 325 Mg Tablet) 650 mg PO Q6H PRN PRN Reason: Pain, Mild 1-3,fever,headache Calcium Carbonate (Calcium Carbonate 750 Mg Tab.Chew) 750 mg PO Q4H PRN PRN Reason: Heartburn Enoxaparin Sodium (Enoxaparin Sodium 30 Mg/0.3 Ml Syringe) 30 mg SUBCUT Q24H MICHAEL Last Admin: 01/14/25 13:26 Dose: 30 mg Lactated Ringer's (Lr) 1,000 mls @ 100 mls/hr IVCONT .Q10H [facility] Last Admin: 01/14/25 13:26 Dose: 100 mls/hr Magnesium Hydroxide (Milk Of Magnesia 30 Ml Oral.Susp) 30 ml PO DAILY PRN PRN Reason: Constipation Melatonin (Melatonin 3 Mg Tablet) 6 mg PO BEDTIME PRN PRN Reason: Insomnia Ondansetron HCl (Ondansetron Hcl 4 Mg/2 Ml Vial) 4 mg IVPUSH Q8H PRN PRN Reason: Nausea and Vomiting Sodium Chloride (0.9 % Sodium Chloride Flush 3 Ml Syringe) 3 ml IVFLUSH QSHIFT [facility] Home Medications ?Medication ?Instructions ?Recorded ?Confirmed ?Last Taken ?Type aspirin 81 mg tablet 81 mg PO DAILY 01/14/25 01/14/25 01/13/25 History cyclobenzaprine 5 mg tablet 5 mg PO DAILY PRN Muscle Spasm 01/14/25 01/14/25 01/13/25 History lidocaine 5 % topical patch 1 patch topical DAILY PRN Pain 01/14/25 01/14/25 01/13/25 History omeprazole 40 mg capsule,delayed 40 mg PO DAILY@0630 01/14/25 01/14/25 01/13/25 History release ondansetron 4 mg disintegrating 4 mg PO Q6H PRN nausea/vomiting 01/14/25 01/14/25 01/13/25 History tablet Physical Exam Vital Signs and Narrative: Vital Signs: Last Vital Signs Temp 98.5 F 01/14/25 10:17 Pulse 88 01/14/25 11:26 Resp 17 01/14/25 11:26 BP 143/88 H 01/14/25 11:26 Pulse Ox 97 01/14/25 11:26 O2 Del Method Room Air 01/14/25 10:17 BMI result Body Mass Index 22.7 General: AOx3, no acute distress Resp: CTA bilaterally CVS: S1, S2, RRR GI: +BS, no distention, mild diffuse tenderness. No Noble's sign. Back: kyphosis Skin: Warm, dry Neuro: Cranial nerves II-XII grossly intact bilaterally. Motor grossly intact bilaterally Extremities: No edema Psych: Appropriate affect Results Labs 01/14/25 10:53 01/14/25 10:53 Labs: Laboratory Results - last 24 hr 01/14/25 10:53 MCV 87.4 MCH 30.5 MCHC 34.9 RDW 14.1 Plt Count 254 MPV 9.9 Immature Gran % (Auto) 0.4 Neut % (Auto) 79.0 H Lymph % (Auto) 12.6 L [place] % (Auto) 7.8 Eos % (Auto) 0.0 Baso % (Auto) 0.2 Lymph # (Auto) 1.4 [place] # (Auto) 0.8 Eos # (Auto) 0.0 Baso # (Auto) 0.0 Abs Immat Gran (auto) 0.04 H Absolute Neuts (auto) 8.5 H Absolute Nucleated RBC 0.000 Nucleated RBC % (auto) 0.0 Anion Gap 22 H Estim Creat Clear Calc 25.5 Estimated GFR 35 Random Glucose 100 Calcium 9.7 Magnesium 1.9 Total Bilirubin 0.4 Direct Bilirubin 0.1 AST 39 H ALT 27 Alkaline Phosphatase 69 Total Protein 8.2 H Albumin 5.2 H Lipase 70 TSH 3.48 Free T4 1.08 Influenza Type A (PCR) NEGATIVE Influenza Type B (PCR) NEGATIVE RSV RNA Qual (PCR) NEGATIVE SARS-CoV-2 RNA (RT-PCR) NEGATIVE Assessment and Plan (1) Intractable vomiting with nausea: Status: Acute (2) Acute kidney injury: Status: Acute Plan Pt is a 64-year-old female with a PMH significant for asthma, hypothyroidism,?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 Pt is admitted to the hospital for treatment and further evaluation of ESTHER in the setting of intractable nausea and vomiting. ESTHER Creatinine 1.52, elevated from previous of 0.77 Secondary to hypovolemia from intractable N/V Possibly secondary to cannabis hyperemesis syndrome CT of abdomen/pelvis negative for acute abdomen Pt given IVF in the ED Will place on maintenance fluids Antiemetics, capsaicin cream Follow creatinine Full liquid diet, advance as tolerated Pt should consider trial of marijuana cessation for 6 months Asthma Not in acute exacerbation Continue home inhalers HLD Continue statin Hypothyroidism Continue levothyroxine Cardiomyopathy Continue metoprolol HTN Continue metoprolol Hold lisinopril due to ESTHER Mood disorder Continue sertraline GERD Continue Omeprazole Full Code Attending:?Dr. Dick DVT Prophylaxis: Lovenox Pt will require a hospitalization of at least two nights for treatment of?ESTHER in the setting of intractable nausea and vomiting likely secondary to cannabis hyperemesis syndrome. Given that pt is unable to tolerate p.o. intake, they will require hospital level care for administration of IVF and close monitoring of labs. Quality Stroke Does the patient have a stroke diagnosis?: No VTE Prior VTE?: No VTE Risk Level:: Medical - moderate - high VTE Device Contraindication: Treatment Not Indicated VTE Drug Contraindication: N/A - Med Ordered
[2025-01-14 14:41] VITALS: BMI 20.2
[2025-01-14 14:44] VITALS: BP 152/85; PULSE 68; RESP 18; TEMP 37; O2SAT 97
[2025-01-14 19:24] LABS: Appearance Urine Clear; Glucose Urine UA Negative (Negative); PH 6.5 (5.0-9.0); Specific Gravity - Urine >= 1.030 (1.005-1.025); UMIC TRIGGER UACC YES
[2025-01-14 19:37] VITALS: BP 112/70; PULSE 79; RESP 18; TEMP 37.1; O2SAT 98
[2025-01-15 03:07] VITALS: BP 131/78; PULSE 56; RESP 18; TEMP 36.8; O2SAT 99
[2025-01-15 06:35] LABS: Anion Gap 13 (12-20); Blood Urea Nitrogen 18 mg/dL (9-16); Calcium 8.5 mg/dL (8.4-10.2); Carbon Dioxide 23 mmol/L (22-29); Chloride 108 mmol/L (96-108); Creatinine Clr Calc Pharmacy 36.6; Estimated Glomerular Filt Rate 58; Potassium 3.9 mmol/L (3.3-5.1); Sodium 140 mmol/L (135-145)
[2025-01-15 06:56] VITALS: BP 129/78; PULSE 64; RESP 16; TEMP 36.6; O2SAT 99
--- NOTE | 2025-01-15 07:57 | PM.DS ---
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 Symptoms worsened last night and has since then become unrelenting. He is unable to anything by mouth. Pt with similar presentations to the ED over the past few years and has been ascribed to cyclic vomiting syndrome likely secondary to marijuana use. Pt reports has been smoking marijuana for over 50 years, but only recently started with episodes of intractable nausea and vomiting. Does not believe that there is any connection between her marijuana use and episodes of nausea vomiting. Chills but no measured fever. Denies shortness or breath or difficulty breathing. No chest pain/pressure, palpitations. In the ED pt was hypertensive 2/85, vitals otherwise stable. Labs were significant for BUN 26 and creatinine 1.57 (previous 0.77). Otherwise grossly unremarkable and around baseline for pt. No leukocytosis. Stable H&H. No significant electrolyte abnormalities. Tested negative for flu, COVID, RSV. CT of abd/pelvis negative for acute findings. Pt was treated in the ED with morphine and IVF. Pt is admitted to the hospital for treatment and further evaluation of ESTHER in the setting of intractable nausea and vomiting. hospital course: The patient was admitted for the management of acute kidney injury (ESTHER) and nausea/vomiting (N/V). She received intravenous fluids (IVF) and antiemetics as needed. By the following morning, her symptoms had significantly improved. She reported feeling much better and expressed a desire to be discharged. The patient was tolerating a regular diet without further nausea or vomiting. Renal function has returned to normal levels. The patient is advised to avoid cannabis, which is believed to have contributed to her symptoms. Final diagnoses ESTHER Cyclical vomiting Time Attestation Discharge Coordination Time (in mins): 35 Quality: Safe Use of Opioids Does Pt have an Active Cancer Diagnosis on the Problem List?: No Quality: Stroke Does the patient have a stroke diagnosis?: No Physical Exam Vital Signs: Vital Signs: Last Vital Signs Temp 98 F 01/15/25 06:56 Pulse 64 01/15/25 06:56 Resp 16 01/15/25 06:56 BP 129/78 01/15/25 06:56 Pulse Ox 99 01/15/25 06:56 O2 Del Method Room Air 01/15/25 06:56 BMI result Body Mass Index 20.2 Const: Other: General: AO X 3, no acute distress Resp: CTA bilateral CVS: S1,S2,RRR GI: +BS, NT, no distention Skin: No rash Neuro: motor grossly intact Psych: appropriate affect DS: Data Data Completed and Pending Labs on day of discharge: Laboratory Results - last 24 hr 01/14/25 01/14/25 01/15/25 10:53 19:05 05:50 WBC 10.8 RBC 5.24 Hgb 16.0 Hct 45.8 MCV 87.4 MCH 30.5 MCHC 34.9 RDW 14.1 Plt Count 254 MPV 9.9 Immature Gran % (Auto) 0.4 Neut % (Auto) 79.0 H Lymph % (Auto) 12.6 L [place] % (Auto) 7.8 Eos % (Auto) 0.0 Baso % (Auto) 0.2 Lymph # (Auto) 1.4 [place] # (Auto) 0.8 Eos # (Auto) 0.0 Baso # (Auto) 0.0 Abs Immat Gran (auto) 0.04 H Absolute Neuts (auto) 8.5 H Absolute Nucleated RBC 0.000 Nucleated RBC % (auto) 0.0 Hold Purple Top Sodium 137 140 Potassium 4.3 3.9 Chloride 100 108 Carbon Dioxide 19 L 23 Anion Gap 22 H 13 BUN 26 H 18 H Creatinine 1.52 H 0.97 Estim Creat Clear Calc 25.5 36.6 Estimated GFR 35 58 Random Glucose 100 73 Calcium 9.7 8.5 D Magnesium 1.9 Total Bilirubin 0.4 Direct Bilirubin 0.1 AST 39 H ALT 27 Alkaline Phosphatase 69 Total Protein 8.2 H Albumin 5.2 H Lipase 70 TSH 3.48 Free T4 1.08 Urine Color Yellow Urine Appearance Clear Urine pH 6.5 Ur Specific [place] >= 1.030 H Urine Protein 30 (1+) H Urine Glucose (UA) Negative Urine Ketones Negative Urine Blood Small (1+) H Urine Nitrite Negative Ur Leukocyte Esterase Negative Urine RBC 6-10 H Urine WBC 0-5 Ur Squamous Epith Cells 0-2 Urine Bacteria None Seen Hyaline Casts 0-2 Influenza Type A (PCR) NEGATIVE Influenza Type B (PCR) NEGATIVE RSV RNA Qual (PCR) NEGATIVE SARS-CoV-2 RNA (RT-PCR) NEGATIVE 01/15/25 06:02 WBC RBC Hgb Hct MCV MCH MCHC RDW Plt Count MPV Immature Gran % (Auto) Neut % (Auto) Lymph % (Auto) [place] % (Auto) Eos % (Auto) Baso % (Auto) Lymph # (Auto) [place] # (Auto) Eos # (Auto) Baso # (Auto) Abs Immat Gran (auto) Absolute Neuts (auto) Absolute Nucleated RBC Nucleated RBC % (auto) Hold Purple Top SEE NOTE Sodium Potassium Chloride Carbon Dioxide Anion Gap BUN Creatinine Estim Creat Clear Calc Estimated GFR Random Glucose Calcium Magnesium Total Bilirubin Direct Bilirubin AST ALT Alkaline Phosphatase Total Protein Albumin Lipase TSH Free T4 Urine Color Urine Appearance Urine pH Ur Specific [place] Urine Protein Urine Glucose (UA) Urine Ketones Urine Blood Urine Nitrite Ur Leukocyte Esterase Urine RBC Urine WBC Ur Squamous Epith Cells Urine Bacteria Hyaline Casts Influenza Type A (PCR) Influenza Type B (PCR) RSV RNA Qual (PCR) SARS-CoV-2 RNA (RT-PCR) Discharge Plan Discharge Anticipated Discharge Date/Time: 01/15/25 07:59 Patient Disposition: Home, Self-Care Discharge Diagnosis: ESTHER, nausea and vomiting Referrals: Marcie Chatterjee MD [Primary Care Provider, Internal Medicine] - 1 Week Discharge Medications: Continued cholecalciferol (vitamin D3) 50 mcg (2,000 unit) capsule 50 mcg PO DAILY Qty: 90 3RF acetaminophen 650 mg tablet extended release 650 mg PO Q8H Qty: 90 3RF aspirin 81 mg Tablet 81 mg PO DAILY ondansetron 4 mg tablet,disintegrating 4 mg PO Q6H PRN (Reason: nausea/vomiting) cyclobenzaprine 5 mg tablet 5 mg PO DAILY PRN (Reason: Muscle Spasm) omeprazole 40 mg capsule,delayed release(DR/EC) 40 mg PO DAILY@0630 lidocaine 5 % adhesive patch,medicated 1 patch topical DAILY PRN (Reason: Pain) Rx Instructions: leave on most painful area for up to 12 hrs albuterol sulfate [Ventolin HFA] 90 mcg/actuation HFA aerosol inhaler 2 puff inhalation Q6H PRN (Reason: shortness of breath or wheezing) Qty: 8.5 3RF atorvastatin 80 mg tablet 80 mg PO DAILY Qty: 90 3RF levothyroxine 50 mcg tablet 50 mcg PO DAILY Qty: 90 3RF lisinopril 5 mg tablet 5 mg PO DAILY Qty: 90 3RF metoprolol succinate 25 mg tablet extended release 24 hr 25 mg PO DAILY Qty: 90 3RF sertraline 50 mg tablet 50 mg PO DAILY Qty: 90 3RF Discharge Orders: Discharge Order (Routine); Ordered 01/15/25 Ordered By: Perico Dick Diet: Advance to usual diet Activity on Discharge: As tolerated Stand Alone Forms: Patient Portal Discharge page Print Language: Citizen Of [place] Care Plan Goals: recovery from nausea and vomiting and kidney failure Health Concerns: cyclical vomiting acute kidney injury Plan of Treatment: drink plenty of fluid avoid canabis follow up with your doctor in a week, call for appointment Assessment: see above
[2025-01-15] MEDS: Lactated Ringers 1,000 ML 100 ML IVCONT (07:59)
[2025-01-15] MEDS: Metoprolol Succinate ER 25 MG TAB.ER.24H PO (07:59)
[2025-01-15] MEDS: Aspirin Enteric Coated 81 MG TABLET.DR PO (07:59)
--- NOTE | 2025-01-15 08:53 | MHC.CM.PN ---
PT REPORTS SHE LIVES ALONE AND IS INDEPENDENT WITH CARE SHE HAS NO DME AND NO SERVICES COPY OF HCP REQUESTED PCP TED GARCIA DCP: PT TO DC HOME TODAY WITH NO SERVICES VIA PRIVATE TRANSPORT
== END 2025-01-15 09:38 | disposition home or self-care (01) | DRG 249 ==
LOC: HO.ED 12:27 → HO.EDOVER 13:09 → HO.S3 13:44
PROVIDERS: Physician Assistant Medical; Admitting Provider Student in an Organized Health Care Education/Training Program; Emergency Provider Emergency Medicine Emergency Medical Services; PCP Internal Medicine; Visit Provider Internal Medicine
DX: R11.2 Nausea with vomiting, unspecified (principal); I42.9 Cardiomyopathy, unspecified; J45.909 Unspecified asthma, uncomplicated; F12.90 Cannabis use, unspecified, uncomplicated; E03.9 Hypothyroidism, unspecified; I10 Essential (primary) hypertension; K21.9 Gastro-esophageal reflux disease without esophagitis; E78.5 Hyperlipidemia, unspecified; Z20.822 Contact with and (suspected) exposure to COVID-19; Z79.82 Long term (current) use of aspirin; Z79.890 Hormone replacement therapy; Z79.899 Other long term (current) drug therapy
CPT/HCPCS: 36415; 74177; 80048; 80076; 81001; 83690; 83735; 84439; 84443; 85025; 87637; 99221; 99285; J1650; J2270; J7120; Q9967

== ENCOUNTER → 2025-01-14 11:11 | Outpatient (BNV) | payer OTHER, SELFPAY | PROVIDERS: Emergency Provider Emergency Medicine Emergency Medical Services; PCP Internal Medicine; Visit Provider Radiology Diagnostic Radiology | DX: N28.1 Cyst of kidney, acquired (principal) | CPT/HCPCS: 74177 ==

== ENCOUNTER → 2025-01-14 12:49 | Outpatient (BNV) | payer OTHER, SELFPAY | PROVIDERS: Admitting Provider Student in an Organized Health Care Education/Training Program; Emergency Provider Emergency Medicine Emergency Medical Services; PCP Internal Medicine; Visit Provider Student in an Organized Health Care Education/Training Program | DX: R11.2 Nausea with vomiting, unspecified (principal); N17.9 Acute kidney failure, unspecified | CPT/HCPCS: 99223; 99239 ==

== ENCOUNTER 2025-01-25 13:08 | Outpatient (AMB) | payer OTHER, SELFPAY ==
--- NOTE | 2025-01-25 13:26 | MHC.PC.OV ---
Vital Signs 01/25/25 13:35 Height 4 ft 9 in Weight 104 lb BMI 22.5 BP 124/84 Blood Pressure Location Rt brachial Position Sitting Respiration 18 Pulse 94 Pulse Source Pulse Oximeter Temp 98.2 F Temp Source Oral Pulse Oximetry (%) 99 Oxygen Delivery Method Room Air Intake Visit Reasons: Hospital follow up Intake Note: Pt is here today for Hospital follow up visit. Allergies Penicillins (PENICILLINS) Allergy (Intermediate, Verified 01/14/25 10:20) RASH codeine (CODEINE) Allergy (Mild, Verified 01/14/25 10:20) RASH penicillin V Allergy (Unknown, Verified 01/14/25 10:20) unknown olmesartan Adverse Reaction (Intermediate, Verified 01/14/25 10:20) Dizziness meloxicam Adverse Reaction (Unknown, Verified 01/14/25 10:20) vomiting Medication List - Last Reconciled 01/25/25 by Marcie Chatterjee MD acetaminophen ER 650 mg PO Q8H albuterol sulfate 90 mcg/actuation (Ventolin HFA) 2 puffs inhalation Q6H PRN aspirin 81 mg PO DAILY atorvastatin 80 mg PO DAILY cholecalciferol (vitamin D3) 50 mcg PO DAILY cyclobenzaprine 5 mg PO DAILY PRN levothyroxine 50 mcg PO DAILY lidocaine 5% 1 patch topical DAILY PRN lisinopril 5 mg PO DAILY metoprolol succinate ER 25 mg PO DAILY omeprazole 40 mg PO DAILY@0630 ondansetron 4 mg PO Q6H PRN sertraline 50 mg PO DAILY Tobacco use date assessed: 01/25/25 Dental Screening Dental Screen Date: 01/25/25 Did you have a dental visit in the last 12 months?: No Did you have a dental problem in the last 6 months where you did not have access to dental care?: No Was dental information given to patient?: Patient declined [facility] Hospital follow up HPI Details Patient presents for the follow-up of hospitalization for 24 hours for acute dehydration. Patient has been increasing fluid intake and feeling better. She is going to have oral surgery to improve denture fit. Hypertension hyperlipidemia are controlled on current medications [facility] Medical History (Updated 01/25/25 @ 14:49 by Marcie Chatterjee MD) Diarrhea Cardiomyopathy Hyperlipidemia Hypothyroidism Adrenal adenoma Hiatal hernia Nicotine dependence, cigarettes, uncomplicated Asthma Raynaud disease Arthritis Carpal tunnel syndrome of right wrist Tibia fracture History of spinal fracture History of mammogram Surgical History History of adrenal surgery History of hysterectomy History of umbilical hernia repair History of incisional hernia repair History of esophagogastroduodenoscopy (EGD) History of colonoscopy Family History Father Stroke Mother No problems noted. Brother No problems noted. Sister No problems noted. Sister No problems noted. Sister No problems noted. Son No problems noted. Daughter No problems noted. Social History Household Members: None Housing: Apartment Do you presently have visiting nurse or other home services: No Alcohol intake: never Patient Tobacco Use Status: Current everyday Tobacco user Tobacco use type: Cigarette Cigarettes Per Day: 4 Years Smoked: 49, ranging from 0.25 to 1 ppd e-Cigarette/Vaping Use: Never Used Substance Use Type: Marijuana service: No Current occupational status: unemployed Cognitive needs: No Hearing needs: No Vision needs: No Questionnaire PHQ-9 Over the last 2 weeks, how often have you been bothered by any of the following problems? 1. Little interest or pleasure in doing things: not at all 2. Feeling down, depressed, or hopeless: several days 3. Trouble falling or staying asleep, or sleeping too much: several days 4. Feeling tired or having little energy: several days 5. Poor appetite or overeating: several days 6. Feeling bad about yourself - or that you are a failure or have let yourself or your family down: more than half the days 7. Trouble concentrating on things, such as reading the newspaper or watching television: several days 8. Moving or speaking so slowly that other people could have noticed. Or the opposite - being so fidgety or restless that you have been moving around a lot more than usual: not at all 9. Thoughts that you would be better off or of hurting yourself in some way: not at all Total score: 7 Depression Screening Interpretation: Negative Depression Screening Done: Yes 06910 - PHQ-9 Billing: Yes Source: Developed by Drs. Jaime Waldron, Hortencia Salgado, Home Dey and colleagues, with an educational hong from [employer]. Thrive Questionnaire Date Thrive assessed: 12/01/24 AUDIT C Alcohol Use Questionnaire (AUDIT-C) 1. How often do you have a drink containing alcohol?: Never 3. How often do you have six or more drinks on one occasion?: Never Total Score: 0 BROOKE-7 AMB Questionnaire BROOKE-7 Date BROOKE - 7 assessed: 01/25/25 Feeling nervous, anxious, or on edge: 0 = Not at all Not being able to stop or control worryin = Not at all Worrying too much about different things: 0 = Not at all Trouble relaxin = Not at all Being so restless that it is hard to sit still: 0 = Not at all Becoming easily annoyed or irritable: 0 = Not at all Feeling afraid as if something awful might happen: 0 = Not at all Total BROOKE-7 score (0-4 normal; 5-9 mild; 10-14 moderate; 15-21 severe): 0 Source: Developed by Drs. Jaime Waldron, Hortencia Salgado, Home Dey and colleagues, with an educational hong from [employer]. BROOKE-7 Assessment Billing BROOKE-7 Assessment Tool: BROOKE-7 Assessment 18477 Review of Systems Const All systems reviewed & are unremarkable except as noted in HPI and below Eyes Reports no additional complaints Card Reports no additional complaints Resp Reports no additional complaints GI Reports no additional complaints Reports no additional complaints Physical exam (Primary Care) Vital Signs: Last Vital Signs Temp 98.2 F 01/25/25 13:35 Pulse 94 01/25/25 13:35 Resp 18 01/25/25 13:35 BP 124/84 01/25/25 13:35 Pulse Ox 99 01/25/25 13:35 Oxygen Delivery Method Room Air 01/25/25 13:35 BMI result Body Mass Index 22.5 Tobacco/Smoking Status: Tobacco use Status Tobacco use date assessed 01/25/25 01/25/25 13:37 Patient Tobacco Use Status Current everyday Tobacco 01/25/25 13:27 Tobacco use type Cigarette 01/25/25 13:27 e-Cigarette/Vaping Use Never Used 01/25/25 13:27 PHQ-9: PHQ-9 Score PHQ-9: Total score 7 01/25/25 13:57 Depression Screening Interpretation: Negative Thrive Assessment: Date of Thrive Assessment Date Thrive assessed 12/01/24 01/25/25 13:27 Const General: no acute distress HENMT Head: Yes normal to inspection Neck Neck: Yes supple Resp Effort & Inspection: normal respiratory effort Auscultation: clear to auscultation bilaterally Cardio Rhythm: regular rhythm Heart sounds: S1 normal heart sound present and S2 normal heart sound present GI Inspection: Yes normal to inspection Palpation (GI): Soft to palpation Percussion: Yes normal to percussion Auscultation: normal bowel sounds Coding Level of Care Code Est Pt Level 4 (81247) Complex EM visit Add On G2211 Diagnoses Cardiomyopathy I42.9 Hypothyroidism E03.9 Anxiety F41.9 Additional Codes BROOKE-7 Assessment Billing - BROOKE-7 Assessment Tool: BROOKE-7 Assessment 33790 ([id number]) PHQ-9 - 45264 - PHQ-9 Billing: Yes ([id number]) Assessment & Plan Assessment & Plan (1) Cardiomyopathy: Comment: [facility] 02/20/24 for NSTEMI, Echo EF 38%, cardiac cath nl coronaries, 07/2024 heart fMRI nl LVEF 52%, NO FOCAL WALL MOTION ABNORMALITIES NORMAL RIGHT VENTRICLE SIZE AND FUNCTION NORMAL VALVES, on lisinopril and beta freedom Code(s): I42.9 - Cardiomyopathy, unspecified Category: Medical Plan: Continue lisinopril and metoprolol (2) Hypothyroidism: Code(s): E03.9 - Hypothyroidism, unspecified Category: Medical Plan: Continue levothyroxine monitor TSH (3) Anxiety: Code(s): F41.9 - Anxiety disorder, unspecified Category: Medical Plan: Continue sertraline Orders: Orders Complete Blood Count Auto Diff Today E03.9 - Hypothyroidism, unspecified, I42.9 - Cardiomyopathy, unspecified B Type Natriuretic Peptide Today E03.9 - Hypothyroidism, unspecified, I42.9 - Cardiomyopathy, unspecified Comprehensive Met. Panel Today E03.9 - Hypothyroidism, unspecified, I42.9 - Cardiomyopathy, unspecified Medications: Refilled acetaminophen ER 650 mg PO Q8H 90 tabs 3RF acetaminophen ER 650 mg PO Q8H 90 tabs 3RF
[2025-01-25 13:35] VITALS: BP 124/84; PULSE 94; RESP 18; TEMP 36.8; O2SAT 99; BMI 22.5
--- OUTSIDE RECORDS SUMMARY | 2025-01-25 14:29 | XMS_ITS | Clinical Summary ---
Author Organization [facility] Address [address] [place] [address] Care Team Providers Care Director Of Strategic Alliances Name Role Phone Marcie Chatterjee MD Primary Care Provider [phone] Surgical History Surgery Date Site/Laterality Comments HERNIA REPAIR PROCEDURE: [place] REPAIR FIRST ABDOMINAL WALL HERNIA HYSTERECTOMY PROCEDURE: HISTORICAL HYSTERECTOMY TOTAL KNEE ARTHROPLASTY PROCEDURE: [place] ARTHRP KNE CONDYLE&PLATU MEDIAL&LAT COMPARTMENTS Social History [...] ars (1 of 2 - PCV) 1981 Cervical Cancer Screening: P ap Smear 1983 Zoster Vaccines (1 of 2) 02/01/2012 Colorectal Cancer Screening: Colonoscopy 06/23/2022 Depression Screening 06/23/2022 HIV Screening 06/23/2022 Hepatitis C Screening 06/23/2022 Social Influencers of Health Screening 06/23/2022 COVID-19 Vaccine ( - 2023-2 5 season) 2024 Influenza Vaccine (#1) 2025 RSV Immunization Adult Patie nts (1 [...] age to complete this topic Care Teams Director Of Strategic Alliances Relationship Specialty Start Date End Date Marcie Chatterjee MD PCP - General Internal Medicine 02/07/22
== END 2025-01-25 14:51 | disposition home or self-care (01) ==
LOC: HO.HMCC 13:10
PROVIDERS: PCP Internal Medicine; Visit Provider Internal Medicine
DX: I42.9 Cardiomyopathy, unspecified (principal); E03.9 Hypothyroidism, unspecified; F41.9 Anxiety disorder, unspecified

== ENCOUNTER 2025-01-25 13:08 | Outpatient (REF) | payer OTHER, SELFPAY ==
[2025-01-25 16:25] LABS: MANUAL DIFF FLAG NO
[2025-01-25 16:32] LABS: Hematocrit 42.4 % (37.0-47.0); Hemoglobin 14.1 g/dl (12.0-16.0); Imm Gran Abs Auto 0.02 X10*3/uL (0.00-0.03); Imm Gran Pct Auto 0.3 % (0.0-0.4); Lymphocytes Absolute Auto 2.4 X10*3/uL (1.2-4.9); Mean Corpuscular HGB Conc 33.3 g/dl (31.0-35.0); Mean Corpuscular Hemoglobin 30.4 pg (27.0-33.0); Mean Corpuscular Volume 91.4 fL (80.0-98.0); NRBC Abs Auto 0.000 X10*3/uL (0.0-0.012); NRBC Pct Auto 0.0 /100WBC (0.0-0.2); Platelet Count 274 X10*3/uL (160-400); Red Blood Count 4.64 X10*6/uL (4.20-5.50); White Blood Count 7.2 X10*3/uL (4.8-10.8)
[2025-01-25 16:49] LABS: Alanine Aminotransferase 38 U/L (0-31); Albumin Level 4.7 g/dL (3.5-5.0); Alkaline Phosphatase 66 U/L (39-117); Anion Gap 13 (12-20); Aspartate Amino Transferase 29 U/L (5-31); Blood Urea Nitrogen 17 mg/dL (9-16); Calcium 9.4 mg/dL (8.4-10.2); Carbon Dioxide 26 mmol/L (22-29); Chloride 106 mmol/L (96-108); Estimated Glomerular Filt Rate > 60; Potassium 4.5 mmol/L (3.3-5.1); Sodium 140 mmol/L (135-145); Total Protein 7.2 g/dL (6.5-8.0)
[2025-01-25 16:54] LABS: B Type Natriuretic Peptide 12 pg/mL (<100)
== END 2025-01-25 13:09 | disposition home or self-care (01) ==
LOC: HO.HMGCLDS 13:08
PROVIDERS: PCP Internal Medicine; Visit Provider Internal Medicine
DX: I42.9 Cardiomyopathy, unspecified (principal); E03.9 Hypothyroidism, unspecified; F41.9 Anxiety disorder, unspecified
CPT/HCPCS: 36415; 80053; 83880; 85025; 96127; 99212

== ENCOUNTER 2025-05-31 13:09 | Outpatient (AMB) | payer OTHER, SELFPAY ==
--- NOTE | 2025-05-31 13:11 | MHC.PC.OV ---
Vital Signs 05/31/25 13:19 Height 4 ft 9 in Weight 103 lb BMI 22.3 BP 104/68 Blood Pressure Location Lt brachial Position Sitting Respiration 17 Pulse 98 Pulse Source Pulse Oximeter Temp 97.7 F Temp Source Oral Pulse Oximetry (%) 94 Oxygen Delivery Method Room Air Intake Visit Reasons: Annual PE Intake Note: Pt is here today for PE. Pt states that she has been having chills, vomiting and abdominal cramps since yesterday. Allergies Penicillins (PENICILLINS) Allergy (Intermediate, Verified 05/31/25 13:26) RASH codeine (CODEINE) Allergy (Mild, Verified 05/31/25 13:26) RASH penicillin V Allergy (Unknown, Verified 05/31/25 13:26) unknown olmesartan Adverse Reaction (Intermediate, Verified 05/31/25 13:26) Dizziness meloxicam Adverse Reaction (Unknown, Verified 05/31/25 13:26) vomiting Medication List - Last Reconciled 05/31/25 by Marcie Chatterjee MD acetaminophen ER 650 mg PO Q8H albuterol sulfate 90 mcg/actuation (Ventolin HFA) 2 puffs inhalation Q6H PRN aspirin 81 mg PO DAILY atorvastatin 80 mg PO DAILY cholecalciferol (vitamin D3) 50 mcg PO DAILY cyclobenzaprine 5 mg PO DAILY PRN levothyroxine 50 mcg PO DAILY lidocaine 5% 1 patch topical DAILY PRN lisinopril 5 mg PO DAILY metoprolol succinate ER 25 mg PO DAILY omeprazole 40 mg PO DAILY@0630 ondansetron 4 mg PO Q6H PRN sertraline 50 mg PO DAILY Tobacco use date assessed: 01/25/25 Dental Screening Dental Screen Date: 01/25/25 HPI Annual PE HPI Details Patient presents for a physical. She complains of watery diarrhea and nausea with vomiting since yesterday. Patient denies abdominal pain fever chills hematochezia melena. She had 1 bowel movement this morning so far. Patient has been drinking fluids. [facility] Medical History (Updated 05/31/25 @ 14:15 by Marcie Chatterjee MD) Vitamin D deficiency Diarrhea Cardiomyopathy Hyperlipidemia Hypothyroidism Adrenal adenoma Hiatal hernia Nicotine dependence, cigarettes, uncomplicated Asthma Raynaud disease Arthritis Carpal tunnel syndrome of right wrist Tibia fracture History of spinal fracture History of mammogram Surgical History (Updated 05/31/25 @ 14:15 by Marcie Chatterjee MD) History of adrenal surgery History of hysterectomy History of umbilical hernia repair History of incisional hernia repair History of esophagogastroduodenoscopy (EGD) History of colonoscopy Family History Father Stroke Mother No problems noted. Brother No problems noted. Sister No problems noted. Sister No problems noted. Sister No problems noted. Son No problems noted. Daughter No problems noted. Social History Household Members: None Housing: Apartment Do you presently have visiting nurse or other home services: No Alcohol intake: never Patient Tobacco Use Status: Current everyday Tobacco user Tobacco use type: Cigarette Cigarettes Per Day: 4 Years Smoked: 49, ranging from 0.25 to 1 ppd e-Cigarette/Vaping Use: Never Used Substance Use Type: Marijuana service: No Current occupational status: employed Cognitive needs: No Hearing needs: No Vision needs: No Questionnaire Thrive Questionnaire Date Thrive assessed: 12/01/24 AUDIT C Alcohol Use Questionnaire (AUDIT-C) 1. How often do you have a drink containing alcohol?: Never 3. How often do you have six or more drinks on one occasion?: Never Total Score: 0 BROOKE-7 AMB Questionnaire BROOKE-7 Date BROOKE - 7 assessed: 01/25/25 Source: Developed by Drs. Jaime Waldron, Hortencia Salgado, Home Dey and colleagues, with an educational hong from [employer]. Review of Systems Const All systems reviewed & are unremarkable except as noted in HPI and below Eyes Reports no additional complaints ENT Reports no additional complaints Card Reports no additional complaints Resp Reports no additional complaints GI Reports no additional complaints Reports no additional complaints Physical exam (Primary Care) Vital Signs: Last Vital Signs Temp 97.7 F 05/31/25 13:19 Pulse 98 05/31/25 13:19 Resp 17 05/31/25 13:19 BP 104/68 05/31/25 13:19 Pulse Ox 94 05/31/25 13:19 Oxygen Delivery Method Room Air 05/31/25 13:19 BMI result Body Mass Index 22.3 Tobacco/Smoking Status: Tobacco use Status Tobacco use date assessed 01/25/25 05/31/25 13:11 Patient Tobacco Use Status Current everyday Tobacco 05/31/25 13:11 Tobacco use type Cigarette 05/31/25 13:11 e-Cigarette/Vaping Use Never Used 05/31/25 13:11 Thrive Assessment: Date of Thrive Assessment Date Thrive assessed 12/01/24 05/31/25 13:11 Const General: no acute distress HENMT Head: Yes normal to inspection Ears: TM's normal bilaterally Face and sinus: Yes normal facial exam Throat: Yes posterior oropharynx normal Eyes General: appearance normal, both eyes and all related structures Neck Neck: Yes no lymphadenopathy and Yes supple Resp Effort & Inspection: normal respiratory effort Auscultation: clear to auscultation bilaterally Cardio Rhythm: regular rhythm Heart sounds: S1 normal heart sound present and S2 normal heart sound present GI Inspection: Yes normal to inspection Palpation (GI): Soft to palpation Percussion: Yes normal to percussion Auscultation: normal bowel sounds Coding Level of Care Code Est Pt Prev Care 40-64y(14618) Diagnoses Hyperlipidemia E78.5 Cardiomyopathy I42.9 Vitamin D deficiency E55.9 Hypothyroidism E03.9 Nicotine dependence, cigarettes, uncomplicated F17.210 Annual physical exam Z00.00 Assessment & Plan Assessment & Plan (1) Hyperlipidemia: Code(s): E78.5 - Hyperlipidemia, unspecified Category: Medical Plan: Continue statin (2) Cardiomyopathy: Comment: [facility] 02/20/24 for NSTEMI, Echo EF 38%, cardiac cath nl coronaries, 07/2024 heart fMRI nl LVEF 52%, NO FOCAL WALL MOTION ABNORMALITIES NORMAL RIGHT VENTRICLE SIZE AND FUNCTION NORMAL VALVES, on lisinopril and beta freedom Code(s): I42.9 - Cardiomyopathy, unspecified Category: Medical Plan: Continue current medications follow-up with Cardiology (3) Vitamin D deficiency: Code(s): E55.9 - Vitamin D deficiency, unspecified Category: Medical Plan: Continue vitamin-D supplement (4) Hypothyroidism: Code(s): E03.9 - Hypothyroidism, unspecified Category: Medical Plan: Continue levothyroxine (5) Nicotine dependence, cigarettes, uncomplicated: Comment: (onset 14yo, for 49 years at 1/4-1 ppd. 35+PYH), in lung cancer screening program the most recent July 2024 Code(s): F17.210 - Nicotine dependence, cigarettes, uncomplicated Category: Medical Plan: Tobacco quitting discussed with the patient follow-up with lung cancer screening program (6) Annual physical exam: Code(s): Z00.00 - Encounter for general adult medical examination without abnormal findings Category: Medical Plan: Well-balanced diet regular physical activity discussed with the patient. She will have a fasting blood work today. Mammogram and DEXA will be scheduled Orders: Orders XR DEXA axial skeleton Today Z78.0 - Asymptomatic menopausal state Lipid Panel Today E55.9 - Vitamin D deficiency, unspecified, E78.5 - Hyperlipidemia, unspecified, I42.9 - Cardiomyopathy, unspecified UA w Microscopic Today E55.9 - Vitamin D deficiency, unspecified, E78.5 - Hyperlipidemia, unspecified, I42.9 - Cardiomyopathy, unspecified MM screening mammo BI Today Z12.31 - Encounter for screening mammogram for malignant neoplasm of breast Comprehensive [place]. Panel Fast Today E55.9 - Vitamin D deficiency, unspecified, E78.5 - Hyperlipidemia, unspecified, I42.9 - Cardiomyopathy, unspecified Complete Blood Count Auto Diff Today E55.9 - Vitamin D deficiency, unspecified, E78.5 - Hyperlipidemia, unspecified, I42.9 - Cardiomyopathy, unspecified TSH reflex Free T4 Today E55.9 - Vitamin D deficiency, unspecified, E78.5 - Hyperlipidemia, unspecified, I42.9 - Cardiomyopathy, unspecified Vitamin D 25-OH Total Today E55.9 - Vitamin D deficiency, unspecified, E78.5 - Hyperlipidemia, unspecified, I42.9 - Cardiomyopathy, unspecified Medications: Refilled cholecalciferol (vitamin D3) 50 mcg PO DAILY 90 caps 3RF atorvastatin 80 mg PO DAILY 90 tabs 3RF
[2025-05-31 13:19] VITALS: BP 104/68; PULSE 98; RESP 17; TEMP 36.5; O2SAT 94; BMI 22.3
--- OUTSIDE RECORDS SUMMARY | 2025-06-01 05:18 | XMS_ITS | Clinical Summary ---
Author Organization [facility] Address [address] [place] [address] Care Team Providers Care Sports Coordinator Name Role Phone Marcie Chatterjee MD Primary Care Provider [phone] Surgical History Surgery Date Site/Laterality Comments HERNIA REPAIR PROCEDURE: [place] REPAIR FIRST ABDOMINAL WALL HERNIA HYSTERECTOMY PROCEDURE: HISTORICAL HYSTERECTOMY TOTAL KNEE ARTHROPLASTY PROCEDURE: [place] ARTHRP KNE CONDYLE&PLATU MEDIAL&LAT COMPARTMENTS Social History [...] Last Done Comments Breast Cancer Screening 1962 Colorectal Cancer Screening: Colonoscopy 1962 DTaP,Tdap,and Td Vaccines (1 - Tdap) 1981 Pneumococcal Vaccine: 50+ Ye ars (1 of 2 - PCV) 1981 Cervical Cancer Screening: P ap Smear 1983 Zoster Vaccines (1 of 2) 02/01/2012 HIV Screening 06/23/2022 Hepatitis C Screening 06/23/2022 Social Influencers of Health Screening 06/23/2022 Depression Screening 07/14/2024 COVID-19 Vaccine (1 - 2024-2 6 season) 2025 Influenza Vaccine (#1) 2025 RSV Immunization Adult [...] age to complete this topic Care Teams Sports Coordinator Relationship Specialty Start Date End Date Marcie Chatterjee MD PCP - General Internal Medicine 02/07/22
--- OUTSIDE RECORDS SUMMARY | 2025-06-01 05:18 | XMS_ITS | Clinical Summary ---
Author Organization [facility] Address [address] [place] [id number] Phone Care Team Providers Care Judicial Clerk Name Role Phone Marcie Chatterjee MD Primary Care Provider [phone] Social History Tobacco Use Types Packs/Day Years Used Date Smoking Tobacco: Never Assessed Education Answer Date Recorded Are you interested in more education? Not on allison e 07/04/2023 Are you concerned about learning? Not on file 07/04/2023 No 07/04/2023 No 07/04/2023 Digital Access Answer Date Recorded No 07/04/2023 No 07/04/2023 Reliable internet access at home? Not on file 07/04/2023 Device with a working camera? Not on file Comments Unknown Sex and Gender Information Value Date Recorded Sex Assigned at Not on file Legal Sex Female 2:49 PM EST Gender Identity Not on file Sexual Orientation Not on file Plan of Treatment Health Maintenance Due Date Last Done Comments Adult Td,Tdap Booster 1962 LIPID PANEL 1962 DEPRESSION SCREENING 1974 SMOKING Hx and SMOKELESS TOB ACCO SCREENING 1975 HEPATITIS C SCREENING 02/01/1980 HIV ONE-TIME SCREENING (18-6 5 YEARS) 02/01/1980 PAP SMEAR 1983 MAMMOGRAM 2002 COLOGUARD 2007 COLONOSCOPY 2007 COLORECTAL CANCER SCREENING 2007 FIT TEST 2007 FOBT 2007 SIGMOIDOSCOPY 2007 VIRTUAL COLONOSCOPY 2007 PNEUMOCOCCAL VACCINES (50+ y ears) (1 of 1 - PCV) 02/01/2012 ZOSTER VACCINES (1 of 2) 02/01/2012 INFLUENZA VACCINE (#1) 2025 COVID-19 VACCINE (1 - 2024-2 6 season) 2025 RSV VACCINE (1 - 1-dose 75+ series) 2037 HEPATITIS A VACCINES Aged Out No long er eligible based on patient's age to complete this topic HIB VACCINES Aged Out No longer eligi ble based on patient's age to complete this topic IPV VACCINES Aged Out No longer eligi ble based on patient's age to complete this topic MENINGOCOCCAL VACCINES (ACWY) Aged Out No longer eligible based on patient's age to complete this topic MENINGOCOCCAL VACCINES (B) Aged Out N o longer eligible based on patient's age to complete this topic Medical Devices Not on file Insurance [facility] Care Teams Judicial Clerk Relationship Specialty Start Date End Date Marcie Chatterjee MD 1959 [facility] [place] [id number] PCP - General Internal Medicine 07/04/23 Additional Source Comments The information contained in this document represents components of the legal health record. It is not the complete legal health record.[facility]
== END 2025-05-31 14:19 | disposition home or self-care (01) ==
LOC: HO.HMCC 13:10
PROVIDERS: PCP Internal Medicine; Visit Provider Internal Medicine
DX: Z00.00 Encounter for general adult medical examination without abnormal findings (principal); E78.5 Hyperlipidemia, unspecified; I42.9 Cardiomyopathy, unspecified; E55.9 Vitamin D deficiency, unspecified; E03.9 Hypothyroidism, unspecified; F17.210 Nicotine dependence, cigarettes, uncomplicated

== ENCOUNTER 2025-05-31 13:09 | Outpatient (REF) | payer OTHER, SELFPAY ==
[2025-05-31 16:05] LABS: MANUAL DIFF FLAG NO
[2025-05-31 16:13] LABS: Appearance Urine Cloudy; Glucose Urine UA Negative (Negative); PH 5.5 (5.0-9.0); Specific Gravity - Urine 1.020 (1.005-1.025); UMIC TRIGGER UA YES
[2025-05-31 16:19] LABS: Hematocrit 49.4 % (37.0-47.0); Hemoglobin 16.3 g/dl (12.0-16.0); Imm Gran Abs Auto 0.03 X10*3/uL (0.00-0.03); Imm Gran Pct Auto 0.3 % (0.0-0.4); Lymphocytes Absolute Auto 1.6 X10*3/uL (1.2-4.9); Mean Corpuscular HGB Conc 33.0 g/dl (31.0-35.0); Mean Corpuscular Hemoglobin 30.1 pg (27.0-33.0); Mean Corpuscular Volume 91.3 fL (80.0-98.0); NRBC Abs Auto 0.000 X10*3/uL (0.0-0.012); NRBC Pct Auto 0.0 /100WBC (0.0-0.2); Platelet Count 299 X10*3/uL (160-400); Red Blood Count 5.41 X10*6/uL (4.20-5.50); White Blood Count 9.7 X10*3/uL (4.8-10.8)
[2025-05-31 16:44] LABS: Alanine Aminotransferase 18 U/L (0-31); Albumin Level 5.1 g/dL (3.5-5.0); Alkaline Phosphatase 73 U/L (39-117); Anion Gap 16 (12-20); Aspartate Amino Transferase 32 U/L (5-31); Blood Urea Nitrogen 28 mg/dL (9-16); Calcium 9.7 mg/dL (8.4-10.2); Carbon Dioxide 24 mmol/L (22-29); Chloride 102 mmol/L (96-108); Cholesterol 252 mg/dL (<200); Estimated Glomerular Filt Rate 40; HDL Cholesterol 69 mg/dL (>40); Potassium 4.1 mmol/L (3.3-5.1); Sodium 138 mmol/L (135-145); Total Protein 7.9 g/dL (6.5-8.0); Triglycerides 125 mg/dL (<150)
[2025-05-31 17:43] LABS: Free T4 (Free Thyroxine) 1.26 ng/dL (0.71-1.85)
== END 2025-05-31 13:10 | disposition home or self-care (01) ==
LOC: HO.HMGCLDS 13:09
PROVIDERS: PCP Internal Medicine; Visit Provider Internal Medicine
DX: Z00.00 Encounter for general adult medical examination without abnormal findings (principal); E78.5 Hyperlipidemia, unspecified; I42.9 Cardiomyopathy, unspecified; E55.9 Vitamin D deficiency, unspecified; E03.9 Hypothyroidism, unspecified; F17.210 Nicotine dependence, cigarettes, uncomplicated; Z79.82 Long term (current) use of aspirin; Z79.890 Hormone replacement therapy; Z79.899 Other long term (current) drug therapy
CPT/HCPCS: 36415; 80053; 80061; 81001; 82306; 84439; 84443; 85025; 99396

== ENCOUNTER 2025-06-06 12:47 | Outpatient (AMB) | payer OTHER, SELFPAY ==
--- NOTE | 2025-06-06 12:51 | MHC.OFFVIS ---
Vital Signs 06/06/25 12:52 Height 4 ft 9 in Weight 106 lb BMI 22.9 BP 169/94 H Blood Pressure Location Rt brachial Position Sitting Pulse 75 Intake Visit Reasons: 6 MO F/U Intake Note: Jeane presents to in office today in 6 months follow up. CC: Patient reports that she had an episode at work last week and she was vomiting, having diarrhea, and abd pain. She states that she is now doing well. Golf Ball Cover Treater Required: No Allergies Penicillins (PENICILLINS) Allergy (Intermediate, Verified 06/06/25 13:00) RASH codeine (CODEINE) Allergy (Mild, Verified 06/06/25 13:00) RASH penicillin V Allergy (Unknown, Verified 06/06/25 13:00) unknown olmesartan Adverse Reaction (Intermediate, Verified 06/06/25 13:00) Dizziness meloxicam Adverse Reaction (Unknown, Verified 06/06/25 13:00) vomiting HPI HPI 6 MO F/U: Details: 65 yr old f here for f/u RECAP: She had EGD 07/2021 for diarrhea and nausea with vomiting EGD with schatzki ring, erosive esophagitis, erosive gastritis hiatal hernia, duodenitis she had seen surgeon at [facility] for review of incisional hernia recurrence, Imaging: CT 02/2021-- recurrence of periumbilical hernia, small adenoma GES 10/2021-- normal at [address]: 11/2021--enlarging adrenal adrenal, kyphosis, anterior compression D9 MRI 12/2021--lipid rich adenoma LABS: raised plasma metanephrines Colonoscopy: polyps internal hemorrhoids diverticular disease Path: tubular adnenoma US 09/07 gallstones, HIDA 11/05 nml INTERIM: Still working at [employer] she had one attack last friday of nausea, vomiting and abdominal pain, she took half lorazepam and zofran and it helped now feeling back to normal still using THC every day, smoking weight is stable she tried co Q10 but didnt help EXAM: GENERAL: The patient is uncomfortable, and agitated, groaning VITAL SIGNS:see workflow HEENT: Nonicteric sclerae, PERRLA, EOMI. Oropharynx clear. Moist mucous membranes. Conjunctivae appear well perfused. No thyroid mass. CHEST: Chest wall is nontender. HEART: Regular rate and rhythm without murmurs. LUNGS: Clear to auscultation bilaterally. ABDOMEN: Soft, positive bowel sounds, tender epigastrium, no organomegaly.no flank tenderness SKIN: No rash, no excessive bruising, petechiae, or purpura. NEUROLOGIC: Cranial nerves II-XII intact without motor/sensory deficit. MS: slight kyphosis A/P: 1/ May have cannabinoid hyperemesis syndrome, vs CVS--attacks respond to lorazepam and zofran 2/ gallstones --asymptomatic right now PLAN: 1. cont with PPI BID as helps reflux sx 2 refer hematology due to high HGB she wants to come back prn [facility] Medical History Vitamin D deficiency Diarrhea Cardiomyopathy Hyperlipidemia Hypothyroidism Adrenal adenoma Hiatal hernia Nicotine dependence, cigarettes, uncomplicated Asthma Raynaud disease Arthritis Carpal tunnel syndrome of right wrist Tibia fracture History of spinal fracture History of mammogram Surgical History History of adrenal surgery History of hysterectomy History of umbilical hernia repair History of incisional hernia repair History of esophagogastroduodenoscopy (EGD) History of colonoscopy Family History Father Stroke Mother No problems noted. Brother No problems noted. Sister No problems noted. Sister No problems noted. Sister No problems noted. Son No problems noted. Daughter No problems noted. Social History Household Members: None Housing: Apartment Do you presently have visiting nurse or other home services: No Alcohol intake: never Patient Tobacco Use Status: Current everyday Tobacco user Tobacco use type: Cigarette Cigarettes Per Day: 4 Years Smoked: 49, ranging from 0.25 to 1 ppd e-Cigarette/Vaping Use: Never Used Substance Use Type: Marijuana service: No Current occupational status: employed Cognitive needs: No Hearing needs: No Vision needs: No Physical Exam Vital Signs: Last Vital Signs Pulse 75 06/06/25 12:52 BP 169/94 H 06/06/25 12:52 BMI result Body Mass Index 22.9 Assessment & Plan Assessment & Plan (1) Polycythemia: Code(s): D75.1 - Secondary polycythemia Category: Medical Plan: as above Orders: Referrals Hematology & Oncology Referral D75.1 - Secondary polycythemia Coding Level of Care Code Est Pt Level 3 (48215) Diagnoses Polycythemia D75.1
[2025-06-06 12:52] VITALS: BP 169/94; PULSE 75; BMI 22.9
--- OUTSIDE RECORDS SUMMARY | 2025-06-06 17:04 | XMS_ITS | Clinical Summary ---
Author Organization [facility] Address [address] [place] [address] Care Team Providers Care Benefits Coordinator Name Role Phone Marcie Chatterjee MD Primary Care Provider [phone] Surgical History Surgery Date Site/Laterality Comments HERNIA REPAIR PROCEDURE: IN REPAIR FIRST ABDOMINAL WALL HERNIA HYSTERECTOMY PROCEDURE: HISTORICAL HYSTERECTOMY TOTAL KNEE ARTHROPLASTY PROCEDURE: IN ARTHRP KNE CONDYLE&PLATU MEDIAL&LAT COMPARTMENTS Social History [...] age to complete this topic Care Teams Benefits Coordinator Relationship Specialty Start Date End Date Marcie Chatterjee MD PCP - General Internal Medicine 02/07/22
--- OUTSIDE RECORDS SUMMARY | 2025-06-06 17:04 | XMS_ITS | Clinical Summary ---
Author Organization [facility] Address [address] [place] [id number] Phone Care Team Providers Care Emt Intermediate Name Role Phone Marcie Chatterjee MD Primary Care Provider [phone] Social History Tobacco Use Types Packs/Day Years [...] topic Medical Devices Not on file Insurance [facility] Care Teams Emt Intermediate Relationship Specialty Start Date End Date Marcie Chatterjee MD [address] [facility] [place] [address] PCP - General Internal Medicine 07/04/23 Additional Source Comments The information contained in this document represents components of the legal health record. It is not the complete legal health record.[facility]
== END 2025-06-06 13:47 | disposition home or self-care (01) ==
LOC: HO.HGI 12:48
PROVIDERS: PCP Internal Medicine; Visit Provider Internal Medicine Gastroenterology
DX: D75.1 Secondary polycythemia (principal)
CPT/HCPCS: 99213

== ENCOUNTER → 2025-06-06 12:47 | Outpatient (BNVA) | payer OTHER, SELFPAY | PROVIDERS: PCP Internal Medicine; Visit Provider Internal Medicine Gastroenterology | DX: D75.1 Secondary polycythemia (principal) | CPT/HCPCS: 99212 ==